=== PATIENT | male | born 1945 | race Caucasian/White ===

== ENCOUNTER 2017-03-19 14:11 | Emergency (ER) | payer MEDICARE, BC, OTHER ==
[~2017-03-19] VITALS: Ht 167.6 cm; Wt 110.4 kg
[~2017-03-19 14:11] MED LIST: /CARBXR20T; /CARBXR20T PO; /DULO30CA PO; /PANT40TA; /PANT40TA OR; /QUIN10TA; /TAMS4CA PO; ACET500C; ARIC10TA OR; ARIC5TAB; ASPI81TA21 PO; ASPI81TA83; ASPI81TA83 OR; CARB200T98 PO; COLA100C2; COLA100C2 OR; COLA100C5 PO; COZA25TA8; COZA25TA8 PO; COZA50TA18 OR; DOXY100C PO; DULO1CAP2 PO; FLAG500T OR; FLOM5CAP PO; INSUHUMDS SC; LASIX PO; LEVO75TA2 PO; LOPR50TA; LOSA50TA20 PO; METO25TA4 PO; METOPROLOL TARTRATE OR; NEUR300C; NEUR300C OR; PANT40TA2 PO; PERC5TAB8 OR; PLAV1TAB2 PO; PLAV75TA2; PLAV75TA2 OR; PLAV75TA2 PO; SENO8.6T5; SIMV20TA2 PO; TEGR200T OR; ZOCO20TA; ZOCO40TA PO; metamucil; namenda PO
[2017-03-19] MEDS ORDERED: SIMV40TA2 (14:36)
[2017-03-19] MEDS ORDERED: METO-346 (14:36)
[2017-03-19] MEDS ORDERED: METF500T13 (14:36)
[2017-03-19 16:17] LABS: ABG BASE EXCESS -0.5 (-2.0-2.0); ABG HCO3 23.9 MEQ/L (22.0-26.0); ABG PARTIAL PRESSURE CO2 38.4 mmHg (35.0-45.0); ABG PARTIAL PRESSURE O2 87.1 mmHg (75.0-100.0); ABG STANDARD HCO3 24.1 MEQ/L (22.0-26.0); ABG TOTAL CO2 25.1 MEQ/L (23.0-31.0); ABG pH (ARTERIAL) 7.412 UNITS (7.350-7.450)
[2017-03-19 16:25] LABS: BASO % 0.4 % (0.0-1.0); EOS # 0.2 K/mm3 (0.0-0.50); EOS % 2.5 % (0.0-3.0); LARGE UNSTAINED CELL # 0.2 K/mm3 (0.0-0.4); LARGE UNSTAINED CELL % 1.9 % (0.0-4.0); LYMPH # 2.6 K/mm3 (1.5-4.5); LYMPH % 26.3 % (24.0-44.0); MEAN CORPUSCULAR HEMOGLOBIN 31.8 pg (27.0-33.0); MEAN CORPUSCULAR HGB CONC 34.8 g/dl (32.0-36.5); MEAN CORPUSCULAR VOLUME 91.5 fl (80.0-96.0); MONO # 0.7 K/mm3 (0.0-0.8); MONO % 7.2 % (0.0-5.0); NEUTROPHILS # 5.7 K/mm3 (1.8-7.7); NEUTROPHILS % 61.7 % (36.0-66.0); PLATELET COUNT, AUTOMATED 268 k/mm3 (150-450); RED CELL DISTRIBUTION WIDTH 12.4 % (11.5-14.5); WHITE BLOOD COUNT 9.2 K/mm3 (4.0-10.0)
[2017-03-19 16:29] LABS: ANION GAP 6 MEQ/L (8-16); BLOOD UREA NITROGEN 13 MG/DL (7-18); CALCIUM LEVEL 8.8 MG/DL (8.8-10.2); CARBON DIOXIDE LEVEL 30 MEQ/L (21-32); CHLORIDE LEVEL 103 MEQ/L (98-107); CREATININE FOR GFR 0.93 MG/DL (0.70-1.30); GLOMERULAR FILTRATION RATE > 60.0 (>42); GLUCOSE, FASTING 133 MG/DL (83-110); SODIUM LEVEL 139 MEQ/L (136-145)
[2017-03-19 17:48] VITALS: BP 135/83
== END 2017-03-19 17:51 | disposition home or self-care (01) ==
LOC: M ED 16:05
DX: I69.351 Hemiplegia and hemiparesis following cerebral infarction affecting right dominant side (principal); F03.90 Unspecified dementia, unspecified severity, without behavioral disturbance, psychotic disturbance, mood disturbance, and anxiety; R63.0 Anorexia; J44.9 Chronic obstructive pulmonary disease, unspecified; J45.909 Unspecified asthma, uncomplicated; G47.30 Sleep apnea, unspecified; E78.5 Hyperlipidemia, unspecified; F17.290 Nicotine dependence, other tobacco product, uncomplicated; Z79.899 Other long term (current) drug therapy; Z79.4 Long term (current) use of insulin; Z79.02 Long term (current) use of antithrombotics/antiplatelets; Z79.84 Long term (current) use of oral hypoglycemic drugs

== ENCOUNTER → 2018-11-21 | Outpatient (CLI) | payer MEDICARE, BC, OTHER ==
[~2018-11-21] MED LIST changes: +FLOM0.4C39 PO; -FLOM5CAP PO; -LOSA50TA20 PO; +LOSA50TA88 PO; +METF500T13; +METO-346; -PANT40TA2 PO; +PANT40TA3 PO; +SIMV40TA2
--- NOTE | 2018-11-21 15:01 | REP ---
RIGHT KNEE, THREE VIEWS: HISTORY: Contusion. There is no acute fracture or dislocation. There is minimal narrowing of the knee joint space. Osteophytes are present on the tibia and patella. IMPRESSION: Degenerative change as described above. Electronically Signed by Jose G Randolph MD 11/21/2018 03:05 P
== END ==
LOC: M WUC 14:34
PROVIDERS: ATTEND Physician Assistant
DX: M17.11 Unilateral primary osteoarthritis, right knee (principal); M25.761 Osteophyte, right knee; S80.01XA Contusion of right knee, initial encounter; X58.XXXA Exposure to other specified factors, initial encounter; Y92.9 Unspecified place or not applicable

== ENCOUNTER 2019-09-22 16:41 | Inpatient (IN) | payer MEDICARE, BC, OTHER ==
[~2019-09-22] VITALS: Ht 167.6 cm; Wt 105.2 kg
[~2019-09-22 16:41] MED LIST changes: -/CARBXR20T; -/CARBXR20T PO; -/DULO30CA PO; -/PANT40TA; -/PANT40TA OR; -/QUIN10TA; -/TAMS4CA PO; +ACCU1TAB; +CYMB1CAP5 PO; -DULO1CAP2 PO; +DULO1CAP5 PO; +PROT1TAB2; +PROT1TAB2 OR; -SIMV20TA2 PO; +SIMV20TA22 PO; -SIMV40TA2; +SIMV40TA20 PO; +TEGR1TAB; +TEGR1TAB PO
[2019-09-22] MEDS ORDERED: NS 1,000 ML IV SCH (17:03)
[2019-09-22] MEDS ORDERED: ACETAMINOPHEN 325 MG TAB PO ONE (17:15)
--- NOTE | 2019-09-22 17:40 | REP ---
Clinical: Altered mental status . Comparison: 06/08/2016 . Findings: Stable cardiomegaly. Mediastinum is otherwise normal. The lung rg are clear without acute consolidation, effusion, or pneumothorax. Skeletal structures are intact. Impression: No acute cardiopulmonary process appreciated. Electronically Signed by Yariel More MD 09/22/2019 05:31 P
--- NOTE | 2019-09-22 17:59 | REPVR ---
PROCEDURE INFORMATION: Exam: CT Head Without Contrast Exam date and time: 09/22/2019 5:03 PM Age: 74 years old Clinical indication: Altered mental status/memory loss TECHNIQUE: Imaging protocol: Computed tomography of the head without contrast. Radiation optimization: All CT scans at this facility use at least one of these dose optimization techniques: automated exposure control; mA and/or kV adjustment per patient size (includes targeted exams where dose is matched to clinical indication); or iterative reconstruction. COMPARISON: CT Head without contrast 06/08/2016 9:36 PM FINDINGS: Brain: There is no acute intracranial hemorrhage, cerebral edema, or midline shift. Chronic encephalomalacia is noted in the posteromedial left temporal lobe. There are chronic lacunar infarcts noted within the bilateral thalamic nuclei. Chronic microvascular ischemic changes are seen in the periventricular white matter. Age-related cerebral and cerebellar volume loss is present. Ventricles: Mild ex vacuo dilation of the lateral ventricles is noted. Bones/joints: No acute fracture. Sinuses: There is mild mucosal thickening noted within the paranasal sinuses. Mastoid air cells: The mastoid air cells are clear. Orbits: The included orbital structures are unremarkable. Soft tissues: Unremarkable. Vasculature: Atherosclerotic calcifications are seen involving the cavernous carotid arteries. IMPRESSION: 1. No acute intracranial abnormality. 2. Chronic findings as discussed above. Electronically signed by: Rico Bowles On 09/22/2019 17:59:14 PM
[2019-09-22 18:13] LABS: VENOUS BASE EXCESS 2.6 (-2.0-2.0); VENOUS HCO3 28.2 MEQ/L (23.0-27.0); VENOUS O2 SATURATION 88.6 % (60.0-80.0); VENOUS PARTIAL PRESSURE CO2 47.5 mmHg (38.0-50.0); VENOUS PARTIAL PRESSURE O2 56.4 mmHg (30.0-50.0); VENOUS PH 7.392 UNITS (7.330-7.430); VENOUS STANDARD HCO3 26.5 MEQ/L; VENOUS TOTAL CO2 29.7 MEQ/L (24.0-28.0)
[2019-09-22 18:17] LABS: BASO % 0.3 % (0.0-1.0); EOS # 0.1 10^3/uL (0.0-0.5); EOS % 0.8 % (0.0-3.0); HEMATOCRIT 41.6 % (42.0-52.0); HEMOGLOBIN 13.7 g/dl (13.5-17.5); LYMPH # 1.3 10^3/uL (1.5-5.0); LYMPH % 8.8 % (24.0-44.0); MEAN CORPUSCULAR HEMOGLOBIN 30.1 pg (27.0-33.0); MEAN CORPUSCULAR HGB CONC 32.9 g/dl (32.0-36.5); MEAN CORPUSCULAR VOLUME 91.4 fl (80.0-96.0); MONO # 1.7 10^3/uL (0.0-0.8); MONO % 11.3 % (0.0-5.0); NEUTROPHILS # 11.8 10^3/uL (1.5-8.5); NEUTROPHILS % 77.7 % (36.0-66.0); PLATELET COUNT, AUTOMATED 256 10^3/uL (150-450); RED BLOOD COUNT 4.55 10^6/uL (4.30-6.10); WHITE BLOOD COUNT 15.2 10^3/uL (4.0-10.0)
[2019-09-22] MEDS ORDERED: LIDOCAINE 2% 5ML JELLY UROJET TOP ONE (18:30)
[2019-09-22 19:32] LABS: ACETAMINOPHEN LEVEL < 2.0 UG/ML (10.0-30.0); ALBUMIN 3.6 GM/DL (3.2-5.2); ALT/SGPT 24 U/L (12-78); BILIRUBIN,DIRECT < 0.1 MG/DL (0.0-0.2); BILIRUBIN,TOTAL 0.6 MG/DL (0.2-1.0); BLOOD UREA NITROGEN 14 MG/DL (7-18); CARBON DIOXIDE LEVEL 27 MEQ/L (21-32); CHLORIDE LEVEL 100 MEQ/L (98-107); CK-MB VALUE MASS < 1.0 NG/ML (<3.6); CPK CREATINE PHOSPHOKINASE 118 U/L (39-308); CREATININE FOR GFR 0.93 MG/DL (0.70-1.30); ETHYL ALCOHOL (ETHANOL) < 0.003 % (0.000-0.010); GLOMERULAR FILTRATION RATE > 60.0 (>42); GLUCOSE, FASTING 148 MG/DL (70-100); MB/CK RELATIVE INDEX 0.85 (< OR =4); POTASSIUM SERUM 4.9 MEQ/L (3.5-5.1); SALICYLATE LEVEL < 1.7 MG/DL (5.0-30.0); SODIUM LEVEL 136 MEQ/L (136-145); TOTAL PROTEIN 7.5 GM/DL (6.4-8.2); TROPONIN I < 0.02 NG/ML (< 0.10)
--- NOTE | 2019-09-22 20:08 | ECGEPIP ---
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
[2019-09-22 20:10] LABS: AMPHETAMINES LEVEL URINE NEGATIVE (NEGATIVE); BARBITURATES URINE NEGATIVE (NEGATIVE); BENZODIAZEPINES URINE NEGATIVE (NEGATIVE); CANNABINOIDS URINE NEGATIVE (NEGATIVE); COCAINE METABOLITE URINE NEGATIVE (NEGATIVE); METHADONE URINE NEGATIVE (NEGATIVE); OPIATES URINE NEGATIVE (NEGATIVE); PHENCYCLIDINE URINE NEGATIVE (NEGATIVE)
[2019-09-22] MEDS ORDERED: GLUCAGON FOR INJ 1 MG VIAL (J1610) SC PRN (20:15)
[2019-09-22] MEDS ORDERED: DEXTROSE 50% 50 ML SYRINGE IV PRN (20:15)
[2019-09-22] MEDS ORDERED: GLUCOSE 4 GM CHEW TABLET PO PRN (20:15)
[2019-09-22] MEDS ORDERED: JANU100T PO (20:29)
--- NOTE | 2019-09-22 20:32 | HPEPDOC ---
General Date of Admission 09/22/19 Date of Service: Sep 22, 2019 Chief Complaint The patient is a 74-year-old male admitted with a reason for visit of Fall/Weakness. Source: Patient, Family Exam Limitations: Mild cognitive slowing Timing/Duration: Day(s) Severity: Moderate Associated Symptoms: Cough, Shortness of breath History of Present Illness Patient is 74 years old male with past medical history of cerebrovascular accident with right-sided weakness, diabetes mellitus, hypertension, hyperlipidemia presented to the emergency room (ER) for evaluation of fever, cough and confusion since this morning. According to the family patient developed progressive weakness for past couple of days, today in the morning he developed mechanical fall in the bathroom. Also patient has been having increased cough and congested chest for a few days. His has a symptoms of upper respiratory infection as well. In emergency room patient was found to have leukocytosis of 15, fever of 101, CT head was negative for acute bleed, chest x- ray didn't show any acute lung infiltrate. UA was negative for pyuria Home Medications Scheduled Carbamazepine (Carbamazepine ER) 200 Mg Alex, 200 MG PO BID, (Reported) Clopidogrel Bisulfate (Plavix) 75 Mg Tab, 75 MG PO DAILY, (Reported) Docusate Sodium (Colace) 100 Mg Cap, 100 MG PO DAILY, (Reported) Duloxetine Hcl (Duloxetine HCl) 30 Mg Cap, 30 MG PO BID, (Reported) Losartan Potassium (Losartan Potassium) 50 Mg Tab, 50 MG PO DAILY, (Reported) Metformin HCl (Metformin HCl) 500 Mg Tab, 500 MG DAILY, (Reported) Metoprolol Tartrate (Metoprolol Tartrate) 25 Mg Tab, 25 MG PO BID, (Reported) Pantoprazole Sodium (Pantoprazole Sodium) 40 Mg Tab, 40 MG PO DAILY, (Reported) Simvastatin (Simvastatin) 40 Mg Tab, 40 MG PO QHS, (Reported) Sitagliptin Phosphate (Januvia) 100 Mg Tablet, 100 MG PO QPM, (Reported) Tamsulosin HCl (Flomax) 0.4 Mg Cap, 0.4 MG PO QHS, (Reported) Allergies Coded Allergies: No Known Allergies (Verified , 09/22/19) Past Medical History Medical History 1. Cerebrovascular accident with right-sided weakness. 2. Hypertension. 3. Dyslipidemia. 4. Acid reflux. 5. BPH. 6. Brain aneurysm. Family History Reviewed and both parents a long time ago. No history of myocardial infarction (MD) or stroke in the family. Social History * Smoker: Denies Alcohol: Denies Drugs: denies A-FIB/CHADSVASC A-FIB History Current/History of A-Fib/PAF?: No Current PO Anticoag Therapy: No Review of Systems Constitutional: Reports: Fever, Malaise, Weakness Eyes: Denies: Pain, Vision change ENT: Denies: Head Aches Skin: Denies: Rash, Lesions Pulmonary: Reports: Cough Cardiovascular: Denies: Chest Pain, Palpitations Gastrointestinal: Denies: Nausea, Vomiting Genitourinary: Denies: Dysuria Hematologic: Denies: Bruising, Bleeding Excessively Endocrine: Denies: Polydipsia, Polyphagia Musculoskeletal: Denies: Neck Pain, Back Pain Neurological: Denies: Weakness, Numbness Psych: Reports: Mood Normal Physical Examination General Exam: Positive: Alert, Cooperative, No Acute Distress Eye Exam: Positive: PERRLA ENT Exam: Positive: Atraumatic, Mucous membr. moist/pink Neck Exam: Positive: Supple; Negative: JVD Chest Exam: Positive: Rhonchi, Wheezing, Diminished Heart Exam: Positive: Rate Normal Telemetry: Positive: No significant arrhythmia, Sinus Abdomen Exam: Positive: Normal bowel sounds Extremity Exam: Negative: Clubbing Skin Exam: Positive: Nl turgor and temperature Neuro Exam: Positive: Sensation Intact, Reflexes 2+; Negative: Strength at 5/5 X4 ext (right upper extremity is 3 out of 5, right lower extremity is 3 out of 5 in strength) Psych Exam: Positive: Mental status NL (moderate cognitive slowing) Vital Signs Vital Signs Date Time Temp Pulse Resp B/P (MAP) Pulse Ox O2 Delivery O2 Flow Rate FiO2 09/22/19 19:36 101.0 09/22/19 18:45 73 95 Nasal Cannula 2.5 09/22/19 18:31 159/67 (97) 09/22/19 18:15 19 Laboratory Data Labs 24H Laboratory Tests 2 09/22/19 17:42: Immature Granulocyte % (Auto) 1.1, Neutrophils (%) (Auto) 77.7H, Lymphocytes (%) (Auto) 8.8L, Monocytes (%) (Auto) 11.3H, Eosinophils (%) (Auto) 0.8, Basophils (%) (Auto) 0.3, Neutrophils # (Auto) 11.8H, Lymphocytes # (Auto) 1.3L, Monocytes # (Auto) 1.7H, Eosinophils # (Auto) 0.1, Basophils # (Auto) 0.0, Nucleated Red Blood Cells % (auto) 0.0, Blood Gas Bicarbonate Standard 26.5, Venous Blood pH 7.392, Venous Blood Partial Pressure CO2 47.5, Venous Blood Partial Pressure O2 56.4H, Venous Blood Total Carbon Dioxide 29.7H, Venous Blood HCO3 28.2H, Venous Blood Oxygen Saturation 88.6H, Venous Blood Base Excess 2.6H, Anion Gap 9, Glomerular Filtration Rate > 60.0, Lactic Acid Level 1.7, Calcium Level 9.0, Total Bilirubin 0.6, Direct Bilirubin < 0.1, Aspartate Amino Transf (AST/SGOT) 31, Alanine Aminotransferase (ALT/SGPT) 24, Alkaline Phosphatase 80, Ammonia 29, Total Creatine Kinase 118, Creatine Kinase MB < 1.0, Creatine Kinase MB Relative Index 0.85, Troponin I < 0.02, Total Protein 7.5, Albumin 3.6, Albumin/Globulin Ratio 0.92L, Thyroid Stimulating Hormone (TSH) 1.090, Salicylates Level < 1.7L, Acetaminophen Level < 2.0L, Ethyl Alcohol Level < 0.003 09/22/19 19:01: Urine Color YELLOW, Urine Appearance CLEAR, Urine pH 5.0, Urine Specific [place] 1.026, Urine Protein 1+H, Urine Glucose (UA) NEGATIVE, Urine Ketones TRACEH, Urine Blood 2+H, Urine Nitrite NEGATIVE, Urine Bilirubin NEGATIVE, Urine Urobilinogen 0.2, Urine Leukocyte Esterase NEGATIVE, Urine WBC (Auto) 4H, Urine RBC (Auto) 19H, Urine Hyaline Casts (Auto) 0, Urine Bacteria (Auto) NEGATIVE, Urine Squamous Epithelial Cells 1, Urine Mucus (Auto) SMALL, Urine Sperm (Auto) , Urine Opiates Screen NEGATIVE, Urine Methadone Screen NEGATIVE, Urine Barbiturates Screen NEGATIVE, Urine Phencyclidine Screen NEGATIVE, Urine Amphetamines Screen NEGATIVE, Urine Benzodiazepines Screen NEGATIVE, Urine Cocaine Metabolite Screen NEGATIVE, Urine Cannabinoids Screen NEGATIVE CBC/BMP Laboratory Tests 09/22/19 17:42 Microbiology Microbiology 09/22/19 Blood Culture, Received Pending 09/22/19 Blood Culture, Received Pending Assessment/Plan Patient is 74 years old male with past medical history of cerebrovascular accident with right-sided weakness, diabetes mellitus, hypertension, hyperlipidemia presented to the emergency room (ER) for evaluation of fever, cough and confusion since this morning. According to the family patient developed progressive weakness for past couple of days, today in the morning he developed mechanical fall in the bathroom. Also patient has been having increase cough and congested chest for a few days. His has a symptoms of upper respiratory infection. In emergency room patient was found to have leukocytosis of 15, fever of 101. Patient was diagnosed with metabolic encephalopathy and community-acquired pneumonia. Problems (1) Sepsis Status: Acute Problem Text: Most likely secondary to community acquired pneumonia Patient febrile of 101 and has leukocytosis of 15 Start antibiotic therapy IV fluid Blood culture, sputum culture (2) CAP (community acquired pneumonia) Status: Acute Problem Text: Most likely secondary to viral infection with bacterial co-i nfection. There is possibility for aspiration/aspiration pneumonitis given previous history of stroke Respiratory panel Blood culture Ceftriaxone IV, azithromycin IV DuoNeb [id number] Aspiration precaution Speech evaluation (3) Altered mental status Status: Acute Problem Text: Secondary to community-acquired pneumonia and sepsis Improved, when I saw the patient he was alert and awake (4) Diabetes Status: Chronic Problem Text: Insulin sliding scale, Diabetes diet Plan / VTE VTE Prophylaxis Ordered?: Yes ROMEO JARQUIN DO Sep 22, 2019 20:32
[2019-09-22] MEDS: NS 1,000 ML IV SCH (20:39)
[2019-09-22] MEDS: HumaLOG INSULIN (NovoLOG) PER UNIT SC SCH (21:00)
[2019-09-22] MEDS: cefTRIAXone SOD 1 GM in D5W MINI-BAG PLUS 50 ML IV SCH (22:09)
[2019-09-22 22:46] VITALS: BP 162/75
[2019-09-22] MEDS: DULoxetine 30 MG CAP (CYMBALTA) PO SCH (23:26)
[2019-09-22] MEDS: TAMSULOSIN 0.4 MG CAP PO SCH (23:27)
[2019-09-22] MEDS: SIMVASTATIN 40 MG TAB PO SCH (23:27)
[2019-09-22] MEDS: carBAMazepine XR 200 MG TAB PO SCH (23:27)
[2019-09-22] MEDS: METOPROLOL TART 25 MG TABLET PO SCH (23:27)
[2019-09-22] MEDS: ACETAMINOPHEN TAB 650MG DOSE (2X325MG) PO PRN (23:28)
[2019-09-23] MEDS: AZITHROMYCIN INJ 500 MG, VIAL MATE ADAPTER 1 EACH in D5W 250 ML IV SCH ×2 (00:03→22:21)
[2019-09-23] MEDS: IPRATROPIUM 0.5MG/ALBUTEROL 2.5MG INH SOL UD 3ML (DUONEB)(J7620) INH SCH ×6 (01:02→19:59)
[2019-09-23] MEDS: NS 1,000 ML IV SCH ×3 (03:49→20:26)
[2019-09-23 06:00] VITALS: BP 121/78
[2019-09-23 07:02] LABS: HEMATOCRIT 39.6 % (42.0-52.0); HEMOGLOBIN 12.5 g/dl (13.5-17.5); MEAN CORPUSCULAR HEMOGLOBIN 29.3 pg (27.0-33.0); MEAN CORPUSCULAR HGB CONC 31.6 g/dl (32.0-36.5); PLATELET COUNT, AUTOMATED 211 10^3/uL (150-450); RED BLOOD COUNT 4.26 10^6/uL (4.30-6.10); WHITE BLOOD COUNT 10.5 10^3/uL (4.0-10.0)
[2019-09-23 07:18] LABS: INFLUENZA A AMPLIFICATION NEGATIVE (NEGATIVE); INFLUENZA B AMPLIFICATION NEGATIVE (NEGATIVE)
[2019-09-23 07:21] LABS: BLOOD UREA NITROGEN 14 MG/DL (7-18); CALCIUM LEVEL 8.7 MG/DL (8.8-10.2); CARBON DIOXIDE LEVEL 26 MEQ/L (21-32); CHLORIDE LEVEL 104 MEQ/L (98-107); CREATININE FOR GFR 0.82 MG/DL (0.70-1.30); GLOMERULAR FILTRATION RATE > 60.0 (>42); GLUCOSE, FASTING 137 MG/DL (70-100); MAGNESIUM LEVEL 2.1 MG/DL (1.8-2.4); POTASSIUM SERUM 3.7 MEQ/L (3.5-5.1); SODIUM LEVEL 139 MEQ/L (136-145)
[2019-09-23] MEDS: METOPROLOL TART 25 MG TABLET PO SCH ×2 (08:37→21:04)
[2019-09-23] MEDS: LOSARTAN 50 MG TAB PO SCH (08:37)
[2019-09-23] MEDS: PANTOPRAZOLE 40MG TAB (PROTONIX) PO SCH (08:37)
[2019-09-23] MEDS: HumaLOG INSULIN (NovoLOG) PER UNIT SC SCH ×4 (08:37→21:00)
[2019-09-23] MEDS: HEPARIN SOD (PORCINE) 5000 UNITS/ML VIAL SC SCH ×2 (08:37→21:00)
[2019-09-23] MEDS: DOCUSATE SODIUM 100 MG CAP PO SCH (08:38)
[2019-09-23] MEDS: CLOPIDOGREL 75 MG TAB PO SCH (08:38)
[2019-09-23] MEDS: DULoxetine 30 MG CAP (CYMBALTA) PO SCH ×2 (08:38→20:59)
[2019-09-23] MEDS: carBAMazepine XR 200 MG TAB PO SCH ×2 (08:38→20:59)
[2019-09-23] MEDS ORDERED: CEFP200T PO (11:02)
[2019-09-23] MEDS ORDERED: ZITHTAB2 PO (11:02)
--- NOTE | 2019-09-23 12:10 | DS.PDOC ---
Discharge Summary General Date of Admission Sep 22, 2019 at 20:10 Date of Discharge 09/23/19 Discharge Summary PROCEDURES PERFORMED DURING STAY: None. ADMITTING DIAGNOSES: 1. CAP. DISCHARGE DIAGNOSES: 1. Acute bronchitis. COMPLICATIONS/CHIEF COMPLAINT: Community Aquired Pneumonia. HISTORY OF PRESENT ILLNESS: Patient is 74 years old male with past medical history of cerebrovascular accident with right-sided weakness, diabetes mellitus, hypertension, hyperlipidemia presented to the emergency room (ER) for evaluation of fever, cough and confusion since this morning. According to the family patient developed progressive weakness for past couple of days, today in the morning he developed mechanical fall in the bathroom. Also patient has been having increased cough and congested chest for a few days. His has a symptoms of upper respiratory infection as well. In emergency room patient was found to have leukocytosis of 15, fever of 101, CT head was negative for acute bleed, chest x-ray didn't show any acute lung infiltrate. UA was negative for pyuria. HOSPITAL COURSE: Patient was admitted with questionable community-acquired pneumonia. Patient's chest x-ray was essentially within normal limits. He remained afebrile and his WBC count is 8.7, asymptomatic. No evidence of pneumonia on clinical exam, most likely acute bronchitis and he will be discharged home on by mouth Zithromax and cephalosporins. Patient has been advised to follow with his PCP in one week return to ER if symptoms get worse or do not resolve in 24-48 hours. DISCHARGE MEDICATIONS: Please see below. ALLERGIES: Please see below. PHYSICAL EXAMINATION ON DISCHARGE: VITAL SIGNS: Please see below. GENERAL: Normal HEENT: PERRLA. Extraocular muscles intact NECK: Supple, no JVD, no lymphadenopathy CARDIOVASCULAR EXAMINATION: S1, S2, regular RESPIRATORY EXAMINATION: Clear to A&P. No rales, rhonchi, wheezing ABDOMINAL EXAMINATION: Benign EXTREMITIES: no Clubbing, cyanosis, edema SKIN: The normal limit NEUROLOGICAL EXAMINATION: no Focal motor motor sensory deficit PSYCHIATRIC EXAMINATION: Normal LABORATORY DATA: Please see below. IMAGING: Chest x-ray negative PROGNOSIS: Good ACTIVITY: As tolerated. DIET: As tolerated DISCHARGE PLAN: Follow with PCP in one week DISPOSITION: . Home DISCHARGE INSTRUCTIONS: 1. As per discharge instructions. ITEMS TO FOLLOWUP ON ON OUTPATIENT: 1. Follow with PCP in one week. DISCHARGE CONDITION: Stable. TIME SPENT ON DISCHARGE: 35 minutes. Vital Signs/I&Os Vital Signs Date Time Temp Pulse Resp B/P (MAP) Pulse Ox O2 Delivery O2 Flow Rate FiO2 09/23/19 06:00 98.6 73 20 121/78 (92) 92 09/22/19 22:46 Room Air 09/22/19 18:45 2.5 I&O- Last 24 Hours up to 6 AM 09/23/19 06:00 Intake Total 1875 ml Output Total 275 ml Balance 1600 ml Laboratory Data Labs 24H Laboratory Tests 2 09/22/19 17:42: Immature Granulocyte % (Auto) 1.1, Neutrophils (%) (Auto) 77.7H, Lymphocytes (%) (Auto) 8.8L, Monocytes (%) (Auto) 11.3H, Eosinophils (%) (Auto) 0.8, Basophils (%) (Auto) 0.3, Neutrophils # (Auto) 11.8H, Lymphocytes # (Auto) 1.3L, Monocytes # (Auto) 1.7H, Eosinophils # (Auto) 0.1, Basophils # (Auto) 0.0, Nucleated Red Blood Cells % (auto) 0.0, Blood Gas Bicarbonate Standard 26.5, Venous Blood pH 7.392, Venous Blood Partial Pressure CO2 47.5, Venous Blood Partial Pressure O2 56.4H, Venous Blood Total Carbon Dioxide 29.7H, Venous Blood HCO3 28.2H, Venous Blood Oxygen Saturation 88.6H, Venous Blood Base Excess 2.6H, Anion Gap 9, Glomerular Filtration Rate > 60.0, Lactic Acid Level 1.7, Calcium Level 9.0, Total Bilirubin 0.6, Direct Bilirubin < 0.1, Aspartate Amino Transf (AST/SGOT) 31, Alanine Aminotransferase (ALT/SGPT) 24, Alkaline Phosphatase 80, Ammonia 29, Total Creatine Kinase 118, Creatine Kinase MB < 1.0, Creatine Kinase MB Relative Index 0.85, Troponin I < 0.02, Total Protein 7.5, Albumin 3.6, Albumin/Globulin Ratio 0.92L, Thyroid Stimulating Hormone (TSH) 1.090, Salicylates Level < 1.7L, Acetaminophen Level < 2.0L, Ethyl Alcohol Level < 0.003 09/22/19 19:01: Urine Color YELLOW, Urine Appearance CLEAR, Urine pH 5.0, Urine Specific [place] 1.026, Urine Protein 1+H, Urine Glucose (UA) NEGATIVE, Urine Ketones TRACEH, Urine Blood 2+H, Urine Nitrite NEGATIVE, Urine Bilirubin NEGATIVE, Urine Urobilinogen 0.2, Urine Leukocyte Esterase NEGATIVE, Urine WBC (Auto) 4H, Urine RBC (Auto) 19H, Urine Hyaline Casts (Auto) 0, Urine Bacteria (Auto) NEGATIVE, Urine Squamous Epithelial Cells 1, Urine Mucus (Auto) SMALL, Urine Sperm (Auto) , Urine Opiates Screen NEGATIVE, Urine Methadone Screen NEGATIVE, Urine Barbiturates Screen NEGATIVE, Urine Phencyclidine Screen NEGATIVE, Urine Amphetamines Screen NEGATIVE, Urine Benzodiazepines Screen NEGATIVE, Urine Cocaine Metabolite Screen NEGATIVE, Urine Cannabinoids Screen NEGATIVE 09/22/19 21:56: Bedside Glucose (Misc Panel) 145H 09/22/19 22:59: Bedside Glucose (Misc Panel) 159H 09/23/19 06:25: Nucleated Red Blood Cells % (auto) 0.0, Anion Gap 9, Glomerular Filtration Rate > 60.0, Calcium Level 8.7L, Magnesium Level 2.1 09/23/19 06:39: Influenza Type A (RT-PCR) NEGATIVE, Influenza Type B (RT-PCR) NEGATIVE 09/23/19 11:40: Bedside Glucose (Misc Panel) 176H CBC/BMP Laboratory Tests 09/22/19 17:42 09/23/19 06:25 FSBS Laboratory Tests Test 09/22/19 21:56 09/22/19 22:59 09/23/19 11:40 Range/Units Bedside Glucose (Misc Panel) 145 159 176 83-110 MG/DL Microbiology Microbiology 09/22/19 Blood Culture, Received Pending 09/22/19 Blood Culture, Received Pending Discharge Medications Scheduled Azithromycin (Zithromax Tri-Kobe) 500 Mg Tablet, 1 TAB PO DAILY Carbamazepine (Carbamazepine ER) 200 Mg Alex, 200 MG PO BID, (Reported) Cefpodoxime Proxetil (Cefpodoxime Proxetil) 200 Mg Tablet, 1 TAB PO BID Clopidogrel Bisulfate (Plavix) 75 Mg Tab, 75 MG PO DAILY, (Reported) Docusate Sodium (Colace) 100 Mg Cap, 100 MG PO DAILY, (Reported) Duloxetine Hcl (Duloxetine HCl) 30 Mg Cap, 30 MG PO BID, (Reported) Losartan Potassium (Losartan Potassium) 50 Mg Tab, 50 MG PO DAILY, (Reported) Metformin HCl (Metformin HCl) 500 Mg Tab, 500 MG DAILY, (Reported) Metoprolol Tartrate (Metoprolol Tartrate) 25 Mg Tab, 25 MG PO BID, (Reported) Pantoprazole Sodium (Pantoprazole Sodium) 40 Mg Tab, 40 MG PO DAILY, (Reported) Simvastatin (Simvastatin) 40 Mg Tab, 40 MG PO QHS, (Reported) Sitagliptin Phosphate (Januvia) 100 Mg Tablet, 100 MG PO QPM, (Reported) Tamsulosin HCl (Flomax) 0.4 Mg Cap, 0.4 MG PO QHS, (Reported) Allergies Coded Allergies: No Known Allergies (Verified , 09/22/19) AMY AVILA MD Sep 23, 2019 12:10
--- NOTE | 2019-09-23 13:19 | IPNPDOC ---
Subjective Date Seen The patient was seen on 09/23/19. Subjective Chief Complaint/HPI Patient offers no new complaints. No cough or shortness of breath. Wishes to go home General: Denies: ROS Unobtainable, Chills, Night Sweats, Fatigue, Malaise, Normal Appetite, Other Symptoms Constitutional: Denies: Chills, Fever, Malaise, Night Sweats, Weakness, Fatigue, Weight Loss, Lethargy, Other Eyes: Denies: Pain, Vision change, Conjunctivae inflammation, Eyelid inflamm ation, Redness, Other ENT: Denies: Head Aches, Ear Pain, Dysphagia, Sinus Congestion, Post Nasal Drip, Sore Throat, Epistaxis, Other Symptoms Pulmonary: Denies: Dyspnea, Cough, Pleuritic Chest Pain, Other Symptoms Cardiovascular: Denies: Chest Pain, Palpitations, Orthopnea, Paroxysmal Noc. Dyspnea, Edema, Lt Headedness, Other Symptoms Gastrointestinal: Denies: Nausea, Vomiting, Abdominal Pain, Diarrhea, Const ipation, Melena, Hematochezia, Other Symptoms Musculoskeletal: Denies: Neck Pain, Back Pain, Shoulder Pain, Arm Pain, Hand Pain, Leg Pain, Foot Pain, Joint Pain, Muscle Pain, Spasms, Other Symptoms Neurological: Denies: Weakness, Numbness, Incoordination, Change in speech, Confusion, Seizures, Other Symptoms Objective Physical Examination General Exam: Positive: Alert, Cooperative, No Acute Distress Eye Exam: Positive: PERRLA ENT Exam: Positive: Atraumatic, Mucous membr. moist/pink Neck Exam: Positive: Supple; Negative: JVD Chest Exam: Positive: Rhonchi, Wheezing, Diminished Heart Exam: Positive: Rate Normal Telemetry: Positive: No significant arrhythmia, Sinus Abdomen Exam: Positive: Normal bowel sounds Extremity Exam: Negative: Clubbing Skin Exam: Positive: Nl turgor and temperature Neuro Exam: Positive: Sensation Intact, Reflexes 2+; Negative: Strength at 5/5 X4 ext (right upper extremity is 3 out of 5, right lower extremity is 3 out of 5 in strength) Psych Exam: Positive: Mental status NL (moderate cognitive slowing) Assessment /Plan Problems (1) CAP (community acquired pneumonia) Status: Acute Problem Text: Most likely secondary to viral infection with bacterial co- infection. There is possibility for aspiration/aspiration pneumonitis given previous history of stroke Respiratory panel Blood culture Ceftriaxone IV, azithromycin IV DuoNeb [id number] Aspiration precaution Speech evaluation A.m. labs (2) Altered mental status Status: Resolved Problem Text: Secondary to community-acquired pneumonia and sepsis Resolved. Patient alert, oriented 3, in no distress (3) Sepsis Status: Acute Problem Text: Most likely secondary to community acquired pneumonia Patient febrile of 101 and has leukocytosis of 15 Start antibiotic therapy IV fluid Blood culture, sputum culture (4) Diabetes Status: Chronic Problem Text: Insulin sliding scale, Diabetic diet Plan/VTE VTE Prophylaxis Ordered?: Yes VS, I&O, 24H, Fishbone Vital Signs/I&O Vital Signs Date Time Temp Pulse Resp B/P (MAP) Pulse Ox O2 Delivery O2 Flow Rate FiO2 09/23/19 06:00 98.6 73 20 121/78 (92) 92 09/22/19 22:46 Room Air 09/22/19 18:45 2.5 I&O- Last 24 Hours up to 6 AM 09/23/19 06:00 Intake Total 1875 ml Output Total 275 ml Balance 1600 ml Laboratory Data 24H LABS Laboratory Tests 2 09/22/19 17:42: Immature Granulocyte % (Auto) 1.1, Neutrophils (%) (Auto) 77.7H, Lymphocytes (%) (Auto) 8.8L, Monocytes (%) (Auto) 11.3H, Eosinophils (%) (Auto) 0.8, Basophils (%) (Auto) 0.3, Neutrophils # (Auto) 11.8H, Lymphocytes # (Auto) 1.3L, Monocytes # (Auto) 1.7H, Eosinophils # (Auto) 0.1, Basophils # (Auto) 0.0, Nucleated Red Blood Cells % (auto) 0.0, Blood Gas Bicarbonate Standard 26.5, Venous Blood pH 7.392, Venous Blood Partial Pressure CO2 47.5, Venous Blood Partial Pressure O2 56.4H, Venous Blood Total Carbon Dioxide 29.7H, Venous Blood HCO3 28.2H, Venous Blood Oxygen Saturation 88.6H, Venous Blood Base Excess 2.6H, Anion Gap 9, Glomerular Filtration Rate > 60.0, Lactic Acid Level 1.7, Calcium Level 9.0, Total Bilirubin 0.6, Direct Bilirubin < 0.1, Aspartate Amino Transf (AST/SGOT) 31, Alanine Aminotransferase (ALT/SGPT) 24, Alkaline Phosphatase 80, Ammonia 29, Total Creatine Kinase 118, Creatine Kinase MB < 1.0, Creatine Kinase MB Relative Index 0.85, Troponin I < 0.02, Total Protein 7.5, Albumin 3.6, Albumin/Globulin Ratio 0.92L, Thyroid Stimulating Hormone (TSH) 1.090, Salicylates Level < 1.7L, Acetaminophen Level < 2.0L, Ethyl Alcohol Level < 0.003 09/22/19 19:01: Urine Color YELLOW, Urine Appearance CLEAR, Urine pH 5.0, Urine Specific [place] 1.026, Urine Protein 1+H, Urine Glucose (UA) NEGATIVE, Urine Ketones TRACEH, Urine Blood 2+H, Urine Nitrite NEGATIVE, Urine Bilirubin NEGATIVE, Urine Urobilinogen 0.2, Urine Leukocyte Esterase NEGATIVE, Urine WBC (Auto) 4H, Urine RBC (Auto) 19H, Urine Hyaline Casts (Auto) 0, Urine Bacteria (Auto) NEGATIVE, Urine Squamous Epithelial Cells 1, Urine Mucus (Auto) SMALL, Urine Sperm (Auto) , Urine Opiates Screen NEGATIVE, Urine Methadone Screen NEGATIVE, Urine Barbiturates Screen NEGATIVE, Urine Phencyclidine Screen NEGATIVE, Urine Amp hetamines Screen NEGATIVE, Urine Benzodiazepines Screen NEGATIVE, Urine Cocaine Metabolite Screen NEGATIVE, Urine Cannabinoids Screen NEGATIVE 09/22/19 21:56: Bedside Glucose (Misc Panel) 145H 09/22/19 22:59: Bedside Glucose (Misc Panel) 159H 09/23/19 06:25: Nucleated Red Blood Cells % (auto) 0.0, Anion Gap 9, Glomerular Filtration Rate > 60.0, Calcium Level 8.7L, Magnesium Level 2.1 09/23/19 06:39: Influenza Type A (RT-PCR) NEGATIVE, Influenza Type B (RT-PCR) NEGATIVE 09/23/19 11:40: Bedside Glucose (Misc Panel) 176H CBC/BMP Laboratory Tests 09/22/19 17:42 09/23/19 06:25 Microbiology Microbiology 09/22/19 Blood Culture, Received Pending 09/22/19 Blood Culture, Received Pending AMY AVILA MD Sep 23, 2019 13:19
[2019-09-23 14:00] VITALS: BP 122/74
[2019-09-23] MEDS ORDERED: POLYVINYL ALCOHOL OPHTH SOLN 15 ML(LIQUITEARS) OU PRN (19:00)
[2019-09-23] MEDS: TAMSULOSIN 0.4 MG CAP PO SCH (20:59)
[2019-09-23] MEDS: cefTRIAXone SOD 1 GM in D5W MINI-BAG PLUS 50 ML IV SCH (21:00)
[2019-09-23] MEDS: SIMVASTATIN 40 MG TAB PO SCH (21:00)
[2019-09-23 22:00] VITALS: BP 157/77
[2019-09-24] MEDS: IPRATROPIUM 0.5MG/ALBUTEROL 2.5MG INH SOL UD 3ML (DUONEB)(J7620) INH SCH ×6 (00:34→20:00)
[2019-09-24 06:00] VITALS: BP 157/79
[2019-09-24] MEDS: NS 1,000 ML IV SCH (06:02)
[2019-09-24] MEDS: IBUPROFEN 400 MG TAB PO PRN (06:02)
[2019-09-24 06:39] LABS: BASO % 0.3 % (0.0-1.0); EOS # 0.2 10^3/uL (0.0-0.5); EOS % 2.2 % (0.0-3.0); HEMATOCRIT 34.3 % (42.0-52.0); HEMOGLOBIN 11.3 g/dl (13.5-17.5); LYMPH # 1.7 10^3/uL (1.5-5.0); LYMPH % 18.5 % (24.0-44.0); MEAN CORPUSCULAR HEMOGLOBIN 30.1 pg (27.0-33.0); MEAN CORPUSCULAR HGB CONC 32.9 g/dl (32.0-36.5); MEAN CORPUSCULAR VOLUME 91.2 fl (80.0-96.0); MONO # 1.6 10^3/uL (0.0-0.8); MONO % 17.3 % (0.0-5.0); NEUTROPHILS # 5.7 10^3/uL (1.5-8.5); NEUTROPHILS % 60.4 % (36.0-66.0); PLATELET COUNT, AUTOMATED 200 10^3/uL (150-450); RED BLOOD COUNT 3.76 10^6/uL (4.30-6.10); WHITE BLOOD COUNT 9.4 10^3/uL (4.0-10.0)
[2019-09-24 07:05] LABS: BLOOD UREA NITROGEN 9 MG/DL (7-18); CALCIUM LEVEL 8.4 MG/DL (8.8-10.2); CARBON DIOXIDE LEVEL 27 MEQ/L (21-32); CHLORIDE LEVEL 104 MEQ/L (98-107); CREATININE FOR GFR 0.75 MG/DL (0.70-1.30); GLOMERULAR FILTRATION RATE > 60.0 (>42); GLUCOSE, FASTING 156 MG/DL (70-100); POTASSIUM SERUM 3.8 MEQ/L (3.5-5.1); SODIUM LEVEL 138 MEQ/L (136-145)
[2019-09-24] MEDS: HEPARIN SOD (PORCINE) 5000 UNITS/ML VIAL SC SCH ×2 (07:53→21:41)
[2019-09-24] MEDS: PANTOPRAZOLE 40MG TAB (PROTONIX) PO SCH (07:53)
[2019-09-24] MEDS: CLOPIDOGREL 75 MG TAB PO SCH (07:53)
[2019-09-24] MEDS: HumaLOG INSULIN (NovoLOG) PER UNIT SC SCH ×4 (07:53→21:00)
[2019-09-24] MEDS: DOCUSATE SODIUM 100 MG CAP PO SCH (07:54)
[2019-09-24] MEDS: METOPROLOL TART 25 MG TABLET PO SCH ×2 (07:55→21:46)
[2019-09-24] MEDS: LOSARTAN 50 MG TAB PO SCH (07:55)
[2019-09-24] MEDS: carBAMazepine XR 200 MG TAB PO SCH ×2 (07:55→21:43)
[2019-09-24] MEDS: DULoxetine 30 MG CAP (CYMBALTA) PO SCH ×2 (07:56→21:41)
--- NOTE | 2019-09-24 10:01 | IPNPDOC ---
Subjective Date Seen The patient was seen on 09/24/19. Subjective Chief Complaint/HPI Patient comfortable in no distress. Offers no new complaints General: Denies: ROS Unobtainable, Chills, Night Sweats, Fatigue, Malaise, Normal Appetite, Other Symptoms Constitutional: Denies: Chills, Fever, Malaise, Night Sweats, Weakness, Fatigue, Weight Loss, Lethargy, Other Pulmonary: Denies: Dyspnea, Cough, Pleuritic Chest Pain, Other Symptoms Cardiovascular: Denies: Chest Pain, Palpitations, Orthopnea, Paroxysmal Noc. Dyspnea, Edema, Lt Headedness, Other Symptoms Gastrointestinal: Denies: Nausea, Vomiting, Abdominal Pain, Diarrhea, Constipation, Melena, Hematochezia, Other Symptoms Musculoskeletal: Denies: Neck Pain, Back Pain, Shoulder Pain, Arm Pain, Hand Pain, Leg Pain, Foot Pain, Joint Pain, Muscle Pain, Spasms, Other Symptoms Neurological: Denies: Weakness, Numbness, Incoordination, Change in speech, Confusion, Seizures, Other Symptoms Objective Physical Examination General Exam: Positive: Alert, Cooperative, No Acute Distress Eye Exam: Positive: PERRLA ENT Exam: Positive: Atraumatic, Mucous membr. moist/pink Neck Exam: Positive: Supple; Negative: JVD Chest Exam: Positive: Rhonchi, Wheezing, Diminished Heart Exam: Positive: Rate Normal Telemetry: Positive: No significant arrhythmia, Sinus Abdomen Exam: Positive: Normal bowel sounds Extremity Exam: Negative: Clubbing Skin Exam: Positive: Nl turgor and temperature Neuro Exam: Positive: Sensation Intact, Reflexes 2+; Negative: Strength at 5/5 X4 ext (right upper extremity is 3 out of 5, right lower extremity is 3 out of 5 in strength) Psych Exam: Positive: Mental status NL (moderate cognitive slowing) Assessment /Plan Problems (1) CAP (community acquired pneumonia) Status: Acute Problem Text: Most likely secondary to viral infection with bacterial co- infection. There is possibility for aspiration/aspiration pneumonitis given previous history of stroke Respiratory panel negative Blood culture negative so far Ceftriaxone IV, azithromycin IV DuoNeb [id number] Aspiration precautions Patient not cleared by physical therapy for discharge yesterday We will reevaluate tomorrow and IF patient clears ,can be discharged home on by mouth antibiotics (2) Altered mental status Status: Resolved Problem Text: Secondary to community-acquired pneumonia and sepsis Resolved. Patient alert, oriented 3, in no distress (3) Sepsis Status: Acute Problem Text: Most likely secondary to community acquired pneumonia Patient febrile of 101 and has leukocytosis of 15 Start antibiotic therapy IV fluid Blood culture, sputum culture (4) Diabetes Status: Chronic Problem Text: Insulin sliding scale, Diabetic diet Plan/VTE VTE Prophylaxis Ordered?: Yes VS, I&O, 24H, Fishbone Vital Signs/I&O Vital Signs Date Time Temp Pulse Resp B/P (MAP) Pulse Ox O2 Delivery O2 Flow Rate FiO2 09/24/19 06:00 99.3 75 24 157/79 (105) 94 Room Air 09/22/19 18:45 2.5 I&O- Last 24 Hours up to 6 AM 09/24/19 06:00 Intake Total 2045 ml Output Total 1075 ml Balance 970 ml Laboratory Data 24H LABS Laboratory Tests 2 09/23/19 11:40: Bedside Glucose (Misc Panel) 176H 09/23/19 16:34: Bedside Glucose (Misc Panel) 134H 09/23/19 20:31: Bedside Glucose (Misc Panel) 187H 09/24/19 06:07: Immature Granulocyte % (Auto) 1.3, Neutrophils (%) (Auto) 60.4, Lymphocytes (%) (Auto) 18.5L, Monocytes (%) (Auto) 17.3H, Eosinophils (%) (Auto) 2.2, Basophils (%) (Auto) 0.3, Neutrophils # (Auto) 5.7, Lymphocytes # (Auto) 1.7, Monocytes # (Auto) 1.6H, Eosinophils # (Auto) 0.2, Basophils # (Auto) 0.0, Nucleated Red Blood Cells % (auto) 0.0, Anion Gap 7L, Glomerular Filtration Rate > 60.0, Calcium Level 8.4L CBC/BMP Laboratory Tests 09/24/19 06:07 Microbiology Microbiology 09/22/19 Blood Culture - Preliminary, Resulted No growth after 24 hours . All specim... 09/22/19 Blood Culture - Preliminary, Resulted No growth after 24 hours . All specim... AMY AVILA MD Sep 24, 2019 10:01
[2019-09-24 14:00] VITALS: BP 156/77
[2019-09-24] MEDS: SIMVASTATIN 40 MG TAB PO SCH (21:41)
[2019-09-24] MEDS: cefTRIAXone SOD 1 GM in D5W MINI-BAG PLUS 50 ML IV SCH (21:42)
[2019-09-24] MEDS: AZITHROMYCIN INJ 500 MG, VIAL MATE ADAPTER 1 EACH in D5W 250 ML IV SCH (21:42)
[2019-09-24] MEDS: TAMSULOSIN 0.4 MG CAP PO SCH (21:42)
[2019-09-24 22:00] VITALS: BP 170/80
[2019-09-25] MEDS: IPRATROPIUM 0.5MG/ALBUTEROL 2.5MG INH SOL UD 3ML (DUONEB)(J7620) INH SCH ×8 (01:45→23:56)
[2019-09-25 06:10] LABS: BASO % 0.3 % (0.0-1.0); EOS # 0.2 10^3/uL (0.0-0.5); EOS % 2.2 % (0.0-3.0); HEMATOCRIT 34.8 % (42.0-52.0); HEMOGLOBIN 11.2 g/dl (13.5-17.5); LYMPH # 1.7 10^3/uL (1.5-5.0); LYMPH % 15.9 % (24.0-44.0); MEAN CORPUSCULAR HGB CONC 32.2 g/dl (32.0-36.5); MEAN CORPUSCULAR VOLUME 93.3 fl (80.0-96.0); MONO # 1.4 10^3/uL (0.0-0.8); NEUTROPHILS # 7.2 10^3/uL (1.5-8.5); NEUTROPHILS % 67.7 % (36.0-66.0); PLATELET COUNT, AUTOMATED 210 10^3/uL (150-450); RED BLOOD COUNT 3.73 10^6/uL (4.30-6.10); WHITE BLOOD COUNT 10.6 10^3/uL (4.0-10.0)
[2019-09-25 06:33] LABS: ALT/SGPT 18 U/L (12-78); BILIRUBIN,TOTAL 0.3 MG/DL (0.2-1.0); BLOOD UREA NITROGEN 7 MG/DL (7-18); CALCIUM LEVEL 8.5 MG/DL (8.8-10.2); CARBON DIOXIDE LEVEL 28 MEQ/L (21-32); CHLORIDE LEVEL 105 MEQ/L (98-107); CREATININE FOR GFR 0.75 MG/DL (0.70-1.30); GLOMERULAR FILTRATION RATE > 60.0 (>42); GLUCOSE, FASTING 156 MG/DL (70-100); POTASSIUM SERUM 3.5 MEQ/L (3.5-5.1); SODIUM LEVEL 139 MEQ/L (136-145); TOTAL PROTEIN 6.7 GM/DL (6.4-8.2)
[2019-09-25 07:05] VITALS: BP 171/89
[2019-09-25] MEDS: HumaLOG INSULIN (NovoLOG) PER UNIT SC SCH ×4 (09:37→21:00)
[2019-09-25] MEDS: HEPARIN SOD (PORCINE) 5000 UNITS/ML VIAL SC SCH ×2 (09:38→21:06)
[2019-09-25] MEDS: CLOPIDOGREL 75 MG TAB PO SCH (09:38)
[2019-09-25] MEDS: DOCUSATE SODIUM 100 MG CAP PO SCH (09:38)
[2019-09-25] MEDS: carBAMazepine XR 200 MG TAB PO SCH ×2 (09:38→21:07)
[2019-09-25] MEDS: DULoxetine 30 MG CAP (CYMBALTA) PO SCH ×2 (09:38→21:06)
[2019-09-25] MEDS: PANTOPRAZOLE 40MG TAB (PROTONIX) PO SCH (09:38)
[2019-09-25] MEDS: METOPROLOL TART 25 MG TABLET PO SCH ×2 (09:41→21:07)
[2019-09-25] MEDS: LOSARTAN 50 MG TAB PO SCH (09:42)
--- NOTE | 2019-09-25 10:58 | IPNPDOC ---
Subjective Date Seen The patient was seen on 09/25/19. Subjective Chief Complaint/HPI Patient comfortable, in no apparent distress awaiting physical therapy clearance for discharge General: Denies: ROS Unobtainable, Chills, Night Sweats, Fatigue, Malaise, Normal Appetite, Other Symptoms Constitutional: Denies: Chills, Fever, Malaise, Night Sweats, Weakness, Fatigue, Weight Loss, Lethargy, Other Eyes: Denies: Pain, Vision change, Conjunctivae inflammation, Eyelid inflammation, Redness, Other Pulmonary: Denies: Dyspnea, Cough, Pleuritic Chest Pain, Other Symptoms Cardiovascular: Denies: Chest Pain, Palpitations, Orthopnea, Paroxysmal Noc. Dyspnea, Edema, Lt Headedness, Other Symptoms Gastrointestinal: Denies: Nausea, Vomiting, Abdominal Pain, Diarrhea, Constipation, Melena, Hematochezia, Other Symptoms Musculoskeletal: Denies: Neck Pain, Back Pain, Shoulder Pain, Arm Pain, Hand Pain, Leg Pain, Foot Pain, Joint Pain, Muscle Pain, Spasms, Other Symptoms Neurological: Denies: Weakness, Numbness, Incoordination, Change in speech, Confusion, Seizures, Other Symptoms Objective Physical Examination General Exam: Positive: Alert, Cooperative, No Acute Distress Eye Exam: Positive: PERRLA ENT Exam: Positive: Atraumatic, Mucous membr. moist/pink Neck Exam: Positive: Supple; Negative: JVD Chest Exam: Positive: Rhonchi, Wheezing, Diminished Heart Exam: Positive: Rate Normal Telemetry: Positive: No significant arrhythmia, Sinus Abdomen Exam: Positive: Normal bowel sounds Extremity Exam: Negative: Clubbing Skin Exam: Positive: Nl turgor and temperature Neuro Exam: Positive: Sensation Intact, Reflexes 2+; Negative: Strength at 5/5 X4 ext (right upper extremity is 3 out of 5, right lower extremity is 3 out of 5 in strength) Psych Exam: Positive: Mental status NL (moderate cognitive slowing) Assessment /Plan Problems (1) CAP (community acquired pneumonia) Status: Acute Problem Text: Most likely secondary to viral infection with bacterial co- infection. There is possibility for aspiration/aspiration pneumonitis given previous history of stroke Respiratory panel negative Blood culture negative so far Ceftriaxone IV, azithromycin IV DuoNeb [id number] Aspiration precautions Once patient is cleared for physical therapy. He can be discharged home on by mouth antibiotics. Discussed with patient and his at bedside (2) Altered mental status Status: Resolved Problem Text: Secondary to community-acquired pneumonia and sepsis Resolved. Patient alert, oriented 3, in no distress (3) Sepsis Status: Resolved Problem Text: Most likely secondary to community acquired pneumonia Patient febrile of 101 and has leukocytosis of 15 Patient received IV fluid, IV antibiotics. All cultures are negative and sepsis and resolved (4) Diabetes Status: Chronic Problem Text: Insulin sliding scale, Diabetic diet Plan/VTE VTE Prophylaxis Ordered?: Yes VS, I&O, 24H, Fishbone Vital Signs/I&O Vital Signs Date Time Temp Pulse Resp B/P (MAP) Pulse Ox O2 Delivery O2 Flow Rate FiO2 09/25/19 09:42 152/84 09/25/19 09:41 108 09/25/19 07:05 98.8 18 94 Room Air 09/22/19 18:45 2.5 I&O- Last 24 Hours up to 6 AM 09/25/19 06:00 Intake Total 2190 ml Output Total 725 ml Balance 1465 ml Laboratory Data 24H LABS Laboratory Tests 2 09/24/19 11:29: Bedside Glucose (Misc Panel) 194H 09/24/19 16:21: Bedside Glucose (Misc Panel) 161H 09/24/19 21:36: Bedside Glucose (Misc Panel) 157H 09/25/19 05:49: Immature Granulocyte % (Auto) 0.9, Neutrophils (%) (Auto) 67.7H, Lymphocytes (%) (Auto) 15.9L, Monocytes (%) (Auto) 13.0H, Eosinophils (%) (Auto) 2.2, Basophils (%) (Auto) 0.3, Neutrophils # (Auto) 7.2, Lymphocytes # (Auto) 1.7, Monocytes # (Auto) 1.4H, Eosinophils # (Auto) 0.2, Basophils # (Auto) 0.0, Nucleated Red Blood Cells % (auto) 0.0, Anion Gap 6L, Glomerular Filtration Rate > 60.0, Calcium Level 8.5L, Total Bilirubin 0.3, Aspartate Amino Transf (AST/SGOT) 16, Alanine Aminotransferase (ALT/SGPT) 18, Alkaline Phosphatase 68, Total Protein 6.7, Albumin 3.0L, Albumin/Globulin Ratio 0.81L CBC/BMP Laboratory Tests 09/25/19 05:49 Microbiology Microbiology 09/22/19 Blood Culture - Preliminary, Resulted No Growth after 48 hours. All Specime... 09/22/19 Blood Culture - Preliminary, Resulted No Growth after 48 hours. All Specime... AMY AVILA MD Sep 25, 2019 10:58
[2019-09-25 14:00] VITALS: BP 149/75
[2019-09-25] MEDS: SIMVASTATIN 40 MG TAB PO SCH (21:06)
[2019-09-25] MEDS: AZITHROMYCIN 250 MG TAB PO SCH (21:06)
[2019-09-25] MEDS: TAMSULOSIN 0.4 MG CAP PO SCH (21:07)
[2019-09-25 22:00] VITALS: BP 157/76
[2019-09-26] MEDS: IPRATROPIUM 0.5MG/ALBUTEROL 2.5MG INH SOL UD 3ML (DUONEB)(J7620) INH SCH ×5 (03:33→20:00)
[2019-09-26 06:00] VITALS: BP 147/69
[2019-09-26 06:02] LABS: BASO % 0.5 % (0.0-1.0); EOS # 0.3 10^3/uL (0.0-0.5); EOS % 3.4 % (0.0-3.0); HEMATOCRIT 35.3 % (42.0-52.0); HEMOGLOBIN 11.4 g/dl (13.5-17.5); LYMPH # 1.7 10^3/uL (1.5-5.0); LYMPH % 19.4 % (24.0-44.0); MEAN CORPUSCULAR HGB CONC 32.3 g/dl (32.0-36.5); MEAN CORPUSCULAR VOLUME 92.9 fl (80.0-96.0); MONO # 1.1 10^3/uL (0.0-0.8); MONO % 13.1 % (0.0-5.0); NEUTROPHILS # 5.3 10^3/uL (1.5-8.5); NEUTROPHILS % 62.4 % (36.0-66.0); PLATELET COUNT, AUTOMATED 227 10^3/uL (150-450); WHITE BLOOD COUNT 8.5 10^3/uL (4.0-10.0)
[2019-09-26 06:21] LABS: BLOOD UREA NITROGEN 8 MG/DL (7-18); CALCIUM LEVEL 8.5 MG/DL (8.8-10.2); CARBON DIOXIDE LEVEL 28 MEQ/L (21-32); CHLORIDE LEVEL 105 MEQ/L (98-107); CREATININE FOR GFR 0.74 MG/DL (0.70-1.30); GLOMERULAR FILTRATION RATE > 60.0 (>42); GLUCOSE, FASTING 174 MG/DL (70-100); POTASSIUM SERUM 3.5 MEQ/L (3.5-5.1); SODIUM LEVEL 140 MEQ/L (136-145)
[2019-09-26] MEDS: HumaLOG INSULIN (NovoLOG) PER UNIT SC SCH ×4 (08:53→20:37)
[2019-09-26] MEDS: CLOPIDOGREL 75 MG TAB PO SCH (08:53)
[2019-09-26] MEDS: PANTOPRAZOLE 40MG TAB (PROTONIX) PO SCH (08:53)
[2019-09-26] MEDS: DOCUSATE SODIUM 100 MG CAP PO SCH (08:54)
[2019-09-26] MEDS: carBAMazepine XR 200 MG TAB PO SCH ×2 (08:54→20:36)
[2019-09-26] MEDS: DULoxetine 30 MG CAP (CYMBALTA) PO SCH ×2 (08:54→20:36)
[2019-09-26] MEDS: METOPROLOL TART 25 MG TABLET PO SCH ×2 (08:55→20:37)
[2019-09-26] MEDS: LOSARTAN 50 MG TAB PO SCH (08:55)
[2019-09-26] MEDS: HEPARIN SOD (PORCINE) 5000 UNITS/ML VIAL SC SCH ×2 (08:56→20:36)
--- NOTE | 2019-09-26 12:58 | IPNPDOC ---
Subjective Date Seen The patient was seen on 09/26/19. Subjective Chief Complaint/HPI Patient is comfortable in no distress noted to be discharged home once cleared by physical therapy General: Denies: ROS Unobtainable, Chills, Night Sweats, Fatigue, Malaise, Normal Appetite, Other Symptoms Constitutional: Denies: Chills, Fever, Malaise, Night Sweats, Weakness, Fatigue, Weight Loss, Lethargy, Other Eyes: Denies: Pain, Vision change, Conjunctivae inflammation, Eyelid inflammation, Redness, Other ENT: Denies: Head Aches, Ear Pain, Dysphagia, Sinus Congestion, Post Nasal Drip, Sore Throat, Epistaxis, Other Symptoms Cardiovascular: Denies: Chest Pain, Palpitations, Orthopnea, Paroxysmal Noc. Dyspnea, Edema, Lt Headedness, Other Symptoms Gastrointestinal: Denies: Nausea, Vomiting, Abdominal Pain, Diarrhea, Constipation, Melena, Hematochezia, Other Symptoms Musculoskeletal: Denies: Neck Pain, Back Pain, Shoulder Pain, Arm Pain, Hand Pain, Leg Pain, Foot Pain, Joint Pain, Muscle Pain, Spasms, Other Symptoms Neurological: Denies: Weakness, Numbness, Incoordination, Change in speech, Confusion, Seizures, Other Symptoms Objective Physical Examination General Exam: Positive: Alert, Cooperative, No Acute Distress Eye Exam: Positive: PERRLA ENT Exam: Positive: Atraumatic, Mucous membr. moist/pink Neck Exam: Positive: Supple; Negative: JVD Chest Exam: Positive: Rhonchi, Wheezing, Diminished Heart Exam: Positive: Rate Normal Telemetry: Positive: No significant arrhythmia, Sinus Abdomen Exam: Positive: Normal bowel sounds Extremity Exam: Negative: Clubbing Skin Exam: Positive: Nl turgor and temperature Neuro Exam: Positive: Sensation Intact, Reflexes 2+; Negative: Strength at 5/5 X4 ext (right upper extremity is 3 out of 5, right lower extremity is 3 out of 5 in strength) Psych Exam: Positive: Mental status NL (moderate cognitive slowing) Assessment /Plan Problems (1) CAP (community acquired pneumonia) Status: Acute Problem Text: Viral URI . Doubt pneumonia as patient has no evidence of pneumonia on chest x-ray, blood work on clinical exam. Respiratory panel negative Blood culture negative so far Off the antibiotics on by mouth Zithromax DuoNeb [id number] Aspiration precautions Once patient is cleared for physical therapy. He can be discharged home on by mouth antibiotics. Discussed with patient and his at bedside (2) Altered mental status Status: Resolved Problem Text: Resolved. Patient alert, oriented 3, in no distress (3) Sepsis Status: Resolved Problem Text: Most likely secondary to viral URI Symptoms have completely resolved (4) Diabetes Status: Chronic Problem Text: Insulin sliding scale, Diabetic diet Plan/VTE VTE Prophylaxis Ordered?: Yes VS, I&O, 24H, Fishbone Vital Signs/I&O Vital Signs Date Time Temp Pulse Resp B/P (MAP) Pulse Ox O2 Delivery O2 Flow Rate FiO2 09/26/19 09:00 98.9 09/26/19 08:55 142/76 09/26/19 08:55 91 09/26/19 06:00 20 91 Room Air 09/22/19 18:45 2.5 I&O- Last 24 Hours up to 6 AM 09/26/19 05:59 Intake Total 1830 ml Output Total 1965 ml Balance -135 ml Laboratory Data 24H LABS Laboratory Tests 2 09/25/19 16:22: Bedside Glucose (Misc Panel) 99 09/25/19 20:30: Bedside Glucose (Misc Panel) 184H 09/26/19 05:39: Immature Granulocyte % (Auto) 1.2, Neutrophils (%) (Auto) 62.4, Lymphocytes (%) (Auto) 19.4L, Monocytes (%) (Auto) 13.1H, Eosinophils (%) (Auto) 3.4H, Basophils (%) (Auto) 0.5, Neutrophils # (Auto) 5.3, Lymphocytes # (Auto) 1.7, Monocytes # (Auto) 1.1H, Eosinophils # (Auto) 0.3, Basophils # (Auto) 0.0, Nucleated Red Blood Cells % (auto) 0.0, Anion Gap 7L, Glomerular Filtration Rate > 60.0, Calcium Level 8.5L 09/26/19 11:18: Bedside Glucose (Misc Panel) 185H CBC/BMP Laboratory Tests 09/26/19 05:39 Microbiology Microbiology 09/22/19 Blood Culture - Preliminary, Resulted No Growth after 72 hours. All specime... 09/22/19 Blood Culture - Preliminary, Resulted No Growth after 72 hours. All specime... AMY AVILA MD Sep 26, 2019 12:58
[2019-09-26 14:00] VITALS: BP 157/65
[2019-09-26 14:45] LABS: BODY FLUID CULTURE Not indicated. (.); ORGANISM ID Not indicated. (.); SPECIMEN SOURCE Urine (.); URINE STREP PNEUMONIAE ANTIGEN Negative (Negative)
[2019-09-26] MEDS: ACETAMINOPHEN TAB 650MG DOSE (2X325MG) PO PRN (17:45)
[2019-09-26] MEDS: TAMSULOSIN 0.4 MG CAP PO SCH (20:36)
[2019-09-26] MEDS: SIMVASTATIN 40 MG TAB PO SCH (20:36)
[2019-09-26] MEDS: AZITHROMYCIN 250 MG TAB PO SCH (20:37)
[2019-09-26 22:00] VITALS: BP 167/68
[2019-09-27] MEDS: IPRATROPIUM 0.5MG/ALBUTEROL 2.5MG INH SOL UD 3ML (DUONEB)(J7620) INH SCH ×6 (02:09→20:18)
[2019-09-27 06:00] VITALS: BP 161/74
[2019-09-27 06:19] LABS: BASO # 0.1 10^3/uL (0.0-0.2); BASO % 0.5 % (0.0-1.0); EOS # 0.5 10^3/uL (0.0-0.5); HEMATOCRIT 34.4 % (42.0-52.0); HEMOGLOBIN 11.4 g/dl (13.5-17.5); LYMPH # 1.8 10^3/uL (1.5-5.0); LYMPH % 19.1 % (24.0-44.0); MEAN CORPUSCULAR HEMOGLOBIN 30.2 pg (27.0-33.0); MEAN CORPUSCULAR HGB CONC 33.1 g/dl (32.0-36.5); MEAN CORPUSCULAR VOLUME 91.2 fl (80.0-96.0); MONO # 1.1 10^3/uL (0.0-0.8); MONO % 11.7 % (0.0-5.0); NEUTROPHILS % 62.2 % (36.0-66.0); PLATELET COUNT, AUTOMATED 269 10^3/uL (150-450); RED BLOOD COUNT 3.77 10^6/uL (4.30-6.10); WHITE BLOOD COUNT 9.6 10^3/uL (4.0-10.0)
[2019-09-27 06:38] LABS: BLOOD UREA NITROGEN 11 MG/DL (7-18); CALCIUM LEVEL 8.7 MG/DL (8.8-10.2); CARBON DIOXIDE LEVEL 30 MEQ/L (21-32); CHLORIDE LEVEL 103 MEQ/L (98-107); CREATININE FOR GFR 0.74 MG/DL (0.70-1.30); GLOMERULAR FILTRATION RATE > 60.0 (>42); GLUCOSE, FASTING 172 MG/DL (70-100); POTASSIUM SERUM 3.5 MEQ/L (3.5-5.1); SODIUM LEVEL 138 MEQ/L (136-145)
[2019-09-27] MEDS: CLOPIDOGREL 75 MG TAB PO SCH (08:23)
[2019-09-27] MEDS: PANTOPRAZOLE 40MG TAB (PROTONIX) PO SCH (08:23)
[2019-09-27] MEDS: DOCUSATE SODIUM 100 MG CAP PO SCH (08:23)
[2019-09-27] MEDS: HumaLOG INSULIN (NovoLOG) PER UNIT SC SCH ×4 (08:23→20:54)
[2019-09-27] MEDS: HEPARIN SOD (PORCINE) 5000 UNITS/ML VIAL SC SCH ×2 (08:23→20:52)
[2019-09-27] MEDS: DULoxetine 30 MG CAP (CYMBALTA) PO SCH ×2 (08:23→20:54)
[2019-09-27] MEDS: carBAMazepine XR 200 MG TAB PO SCH ×2 (08:24→20:53)
[2019-09-27] MEDS: LOSARTAN 50 MG TAB PO SCH (08:26)
[2019-09-27] MEDS: METOPROLOL TART 25 MG TABLET PO SCH ×2 (08:27→20:53)
[2019-09-27] MEDS: ACETAMINOPHEN TAB 650MG DOSE (2X325MG) PO PRN (09:36)
--- NOTE | 2019-09-27 09:47 | IPNPDOC ---
Subjective Date Seen The patient was seen on 09/27/19. Subjective Chief Complaint/HPI Patient is comfortable in no distress at rest. Awaiting physical therapy clearance before discharge. Patient is status change to alternate level of care as there is no acute medical condition at the present time General: Denies: ROS Unobtainable, Chills, Night Sweats, Fatigue, Malaise, Normal Appetite, Other Symptoms Constitutional: Denies: Chills, Fever, Malaise, Night Sweats, Weakness, Fatigue, Weight Loss, Lethargy, Other Pulmonary: Denies: Dyspnea, Cough, Pleuritic Chest Pain, Other Symptoms Cardiovascular: Denies: Chest Pain, Palpitations, Orthopnea, Paroxysmal Noc. Dyspnea, Edema, Lt Headedness, Other Symptoms Gastrointestinal: Denies: Nausea, Vomiting, Abdominal Pain, Diarrhea, Constipation, Melena, Hematochezia, Other Symptoms Musculoskeletal: Denies: Neck Pain, Back Pain, Shoulder Pain, Arm Pain, Hand Pain, Leg Pain, Foot Pain, Joint Pain, Muscle Pain, Spasms, Other Symptoms Neurological: Denies: Weakness, Numbness, Incoordination, Change in speech, Confusion, Seizures, Other Symptoms Objective Physical Examination General Exam: Positive: Alert, Cooperative, No Acute Distress Eye Exam: Positive: PERRLA ENT Exam: Positive: Atraumatic, Mucous membr. moist/pink Neck Exam: Positive: Supple; Negative: JVD Chest Exam: Positive: Rhonchi, Wheezing, Diminished Heart Exam: Positive: Rate Normal Telemetry: Positive: No significant arrhythmia, Sinus Abdomen Exam: Positive: Normal bowel sounds Extremity Exam: Negative: Clubbing Skin Exam: Positive: Nl turgor and temperature Neuro Exam: Positive: Sensation Intact, Reflexes 2+; Negative: Strength at 5/5 X4 ext (right upper extremity is 3 out of 5, right lower extremity is 3 out of 5 in strength) Psych Exam: Positive: Mental status NL (moderate cognitive slowing) Assessment /Plan Problems (1) CAP (community acquired pneumonia) Status: Acute Problem Text: Viral URI . Doubt pneumonia as patient has no evidence of pneumonia on chest x-ray, blood work on clinical exam. Respiratory panel negative Blood culture negative so far Off the antibiotics on by mouth Zithromax DuoNeb [id number] Aspiration precautions Patient is a status change to alternative level of care Discharge home once cleared by physical therapy Discussed with case management and the social work yesterday (2) Altered mental status Status: Resolved Problem Text: Resolved. Patient alert, oriented 3, in no distress (3) Sepsis Status: Resolved Problem Text: Most likely secondary to viral URI Symptoms have completely resolved (4) Diabetes Status: Chronic Problem Text: Insulin sliding scale, Diabetic diet Plan/VTE VTE Prophylaxis Ordered?: Yes VS, I&O, 24H, Fishbone Vital Signs/I&O Vital Signs Date Time Temp Pulse Resp B/P (MAP) Pulse Ox O2 Delivery O2 Flow Rate FiO2 09/27/19 08:27 83 160/71 09/27/19 06:00 98.7 18 95 Room Air 09/22/19 18:45 2.5 I&O- Last 24 Hours up to 6 AM 09/27/19 05:59 Intake Total 1740 ml Output Total 225 ml Balance 1515 ml Laboratory Data 24H LABS Laboratory Tests 2 09/26/19 11:18: Bedside Glucose (Misc Panel) 185H 09/26/19 16:34: Bedside Glucose (Misc Panel) 124H 09/26/19 20:36: Bedside Glucose (Misc Panel) 150H 09/27/19 05:38: Immature Granulocyte % (Auto) 1.5, Neutrophils (%) (Auto) 62.2, Lymphocytes (%) (Auto) 19.1L, Monocytes (%) (Auto) 11.7H, Eosinophils (%) (Auto) 5.0H, Basophils (%) (Auto) 0.5, Neutrophils # (Auto) 6.0, Lymphocytes # (Auto) 1.8, Monocytes # (Auto) 1.1H, Eosinophils # (Auto) 0.5, Basophils # (Auto) 0.1, Nucleated Red Blood Cells % (auto) 0.0, Anion Gap 5L, Glomerular Filtration Rate > 60.0, Calcium Level 8.7L CBC/BMP Laboratory Tests 09/27/19 05:38 Microbiology Microbiology 09/22/19 Blood Culture - Preliminary, Resulted No Growth after 72 hours. All specime... 09/22/19 Blood Culture - Preliminary, Resulted No Growth after 72 hours. All specime... AMY AVILA MD Sep 27, 2019 09:47
[2019-09-27 14:00] VITALS: BP 118/67
[2019-09-27] MEDS: AZITHROMYCIN 250 MG TAB PO SCH (20:52)
[2019-09-27] MEDS: SIMVASTATIN 40 MG TAB PO SCH (20:52)
[2019-09-27] MEDS: TAMSULOSIN 0.4 MG CAP PO SCH (20:53)
[2019-09-27 22:00] VITALS: BP 158/68
[2019-09-28] MEDS: IPRATROPIUM 0.5MG/ALBUTEROL 2.5MG INH SOL UD 3ML (DUONEB)(J7620) INH SCH ×6 (04:00→19:53)
[2019-09-28 06:00] VITALS: BP 148/71
[2019-09-28 06:19] LABS: BASO # 0.1 10^3/uL (0.0-0.2); BASO % 0.7 % (0.0-1.0); EOS # 0.4 10^3/uL (0.0-0.5); HEMATOCRIT 35.7 % (42.0-52.0); HEMOGLOBIN 11.5 g/dl (13.5-17.5); LYMPH # 1.9 10^3/uL (1.5-5.0); LYMPH % 18.7 % (24.0-44.0); MEAN CORPUSCULAR HEMOGLOBIN 29.5 pg (27.0-33.0); MEAN CORPUSCULAR HGB CONC 32.2 g/dl (32.0-36.5); MEAN CORPUSCULAR VOLUME 91.5 fl (80.0-96.0); MONO # 1.1 10^3/uL (0.0-0.8); MONO % 11.2 % (0.0-5.0); NEUTROPHILS # 6.3 10^3/uL (1.5-8.5); NEUTROPHILS % 63.3 % (36.0-66.0); PLATELET COUNT, AUTOMATED 292 10^3/uL (150-450); WHITE BLOOD COUNT 9.9 10^3/uL (4.0-10.0)
[2019-09-28 06:37] LABS: BLOOD UREA NITROGEN 10 MG/DL (7-18); CALCIUM LEVEL 8.7 MG/DL (8.8-10.2); CARBON DIOXIDE LEVEL 28 MEQ/L (21-32); CHLORIDE LEVEL 104 MEQ/L (98-107); CREATININE FOR GFR 0.78 MG/DL (0.70-1.30); GLOMERULAR FILTRATION RATE > 60.0 (>42); GLUCOSE, FASTING 153 MG/DL (70-100); POTASSIUM SERUM 3.9 MEQ/L (3.5-5.1); SODIUM LEVEL 140 MEQ/L (136-145)
[2019-09-28] MEDS: HumaLOG INSULIN (NovoLOG) PER UNIT SC SCH ×4 (07:37→21:00)
[2019-09-28] MEDS: DULoxetine 30 MG CAP (CYMBALTA) PO SCH ×2 (08:25→22:13)
[2019-09-28] MEDS: HEPARIN SOD (PORCINE) 5000 UNITS/ML VIAL SC SCH ×2 (08:25→22:10)
[2019-09-28] MEDS: carBAMazepine XR 200 MG TAB PO SCH ×2 (08:25→22:13)
[2019-09-28] MEDS: IBUPROFEN 400 MG TAB PO PRN (08:25)
[2019-09-28] MEDS: PANTOPRAZOLE 40MG TAB (PROTONIX) PO SCH (08:26)
[2019-09-28] MEDS: DOCUSATE SODIUM 100 MG CAP PO SCH (08:26)
[2019-09-28] MEDS: CLOPIDOGREL 75 MG TAB PO SCH (08:26)
[2019-09-28] MEDS: METOPROLOL TART 25 MG TABLET PO SCH ×2 (08:34→22:13)
[2019-09-28] MEDS: LOSARTAN 50 MG TAB PO SCH (08:34)
--- NOTE | 2019-09-28 09:16 | IPNPDOC ---
Subjective Date Seen The patient was seen on 09/28/19. Subjective Chief Complaint/HPI Patient offers no new complaints. Hopefully, we will be discharged home once cleared by physical therapy if he doesn't he might need placement in the rehabilitation facility General: Denies: ROS Unobtainable, Chills, Night Sweats, Fatigue, Malaise, Normal Appetite, Other Symptoms Constitutional: Denies: Chills, Fever, Malaise, Night Sweats, Weakness, Fatigue, Weight Loss, Lethargy, Other Skin: Denies: Rash, Lesions, Jaundice, Bruising, Itching, Dry, Breakdown, Nail Changes, Other Pulmonary: Denies: Dyspnea, Cough, Pleuritic Chest Pain, Other Symptoms Cardiovascular: Denies: Chest Pain, Palpitations, Orthopnea, Paroxysmal Noc. Dyspnea, Edema, Lt Headedness, Other Symptoms Gastrointestinal: Denies: Nausea, Vomiting, Abdominal Pain, Diarrhea, Constipation, Melena, Hematochezia, Other Symptoms Musculoskeletal: Denies: Neck Pain, Back Pain, Shoulder Pain, Arm Pain, Hand Pain, Leg Pain, Foot Pain, Joint Pain, Muscle Pain, Spasms, Other Symptoms Neurological: Denies: Weakness, Numbness, Incoordination, Change in speech, Confusion, Seizures, Other Symptoms Objective Physical Examination General Exam: Positive: Alert, Cooperative, No Acute Distress Eye Exam: Positive: PERRLA ENT Exam: Positive: Atraumatic, Mucous membr. moist/pink Neck Exam: Positive: Supple; Negative: JVD Chest Exam: Positive: Rhonchi, Wheezing, Diminished Heart Exam: Positive: Rate Normal Telemetry: Positive: No significant arrhythmia, Sinus Abdomen Exam: Positive: Normal bowel sounds Extremity Exam: Negative: Clubbing Skin Exam: Positive: Nl turgor and temperature Neuro Exam: Positive: Sensation Intact, Reflexes 2+; Negative: Strength at 5/5 X4 ext (right upper extremity is 3 out of 5, right lower extremity is 3 out of 5 in strength) Psych Exam: Positive: Mental status NL (moderate cognitive slowing) Assessment /Plan Problems (1) CAP (community acquired pneumonia) Status: Acute Problem Text: Viral URI . Doubt pneumonia as patient has no evidence of pneumonia on chest x-ray, blood work on clinical exam. Respiratory panel negative Blood culture negative so far Off the antibiotics on by mouth Zithromax DuoNeb [id number] Aspiration precautions Patient is a status change to alternative level of care Discharge home once cleared by physical therapy Discussed with case management and the social work yesterday (2) Altered mental status Status: Resolved Problem Text: Resolved. Patient alert, oriented 3, in no distress (3) Sepsis Status: Resolved Problem Text: Most likely secondary to viral URI Symptoms have completely resolved (4) Diabetes Status: Chronic Problem Text: Insulin sliding scale, Diabetic diet Plan/VTE VTE Prophylaxis Ordered?: Yes VS, I&O, 24H, Fishbone Vital Signs/I&O Vital Signs Date Time Temp Pulse Resp B/P (MAP) Pulse Ox O2 Delivery O2 Flow Rate FiO2 09/28/19 08:34 88 152/89 09/28/19 06:00 99.0 17 91 Room Air 09/22/19 18:45 2.5 I&O- Last 24 Hours up to 6 AM 09/28/19 06:00 Intake Total 1320 ml Output Total 225 ml Balance 1095 ml Laboratory Data 24H LABS Laboratory Tests 2 09/27/19 11:18: Bedside Glucose (Misc Panel) 170H 09/27/19 16:46: Bedside Glucose (Misc Panel) 134H 09/27/19 19:48: Bedside Glucose (Misc Panel) 170H 09/28/19 06:00: Immature Granulocyte % (Auto) 2.1, Neutrophils (%) (Auto) 63.3, Lymphocytes (%) (Auto) 18.7L, Monocytes (%) (Auto) 11.2H, Eosinophils (%) (Auto) 4.0H, Basophils (%) (Auto) 0.7, Neutrophils # (Auto) 6.3, Lymphocytes # (Auto) 1.9, Monocytes # (Auto) 1.1H, Eosinophils # (Auto) 0.4, Basophils # (Auto) 0.1, Nucleated Red Blood Cells % (auto) 0.0, Anion Gap 8, Glomerular Filtration Rate > 60.0, Calcium Level 8.7L CBC/BMP Laboratory Tests 09/28/19 06:00 Microbiology Microbiology 09/22/19 Blood Culture - Final, Complete NO GROWTH AFTER 5 DAYS 09/22/19 Blood Culture - Final, Complete NO GROWTH AFTER 5 DAYS AMY AVILA MD Sep 28, 2019 09:16
[2019-09-28 14:00] VITALS: BP 144/77
[2019-09-28 22:00] VITALS: BP 162/85
[2019-09-28] MEDS: SIMVASTATIN 40 MG TAB PO SCH (22:10)
[2019-09-28] MEDS: TAMSULOSIN 0.4 MG CAP PO SCH (22:13)
[2019-09-28] MEDS: AZITHROMYCIN 250 MG TAB PO SCH (22:13)
[2019-09-29] MEDS: IPRATROPIUM 0.5MG/ALBUTEROL 2.5MG INH SOL UD 3ML (DUONEB)(J7620) INH SCH ×3 (04:00→07:34)
[2019-09-29 06:00] VITALS: BP 168/88
[2019-09-29 06:16] LABS: BASO # 0.1 10^3/uL (0.0-0.2); BASO % 0.6 % (0.0-1.0); EOS # 0.3 10^3/uL (0.0-0.5); EOS % 3.5 % (0.0-3.0); HEMATOCRIT 35.5 % (42.0-52.0); HEMOGLOBIN 11.8 g/dl (13.5-17.5); LYMPH # 1.5 10^3/uL (1.5-5.0); LYMPH % 16.3 % (24.0-44.0); MEAN CORPUSCULAR HEMOGLOBIN 30.1 pg (27.0-33.0); MEAN CORPUSCULAR HGB CONC 33.2 g/dl (32.0-36.5); MEAN CORPUSCULAR VOLUME 90.6 fl (80.0-96.0); MONO # 0.9 10^3/uL (0.0-0.8); NEUTROPHILS # 6.2 10^3/uL (1.5-8.5); NEUTROPHILS % 66.9 % (36.0-66.0); PLATELET COUNT, AUTOMATED 339 10^3/uL (150-450); RED BLOOD COUNT 3.92 10^6/uL (4.30-6.10); WHITE BLOOD COUNT 9.3 10^3/uL (4.0-10.0)
[2019-09-29 06:35] LABS: BLOOD UREA NITROGEN 12 MG/DL (7-18); CARBON DIOXIDE LEVEL 27 MEQ/L (21-32); CHLORIDE LEVEL 105 MEQ/L (98-107); CREATININE FOR GFR 0.76 MG/DL (0.70-1.30); GLOMERULAR FILTRATION RATE > 60.0 (>42); GLUCOSE, FASTING 159 MG/DL (70-100); POTASSIUM SERUM 4.2 MEQ/L (3.5-5.1); SODIUM LEVEL 140 MEQ/L (136-145)
[2019-09-29] MEDS: HumaLOG INSULIN (NovoLOG) PER UNIT SC SCH (08:16)
[2019-09-29] MEDS: PANTOPRAZOLE 40MG TAB (PROTONIX) PO SCH (08:16)
[2019-09-29] MEDS: carBAMazepine XR 200 MG TAB PO SCH (08:17)
[2019-09-29] MEDS: DULoxetine 30 MG CAP (CYMBALTA) PO SCH (08:17)
[2019-09-29] MEDS: CLOPIDOGREL 75 MG TAB PO SCH (08:17)
[2019-09-29] MEDS: DOCUSATE SODIUM 100 MG CAP PO SCH (08:17)
[2019-09-29] MEDS: HEPARIN SOD (PORCINE) 5000 UNITS/ML VIAL SC SCH (08:17)
[2019-09-29 08:20] VITALS: BP 147/74
[2019-09-29] MEDS: LOSARTAN 50 MG TAB PO SCH (08:20)
[2019-09-29] MEDS: METOPROLOL TART 25 MG TABLET PO SCH (08:21)
--- NOTE | 2019-09-29 09:47 | DS.PDOC ---
Discharge Summary General Date of Admission Sep 22, 2019 at 20:10 Date of Discharge 09/29/19 Discharge Summary PROCEDURES PERFORMED DURING STAY: None. ADMITTING DIAGNOSES: 1. CAP. DISCHARGE DIAGNOSES: 1. Acute bronchitis/URI, physical disability, diabetes mellitus, hypertension, hyperlipidemia COMPLICATIONS/CHIEF COMPLAINT: Community Aquired Pneumonia. HISTORY OF PRESENT ILLNESS: Patient is 74 years old male with past medical history of cerebrovascular accident with right-sided weakness, diabetes mellitus, hypertension, hyperlipidemia presented to the emergency room (ER) for evaluation of fever, cough and confusion since this morning. According to the family patient developed progressive weakness for past couple of days, today in the morning he developed mechanical fall in the bathroom. Also patient has been having increased cough and congested chest for a few days. His has a sympto ms of upper respiratory infection as well. In emergency room patient was found to have leukocytosis of 15, fever of 101, CT head was negative for acute bleed, chest x-ray didn't show any acute lung infiltrate. UA was negative for pyuria. HOSPITAL COURSE: Patient was admitted with questionable community-acquired pneumonia. Patient's chest x-ray was essentially within normal limits. He remained afebrile and his WBC count is 8.7, asymptomatic. Is no evidence of pneumonia on clinical exam, most likely acute bronchitis versus URI. Patient could not be discharged. It was not clear from physical therapy secondary to physical debility and unsafe discharge. Patient received physical therapy treatment during his stay in today. He will he is cleared from physical therapy and will be discharged home on only by mouth cephalosporins. DISCHARGE MEDICATIONS: Please see below. ALLERGIES: Please see below. PHYSICAL EXAMINATION ON DISCHARGE: VITAL SIGNS: Please see below. GENERAL: Normal HEENT: PERRLA. Extraocular muscles intact NECK: Supple, no JVD, no lymphadenopathy CARDIOVASCULAR EXAMINATION: S1, S2, regular RESPIRATORY EXAMINATION: Clear to A&P. No rales, rhonchi, wheezing ABDOMINAL EXAMINATION: Benign EXTREMITIES: no Clubbing, cyanosis, edema SKIN: The normal limit NEUROLOGICAL EXAMINATION: Patient has no focal motor sensory or cranial nerve deficit PSYCHIATRIC EXAMINATION: Normal LABORATORY DATA: Please see below. IMAGING: Chest x-ray did not show any evidence of acute pulmonary infection such as pneumonia PROGNOSIS: Good ACTIVITY: As tolerated. DIET: As tolerated DISCHARGE PLAN: Follow up with PCP in one week DISPOSITION: . Home DISCHARGE INSTRUCTIONS: 1. As per discharge instructions. ITEMS TO FOLLOWUP ON ON OUTPATIENT: 1. Follow up with PCP in one week. DISCHARGE CONDITION: Stable. TIME SPENT ON DISCHARGE: 40 minutes. Vital Signs/I&Os Vital Signs Date Time Temp Pulse Resp B/P (MAP) Pulse Ox O2 Delivery O2 Flow Rate FiO2 09/29/19 08:21 90 09/29/19 08:20 147/74 09/29/19 06:00 98.9 18 93 Room Air I&O- Last 24 Hours up to 6 AM 09/29/19 06:00 Intake Total 1200 ml Balance 1200 ml Laboratory Data Labs 24H Laboratory Tests 2 09/28/19 11:40: Bedside Glucose (Misc Panel) 131H 09/28/19 16:37: Bedside Glucose (Misc Panel) 158H 09/28/19 20:49: Bedside Glucose (Misc Panel) 156H 09/29/19 06:01: Immature Granulocyte % (Auto) 2.7, Neutrophils (%) (Auto) 66.9H, Lymphocytes (%) (Auto) 16.3L, Monocytes (%) (Auto) 10.0H, Eosinophils (%) (Auto) 3.5H, Basophils (%) (Auto) 0.6, Neutrophils # (Auto) 6.2, Lymphocytes # (Auto) 1.5, Monocytes # (Auto) 0.9H, Eosinophils # (Auto) 0.3, Basophils # (Auto) 0.1, Nucleated Red Blood Cells % (auto) 0.0, Anion Gap 8, Glomerular Filtration Rate > 60.0, Calcium Level 9.0 CBC/BMP Laboratory Tests 09/29/19 06:01 FSBS Laboratory Tests Test 09/28/19 11:40 09/28/19 16:37 09/28/19 20:49 Range/Units Bedside Glucose (Misc Panel) 131 158 156 83-110 MG/DL Microbiology Microbiology 09/22/19 Blood Culture - Final, Complete NO GROWTH AFTER 5 DAYS 09/22/19 Blood Culture - Final, Complete NO GROWTH AFTER 5 DAYS Discharge Medications Scheduled Carbamazepine (Carbamazepine ER) 200 Mg Alex, 200 MG PO BID, (Reported) Cefpodoxime Proxetil (Cefpodoxime Proxetil) 200 Mg Tablet, 1 TAB PO BID Clopidogrel Bisulfate (Plavix) 75 Mg Tab, 75 MG PO DAILY, (Reported) Docusate Sodium (Colace) 100 Mg Cap, 100 MG PO DAILY, (Reported) Duloxetine Hcl (Duloxetine HCl) 30 Mg Cap, 30 MG PO BID, (Reported) Losartan Potassium (Losartan Potassium) 50 Mg Tab, 50 MG PO DAILY, (Reported) Metformin HCl (Metformin HCl) 500 Mg Tab, 500 MG DAILY, (Reported) Metoprolol Tartrate (Metoprolol Tartrate) 25 Mg Tab, 25 MG PO BID, (Reported) Pantoprazole Sodium (Pantoprazole Sodium) 40 Mg Tab, 40 MG PO DAILY, (Reported) Simvastatin (Simvastatin) 40 Mg Tab, 40 MG PO QHS, (Reported) Sitagliptin Phosphate (Januvia) 100 Mg Tablet, 100 MG PO QPM, (Reported) Tamsulosin HCl (Flomax) 0.4 Mg Cap, 0.4 MG PO QHS, (Reported) Allergies Coded Allergies: No Known Allergies (Verified , 09/22/19) AMY AVILA MD Sep 29, 2019 09:47
== END 2019-09-29 11:19 | disposition home health service (06) | DRG 202 ==
LOC: M ED 16:41 → EDBD 16:41 → M ED INP 20:10 → M MSPAV 22:46
PROVIDERS: ADMIT Internal Medicine; ATTEND Internal Medicine
DX: J20.9 Acute bronchitis, unspecified (principal); I69.351 Hemiplegia and hemiparesis following cerebral infarction affecting right dominant side; E11.9 Type 2 diabetes mellitus without complications; I10 Essential (primary) hypertension; E78.5 Hyperlipidemia, unspecified; Z79.899 Other long term (current) drug therapy; K21.9 Gastro-esophageal reflux disease without esophagitis; N40.0 Benign prostatic hyperplasia without lower urinary tract symptoms

== ENCOUNTER → 2019-10-06 | Outpatient (CLI) | payer MEDICARE, BC, OTHER ==
[~2019-10-06] MED LIST changes: +CEFP200T PO; +JANU100T PO; +ZITHTAB2 PO
--- NOTE | 2019-10-06 17:59 | REP ---
Lumbar spine series: Five views: History: Low back pain. Comparison study: February 22, 2013. Findings: Lumbar vertebral body heights are preserved. Alignment is normal. There is discogenic spurring anteriorly at each lumbar level, most pronounced at L3-4 and L2-3. This is more pronounced in general than on the February 22, 2013 prior study. There is a large bridging osteophyte on the right at L3-4 on the frontal view which is more pronounced as well. Sacrum and SI joints are intact. Psoas margins are symmetric. No fracture or collapse is seen. The pedicles and posterior elements are intact. There are facet hypertrophy changes at 4-5 and 5-1 bilaterally. Impression: Degenerative spondylosis changes demonstrating progression since the 2012 prior study. No acute bony abnormality. Electronically Signed by Tani Madsen MD 10/07/2019 07:46 A
== END ==
LOC: M WUC 16:31
PROVIDERS: ATTEND Internal Medicine
DX: M54.5 Low back pain (principal)

== ENCOUNTER 2020-02-27 10:39 | Inpatient (IN) | payer MEDICARE, BC, OTHER ==
[~2020-02-27] VITALS: Ht 167.6 cm; Wt 107.3 kg
[2020-02-27 11:24] LABS: VENOUS BASE EXCESS 1.8 (-2.0-2.0); VENOUS O2 SATURATION 88.8 % (60.0-80.0); VENOUS PARTIAL PRESSURE O2 58.4 mmHg (30.0-50.0); VENOUS PH 7.405 UNITS (7.330-7.430); VENOUS STANDARD HCO3 25.9 MEQ/L; VENOUS TOTAL CO2 28.3 MEQ/L (24.0-28.0)
[2020-02-27 11:29] LABS: BASO # 0.1 10^3/uL (0.0-0.2); BASO % 0.3 % (0.0-1.0); EOS # 0.1 10^3/uL (0.0-0.5); EOS % 0.6 % (0.0-3.0); HEMOGLOBIN 13.3 g/dl (13.5-17.5); LYMPH # 1.8 10^3/uL (1.5-5.0); MEAN CORPUSCULAR HEMOGLOBIN 30.6 pg (27.0-33.0); MEAN CORPUSCULAR HGB CONC 34.1 g/dl (32.0-36.5); MEAN CORPUSCULAR VOLUME 89.7 fl (80.0-96.0); MONO # 1.7 10^3/uL (0.0-0.8); MONO % 9.3 % (0.0-5.0); NEUTROPHILS # 14.3 10^3/uL (1.5-8.5); NEUTROPHILS % 78.7 % (36.0-66.0); PLATELET COUNT, AUTOMATED 321 10^3/uL (150-450); RED BLOOD COUNT 4.35 10^6/uL (4.30-6.10); WHITE BLOOD COUNT 18.1 10^3/uL (4.0-10.0)
--- NOTE | 2020-02-27 11:29 | REP ---
Portable chest x-ray: Single view. History: Altered mental status. Comparison chest x-ray: September 22, 2019. Findings: Monitoring electrodes overlie the chest. Heart is mildly enlarged unchanged. Pulmonary vasculature is not increased. Pleural angles are sharp. No infiltrate is seen. Impression: Cardiac enlargement. Otherwise no acute disease. Electronically Signed by Tani Madsen MD 02/27/2020 11:20 A
--- NOTE | 2020-02-27 11:47 | REP ---
CT BRAIN WITHOUT CONTRAST: HISTORY: Altered mental status. Comparison head CT study September 22, 2019. CT FINDINGS: Preliminary digital finish repair worker radiograph is unremarkable. Bone window settings demonstrate an intact bony calvarium. Vascular calcification is again observed in the distal vertebral and distal internal carotid artery distribution. There is generalized volume loss again noted. There is no evidence of intracranial hemorrhage. Old lacunar infarcts are visible in the left basal ganglia and right basal ganglia. These are unchanged. No acute infarction is apparent. There is an old infarct in the left posterior temporal lobe also noted unchanged. No extra-axial fluid collection mass or midline shift is seen. IMPRESSION: Old bilateral lacunar infarcts in the basal ganglia. Old small left posterior temporal lobe cortical infarct. Generalized volume loss. Vascular calcification and small vessel changes. No acute intracranial abnormality. Electronically Signed by Tani Madsen MD 02/27/2020 01:42 P
[2020-02-27 12:07] LABS: ALBUMIN 3.3 GM/DL (3.2-5.2); ALT/SGPT 23 U/L (12-78); BILIRUBIN,DIRECT 0.2 MG/DL (0.0-0.2); BILIRUBIN,TOTAL 0.5 MG/DL (0.2-1.0); BLOOD UREA NITROGEN 9 MG/DL (7-18); CALCIUM LEVEL 9.1 MG/DL (8.8-10.2); CARBON DIOXIDE LEVEL 28 MEQ/L (21-32); CHLORIDE LEVEL 98 MEQ/L (98-107); CK-MB VALUE MASS < 1.0 NG/ML (<3.6); CPK CREATINE PHOSPHOKINASE 50 U/L (39-308); CREATININE FOR GFR 0.84 MG/DL (0.70-1.30); GLOMERULAR FILTRATION RATE > 60.0 (>42); GLUCOSE, FASTING 217 MG/DL (70-100); POTASSIUM SERUM 4.4 MEQ/L (3.5-5.1); SODIUM LEVEL 133 MEQ/L (136-145); TOTAL PROTEIN 7.1 GM/DL (6.4-8.2); TROPONIN I < 0.02 NG/ML (< 0.10)
--- NOTE | 2020-02-27 12:23 | ECGEPIP ---
[facility] - ED Test Date: 2020-02-27 Pat Name: MIKE HALL Department: Room: - Gender: Male [employer] Principal: : [id number] Requested By: Lashaun Valdez Order Number: [id number] Reading MD: Mike Hidalgo Measurements Intervals [place] Rate: 74 P: 77 [place]: 204 QRS: -36 QRSD: 103 T: 14 QT: 384 QTc: 428 Interpretive Statements SINUS RHYTHM Left axis deviation Borderline first degree AV block Electronically Signed on 02-27-2020 12:23:20 EDT by Mike Hidalgo
--- NOTE | 2020-02-27 15:19 | HPEPDOC ---
[facility] Medical History & Physical Date of Admission February 27, 2020 Date of Service: February 27, 2020 History and Physical CHIEF COMPLAINT: malaise HISTORY OF PRESENT ILLNESS: 74 yo male for several week history of general malaise, poor appetite. Recently for last few days complains of abdominal pain, and one episode vomiting this morning. Denies chest pain, shortness of breath, headaches, neck pain, diarrhea. PAST MEDICAL HISTORY: 1. Cerebrovascular accident with right-sided weakness. 2. Hypertension. 3. Dyslipidemia. 4. Acid reflux. 5. BPH. 6. Brain aneurysm. 7. DM ALLERGIES: Please see below. REVIEW OF SYSTEMS: Negative except as per HPI HOME MEDICATIONS: Please see below. PHYSICAL EXAMINATION: VITAL SIGNS: see below General: NAD, lying comfortably in bed, quiet HEENT: NC/AT Lungs: CTA B/L Heart: +S1S2, RRR Abd: soft, mode-umbilical tenderness, +BS, obese Ext: trace edema LABORATORY DATA: See below. MICROBIOLOGY: Please see below. ASSESSMENT: 74 yo male for general malaise, abdominal pain, PMHx baseline dementia, CVA, HTN, DM, DLP, BPH, GERD, brain aneurysm. #perforated appendix/abscess - plan for IR on Sunday for KHANH drain - clear liquids/IV fluids - Zosyn - discussed with surgery #CVA - plavix on hold - statin therapy #HTN - lisinopril, metoprolol with hold parameters #DM - sliding scale #DLP - statin therapy #BPH #GERD #Hx brain aneurysm #DVT prophylaxis - mechanical Vital Signs Vital Signs Date Time Temp Pulse Resp B/P (MAP) Pulse Ox O2 Delivery O2 Flow Rate FiO2 02/27/20 10:50 99.2 75 17 156/70 (98) 95 Room Air Laboratory Data Labs 24H Laboratory Tests 2 02/27/20 10:47: Immature Granulocyte % (Auto) 1.1, Neutrophils (%) (Auto) 78.7H, Lymphocytes (%) (Auto) 10.0L, Monocytes (%) (Auto) 9.3H, Eosinophils (%) (Auto) 0.6, Basophils (%) (Auto) 0.3, Neutrophils # (Auto) 14.3H, Lymphocytes # (Auto) 1.8, Monocytes # (Auto) 1.7H, Eosinophils # (Auto) 0.1, Basophils # (Auto) 0.1, Nucleated Red Blood Cells % (auto) 0.0, Anion Gap 7L, Glomerular Filtration Rate > 60.0, Lactic Acid Level 1.9, Calcium Level 9.1, Total Bilirubin 0.5, Direct Bilirubin 0.2, Aspartate Amino Transf (AST/SGOT) 12, Alanine Aminotransferase (ALT/SGPT) 23, Alkaline Phosphatase 89, Ammonia 23, Total Creatine Kinase 50, Creatine Kinase MB < 1.0, Creatine Kinase MB Relative Index 2.00, Troponin I < 0.02, Total Protein 7.1, Albumin 3.3, Albumin/Globulin Ratio 0.9, Thyroid Stimulating Hormone (TSH) 1.020 02/27/20 10:51: Blood Gas Bicarbonate Standard 25.9, Venous Blood pH 7.405, Venous Blood Partial Pressure CO2 44.0, Venous Blood Partial Pressure O2 58.4H, Venous Blood Total Carbon Dioxide 28.3H, Venous Blood HCO3 27.0, Venous Blood Oxygen Saturation 88.8H, Venous Blood Base Excess 1.8 02/27/20 11:30: Urine Color YELLOW, Urine Appearance CLEAR, Urine pH 6.0, Urine Specific [place] 1.015, Urine Protein 1+H, Urine Glucose (UA) 1+H, Urine Ketones TRACEH, Urine Blood 1+H, Urine Nitrite NEGATIVE, Urine Bilirubin NEGATIVE, Urine Urobilinogen 0.2, Urine Leukocyte Esterase NEGATIVE, Urine WBC (Auto) 2, Urine RBC (Auto) 36H, Urine Hyaline Casts (Auto) 0, Urine Bacteria (Auto) NEGATIVE, Urine Squamous Epithelial Cells 0, Urine Mucus (Auto) SMALL, Urine Sperm (Auto) CBC/BMP Laboratory Tests 02/27/20 10:47 Microbiology Microbiology 02/27/20 Blood Culture, Received Pending 02/27/20 Blood Culture, Received Pending Home Medications Scheduled Carbamazepine (Carbamazepine ER) 200 Mg Alex, 200 MG PO BID Clopidogrel Bisulfate (Plavix) 75 Mg Tab, 75 MG PO DAILY Docusate Sodium (Colace) 100 Mg Cap, 100 MG PO DAILY Duloxetine Hcl (Duloxetine HCl) 30 Mg Cap, 30 MG PO BID Losartan Potassium (Losartan Potassium) 50 Mg Tab, 50 MG PO DAILY Metformin HCl (Metformin HCl) 500 Mg Tab, 500 MG DAILY Metoprolol Tartrate (Metoprolol Tartrate) 25 Mg Tab, 25 MG PO BID Pantoprazole Sodium (Pantoprazole Sodium) 40 Mg Tab, 40 MG PO DAILY Simvastatin (Simvastatin) 40 Mg Tab, 40 MG PO QHS Sitagliptin Phosphate (Januvia) 100 Mg Tablet, 100 MG PO QPM Tamsulosin HCl (Flomax) 0.4 Mg Cap, 0.4 MG PO QHS Allergies Coded Allergies: No Known Allergies (Verified , 09/22/19) A-FIB/CHADSVASC A-FIB History Current/History of A-Fib/PAF?: No OSIRIS CAMPOVERDE MD February 27, 2020 15:19
[2020-02-27] MEDS ORDERED: ISOVUE-370 76% 100ML VIAL As Ordered ONE (15:22)
[2020-02-27] MEDS: NS 1,000 ML IV SCH (15:25)
[2020-02-27 16:02] LABS: LIPASE 121 U/L (73-393)
[2020-02-27] MEDS: CLOPIDOGREL 75 MG TAB PO SCH (16:19)
[2020-02-27] MEDS: PIPERACILLIN/TAZOBACTAM SOD 3.375 GM in D5W MINI-BAG PLUS 50 ML IV SCH ×2 (16:19→21:47)
[2020-02-27] MEDS ORDERED: ACETAMINOPHEN TAB 650MG DOSE (2X325MG) PO PRN (16:45)
[2020-02-27 16:49] VITALS: BP 160/78
[2020-02-27] MEDS ORDERED: SITagliptin 50 MG TAB (JANUVIA) PO SCH (21:00)
[2020-02-27] MEDS: TAMSULOSIN 0.4 MG CAP PO SCH (21:45)
[2020-02-27] MEDS: DULoxetine 30 MG CAP (CYMBALTA) PO SCH (21:46)
[2020-02-27] MEDS: SIMVASTATIN 40 MG TAB PO SCH (21:46)
[2020-02-27] MEDS: carBAMazepine XR 200 MG TAB PO SCH (21:47)
[2020-02-27] MEDS: METOPROLOL TART 25 MG TABLET PO SCH (21:52)
[2020-02-27 22:00] VITALS: BP 162/86
[2020-02-28] MEDS: NS 1,000 ML IV SCH ×2 (02:24→14:16)
[2020-02-28] MEDS: PIPERACILLIN/TAZOBACTAM SOD 3.375 GM in D5W MINI-BAG PLUS 50 ML IV SCH ×4 (04:06→21:20)
[2020-02-28 06:00] VITALS: BP 152/76
[2020-02-28 06:39] LABS: HEMATOCRIT 36.1 % (42.0-52.0); HEMOGLOBIN 12.2 g/dl (13.5-17.5); MEAN CORPUSCULAR HEMOGLOBIN 30.5 pg (27.0-33.0); MEAN CORPUSCULAR HGB CONC 33.8 g/dl (32.0-36.5); MEAN CORPUSCULAR VOLUME 90.3 fl (80.0-96.0); PLATELET COUNT, AUTOMATED 311 10^3/uL (150-450); WHITE BLOOD COUNT 16.5 10^3/uL (4.0-10.0)
[2020-02-28 07:15] LABS: ALBUMIN 2.9 GM/DL (3.2-5.2); ALT/SGPT 20 U/L (12-78); BILIRUBIN,TOTAL 0.6 MG/DL (0.2-1.0); BLOOD UREA NITROGEN 9 MG/DL (7-18); CALCIUM LEVEL 8.4 MG/DL (8.8-10.2); CARBON DIOXIDE LEVEL 29 MEQ/L (21-32); CHLORIDE LEVEL 99 MEQ/L (98-107); CREATININE FOR GFR 0.84 MG/DL (0.70-1.30); GLOMERULAR FILTRATION RATE > 60.0 (>42); GLUCOSE, FASTING 205 MG/DL (70-100); POTASSIUM SERUM 4.1 MEQ/L (3.5-5.1); SODIUM LEVEL 134 MEQ/L (136-145); TOTAL PROTEIN 6.4 GM/DL (6.4-8.2)
--- NOTE | 2020-02-28 08:09 | IPNPDOC ---
Text Note Date of Service The patient was seen on 02/28/20. NOTE Subjective: Patient seen and examined at bedside. No acute overnight events reported. Patient feeling much better this morning. Denies abdominal pain. +flatulence, tolerating clear liquids. Objective: VITAL SIGNS: see below General: NAD, lying comfortably in bed, quiet HEENT: NC/AT Lungs: CTA B/L Heart: +S1S2, RRR Abd: soft, NT, +BS, obese Ext: trace edema ASSESSMENT: 74 yo male for general malaise, abdominal pain, PMHx baseline dementia?, CVA, HTN, DM, DLP, BPH, GERD, brain aneurysm. #perforated appendix/abscess - leukocytosis improving; pain resolved - plan for IR on Sunday for KHANH drain - clear liquids/IV fluids - Zosyn - discussed with surgery #CVA - plavix on hold - statin therapy #HTN - lisinopril, metoprolol with hold parameters #DM - sliding scale #DLP - statin therapy #BPH #GERD #Hx brain aneurysm #DVT prophylaxis - mechanical VS,Fishbone, I+O VS, Fishbone, I+O Laboratory Tests 02/27/20 10:47 02/28/20 05:27 Vital Signs Date Time Temp Pulse Resp B/P (MAP) Pulse Ox O2 Delivery O2 Flow Rate FiO2 02/28/20 06:00 99.5 79 19 152/76 (101) 93 Room Air I&O- Last 24 Hours up to 6 AM 02/28/20 06:00 Intake Total 1950 ml Output Total 875 ml Balance 1075 ml OSIRIS CAMPOVERDE MD February 28, 2020 08:09
[2020-02-28] MEDS: DULoxetine 30 MG CAP (CYMBALTA) PO SCH ×2 (08:52→20:17)
[2020-02-28] MEDS: PANTOPRAZOLE 40MG TAB (PROTONIX) PO SCH (08:52)
[2020-02-28] MEDS: DOCUSATE SODIUM 100 MG CAP PO SCH (08:52)
[2020-02-28] MEDS: carBAMazepine XR 200 MG TAB PO SCH ×2 (08:52→20:17)
[2020-02-28] MEDS: CLOPIDOGREL 75 MG TAB PO SCH (08:52)
[2020-02-28] MEDS: LOSARTAN 50MG TABLET PO SCH (08:55)
[2020-02-28] MEDS: METOPROLOL TART 25 MG TABLET PO SCH ×2 (08:55→20:18)
--- NOTE | 2020-02-28 10:32 | REP ---
REASON: Abdominal pain. Latest prior for comparison is noncontrast enhanced examination of 02/22/2013. CONTRAST TODAY: 100 mL of Isovue-370. The lung bases are clear. The liver, gallbladder, spleen, pancreas, adrenal glands, and kidneys are essentially unchanged. Once again, there is a simple cyst in the interpolar region of the left kidney posteriorly. The abdominal aorta and para-aortic regions are within normal limits and essentially unchanged. There is no free fluid or free air. In the right lower quadrant, the appendix is markedly dilated and there is abnormal fatty infiltration surrounding the appendix and within the mesoappendix. This is seen in conjunction with multiple wall-enhancing low density strictures surrounding the appendix. The largest of these measures approximately 4 cm. There is no evidence of free air. There is no free fluid in the pelvis. There is no pelvic adenopathy. Incidental note is made of a small Hutch diverticulum of the urinary bladder on the right. Bone window technique through the examination shows chronic spinal degenerative changes. IMPRESSION: There is gross appendicitis and I suspect, possibly a perforated walled-off process with developing para-appendiceal abscesses. Simple left renal cyst, status quo. Incidental small right Hutch urinary bladder diverticulum. Other findings as described above. Electronically Signed by Dipesh Noguera DO 03/01/2020 10:09 A
[2020-02-28 14:00] VITALS: BP 150/76
[2020-02-28] MEDS: TAMSULOSIN 0.4 MG CAP PO SCH (20:17)
[2020-02-28] MEDS: SIMVASTATIN 40 MG TAB PO SCH (20:18)
[2020-02-28 22:00] VITALS: BP 148/73
[2020-02-29] MEDS: PIPERACILLIN/TAZOBACTAM SOD 3.375 GM in D5W MINI-BAG PLUS 50 ML IV SCH ×4 (03:57→22:27)
[2020-02-29] MEDS: NS 1,000 ML IV SCH ×3 (04:00→11:58)
[2020-02-29 06:00] VITALS: BP 151/75
[2020-02-29 06:27] LABS: HEMATOCRIT 34.6 % (42.0-52.0); HEMOGLOBIN 11.5 g/dl (13.5-17.5); MEAN CORPUSCULAR HEMOGLOBIN 30.5 pg (27.0-33.0); MEAN CORPUSCULAR HGB CONC 33.2 g/dl (32.0-36.5); MEAN CORPUSCULAR VOLUME 91.8 fl (80.0-96.0); PLATELET COUNT, AUTOMATED 323 10^3/uL (150-450); RED BLOOD COUNT 3.77 10^6/uL (4.30-6.10); WHITE BLOOD COUNT 10.1 10^3/uL (4.0-10.0)
[2020-02-29 06:38] LABS: INR 1.14; PROTHROMBIN TIME 14.3 SECONDS (11.8-14.0)
[2020-02-29 06:39] LABS: PARTIAL THROMBOPLASTIN TIME 30.5 SECONDS (25.0-38.4)
[2020-02-29 06:52] LABS: BLOOD UREA NITROGEN 9 MG/DL (7-18); CALCIUM LEVEL 8.5 MG/DL (8.8-10.2); CARBON DIOXIDE LEVEL 28 MEQ/L (21-32); CHLORIDE LEVEL 105 MEQ/L (98-107); GLOMERULAR FILTRATION RATE > 60.0 (>42); GLUCOSE, FASTING 197 MG/DL (70-100); POTASSIUM SERUM 4.3 MEQ/L (3.5-5.1); SODIUM LEVEL 141 MEQ/L (136-145)
[2020-02-29] MEDS: LOSARTAN 50MG TABLET PO SCH (08:26)
[2020-02-29] MEDS: METOPROLOL TART 25 MG TABLET PO SCH ×2 (08:26→20:35)
[2020-02-29] MEDS: DULoxetine 30 MG CAP (CYMBALTA) PO SCH ×2 (08:26→20:34)
[2020-02-29] MEDS: PANTOPRAZOLE 40MG TAB (PROTONIX) PO SCH (08:27)
[2020-02-29] MEDS: DOCUSATE SODIUM 100 MG CAP PO SCH ×2 (08:27→08:28)
[2020-02-29] MEDS: carBAMazepine XR 200 MG TAB PO SCH ×2 (08:27→20:34)
[2020-02-29] MEDS: CLOPIDOGREL 75 MG TAB PO SCH (08:27)
--- NOTE | 2020-02-29 08:32 | IPNPDOC ---
Text Note Date of Service The patient was seen on 02/29/20. NOTE No acute events overnight. He denies nausea, emesis, fevers, or pain. Tolerating reg diet, and had a normal BM. VSSAF NAD abd - soft, slight tenderness on the right side only, mild distention, no rebound or guarding labs - below A) 74y/o male with perforated appendix with abscess. P) reg diet npo after midnight IR for perc drain placement tomorrow. Plan on d/c home either tomorrow after drain placement or Sunday. ambulate in halls Rober Bazan DO VS,Petros, I+O VS, Richardbone, I+O Laboratory Tests 02/29/20 05:24 Vital Signs Date Time Temp Pulse Resp B/P (MAP) Pulse Ox O2 Delivery O2 Flow Rate FiO2 02/29/20 08:26 83 150/63 02/29/20 06:00 97.8 20 98 Room Air I&O- Last 24 Hours up to 6 AM 02/29/20 06:00 Intake Total 2910 ml Output Total 850 ml Balance 2060 ml ANTONIO BAZAN DO February 29, 2020 08:32
--- NOTE | 2020-02-29 08:54 | IPNPDOC ---
Text Note Date of Service The patient was seen on 02/29/20. NOTE Subjective: Patient seen and examined at bedside. No acute overnight events reported. Patient again feeling much better this morning. Denies abdominal pain. +flatulence, tolerating diet, had a BM this morning. Objective: VITAL SIGNS: see below General: NAD, sitting comfortably at edge of bed HEENT: NC/AT Lungs: CTA B/L Heart: +S1S2, RRR Abd: soft, NT, +BS, obese Ext: trace edema ASSESSMENT: 74 yo male for general malaise, abdominal pain, PMHx baseline dementia?, CVA, HTN, DM, DLP, BPH, GERD, brain aneurysm. #perforated appendix/abscess - leukocytosis improving; pain resolved - plan for IR on Sunday for KHANH drain - tolerating regular diet - Zosyn day #3 - discussed with surgery #CVA - plavix on hold - statin therapy #HTN - lisinopril, metoprolol with hold parameters #DM - sliding scale #DLP - statin therapy #BPH #GERD #Hx brain aneurysm #DVT prophylaxis - mechanical Dispo: IR for drain tomorrow; teaching for drainage; anticipate discharge in 24- 48 hours VS,Fishbone, I+O VS, Fishbone, I+O Laboratory Tests 02/29/20 05:24 Vital Signs Date Time Temp Pulse Resp B/P (MAP) Pulse Ox O2 Delivery O2 Flow Rate FiO2 02/29/20 08:26 83 150/63 02/29/20 06:00 97.8 20 98 Room Air I&O- Last 24 Hours up to 6 AM 02/29/20 05:59 Intake Total 3000 ml Output Total 850 ml Balance 2150 ml OSIRIS CAMPOVERDE MD February 29, 2020 08:54
[2020-02-29 14:00] VITALS: BP 145/68
--- NOTE | 2020-02-29 15:42 | CR ---
DATE OF CONSULTATION: 02/28/2020 REASON FOR CONSULTATION: Perforated appendix. PRESENT ILLNESS: The patient is a 74-year-old male, who has had a couple of week history of weakness, poor appetite. For last couple of days, he has had increased lower abdominal pains, one episode of vomiting, so he was brought into the emergency room for evaluation by his . In the ER, he was initially admitted for generalized weakness. Once he was admitted, he had a CT obtained by the hospitalist, which did show the perforated appendix. This morning the patient has significantly improved. His abdominal pain is almost completely resolved. He is tolerating liquid diet. Denies any fevers or chills. He is feeling much stronger. He has already been up walking around his room. He has no complaints today. I did already speak with interventional radiologist yesterday evening who did collect the films and does feel that the abscess next to his appendix is amendable to drainage and has already scheduled for Sunday. PAST MEDICAL HISTORY: 1. Cerebrovascular accident (CVA) with right-sided weakness. 2. Hypertension. 3. Dyslipidemia. 4. Gastroesophageal reflux disease. 5. Benign prostatic hypertrophy (BPH). 6. Brain aneurysm. 7. Diabetes. PAST SURGICAL HISTORY: None. ALLERGIES: None. HOME MEDICATIONS: Please see [facility] [employer] REVIEW OF SYSTEMS: Positives and negatives as stated in history of present illness. SOCIAL HISTORY: Negative. FAMILY HISTORY: Noncontributory. PHYSICAL EXAMINATION: General: Alert and oriented x3, in no acute stress. Vitals: Temperature 99.5, pulse 79, respirations 19, blood pressure 152/76, pulse oximetry 93% room air. HEENT: Pupils equally round react to light accommodation. Heart: S1, S2 regular rate and rhythm. Lungs: Clear auscultation bilaterally. Abdomen: Soft. Slight tenderness right lower quadrant. Localized guarding. No rigidity. Extremities: No clubbing, cyanosis or edema. LABORATORY DATA: White count 18.1 down to 16.5, hemoglobin 12.2, platelets 311, potassium 4.1, creatinine 0.84. IMAGING STUDIES: CT abdomen and pelvis was obtained which did show appendicitis with likely perforation and periappendiceal abscess measuring 4 cm in diameter. ASSESSMENT/PLAN: The patient is a 74-year-old male with perforated appendicitis with loculated abscess. PLAN: IV fluids, antibiotics. He can be advanced on his diet over the weekend. Keep him nothing by mouth from midnight on Sunday just in case and plan for IR drainage of the abscess on Sunday. Once the abscess is drained, he can be discharged home either later that day or the following day. He can follow up with me in the office a week after that to have the drain removed.
[2020-02-29 16:33] LABS: OSMOLALITY SERUM 280 mOsmol/kg (280-301)
[2020-02-29 20:00] VITALS: BP 180/78
[2020-02-29] MEDS: TAMSULOSIN 0.4 MG CAP PO SCH (20:34)
[2020-02-29] MEDS: SIMVASTATIN 40 MG TAB PO SCH (20:35)
[2020-02-29 22:00] VITALS: BP 180/76
[2020-03-01 00:29] VITALS: BP 148/86
[2020-03-01] MEDS: PIPERACILLIN/TAZOBACTAM SOD 3.375 GM in D5W MINI-BAG PLUS 50 ML IV SCH ×4 (04:16→21:50)
[2020-03-01 06:00] VITALS: BP 132/80
[2020-03-01 06:04] LABS: HEMATOCRIT 35.3 % (42.0-52.0); HEMOGLOBIN 11.6 g/dl (13.5-17.5); MEAN CORPUSCULAR HEMOGLOBIN 30.3 pg (27.0-33.0); MEAN CORPUSCULAR HGB CONC 32.9 g/dl (32.0-36.5); MEAN CORPUSCULAR VOLUME 92.2 fl (80.0-96.0); PLATELET COUNT, AUTOMATED 330 10^3/uL (150-450); RED BLOOD COUNT 3.83 10^6/uL (4.30-6.10); WHITE BLOOD COUNT 10.3 10^3/uL (4.0-10.0)
[2020-03-01 06:32] LABS: BLOOD UREA NITROGEN 10 MG/DL (7-18); CALCIUM LEVEL 8.4 MG/DL (8.8-10.2); CARBON DIOXIDE LEVEL 29 MEQ/L (21-32); CHLORIDE LEVEL 104 MEQ/L (98-107); CREATININE FOR GFR 0.83 MG/DL (0.70-1.30); GLOMERULAR FILTRATION RATE > 60.0 (>42); GLUCOSE, FASTING 185 MG/DL (70-100); POTASSIUM SERUM 4.3 MEQ/L (3.5-5.1); SODIUM LEVEL 139 MEQ/L (136-145)
[2020-03-01] MEDS: CLOPIDOGREL 75 MG TAB PO SCH (09:00)
[2020-03-01] MEDS: DOCUSATE SODIUM 100 MG CAP PO SCH (09:00)
--- NOTE | 2020-03-01 09:10 | IPNPDOC ---
Text Note Date of Service The patient was seen on 03/01/20. NOTE No acute events overnight. He denies nausea, emesis, fevers, or pain. Tolerating reg diet. VSSAF NAD abd - soft, nontender, no rebound or guarding labs - below A) 74y/o male with perforated appendix with abscess. P) npo IR for perc drain placement today. Plan on d/c home either after drain placement or tomorrow ambulate in halls Rober Bazan DO VS,Petros, I+O VS, Khrise, I+O Laboratory Tests 03/01/20 05:05 Vital Signs Date Time Temp Pulse Resp B/P (MAP) Pulse Ox O2 Delivery O2 Flow Rate FiO2 03/01/20 06:00 98.0 86 17 132/80 (97) 97 Room Air I&O- Last 24 Hours up to 6 AM 03/01/20 06:00 Intake Total 4200 ml Output Total 800 ml Balance 3400 ml ANTONIO BAZAN DO Mar 01, 2020 09:10
[2020-03-01] MEDS: PANTOPRAZOLE 40MG TAB (PROTONIX) PO SCH (11:05)
[2020-03-01] MEDS: DULoxetine 30 MG CAP (CYMBALTA) PO SCH ×2 (11:05→21:50)
[2020-03-01] MEDS: LOSARTAN 50MG TABLET PO SCH (11:05)
[2020-03-01] MEDS: carBAMazepine XR 200 MG TAB PO SCH ×2 (11:05→21:50)
[2020-03-01] MEDS: METOPROLOL TART 25 MG TABLET PO SCH ×2 (11:06→21:50)
--- NOTE | 2020-03-01 11:37 | IPNPDOC ---
Text Note Date of Service The patient was seen on 03/01/20. NOTE Subjective: Patient seen and examined at bedside. No acute overnight events reported. Patient again feeling much better this morning, but hungry. Denies abdominal pain. +flatulence. Objective: VITAL SIGNS: see below General: NAD, lhying comfortably in bed HEENT: NC/AT Lungs: CTA B/L Heart: +S1S2, RRR Abd: soft, NT, +BS, obese Ext: trace edema ASSESSMENT: 74 yo male for general malaise, abdominal pain, PMHx baseline dementia?, CVA, HTN, DM, DLP, BPH, GERD, brain aneurysm. #perforated appendix/abscess - leukocytosis improving; pain resolved - plan for IR today for placement of drain - tolerating regular diet - Zosy day #4 - discussed with surgery #CVA - plavix on hold - statin therapy #HTN - lisinopril, metoprolol with hold parameters #DM - sliding scale #DLP - statin therapy #BPH #GERD #Hx brain aneurysm #DVT prophylaxis - mechanical Dispo: IR for drain; teaching for drainage; anticipate discharge tomorrow VS,Fishbone, I+O VS, Fishbone, I+O Laboratory Tests 03/01/20 05:05 Vital Signs Date Time Temp Pulse Resp B/P (MAP) Pulse Ox O2 Delivery O2 Flow Rate FiO2 03/01/20 11:06 70 146/97 03/01/20 06:00 98.0 17 97 Room Air I&O- Last 24 Hours up to 6 AM 03/01/20 06:00 Intake Total 4200 ml Output Total 800 ml Balance 3400 ml OSIRIS CAMPOVERDE MD Mar 01, 2020 11:37
[2020-03-01] MEDS ORDERED: LIDOCAINE 1% MDV 20ML VIAL As Ordered ONE (12:23)
[2020-03-01 14:00] VITALS: BP 164/73
[2020-03-01] MEDS: NS 1,000 ML IV SCH (14:07)
--- NOTE | 2020-03-01 17:11 | REP ---
ULTRASOUND-GUIDED RIGHT LOWER QUADRANT ABSCESS DRAIN The procedure was performed under the direct supervision of Dr. Veloz. The patient has a history of a para appendiceal abscess seen on a previous CT scan dated 02/27/2020. The risks and benefits of the procedure were explained to the patient and informed consent was obtained. The right lower quadrant abscess was localized using ultrasound guidance. The skin was prepped and draped in a sterile fashion. 1% lidocaine was used as a local anesthetic. Using ultrasound guidance an 8-Malian Skater APDL catheter was inserted using trocar technique. 1 ml of red colored fluid was withdrawn and sent to lab for analysis. The catheter was affixed to the skin and a sterile dressing was applied. The catheter was connected to a gravity drainage bag. The patient tolerated the procedure well and there were no immediate complications. After the appropriate amount of monitored convalescence the patient was discharged from the department. Electronically Signed by ANGELO Centeno 03/01/2020 04:15 P Electronically Signed by Billy Veloz MD 03/01/2020 05:04 P
[2020-03-01] MEDS: TAMSULOSIN 0.4 MG CAP PO SCH (21:50)
[2020-03-01] MEDS: SIMVASTATIN 40 MG TAB PO SCH (21:50)
[2020-03-01 22:00] VITALS: BP 150/78
[2020-03-02] MEDS: NS 1,000 ML IV SCH ×2 (00:16→08:26)
[2020-03-02] MEDS: PIPERACILLIN/TAZOBACTAM SOD 3.375 GM in D5W MINI-BAG PLUS 50 ML IV SCH ×2 (04:15→10:43)
[2020-03-02 06:00] VITALS: BP 148/64
[2020-03-02 06:00] LABS: HEMATOCRIT 35.2 % (42.0-52.0); HEMOGLOBIN 11.7 g/dl (13.5-17.5); MEAN CORPUSCULAR HEMOGLOBIN 30.1 pg (27.0-33.0); MEAN CORPUSCULAR HGB CONC 33.2 g/dl (32.0-36.5); MEAN CORPUSCULAR VOLUME 90.5 fl (80.0-96.0); PLATELET COUNT, AUTOMATED 338 10^3/uL (150-450); RED BLOOD COUNT 3.89 10^6/uL (4.30-6.10); WHITE BLOOD COUNT 10.1 10^3/uL (4.0-10.0)
[2020-03-02 06:21] LABS: BLOOD UREA NITROGEN 8 MG/DL (7-18); CALCIUM LEVEL 8.5 MG/DL (8.8-10.2); CARBON DIOXIDE LEVEL 29 MEQ/L (21-32); CHLORIDE LEVEL 105 MEQ/L (98-107); CREATININE FOR GFR 0.79 MG/DL (0.70-1.30); GLOMERULAR FILTRATION RATE > 60.0 (>42); GLUCOSE, FASTING 198 MG/DL (70-100); POTASSIUM SERUM 4.2 MEQ/L (3.5-5.1); SODIUM LEVEL 140 MEQ/L (136-145)
--- NOTE | 2020-03-02 08:28 | IPNPDOC ---
Text Note Date of Service The patient was seen on 03/02/20. NOTE No acute events overnight. He denies nausea, emesis, or fevers. Little abd pain from drain only. VSSAF NAD abd - soft, slight tenderness around the drain, no rebound or guarding labs - below A) 74y/o male with perforated appendix with abscess. s/p drain placement P) reg diet PO abx d/c home with drain follow up in one weeks for drain removal. Rober Bazan DO VS,Petros, I+O VS, Petros, I+O Laboratory Tests 03/02/20 05:14 Vital Signs Date Time Temp Pulse Resp B/P (MAP) Pulse Ox O2 Delivery O2 Flow Rate FiO2 03/02/20 06:00 97.7 58 17 148/64 (92) 90 Room Air I&O- Last 24 Hours up to 6 AM 03/02/20 06:00 Intake Total 1720 ml Output Total 1591 ml Balance 129 ml ANTONIO BAZAN DO Mar 02, 2020 08:28
[2020-03-02] MEDS: CLOPIDOGREL 75 MG TAB PO SCH (08:39)
[2020-03-02] MEDS: carBAMazepine XR 200 MG TAB PO SCH (08:39)
[2020-03-02] MEDS: PANTOPRAZOLE 40MG TAB (PROTONIX) PO SCH (08:39)
[2020-03-02 08:43] VITALS: BP 197/105
[2020-03-02] MEDS: METOPROLOL TART 25 MG TABLET PO SCH (08:43)
[2020-03-02] MEDS: DULoxetine 30 MG CAP (CYMBALTA) PO SCH (08:44)
[2020-03-02] MEDS: LOSARTAN 50MG TABLET PO SCH (08:44)
[2020-03-02] MEDS: DOCUSATE SODIUM 100 MG CAP PO SCH (08:44)
[2020-03-02] MEDS ORDERED: AMOX875T2 PO (10:07)
[2020-03-02 12:10] VITALS: BP 148/100
--- NOTE | 2020-03-02 12:39 | DS.PDOC ---
Discharge Summary General Date of Admission February 27, 2020 at 15:13 Date of Discharge 03/02/20 Specialist/Consultants Involve surgery, dr raza Discharge Summary PROCEDURES PERFORMED DURING STAY: abscess drainage tube placed ADMITTING DIAGNOSES: 1. perforated appendix with abscess formation SECONDARY DIAGNOSES: #CVA #HTN #DM #DLP #BPH #GERD #Hx brain aneurysm COMPLICATIONS/CHIEF COMPLAINT: Altered Mental Status. HISTORY OF PRESENT ILLNESS: 74 yo male for several week history of general malaise, poor appetite. Recently for last few days prior noted abdominal pain, and one episode vomiting this morning. Denied chest pain, shortness of breath, headaches, neck pain, diarrhea. Imaging revealed perforated appendix with abscess formation. Surgery consulted, with recs for IV antibiotics, and IR consult for drainage tube placement. Patient responded well to anti-microbial therapy. Drainage tube placed, and teaching provided to patient. Concern regarding patients ability to understand instructions, so home care referral was setup to assist with teaching and management. Patient discharged home with oral antibiotics, surgical follow up, and PCP follow up. DISCHARGE MEDICATIONS: Please see below ALLERGIES: Please see below. PHYSICAL EXAMINATION ON DISCHARGE: VITAL SIGNS: see below General: NAD, lhying comfortably in bed HEENT: NC/AT Lungs: CTA B/L Heart: +S1S2, RRR Abd: soft, NT, +BS, obese Ext: trace edema LABORATORY DATA: Please see below. ACTIVITY: [As tolerated]. DIET: 2 gram sodium, carb consistent DISPOSITION: 01 Home, Self-Care. DISCHARGE INSTRUCTIONS: 1. Follow up with PCP in 3-5 days 2. Follow up with surgery as scheduled 3. Management of drainage tube as instructed DISCHARGE CONDITION: [Stable]. TIME SPENT ON DISCHARGE: 35 minutes. Vital Signs/I&Os Vital Signs Date Time Temp Pulse Resp B/P (MAP) Pulse Ox O2 Delivery O2 Flow Rate FiO2 03/02/20 08:43 64 197/105 03/02/20 06:00 97.7 17 90 Room Air I&O- Last 24 Hours up to 6 AM 03/02/20 05:59 Intake Total 1720 ml Output Total 1591 ml Balance 129 ml Laboratory Data Labs 24H Laboratory Tests 2 03/02/20 05:14: Nucleated Red Blood Cells % (auto) 0.0, Anion Gap 6L, Glomerular Filtration Rate > 60.0, Calcium Level 8.5L CBC/BMP Laboratory Tests 03/02/20 05:14 Microbiology Microbiology 03/01/20 Anaerobic Culture, Received Pending 03/01/20 Gram Stain - Final, Resulted 03/01/20 Abscess Culture, Resulted Pending 02/27/20 Blood Culture - Preliminary, Resulted No Growth after 72 hours. All specime... 02/27/20 Blood Culture - Preliminary, Resulted No Growth after 72 hours. All specime... Discharge Medications Scheduled Amoxicillin/Potassium Clav (Amox-Clav 875-125 mg Tablet) 1 Each Tablet, 1 TAB PO BID Carbamazepine (Carbamazepine ER) 200 Mg Alex, 200 MG PO BID, (Reported) Clopidogrel Bisulfate (Plavix) 75 Mg Tab, 75 MG PO DAILY, (Reported) Docusate Sodium (Colace) 100 Mg Cap, 100 MG PO DAILY, (Reported) Duloxetine Hcl (Duloxetine HCl) 30 Mg Cap, 30 MG PO BID, (Reported) Losartan Potassium (Losartan Potassium) 50 Mg Tab, 50 MG PO DAILY, (Reported) Metformin HCl (Metformin HCl) 500 Mg Tab, 500 MG DAILY, (Reported) Metoprolol Tartrate (Metoprolol Tartrate) 25 Mg Tab, 25 MG PO BID, (Reported) Pantoprazole Sodium (Pantoprazole Sodium) 40 Mg Tab, 40 MG PO DAILY, (Reported) Simvastatin (Simvastatin) 40 Mg Tab, 40 MG PO QHS, (Reported) Sitagliptin Phosphate (Januvia) 100 Mg Tablet, 100 MG PO QPM, (Reported) Tamsulosin HCl (Flomax) 0.4 Mg Cap, 0.4 MG PO QHS, (Reported) Allergies Coded Allergies: No Known Allergies (Verified , 09/22/19) OSIRIS CAMPOVERDE MD Mar 02, 2020 12:39
== END 2020-03-02 12:19 | disposition home health service (06) | DRG 372 ==
LOC: M ED 10:39 → M ED INP 15:13 → M MSPAV 16:47
PROVIDERS: ADMIT Internal Medicine; ATTEND Internal Medicine
PROC: 0W9G30Z Drainage of Peritoneal Cavity with Drainage Device, Percutaneous Approach (ICD-10-PCS; principal; 2020-03-01 14:30)
DX: K35.32 Acute appendicitis with perforation, localized peritonitis, and gangrene, without abscess (principal); I69.351 Hemiplegia and hemiparesis following cerebral infarction affecting right dominant side; I10 Essential (primary) hypertension; E11.9 Type 2 diabetes mellitus without complications; E78.5 Hyperlipidemia, unspecified; N40.0 Benign prostatic hyperplasia without lower urinary tract symptoms; K21.9 Gastro-esophageal reflux disease without esophagitis; Z79.84 Long term (current) use of oral hypoglycemic drugs; Z79.899 Other long term (current) drug therapy

== ENCOUNTER → 2020-05-21 | Outpatient (CLI) | payer MEDICARE, BC, OTHER ==
[~2020-05-21] MED LIST changes: +AMOX875T2 PO; +PANT40TA29 PO; -PANT40TA3 PO
[2020-05-21 10:30] LABS: BLOOD UREA NITROGEN 11 MG/DL (7-18); CREATININE FOR GFR 1.01 MG/DL (0.70-1.30); GLOMERULAR FILTRATION RATE > 60.0 (>42)
== END ==
LOC: M LAB 08:55
PROVIDERS: ATTEND Surgery
DX: K35.33 Acute appendicitis with perforation, localized peritonitis, and gangrene, with abscess (principal)

== ENCOUNTER → 2020-05-24 | Outpatient (CLI) | payer MEDICARE, BC, OTHER ==
[~2020-05-24] MED LIST changes: +GASTROGRAFIN SOLUTION 30ML (Q9963) As Ordered ONE; +ISOVUE-370 76% 100ML VIAL As Ordered ONE
--- NOTE | 2020-05-27 15:12 | REP ---
CT ABDOMEN AND PELVIS WITHOUT AND WITH INTRAVENOUS (IV), WITH ORAL CONTRAST HISTORY: Acute appendicitis with perforation/abscess. COMPARISON: CT study 04/28/2020. Patient is status post ultrasound-guided procedure 03/01/2020. CT CONTRAST DOSE: 100 mL of intravenous Isovue-[id number]. CT FINDINGS: Preliminary digital quality assurance group leader radiograph demonstrates a normal bowel gas pattern. The lung bases are clear on axial CT images. Mitral annular calcification and cardiomegaly are observed. There is a granulomatous calcification along the right diaphragm. The liver and the spleen are normal in size and homogeneous in texture. Granulomatous calcifications are seen in the spleen. No abnormality is noted in the gallbladder or in the pancreas. Normal adrenal glands. The kidneys enhance symmetrically and are morphologically intact. There is a cyst in the left kidney mid pole posterior, which measures 1.5 cm in diameter. There is a smaller cyst anteriorly at the mid position of the left kidney. Normal caliber aorta. No retroperitoneal mass or adenopathy is seen. Pelvic CT images demonstrate a normal appendix at the cecal tip. The previously noted periappendiceal abscess is no longer apparent. No abnormal fluid collection is seen. No ascites. There are dystrophic calcifications in a mildly enlarged prostate. Vas deferens calcification is noted. Urinary bladder is unremarkable. No abdominal wall defect is seen. IMPRESSION: Previously noted periappendiceal abscess is resolved. A noninflamed appendix is seen at the cecal tip. No acute abnormality. MTDD
== END ==
LOC: M RAD 08:25
PROVIDERS: ATTEND Surgery
DX: K35.33 Acute appendicitis with perforation, localized peritonitis, and gangrene, with abscess (principal)
CPT/HCPCS: 74178; Q9963; Q9967

== ENCOUNTER 2020-12-05 21:29 | Inpatient (IN) | payer MEDICARE, BC, OTHER ==
[~2020-12-05] VITALS: Ht 167.6 cm; Wt 110.0 kg
[~2020-12-05 21:29] MED LIST changes: -GASTROGRAFIN SOLUTION 30ML (Q9963) As Ordered ONE; -ISOVUE-370 76% 100ML VIAL As Ordered ONE
[2020-12-05] MEDS ORDERED: METF-839 PO (21:54)
[2020-12-05 22:26] LABS: BASO % 0.3 % (0.0-1.0); EOS # 0.1 10^3/uL (0.0-0.5); EOS % 0.8 % (0.0-3.0); HEMATOCRIT 38.1 % (42.0-52.0); HEMOGLOBIN 12.6 g/dl (13.5-17.5); LYMPH # 2.6 10^3/uL (1.5-5.0); MEAN CORPUSCULAR HEMOGLOBIN 30.1 pg (27.0-33.0); MEAN CORPUSCULAR HGB CONC 33.1 g/dl (32.0-36.5); MEAN CORPUSCULAR VOLUME 91.1 fl (80.0-96.0); MONO # 2.2 10^3/uL (0.0-0.8); NEUTROPHILS # 9.3 10^3/uL (1.5-8.5); NEUTROPHILS % 64.9 % (36.0-66.0); PLATELET COUNT, AUTOMATED 258 10^3/uL (150-450); RED BLOOD COUNT 4.18 10^6/uL (4.30-6.10)
[2020-12-05 22:40] LABS: ALBUMIN 3.4 GM/DL (3.2-5.2); ALT/SGPT 17 U/L (12-78); BILIRUBIN,DIRECT 0.1 MG/DL (0.0-0.2); BILIRUBIN,TOTAL 0.4 MG/DL (0.2-1.0); CK-MB VALUE MASS < 1.0 NG/ML (<3.6); CPK CREATINE PHOSPHOKINASE 53 U/L (39-308); LIPASE 106 U/L (73-393); MB/CK RELATIVE INDEX 1.89 (< OR =4); TOTAL PROTEIN 6.7 GM/DL (6.4-8.2); TROPONIN I < 0.02 NG/ML (< 0.10)
[2020-12-05 22:51] LABS: WHITE BLOOD COUNT 14.4 10^3/uL (4.0-10.0)
[2020-12-05] MEDS ORDERED: NS 500 ML IV ONE (23:05)
[2020-12-06] VITALS (8 sets, daily range): BP systolic 127–166; BP diastolic 61–77
--- NOTE | 2020-12-06 01:54 | REPVR ---
PROCEDURE INFORMATION: Exam: CT Abdomen And Pelvis With Contrast Exam date and time: 12/06/2020 1:33 AM Age: 75 years old Clinical indication: Abdominal pain; Patient HX: Patient has history of ruptured appendix with abscess and drain placement; Additional info: Right abd pain-lower TECHNIQUE: Imaging protocol: Computed tomography of the abdomen and pelvis with contrast. Radiation optimization: All CT scans at this facility use at least one of these dose optimization techniques: automated exposure control; mA and/or kV adjustment per patient size (includes targeted exams where dose is matched to clinical indication); or iterative reconstruction. Contrast material: ISO 370; Contrast volume: 100 ml; Contrast route: INTRAVENOUS (IV); COMPARISON: CT ABD PELVIS W/O FOL BY WIT 05/24/2020 10:14 AM FINDINGS: Lungs: Minimal bibasilar fibro-atelectatic change. Liver: The liver attenuation is 63 Hounsfield units and the spleen is 93 Hounsfield units. Gallbladder and bile ducts: The gallbladder is contracted with no stones. Pancreas: Normal. No ductal dilation. Spleen: Multiple splenic calcifications are noted. Adrenal glands: Normal. No mass. Kidneys and ureters: There is a left renal cyst measuring up to 14 mm which is redemonstrated from the prior study and unchanged. Stomach and bowel: Borderline distention of the stomach with fluid, food and gas. Appendix: There is inflammatory infiltration in the right pelvis which surrounds the appendix which measures approximately 11 mm in diameter. There is some inflammatory involvement of the adjacent distal ileum. Intraperitoneal space: Unremarkable. No free air. No significant fluid collection. Vasculature: There is mild calcification of the abdominal aorta with extension into the iliac arteries. Lymph nodes: Calcified left inferior hilar nodes. Urinary bladder: Unremarkable as visualized. Reproductive: Calcification of the vas deferens. Bones/joints: Unremarkable. No acute fracture. Soft tissues: Unremarkable. IMPRESSION: 1. Appendicitis with increased inflammatory change since 05/24/2020. There is some early secondary involvement of the adjacent distal ileum. 2. There is calcification of the vas deferens consistent with diabetes. 3. Old granulomatous disease of the chest and spleen. 4. There is borderline distention of the stomach which in view of a contracted gallbladder likely reflects recent ingestion. Electronically signed by: Valentino Correia On 12/06/2020 01:54:18 AM
[2020-12-06] MEDS ORDERED: PIPERACILLIN/TAZOBACTAM SOD 4.5 GM in D5W MINI-BAG PLUS 50 ML IV ONE (02:05)
--- NOTE | 2020-12-06 07:31 | ECGEPIP ---
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
[2020-12-06] MEDS: AMPICILLIN SOD/SULBACTAM SOD 3 GM in D5W MINI-BAG PLUS 100 ML IV SCH ×4 (09:00→21:28)
[2020-12-06] MEDS: METOPROLOL TART 25 MG TABLET PO SCH ×2 (09:00→20:39)
[2020-12-06] MEDS: LOSARTAN 50MG TABLET PO SCH (09:00)
--- NOTE | 2020-12-06 09:11 | HPEPDOC ---
General Surgery H&P Date of Admission Dec 06, 2020 Attending Physician: JG SALAZAR MD History and Physical CHIEF COMPLAINT: abdominal pain HISTORY OF PRESENT ILLNESS: Patient is a 75-year-old male who was brought in yesterday by his with reports of a one-week history of vague abdominal pain over the right side, right upper quadrant and right lower quadrant with worsening of the pain since the day prior to presentation. He rates it at about 5-6 out of 10. He denies any associated nausea or vomiting. He is able to tolerate food. He denies any diarrhea. He denies any fevers or chills. January of last year he had a perforated appendicitis with an abscess. This was drained percutaneously with resolution of the abscess. He followed up with Dr. Bazan and after discussion of his options which include watchful waiting versus interval appendectomy, they have chosen the former. Since that time patient reports he has been asymptomatic save for the start of his symptoms about a week prior. Because he was told that if he is having symptoms that he needs to be seen in urgent manner, he then went to the emergency room. History later on supplemented by his in the preop area, confirms most of the details. He has been having pain for about 2 days. ALLERGIES: Please see below. HOME MEDICATIONS: Please see below. PAST MEDICAL HISTORY: 1. History of CVA 2. Alzheimer's 3. Dyslipidemia 4. Gastroesophageal reflux disease 5. BPH 6. Diabetes 7. History of brain aneurysm status post clipping PAST SURGICAL HISTORY: 1. Left inguinal hernia repair. 2. Left uvj stenting 3. Clipping/embolization cerebral aneurysm 4. Colonoscopy 5. Percutaneous drainage of abscess 6. nerve wade PERSONAL/SOCIAL HISTORY: Denies smoking, alcohol use, or recreational drug use. REVIEW OF SYSTEMS: GENERAL: Denies chills, fatigue, fever, weight gain and weight loss. HEENT: Denies blurred vision and double vision. Denies ear symptoms. Denies hoarseness. NECK: Denies any neck pain. CARDIOVASCULAR: Denies chest pain and palpitations. MUSCULOSKELETAL: Denies arthralgias, back pain and thrombophlebitis. SKIN: Denies rash. NEUROLOGIC: has history of stroke, right side of the body affected but able to ambulate by himself. Has a separate history of a brain aneurysm that was clipped.. PSYCHIATRIC: reports depression on medications. HEMATOLOGY/ONCOLOGY: on plavix. HEART: Denies any chest pains, palpitations, paroxysmal dyspnea, orthopnea. PULMONARY: Denies chronic cough, dyspnea and wheezing. GASTROINTESTINAL: Denies rectal bleeding, family history of colon cancer, constipation, diarrhea, dysphagia, heartburn and jaundice. GENITOURINARY: Denies dysuria, frequency, hematuria and nocturia. ENDOCRINE: Denies polydipsia, polyphagia, polyuria, heat or cold intolerance. INFECTIOUS: Denies any recent upper respiratory tract infection, UTI, need for use of antibiotics. PHYSICAL EXAMINATION: VITAL SIGNS: Please see below. GENERAL APPEARANCE: [Patient seen at bedside, appears comfortable]. [Awake, alert, oriented]. HEENT: [Normocephalic, atraumatic. Perkins palpebral conjunctivae. Anicteric sclerae. Lips moist]. CHEST: [No chest wall abnormalities. Normal respiratory motion/effort]. NECK: [Supple. No thyromegaly. No lymphadenopathies]. LUNGS: [Lung sounds are clear to auscultation bilaterally. No wheezing appreciated]. HEART: [No chest wall abnormalities. Heart rate and rhythm are regular with no murmurs]. ABDOMEN: He is an obese quite rounded abdomen, minimally distended. He has tenderness over the right lower quadrant with localized guarding. Nontender over the upper abdomen and left side of the abdomen. SKIN: [Warm, moist]. EXTREMITIES: [Extremities have no deformities. No edema identified]. NEUROLOGICAL: . ANCILLARIES: . LABORATORY DATA: Please see below. MICROBIOLOGY: Please see below. IMAGING: CT abdomen and pelvis I reviewed the image and compared this to the CT scan done in March 2020 as well as on his presentation with the initial peritonitis with abscess. He does look to have inflammation related to the appendix and some inflammation may be secondary over the terminal ileum. No abscess at this time. IMPRESSION AND PLAN: Acute appendicitis with localized peritonitis Patient had a prior appendicitis perforation and abscess treated last year and now has an acute presentation with recurrent appendicitis. He has been advised to undergo surgery for laparoscopic appendectomy. I described to needles of the procedure, its risks and benefits including risks for bleeding, infection, abscess formation, injury to nearby bowels and blood vessel specially given the fact that I anticipate some degree of scarring from the prior event. This will be done under general anesthesia. He has been receiving Unasyn 3 g IV every 6 hours to cover for the appendicitis while awaiting surgery. Vital Signs Vital Signs Date Time Temp Pulse Resp B/P (MAP) Pulse Ox O2 Delivery O2 Flow Rate FiO2 12/06/20 05:05 99.0 79 20 136/66 (89) 95 Room Air I&Os I&O- Last 24 Hours up to 6 AM 12/06/20 05:59 Intake Total 550 ml Output Total 0 ml Balance 550 ml Laboratory Data Labs 24H Laboratory Tests 2 12/05/20 22:08: Immature Granulocyte % (Auto) 1.0, Neutrophils (%) (Auto) 64.9, Lymphocytes (%) (Auto) 18.0L, Monocytes (%) (Auto) 15.0H, Eosinophils (%) (Auto) 0.8, Basophils (%) (Auto) 0.3, Neutrophils # (Auto) 9.3H, Lymphocytes # (Auto) 2.6, Monocytes # (Auto) 2.2H, Eosinophils # (Auto) 0.1, Basophils # (Auto) 0.0, Nucleated Red Blood Cells % (auto) 0.0, Total Bilirubin 0.4, Direct Bilirubin 0.1, Aspartate Amino Transf (AST/SGOT) 9, Alanine Aminotransferase (ALT/SGPT) 17, Alkaline Phosphatase 65, Total Creatine Kinase 53, Creatine Kinase MB < 1.0, Creatine Kinase MB Relative Index 1.89, Troponin I < 0.02, Total Protein 6.7, Albumin 3.4, Albumin/Globulin Ratio 1.0, Lipase 106 12/05/20 22:25: POC Glucose (Misc Panel) 181H, POC Sodium (Misc Panel) 137, POC Potassium (Misc Panel) 3.7, POC Chloride (Misc Panel) 97L, POC Total CO2 (Misc Panel) 30.0H, POC Blood Urea Nitrogen (Misc Panel 9, POC Ionized Calcium (Misc Panel) 4.9, POC Creatinine (Misc Panel) 0.9, POC Hematocrit (Misc Panel) 37.0L 12/05/20 23:12: Lactic Acid Level 1.7 12/06/20 03:16: Coronavirus (COVID-19)(PCR) NEGATIVE CBC/BMP Laboratory Tests 12/05/20 22:08 Home Medications Scheduled Carbamazepine (Carbamazepine ER) 200 Mg Alex, 200 MG PO BID, (Reported) Clopidogrel Bisulfate (Plavix) 75 Mg Tab, 75 MG PO DAILY, (Reported) Docusate Sodium (Colace) 100 Mg Cap, 100 MG PO DAILY, (Reported) Duloxetine Hcl (Duloxetine HCl) 30 Mg Cap, 30 MG PO BID, (Reported) Levofloxacin (Levofloxacin) 500 Mg Tablet, 1 TAB PO DAILY Losartan Potassium (Losartan Potassium) 50 Mg Tab, 50 MG PO DAILY, (Reported) Metformin HCl (Metformin HCl) 500 Mg Tablet, 500 MG PO BID, (Reported) Metoprolol Tartrate (Metoprolol Tartrate) 25 Mg Tab, 25 MG PO BID, (Reported) Metronidazole (Metronidazole) 500 Mg Tablet, 1 TAB PO TID Pantoprazole Sodium (Pantoprazole Sodium) 40 Mg Tab, 40 MG PO DAILY, (Reported) Simvastatin (Simvastatin) 40 Mg Tab, 40 MG PO QHS, (Reported) Sitagliptin Phosphate (Januvia) 100 Mg Tablet, 100 MG PO QPM, (Reported) Tamsulosin HCl (Flomax) 0.4 Mg Cap, 0.4 MG PO QHS, (Reported) Scheduled PRN Oxycodone HCl/Acetaminophen (Percocet 5-325 mg Tablet) 1 Each Tablet, 1 TAB PO TIDP PRN for pain Allergies Coded Allergies: No Known Allergies (Verified , 09/22/19) A-FIB/CHADSVASC A-FIB History Current/History of A-Fib/PAF?: No Current PO Anticoag Therapy: No JG SALAZAR MD Dec 06, 2020 09:11
[2020-12-06] MEDS ORDERED: LIDOCAINE 1% SDV 30ML VIAL As Ordered ONE (09:14)
[2020-12-06] MEDS ORDERED: BUPIVACAINE HCL 0.25% 30ML VIAL As Ordered ONE (09:14)
[2020-12-06] MEDS ORDERED: LIDOCAINE 2% 100MG/5ML SDV (FOR ANES.) As Ordered ONE (09:46)
[2020-12-06] MEDS ORDERED: propofoL 200 MG/20 ML VIAL As Ordered ONE (09:46)
[2020-12-06] MEDS ORDERED: fentaNYL 250 MCG/5 ML INJECTION (J3010) As Ordered ONE (09:46)
[2020-12-06] MEDS ORDERED: MIDAZOLAM INJ 2MG/2ML VIAL (J2250 PER 1MG) As Ordered ONE (09:46)
[2020-12-06] MEDS ORDERED: ROCURONIUM BROMIDE 50 MG/5 ML VIAL As Ordered ONE (09:46)
[2020-12-06] MEDS ORDERED: UNASYN 3 GM VIAL As Ordered ONE (10:11)
[2020-12-06] MEDS ORDERED: ACETAMINOPHEN 1000MG 100ML IV BTL (OFIRMEV) (J0131 PER 10MG) As Ordered ONE (10:35)
[2020-12-06] MEDS ORDERED: ePHEDrine SULFATE 25 MG/5 ML(5MG/ML) SYRINGE As Ordered ONE (10:35)
[2020-12-06] MEDS ORDERED: KETOROLAC 60MG 2ML VIAL As Ordered ONE (10:35)
[2020-12-06] MEDS ORDERED: ONDANSETRON 4MG/2ML VIAL As Ordered ONE (10:35)
[2020-12-06] MEDS ORDERED: SUGAMMADEX SODIUM 500 MG/5 ML VIAL (BRIDION) As Ordered ONE (10:55)
[2020-12-06] MEDS ORDERED: GLUCAGON INJ 1MG VIAL SC PRN (11:10)
[2020-12-06] MEDS ORDERED: DEXTROSE 50% 50 ML SYRINGE IV PRN (11:10)
[2020-12-06] MEDS ORDERED: GLUCOSE 4GM CHEW TABLET PO PRN (11:10)
[2020-12-06] MEDS ORDERED: fentaNYL 100 MCG/2 ML INJECTION (J3010) IV PRN (11:25)
[2020-12-06] MEDS ORDERED: ONDANSETRON 4MG/2ML VIAL IV PRN (11:25)
[2020-12-06] MEDS ORDERED: oxyCODONE 5MG TAB PO PRN (11:25)
[2020-12-06] MEDS ORDERED: LR 1,000 ML IV SCH (11:25)
[2020-12-06] MEDS ORDERED: HYDROMORPHONE HCL 0.5 MG/ 0.5 ML SYRINGE (J1170 PER 1) IV PRN (11:25)
[2020-12-06] MEDS: HumaLOG INSULIN (NovoLOG) PER UNIT SC SCH ×3 (12:00→20:33)
--- NOTE | 2020-12-06 13:15 | ROOPDOC ---
[facility] Report Of Operation Report of Operation DATE OF PROCEDURE: 12/06/20 PREPROCEDURE DIAGNOSES: recurrent acute appendicitis. POSTPROCEDURE DIAGNOSES: acute over chronic appendicitis with perforation and small abscess. PROCEDURE: Laparoscopic appendectomy. SURGEON: Jg Edward MD FUR FEEDER: ANESTHESIA: General Anesthesia. ESTIMATED BLOOD LOSS: Approximately 20 mL. COMPLICATIONS: none. REMARKS: Patient is a 75-year-old male who last year had a perforated ap pendicitis with abscess was treated with drainage of the abscess was elected to not have an interval appendectomy performed. He was seen in the emergency room with complaints of about 2 day history of severe sharp right lower quadrant and right upper quadrant pain. He was found to have evidence for acute appendicitis on CT. He is brought to the OR today for laparoscopic appendectomy.. PROCEDURE NOTE: The tip of the appendix was adherent to the right lateral abdominal sidewall also at the bottom of the terminal ileum courses underneath with some scarring to the bottom of the tip of the appendix. On opening the site where the appendix is adherent to the abdominal wall, small purulent collection was evacuated. There is some spongy mucoid material within the wall of the tip of the appendix. The base appears healthy and there seems to be a small thickening close to the base of the appendix. The appendix was divided beyond that thickening to the junction to the cecum.. DESCRIPTION OF PROCEDURE: Patient has been given a dose of Unasyn 3 gm IV perioperatively. He received a dose of zosyn 3.375 gm IV earlier on presentation to the ER.Patient was brought to the operating room, placed supine on the table.. He was noted to be somewhat confused which is baseline for his Alzheimer's/post CVA state of mind and consent was obtained from his who was at the bedside. Sequential compression device placed for DVT prophylaxis. General endotracheal anesthesia started. The abdomen prepped and draped in usual sterile fashion. After a surgical timeout, we began our surgery Entry into the abdomen done through an incision above the umbilicus. Veress needle inserted on a controlled fashion. Intra-abdominal placement confirmed with saline drop technique. CO2 insufflation started to a pressure of 15 mmHg. Using the same incision a 5 mm port was placed under direct vision of laparoscope. Insertion site was inspected for injury and none was found. He was placed on a Trendelenburg position the right side tilted to allow for better visualization of the appendix. An 8 mm trocar was placed at the suprapubic area and a 5 mm trocar to the left lower quadrant area to triangulate the location of the appendix. Operative findings: After clearing some omental adhesions over the right lower quadrant area, the cecum was visualized and is free of any inflammation. The course of the appendix is noted and the tip of the appendix was adhered to the right anterolateral sidewall of the abdomen. The terminal ileum courses underneath that of the appendix with some chronic appearing adhesions/scarring on its course to the cecum with the terminal ileum itself Appeared to Be Infl ander. The tip of the appendix was bluntly dissected off the abdominal wall and there was a small amount of whitish purulent collection that was released. It seems to be where the abscess was located previously and this might be chronic. There is also some spongy mucoid material in between the wall of the appendix and the abdominal wall which was suctioned off. The attachments of the appendix to the terminal ileum was sharply divided with laparoscopic scissors without any energy device. Once the appendix is free, the mesoappendix was divided with a Harmonic Scalpel taking as much mesoappendix as we can. A small amount of the lateral attachments of the appendix and cecum was also opened up to allow for retraction of the appendix anteriorly. Once the whole of the appendix including the base as it attaches to the cecum was fully freed up, the appendix was then tied off with PDS Endoloops twice. This was then divided with the Harmonic scalpel. The stump appears healthy. Appendix was then delivered into an Endo Catch bag through the 8 mm suprapubic port site. . After re-insufflation the surgical site was inspected for hemostasis, small capsule/cavity of the abscess was further debrided with blunt dissection as well as irrigated. Surrounding areas of the abdomen and inspected for fluid collections or signs of injury. The suprapubic port site was closed with 0 Vicryl in a mattress fashion using a Omega Liriano device. The abdomen was deflated. All ports removed. All skin incisions closed with 4-0 Monocryl in a subcuticular fashion. Steri-Strips and gauze dressing used for wound coverage. Patient was promptly awake and extubated and brought to recovery room stable. All counts of sponges and instruments verified to be correct. JG EDWARD MD Dec 06, 2020 13:15
[2020-12-06] MEDS: PANTOPRAZOLE 40MG TAB (PROTONIX) PO SCH (13:31)
[2020-12-06] MEDS: carBAMazepine XR 200 MG TAB PO SCH ×2 (13:31→20:38)
[2020-12-06] MEDS: DOCUSATE SODIUM 100MG CAPSULE PO SCH (13:31)
[2020-12-06] MEDS: DULoxetine 30 MG CAP (CYMBALTA) PO SCH ×2 (13:31→20:39)
[2020-12-06] MEDS: SIMVASTATIN 40 MG TAB PO SCH (20:39)
[2020-12-06] MEDS: SITagliptin 50 MG TAB (JANUVIA) PO SCH (20:39)
[2020-12-06] MEDS: ACETAMINOPHEN 500 MG TAB PO PRN (20:39)
[2020-12-06] MEDS: TAMSULOSIN 0.4 MG CAP PO SCH (20:39)
[2020-12-07 02:00] VITALS: BP 134/66
[2020-12-07] MEDS: AMPICILLIN SOD/SULBACTAM SOD 3 GM in D5W MINI-BAG PLUS 100 ML IV SCH ×4 (04:45→21:35)
[2020-12-07 05:55] LABS: BASO % 0.2 % (0.0-1.0); EOS # 0.1 10^3/uL (0.0-0.5); EOS % 0.8 % (0.0-3.0); HEMATOCRIT 34.9 % (42.0-52.0); HEMOGLOBIN 11.3 g/dl (13.5-17.5); LYMPH # 1.7 10^3/uL (1.5-5.0); LYMPH % 12.7 % (24.0-44.0); MEAN CORPUSCULAR HEMOGLOBIN 29.9 pg (27.0-33.0); MEAN CORPUSCULAR HGB CONC 32.4 g/dl (32.0-36.5); MEAN CORPUSCULAR VOLUME 92.3 fl (80.0-96.0); MONO % 14.9 % (2.0-8.0); NEUTROPHILS # 9.6 10^3/uL (1.5-8.5); NEUTROPHILS % 70.4 % (36.0-66.0); PLATELET COUNT, AUTOMATED 215 10^3/uL (150-450); RED BLOOD COUNT 3.78 10^6/uL (4.30-6.10)
[2020-12-07 06:00] VITALS: BP 137/83
[2020-12-07 06:14] LABS: WHITE BLOOD COUNT 13.6 10^3/uL (4.0-10.0)
[2020-12-07 06:18] LABS: BLOOD UREA NITROGEN 9 MG/DL (7-18); CALCIUM LEVEL 9.1 MG/DL (8.8-10.2); CARBON DIOXIDE LEVEL 30 MEQ/L (21-32); CHLORIDE LEVEL 104 MEQ/L (98-107); CREATININE FOR GFR 0.84 MG/DL (0.70-1.30); GLOMERULAR FILTRATION RATE > 60.0 (>42); GLUCOSE, FASTING 171 MG/DL (70-100); POTASSIUM SERUM 3.8 MEQ/L (3.5-5.1); SODIUM LEVEL 138 MEQ/L (136-145)
[2020-12-07] MEDS: HumaLOG INSULIN (NovoLOG) PER UNIT SC SCH ×4 (08:31→20:56)
[2020-12-07] MEDS: MORPHINE 2 MG/ML 1ML VIAL (J2270) IV PRN ×2 (08:31→14:38)
[2020-12-07] MEDS: DOCUSATE SODIUM 100MG CAPSULE PO SCH (08:32)
[2020-12-07] MEDS: PANTOPRAZOLE 40MG TAB (PROTONIX) PO SCH (08:32)
[2020-12-07] MEDS: carBAMazepine XR 200 MG TAB PO SCH ×2 (08:32→20:54)
[2020-12-07] MEDS: DULoxetine 30 MG CAP (CYMBALTA) PO SCH ×2 (08:33→20:55)
[2020-12-07] MEDS: METOPROLOL TART 25 MG TABLET PO SCH ×2 (08:33→20:55)
[2020-12-07] MEDS: LOSARTAN 50MG TABLET PO SCH (08:33)
[2020-12-07 10:00] VITALS: BP 127/68
--- NOTE | 2020-12-07 11:15 | IPNPDOC ---
Text Note Date of Service The patient was seen on 12/07/20. NOTE Gen. surgery. Dr. Salazar The patient is a 75-year-old male admitted 12/06/20 with acute appendicitis status post laparoscopic appendectomy as per Dr. Salazar 12/06/20. The patient is out of bed to the chair this morning. The patient states his abdominal pain is improved this morning. He still feels a little bloated. Denies nausea or vomiting. Denies diarrhea. Reports flatus, had BM 1. Tolerating soft diet. MAXIMUM TEMPERATURE 102.8 at 2015 hrs. 12/06, 100.0 at 0600 12/07/20. Heart rate 88, respiratory rate 20, blood pressure 127/68, 94% 2 L nasal cannula. General. The patient is out of bed, wake and alert, no acute distress. MMM Lungs clear to auscultation. Heart regular rate and rhythm. Abdomen is obese, protuberant but soft, mild distention. Some mild tenderness with palpation over the right lower quadrant but no guarding, no grimacing. Surgical sites with dressings intact, no drainage, no erythema. Extremities well perfused with no edema. 2270/225, +2045. White blood cell count 13.6 compared with 14.4 yesterday. Hemoglobin 11.3, platelet 215. CRP 18.80 Culture pending. Assessment/plan Acute appendicitis status post laparoscopic appendectomy as per Dr. Salazar 12/06/20. The patient was noted to have fever last evening to 102.8, 100.0 this morning. White blood cell count is down slightly to 13.6 compared with 14.4 yesterday. The patient is out of bed sitting in the chair, he is tolerating soft diet. He reports his pain is improved. Patient is reviewed and examined as per Dr. Salazar this morning. Continue with IV antibiotics for now. Culture pending. Encourage incentive spirometer. Encourage ambulation. Continue to monitor. DM. Januvia. Continue sliding scale insulin before meals at bedtime. BS 171 this morning. Hypertension. Cozaar/Lopressor BP well controlled. GERD. Continue PPI. Dyslipidemia. Continue Zocor. BPH. Continue Flomax. VS,Fishbone, I+O VS, Fishbone, I+O Laboratory Tests 12/07/20 05:36 Vital Signs Date Time Temp Pulse Resp B/P (MAP) Pulse Ox O2 Delivery O2 Flow Rate FiO2 12/07/20 10:00 97.8 88 20 127/68 (87) 94 Nasal Cannula 2.0 I&O- Last 24 Hours up to 6 AM 12/07/20 06:00 Intake Total 2075 ml Output Total 200 ml Balance 1875 ml Attending Note Attending Note Patient still elevated this morning. He is postop day 1 for recurrent acute appendicitis. Last year he had an attack of acute appendicitis that was perforated and had an abscess drained. He chose to not to have appendectomy intermittently ever he improved. Intraoperatively there was a good amount of soft tissue swelling surrounding the terminal ileum as well as the lateral wall and inferior wall of the cecum. There was a chronic abscess that was adhered in between the wall of the appendix and the lateral abdominal wall. He was febrile overnight. Otherwise he denies any nausea or vomiting. On examination Patient overall looks more comfortable than on his presentation. His abdomen still mildly distended and quite protuberant. He still quite tender over the right lower quadrant area. Impression and plan He is postop day 1 from laparoscopic appendectomy there was a contained perforation which may be chronic and some swelling involving the terminal ileum and cecum. I will continue the IV antibiotics and keep in the hospital until he defervesces. He can be advanced to regular diet. Eunice Sinha Dec 07, 2020 10:35 JG SALAZAR MD Dec 22, 2020 14:30
[2020-12-07 12:00] VITALS: BP_SYST 130; BP_SYST 131; BP_DIAS 100; BP_DIAS 84
[2020-12-07 18:00] VITALS: BP 154/71
[2020-12-07] MEDS: ACETAMINOPHEN 500 MG TAB PO PRN (20:54)
[2020-12-07] MEDS: SIMVASTATIN 40 MG TAB PO SCH (20:55)
[2020-12-07] MEDS: SITagliptin 50 MG TAB (JANUVIA) PO SCH (20:55)
[2020-12-07] MEDS: TAMSULOSIN 0.4 MG CAP PO SCH (20:55)
[2020-12-07 22:00] VITALS: BP 148/72
[2020-12-08] MEDS: AMPICILLIN SOD/SULBACTAM SOD 3 GM in D5W MINI-BAG PLUS 100 ML IV SCH (04:30)
[2020-12-08 06:00] VITALS: BP 139/76
[2020-12-08] MEDS ORDERED: metroNIDAZOLE (FLAGYL) 500MG TABLET PO SCH (06:00)
[2020-12-08] MEDS ORDERED: LevoFLOXacin 500 MG TABLET PO SCH (06:00)
[2020-12-08] MEDS: DOCUSATE SODIUM 100MG CAPSULE PO SCH (08:31)
[2020-12-08] MEDS: PANTOPRAZOLE 40MG TAB (PROTONIX) PO SCH (08:31)
[2020-12-08] MEDS: carBAMazepine XR 200 MG TAB PO SCH ×2 (08:31→20:35)
[2020-12-08] MEDS: DULoxetine 30 MG CAP (CYMBALTA) PO SCH ×2 (08:31→20:35)
[2020-12-08] MEDS: LOSARTAN 50MG TABLET PO SCH (08:32)
[2020-12-08] MEDS: HumaLOG INSULIN (NovoLOG) PER UNIT SC SCH ×4 (08:32→20:40)
[2020-12-08] MEDS: METOPROLOL TART 25 MG TABLET PO SCH ×2 (08:32→20:35)
[2020-12-08 08:33] LABS: BASO # 0.1 10^3/uL (0.0-0.2); BASO % 0.3 % (0.0-1.0); EOS # 0.2 10^3/uL (0.0-0.5); EOS % 1.1 % (0.0-3.0); HEMATOCRIT 36.2 % (42.0-52.0); HEMOGLOBIN 12.1 g/dl (13.5-17.5); LYMPH # 1.8 10^3/uL (1.5-5.0); LYMPH % 9.1 % (24.0-44.0); MEAN CORPUSCULAR HEMOGLOBIN 30.6 pg (27.0-33.0); MEAN CORPUSCULAR HGB CONC 33.4 g/dl (32.0-36.5); MEAN CORPUSCULAR VOLUME 91.6 fl (80.0-96.0); MONO # 2.4 10^3/uL (0.0-0.8); NEUTROPHILS % 75.9 % (36.0-66.0); PLATELET COUNT, AUTOMATED 272 10^3/uL (150-450); RED BLOOD COUNT 3.95 10^6/uL (4.30-6.10)
[2020-12-08 08:56] LABS: MONO % 12.3 % (2.0-8.0); WHITE BLOOD COUNT 19.8 10^3/uL (4.0-10.0)
[2020-12-08 09:00] LABS: BLOOD UREA NITROGEN 7 MG/DL (7-18); CALCIUM LEVEL 8.8 MG/DL (8.8-10.2); CARBON DIOXIDE LEVEL 29 MEQ/L (21-32); CHLORIDE LEVEL 101 MEQ/L (98-107); CREATININE FOR GFR 0.76 MG/DL (0.70-1.30); GLOMERULAR FILTRATION RATE > 60.0 (>42); GLUCOSE, FASTING 167 MG/DL (70-100); SODIUM LEVEL 136 MEQ/L (136-145)
--- NOTE | 2020-12-08 11:37 | IPNPDOC ---
Text Note Date of Service The patient was seen on 12/08/20. NOTE Gen. surgery. Dr. Salazar The patient is a 75-year-old male admitted 12/06/20 with acute appendicitis status post laparoscopic appendectomy as per Dr. Salazar 12/06/20. The patient reports still having some abdominal pain. Denies nausea or vomiting. Denies diarrhea. Tolerating soft diet. Has not had BM yet. MAXIMUM TEMPERATURE 102.1 at 2020 hrs. 12/07, 99.2 this morning VSS General. The patient is resting in bed, no acute distress. MMM Lungs clear to auscultation. Heart regular rate and rhythm. Abdomen is obese, protuberant but soft, mild distention. Tenderness noted in the right upper quadrant. Surgical sites with dressings intact, no drainage, no erythema. Extremities well perfused with no edema. 1035/1125, -90 White blood cell count 19.8 compared with 13.6 yesterday. Hemoglobin 12.1, platelet 272. CRP 30.3, upward trending Culture heavy Escherichia coli, sensitive to Levaquin. Assessment/plan Acute appendicitis status post laparoscopic appendectomy as per Dr. Salazar 12/06/20. The patient was noted to have fever last evening again to 102.1. White blood cell count is increased today to 19.8. CRP is noted to be elevated at 30.3. Patient is reviewed and examined as per Dr. Salazar this morning. Discontinue oral Levaquin/Flagyl and resume IV antibiotics, Levaquin/Flagyl. Continue soft diet. Encourage incentive spirometer. Encourage ambulation. Continue to monitor. DM. Januvia. Continue sliding scale insulin before meals at bedtime. BS 179 this morning. Hypertension. Cozaar/Lopressor BP controlled. GERD. Continue PPI. Dyslipidemia. Continue Zocor. BPH. Continue Flomax. VS,Fishbone, I+O VS, Fishbone, I+O Laboratory Tests 12/08/20 07:50 Vital Signs Date Time Temp Pulse Resp B/P (MAP) Pulse Ox O2 Delivery O2 Flow Rate FiO2 12/08/20 08:32 81 141/67 12/08/20 06:00 99.2 19 95 Room Air 12/07/20 22:00 1.0 I&O- Last 24 Hours up to 6 AM 12/08/20 06:00 Intake Total 930 ml Output Total 1025 ml Balance -95 ml Attending Note Attending Note Patient still with febrile episodes and his leukocytosis is elevated up to 19,000. He is tolerating food but his abdomen is quite protuberant and he still looks distended to me. On examination he is still quite tender over the right lower quadrant area. Cultures sent from the operating room shows growth of Escherichia coli, Enterococcus faecalis and Bacteroides. We'll switch him to levofloxacin and metronidazole. If this does not improve will consider CT a bdomen and pelvis to look for any abscess or undrained collection. Eunice Sinha Dec 08, 2020 11:37 JG SALAZAR MD Dec 22, 2020 14:33
[2020-12-08 14:00] VITALS: BP 137/62
[2020-12-08] MEDS: metroNIDAZOLE 500 MG in IV 1 EA IV SCH ×2 (16:06→23:29)
[2020-12-08] MEDS: SIMVASTATIN 40 MG TAB PO SCH (20:34)
[2020-12-08] MEDS: SITagliptin 50 MG TAB (JANUVIA) PO SCH (20:34)
[2020-12-08] MEDS: TAMSULOSIN 0.4 MG CAP PO SCH (20:34)
[2020-12-08 22:00] VITALS: BP 132/61
[2020-12-09 06:00] VITALS: BP 154/73
[2020-12-09] MEDS: metroNIDAZOLE 500 MG in IV 1 EA IV SCH ×3 (08:13→23:56)
[2020-12-09] MEDS: METOPROLOL TART 25 MG TABLET PO SCH ×2 (08:13→20:41)
[2020-12-09] MEDS: GASTROGRAFIN SOLUTION 30ML PO SCH ×2 (08:13→08:51)
[2020-12-09] MEDS: carBAMazepine XR 200 MG TAB PO SCH ×2 (08:13→20:42)
[2020-12-09] MEDS: HumaLOG INSULIN (NovoLOG) PER UNIT SC SCH ×4 (08:13→20:36)
[2020-12-09] MEDS: LOSARTAN 50MG TABLET PO SCH (08:14)
[2020-12-09] MEDS: DULoxetine 30 MG CAP (CYMBALTA) PO SCH ×2 (08:14→20:41)
[2020-12-09] MEDS: PANTOPRAZOLE 40MG TAB (PROTONIX) PO SCH (08:14)
[2020-12-09] MEDS: DOCUSATE SODIUM 100MG CAPSULE PO SCH (08:14)
[2020-12-09] MEDS ORDERED: ISOVUE-370 76% 100ML VIAL As Ordered ONE (09:11)
[2020-12-09] MEDS: LevoFLOXacin IV 500 MG in IV 1 EA IV SCH (10:23)
--- NOTE | 2020-12-09 11:09 | REP ---
INDICATION: post appendectomy, look for abscess. COMPARISON: 12/06/2020 TECHNIQUE: Axial contrast-enhanced images from the lung bases to the pubic symphysis using oral and 100 cc Isovue 370 intravenous contrast material. Coronal and sagittal reformations obtained. This CT examination was performed using the following dose reduction techniques: Automated exposure control, adjustment of mA and/or kv according to the patient's size, and the use of iterative reconstruction technique. FINDINGS: In comparison with most recent prior examination, there is new mucosal thickening to the distal/terminal ileum and surrounding inflammatory stranding (series 201 images 105-140). Very small foci of extraluminal gas are identified and raise the possibility of perforation but should be correlated with the possibility of recent surgery. No associated ascites or drainable collection/abscess is appreciated. Remainder of the small and large bowel is grossly unremarkable and without obstruction or further acute process. Scattered colonic diverticula noted without acute diverticulitis. Liver, spleen, pancreas, gallbladder, bilateral adrenal glands and kidneys are essentially stable and normal. Bilateral perinephric stranding is likely chronic and there is no evidence for hydronephrosis. Left renal hypodensities are stable and suggest small benign cysts. Bladder demonstrates small stable right diverticulum. Heterogeneous moderate prostatomegaly is again noted. Atherosclerotic changes to the aorta and vasculature without aneurysm or dissection. Musculoskeletal structures demonstrate osteopenia and degenerative changes. IMPRESSION: 1. Infectious/inflammatory changes in the right lower quadrant primarily involving the distal/terminal ileum as described above. Small foci of free air is identified raising the possibility of recent surgery versus perforation. Correlation is required. No ascites or drainable abscess collection. <Electronically signed by Yariel More > 12/09/20 [id number]
[2020-12-09 14:00] VITALS: BP 158/74
[2020-12-09] MEDS: SITagliptin 50 MG TAB (JANUVIA) PO SCH (20:41)
[2020-12-09] MEDS: TAMSULOSIN 0.4 MG CAP PO SCH (20:41)
[2020-12-09] MEDS: SIMVASTATIN 40 MG TAB PO SCH (20:41)
[2020-12-09 22:00] VITALS: BP 119/75
[2020-12-10 06:00] VITALS: BP 135/70
[2020-12-10] MEDS: metroNIDAZOLE 500 MG in IV 1 EA IV SCH (09:04)
[2020-12-10 09:05] VITALS: BP 135/70
[2020-12-10] MEDS: HumaLOG INSULIN (NovoLOG) PER UNIT SC SCH ×2 (09:05→12:30)
[2020-12-10] MEDS: DOCUSATE SODIUM 100MG CAPSULE PO SCH (09:05)
[2020-12-10] MEDS: LOSARTAN 50MG TABLET PO SCH (09:05)
[2020-12-10] MEDS: carBAMazepine XR 200 MG TAB PO SCH (09:05)
[2020-12-10] MEDS: METOPROLOL TART 25 MG TABLET PO SCH (09:06)
[2020-12-10] MEDS: DULoxetine 30 MG CAP (CYMBALTA) PO SCH (09:06)
[2020-12-10] MEDS: PANTOPRAZOLE 40MG TAB (PROTONIX) PO SCH (09:06)
[2020-12-10 09:17] LABS: BASO # 0.1 10^3/uL (0.0-0.2); BASO % 0.5 % (0.0-1.0); EOS # 0.3 10^3/uL (0.0-0.5); EOS % 2.8 % (0.0-3.0); HEMATOCRIT 34.1 % (42.0-52.0); HEMOGLOBIN 11.4 g/dl (13.5-17.5); LYMPH # 1.5 10^3/uL (1.5-5.0); LYMPH % 12.9 % (24.0-44.0); MEAN CORPUSCULAR HEMOGLOBIN 30.6 pg (27.0-33.0); MEAN CORPUSCULAR HGB CONC 33.4 g/dl (32.0-36.5); MEAN CORPUSCULAR VOLUME 91.7 fl (80.0-96.0); MONO # 1.3 10^3/uL (0.0-0.8); MONO % 10.9 % (2.0-8.0); NEUTROPHILS # 8.2 10^3/uL (1.5-8.5); NEUTROPHILS % 71.3 % (36.0-66.0); PLATELET COUNT, AUTOMATED 308 10^3/uL (150-450); RED BLOOD COUNT 3.72 10^6/uL (4.30-6.10); WHITE BLOOD COUNT 11.5 10^3/uL (4.0-10.0)
[2020-12-10 10:14] LABS: BLOOD UREA NITROGEN 10 MG/DL (7-18); CALCIUM LEVEL 8.8 MG/DL (8.8-10.2); CARBON DIOXIDE LEVEL 28 MEQ/L (21-32); CHLORIDE LEVEL 102 MEQ/L (98-107); CREATININE FOR GFR 0.74 MG/DL (0.70-1.30); GLOMERULAR FILTRATION RATE > 60.0 (>42); GLUCOSE, FASTING 156 MG/DL (70-100); POTASSIUM SERUM 3.9 MEQ/L (3.5-5.1); SODIUM LEVEL 138 MEQ/L (136-145)
[2020-12-10] MEDS: LevoFLOXacin IV 500 MG in IV 1 EA IV SCH (10:14)
[2020-12-10] MEDS ORDERED: LEVO500T3 PO (12:16)
[2020-12-10] MEDS ORDERED: PERC5TAB12 PO (12:16)
[2020-12-10] MEDS ORDERED: METR-265 PO (12:16)
--- NOTE | 2020-12-10 12:18 | DS.PDOC ---
Discharge Summary General Date of Admission Dec 07, 2020 at 12:15 Date of Discharge 12/10/2020 Attending Physician: JG SALAZAR MD Discharge Summary PROCEDURES PERFORMED DURING STAY: Laparoscopic appendectomy. ADMITTING DIAGNOSES: 1. Recurrent acute appendicitis. DISCHARGE DIAGNOSES: 1. Recurrent acute appendicitis 2. reactive/secondary terminal ileitis. COMPLICATIONS/CHIEF COMPLAINT: Acute Apendicitis. HISTORY OF PRESENT ILLNESS: Patient is a 75-year-old male who was brought in yesterday by his with reports of a one-week history of vague abdominal pain over the right side, right upper quadrant and right lower quadrant with worsening of the pain since the day prior to presentation. He rates it at about 5-6 out of 10. He denies any associated nausea or vomiting. He is able to tolerate food. He denies any diarrhea. He denies any fevers or chills. January of last year he had a perforated appendicitis with an abscess. This was drained percutaneously with resolution of the abscess. He followed up with Dr. Bazan and after discussion of his options which include watchful waiting versus interval appendectomy, they have chosen the former. Since that time patient reports he has been asymptomatic save for the start of his symptoms about a week prior. Because he was told that if he is having symptoms that he needs to be seen in urgent manner, he then went to the emergency room. History later on supplemented by his in the preop area, confirms most of th e details. He has been having pain for about 2 days. HOSPITAL COURSE: Patient was taken to the operating room on 12/06/2020 for laparoscopic appendectomy. There was a contained what appears to be a chronic abscess between the tip of the appendix and the abdominal wall probably more from the prior attack. There were some notable thickening of the terminal ileum as well as the lateral inferior wall of the cecum. He did well perioperatively and admitted him initially overnight for continued antibiotics. On the first night he had some febrile episodes up to 101 though by the morning he felt better. He maintained his leukocytosis of 13.6 slightly down from initial leukocytosis of 14.4. He was advanced to regular diet but I kept him on IV antibiotics. Initially I was using Unasyn 3 g IV every 6 hours. On the second evening he continued to have febrile episodes of 202 and on the next morning his leukocytosis increased to 19,000. He sold locally tender over the right upper quadrant area though he tells me he still feels much better than on his presentation. His cultures then came out that day showing growth of enterococcus as well as Escherichia coli which was sensitive to levofloxacin so I switched the antibiotics to levofloxacin and metronidazole as the anaerobic cultures are not finalized yet. He did not have a fever on postop day 2 evening but his discomfort and tenderness still is unusual so I repeated CT abdomen and pelvis which shows some secondary terminal ileitis but no abscesses noted. He was continued on antibiotics and he continues to defervescence and felt much better by postop day 4. He hasn't had any bowel movement since his surgery so he was given a dose of milk of magnesia. Given the improvement and patient tolerating food patient wishes to go home. He was di scharged home at postop day 4 tolerating food and has been afebrile more than 24 hours. He is discharged home on oral levofloxacin and metronidazole. DISCHARGE MEDICATIONS: Please see below. ALLERGIES: Please see below. PHYSICAL EXAMINATION ON DISCHARGE: VITAL SIGNS: Please see below. GENERAL: Comfortable in appearance, more awake. Alert and oriented HEENT: Normocephalic, moist lips and mucosa NECK: Short, supple, no jugular venous distention CARDIOVASCULAR EXAMINATION: Regular heart rate and rhythm without murmurs RESPIRATORY EXAMINATION: Clear breath sounds auscultation bilaterally without wheezing ABDOMINAL EXAMINATION: Round, protuberant abdomen. Laparoscopic port sites over the periumbilical, left lower quadrant and suprapubic area. Mild ecchymosis around the umbilical area. Decreased tenderness over the right lower quadrant area without rebound or guarding EXTREMITIES: No significant extremity edema SKIN: Warm and dry NEUROLOGICAL EXAMINATION: Awake, alert and oriented. LABORATORY DATA: Please see below. IMAGING: His CT abdomen and pelvis that was done on either presentation. This was repeated on 12/09/2020 or postop day 3 PROGNOSIS: Good ACTIVITY: Light activity 1 week. DIET: As tolerated DISCHARGE PLAN: Patient is discharged home on a seven-day course of levofloxacin and metronidazole DISPOSITION: . DISCHARGE INSTRUCTIONS: 1. Complete seven-day course levofloxacin and metronidazole 2. Follow-up in clinic in 2 weeks. ITEMS TO FOLLOWUP ON ON OUTPATIENT: 1. Symptom check 2. Pathology results acute appendicitis with periappendicitis. DISCHARGE CONDITION: Stable. TIME SPENT ON DISCHARGE: Greater than 45 minutes. Vital Signs/I&Os Vital Signs Date Time Temp Pulse Resp B/P (MAP) Pulse Ox O2 Delivery O2 Flow Rate FiO2 12/10/20 09:05 135/70 12/10/20 06:00 99.1 76 18 96 Room Air 12/07/20 22:00 1.0 I&O- Last 24 Hours up to 6 AM 12/10/20 06:00 Intake Total 1160 ml Output Total 525 ml Balance 635 ml Laboratory Data Labs 24H Laboratory Tests 2 12/09/20 17:03: Bedside Glucose (Misc Panel) 123H 12/09/20 20:20: Bedside Glucose (Misc Panel) 167H 12/10/20 05:56: Bedside Glucose (Misc Panel) 150H 12/10/20 08:10: Immature Granulocyte % (Auto) 1.6, Neutrophils (%) (Auto) 71.3H, Lymphocytes (%) (Auto) 12.9L, Monocytes (%) (Auto) 10.9H, Eosinophils (%) (Auto) 2.8, Basophils (%) (Auto) 0.5, Neutrophils # (Auto) 8.2, Lymphocytes # (Auto) 1.5, Monocytes # (Auto) 1.3H, Eosinophils # (Auto) 0.3, Basophils # (Auto) 0.1, Nucleated Red Blood Cells % (auto) 0.0, Anion Gap 8, Glomerular Filtration Rate > 60.0, Calcium Level 8.8, C-Reactive Protein, Quantitative 16.00H 12/10/20 11:47: Bedside Glucose (Misc Panel) 219H CBC/BMP Laboratory Tests 12/10/20 08:10 FSBS Laboratory Tests Test 12/09/20 17:03 12/09/20 20:20 12/10/20 05:56 12/10/20 11:47 Range/Units Bedside Glucose (Misc Panel) 123 167 150 219 83-110 MG/DL Microbiology Microbiology 12/06/20 Gram Stain - Final, Resulted 12/06/20 Wound Culture - Final, Resulted Escherichia Coli Enterococcus Faecalis 12/06/20 Anaerobic Culture, Resulted Pending Discharge Medications Scheduled Carbamazepine (Carbamazepine ER) 200 Mg Alex, 200 MG PO BID, (Reported) Clopidogrel Bisulfate (Plavix) 75 Mg Tab, 75 MG PO DAILY, (Reported) Docusate Sodium (Colace) 100 Mg Cap, 100 MG PO DAILY, (Reported) Duloxetine Hcl (Duloxetine HCl) 30 Mg Cap, 30 MG PO BID, (Reported) Levofloxacin (Levofloxacin) 500 Mg Tablet, 1 TAB PO DAILY Losartan Potassium (Losartan Potassium) 50 Mg Tab, 50 MG PO DAILY, (Reported) Metformin HCl (Metformin HCl) 500 Mg Tablet, 500 MG PO BID, (Reported) Metoprolol Tartrate (Metoprolol Tartrate) 25 Mg Tab, 25 MG PO BID, (Reported) Metronidazole (Metronidazole) 500 Mg Tablet, 1 TAB PO TID Pantoprazole Sodium (Pantoprazole Sodium) 40 Mg Tab, 40 MG PO DAILY, (Reported) Simvastatin (Simvastatin) 40 Mg Tab, 40 MG PO QHS, (Reported) Sitagliptin Phosphate (Januvia) 100 Mg Tablet, 100 MG PO QPM, (Reported) Tamsulosin HCl (Flomax) 0.4 Mg Cap, 0.4 MG PO QHS, (Reported) Scheduled PRN Oxycodone HCl/Acetaminophen (Percocet 5-325 mg Tablet) 1 Each Tablet, 1 TAB PO TIDP PRN for pain Allergies Coded Allergies: No Known Allergies (Verified , 09/22/19) JG SALAZAR MD Dec 10, 2020 12:18
[2020-12-10] MEDS ORDERED: MIRALAX *UNIT DOSE* 17GM PACKET PO ONE (13:00)
== END 2020-12-10 13:35 | disposition home or self-care (01) | DRG 340 ==
LOC: M ED 21:29 → ENRESERV 12-06 04:21 → M SDC 12-06 05:06 → M MSPAV 12-06 05:09 → M SDC 12-07 12:14 → M MSPAV 12-07 12:15
PROVIDERS: ADMIT Surgery; ATTEND Surgery
PROC: 0DTJ4ZZ Resection of Appendix, Percutaneous Endoscopic Approach (ICD-10-PCS; principal; 2020-12-06 09:45)
DX: K35.33 Acute appendicitis with perforation, localized peritonitis, and gangrene, with abscess (principal); E78.5 Hyperlipidemia, unspecified; K21.9 Gastro-esophageal reflux disease without esophagitis; N40.0 Benign prostatic hyperplasia without lower urinary tract symptoms; E11.9 Type 2 diabetes mellitus without complications; G30.9 Alzheimer's disease, unspecified; I10 Essential (primary) hypertension; B96.20 Unspecified Escherichia coli [E. coli] as the cause of diseases classified elsewhere; F02.80 Dementia in other diseases classified elsewhere, unspecified severity, without behavioral disturbance, psychotic disturbance, mood disturbance, and anxiety; Z79.02 Long term (current) use of antithrombotics/antiplatelets; Z79.84 Long term (current) use of oral hypoglycemic drugs; Z79.899 Other long term (current) drug therapy; Z20.822 Contact with and (suspected) exposure to COVID-19

== ENCOUNTER 2021-01-25 17:34 | Inpatient (IN) | payer MEDICARE, BC, OTHER ==
[~2021-01-25] VITALS: Ht 167.6 cm; Wt 104.5 kg
[2021-01-25] MEDS: HumaLOG INSULIN (NovoLOG) PER UNIT SC SCH (02:10)
[~2021-01-25 17:34] MED LIST changes: +LEVO500T3 PO; +METF-839 PO; +METR-265 PO; +PERC5TAB12 PO
[2021-01-25] MEDS ORDERED: NS 1,000 ML IV SCH (18:15)
--- NOTE | 2021-01-25 18:42 | REPVR ---
PROCEDURE INFORMATION: Exam: CT Head Without Contrast Exam date and time: 01/25/2021 6:31 PM Age: 75 years old Clinical indication: Altered mental status/memory loss TECHNIQUE: Imaging protocol: Computed tomography of the head without contrast. Radiation optimization: All CT scans at this facility use at least one of these dose optimization techniques: automated exposure control; mA and/or kV adjustment per patient size (includes targeted exams where dose is matched to clinical indication); or iterative reconstruction. COMPARISON: CT Head without contrast 02/27/2020 10:54 AM FINDINGS: Brain: There is moderate diffuse cerebellar atrophy. There is moderate parenchymal volume loss. White matter changes are demonstrated in the subcortical, centrum semiovale and periventricular white matter consistent with chronic age related small vessel ischemic changes. Lacunar infarct left thalamus. Cerebral ventricles: The degree of ventricular dilatation is normal for age and/or degree of atrophy present. Bones/joints: Unremarkable. No acute fracture. Paranasal sinuses: Visualized sinuses are unremarkable. No fluid levels. Mastoid air cells: Visualized mastoid air cells are well aerated. Vasculature: Atherosclerotic calcifications are demonstrated in the intracranial carotid arteries bilaterally as well as in the vertebral basilar system. Soft tissues: Unremarkable. Other findings: Findings stable in comparison to the prior study of 02/27/2020. IMPRESSION: 1. There is moderate diffuse cerebellar atrophy. 2. There is moderate parenchymal volume loss. White matter changes are demonstrated in the subcortical, centrum semiovale and periventricular white matter consistent with chronic age related small vessel ischemic changes. 3. The degree of ventricular dilatation is normal for age and/or degree of atrophy present. 4. Findings stable in comparison to the prior study of 02/27/2020. 5. No acute findings. Electronically signed by: Cali Kern On 01/25/2021 18:42:25 PM
--- NOTE | 2021-01-25 18:48 | REP ---
INDICATION: Altered Mental Status. COMPARISON: Comparison chest x-ray February 27, 2020. TECHNIQUE: Portable upright AP chest radiograph. FINDINGS: The lungs are symmetrically aerated and clear. Pleural angles are sharp. Heart is enlarged unchanged from the prior study. Pulmonary vasculature is cephalized. No evidence of pleural effusion or pulmonary edema. No acute bony abnormality.. IMPRESSION: Cardiomegaly. Cephalization. No evidence of pleural effusion or pulmonary edema. No focal infiltrate.. <Electronically signed by Jonny Madsen > 01/25/21 [id number]
[2021-01-25 18:51] LABS: BASO % 0.4 % (0.0-1.0); EOS # 0.2 10^3/uL (0.0-0.5); HEMOGLOBIN 13.2 g/dl (13.5-17.5); LYMPH # 3.5 10^3/uL (1.5-5.0); MEAN CORPUSCULAR HEMOGLOBIN 30.1 pg (27.0-33.0); MEAN CORPUSCULAR VOLUME 91.3 fl (80.0-96.0); MONO # 1.2 10^3/uL (0.0-0.8); MONO % 10.3 % (2.0-8.0); NEUTROPHILS # 6.3 10^3/uL (1.5-8.5); NEUTROPHILS % 55.8 % (36.0-66.0); PLATELET COUNT, AUTOMATED 258 10^3/uL (150-450); RED BLOOD COUNT 4.38 10^6/uL (4.30-6.10); WHITE BLOOD COUNT 11.3 10^3/uL (4.0-10.0)
[2021-01-25 19:20] LABS: AMPHETAMINES LEVEL URINE NEGATIVE (NEGATIVE); BARBITURATES URINE NEGATIVE (NEGATIVE); BENZODIAZEPINES URINE NEGATIVE (NEGATIVE); CANNABINOIDS URINE NEGATIVE (NEGATIVE); COCAINE METABOLITE URINE NEGATIVE (NEGATIVE); METHADONE URINE NEGATIVE (NEGATIVE); OPIATES URINE NEGATIVE (NEGATIVE); PHENCYCLIDINE URINE NEGATIVE (NEGATIVE)
[2021-01-25 19:46] LABS: ACETAMINOPHEN LEVEL < 2.0 UG/ML (10.0-30.0); ALBUMIN 3.7 GM/DL (3.2-5.2); ALT/SGPT 19 U/L (12-78); BILIRUBIN,DIRECT < 0.1 MG/DL (0.0-0.2); BILIRUBIN,TOTAL 0.2 MG/DL (0.2-1.0); BLOOD UREA NITROGEN 12 MG/DL (7-18); CARBON DIOXIDE LEVEL 30 MEQ/L (21-32); CHLORIDE LEVEL 106 MEQ/L (98-107); CK-MB VALUE MASS < 1.0 NG/ML (<3.6); CPK CREATINE PHOSPHOKINASE 52 U/L (39-308); CREATININE FOR GFR 0.77 MG/DL (0.70-1.30); ETHYL ALCOHOL (ETHANOL) < 0.003 % (0.000-0.010); GLOMERULAR FILTRATION RATE > 60.0 (>42); GLUCOSE, FASTING 103 MG/DL (70-100); MB/CK RELATIVE INDEX 1.92 (< OR =4); POTASSIUM SERUM 4.3 MEQ/L (3.5-5.1); SALICYLATE LEVEL < 1.7 MG/DL (5.0-30.0); SODIUM LEVEL 141 MEQ/L (136-145); TOTAL PROTEIN 6.8 GM/DL (6.4-8.2); TROPONIN I < 0.02 NG/ML (< 0.10)
[2021-01-25] MEDS ORDERED: DEXTROSE 50% 50 ML SYRINGE IV PRN (21:30)
[2021-01-25] MEDS ORDERED: GLUCOSE 4GM CHEW TABLET PO PRN (21:30)
[2021-01-25] MEDS ORDERED: MOM 30ML SUSPENSION UDC PO PRN (21:30)
[2021-01-25] MEDS ORDERED: GLUCAGON INJ 1MG VIAL SC PRN (21:30)
[2021-01-25] MEDS ORDERED: ACETAMINOPHEN TAB 650MG DOSE (2X325MG) PO PRN (21:30)
[2021-01-25] MEDS ORDERED: MAALOX 30 ML SUSP *UDC PO PRN (21:30)
--- NOTE | 2021-01-25 22:41 | REPVR ---
PROCEDURE INFORMATION: Exam: MR Head Without Contrast Exam date and time: 01/25/2021 9:52 PM Age: 75 years old Clinical indication: Altered mental status/memory loss and walking, difficulty; Confusion or disorientation; Additional info: TIA TECHNIQUE: Imaging protocol: MR of the head without contrast. COMPARISON: CT Head without contrast 01/25/2021 6:18 PM FINDINGS: Abnormal foci of increased diffusion and decreased ADC map signal, right frontoparietal centrum semiovale and posterosuperior right basal ganglia, over an area measuring 15 x 10 mm, consistent with acute nonhemorrhagic small vessel infarct. Remote small vessel infarcts, left thalamus Midline structures and cerebellar tonsillar position appear normal. Ventricles, cisterns and sulci are symmetrically prominent. No intracranial mass, midline shift or abnormal extra-axial fluid. No acute intracranial hemorrhage. Mild pattern of increased T2 and flair signal in supratentorial white matter. Optic chiasm and pituitary infundibulum appear normal. Normal vascular flow voids in major intracranial arteries and dural venous sinuses. Paranasal sinuses are normally aerated. Mastoid air cells are normally aerated. Optic globes and orbits are unremarkable. IMPRESSION: Acute nonhemorrhagic small vessel infarct involving the posterosuperior right basal ganglia and adjacent centrum semiovale white matter measuring 15 x 10 mm. Atrophy and mild chronic microvascular small vessel ischemic changes Electronically signed by: Timbo Martin On 01/25/2021 22:41:24 PM
--- NOTE | 2021-01-25 22:44 | REPVR ---
PROCEDURE INFORMATION: Exam: MRA Head Without Contrast; Arteriography Exam date and time: 01/25/2021 9:52 PM Age: 75 years old Clinical indication: Dizziness and giddiness and weakness; Additional info: TIA TECHNIQUE: Imaging protocol: Magnetic resonance angiography head without contrast. Exam focused on the arteries. COMPARISON: MRA BRAIN W/O CONTRAST 06/02/2014 9:28 AM FINDINGS: Limitations: Patient motion. ANTERIOR CIRCULATION: Right internal carotid artery: Intracranial segment is patent with no significant stenosis. No aneurysm. Right middle cerebral artery: No gross large vessel occlusion involving the right MCA, poorly evaluated. Right anterior cerebral artery: No occlusion or significant stenosis. No aneurysm. Left internal carotid artery: Intracranial segment is patent with no significant stenosis. No aneurysm. Left middle cerebral artery: No gross large vessel occlusion involving the left MCA, poorly evaluated. Left anterior cerebral artery: No occlusion or significant stenosis. No aneurysm. POSTERIOR CIRCULATION: Right vertebral artery: Right vertebral artery appears predominately occluded. Left vertebral artery: Dominant left vertebral artery. Basilar artery: No occlusion or significant stenosis. No aneurysm. Right posterior cerebral artery: No occlusion or significant stenosis. No aneurysm. Left posterior cerebral artery: Near occlusion involving the left BENEFITS CLERK P1 segment, similar from prior examination. IMPRESSION: 1. Examination is motion limited. 2. Near occlusion involving the left BENEFITS CLERK P1 segment, similar from prior examination. 3. Near occlusion involving the right vertebral artery, new from prior examination dated 06/02/2014. Electronically signed by: Jose C Solorzano On 01/25/2021 22:44:09 PM
--- NOTE | 2021-01-25 22:48 | HPEPDOC ---
[facility] Medical History & Physical Date of Admission Jan 25, 2021 Date of Service: Jan 25, 2021 Attending Physician: ROBERT GALLEGOS MD History and Physical CHIEF COMPLAINT: [75 y/o M with c/c of slurred speech, confusion, imbalance x1 day.] HISTORY OF PRESENT ILLNESS: [This is a 75 y/o male with a pmh of dementia, cva, tia, dm2, hypothyroidism, gerd, and hld who presents to the ED with , Margi one day after developing new onset weakness, gait instability, confusion and slurred speech yesterday 01/24. Patient is a poor historian, provides majority of the hx. states that patient began to seem off and more fatigued starting on tuesday 01/23 but then became much worse yesterday. states that the patient cannot walk due to his weakness, and is "not himself." states that patient has had poor oral intake the past two days and has not been hungry. Patient has been having new incontinence but states that he will state he needs to go, he just does not get up to take himself to the restroom. denies recent falls, changes in his routine. Patient himself states that he feels pretty good, but that he has some abdominal pain. Denies fevers, chills, headaches, chest pain, sob. ] PAST MEDICAL HISTORY: 1. [See HPI PAST SURGICAL HISTORY: 1. [Left inguinal hernia]. 2. [left uvj stent]. 3. [colonoscopy]. SOCIAL HISTORY: Marital status: []. Resides in: [home with ] Employment: [retired] Tobacco use:[denies] ETOH: [denies] Illicit drug use: [denies] FAMILY HISTORY: Reviewed - none ALLERGIES: Please see below. REVIEW OF SYSTEMS: CONSTITUTIONAL: [Denies fever, chills]. HEENT: [Denies uri sx]. CARDIOVASCULAR: [See HPI]. RESPIRATORY: [See HPI]. GASTROINTESTINAL: [See HPI]. GENITOURINARY: [Denies dysuria]. SKIN: [Denies rash]. MUSCULOSKELETAL: [Denies back pain]. NEUROLOGICAL: [Denies paresthesias]. ENDOCRINE: [Hx of dm]. HEMATOLOGIC/LYMPHATIC: [Hx of epistaxis]. HOME MEDICATIONS: Please see below. PHYSICAL EXAMINATION: VITAL SIGNS: Please see below. GENERAL APPEARANCE: [This is a confused 75 y/o male. He is laying in bed. He is responsive to questions, but at times answers nonsensically.]. HEENT: [No mass or lesion. EOMI. No conjunctival erythema or scleral icterus. Nares patent. oral mucosa moist.]. CARDIOVASCULAR: [Regular rate, rhythm. No murmurs, rubs or gallops]. LUNGS: [Good air flow auscultated. no wheezing, rales, rhonchi.]. ABDOMEN: [Soft, non-tender throughout.]. MUSCULOSKELETAL: [No joint deformity.]. EXTREMITIES: [No peripheral edema noted. No overlying skin changes. Pulses intact.]. NEUROLOGICAL: [Sensation intact. Strength rated at 4/5 in RUE and 5/5 in all other extremities. Speech unclear. Alert to person. Residual defect to right arm musculature and hand from old infarct.]. PSYCHIATRIC: [Mood and affect appear appropriate]. LABORATORY DATA: See below. IMAGING: [Chest X-Ray: FINDINGS: The lungs are symmetrically aerated and clear. Pleural angles are sharp. Heart is enlarged unchanged from the prior study. Pulmonary vasculature is cephalized. No evidence of pleural effusion or pulmonary edema. No acute bony abnormality.. IMPRESSION: Cardiomegaly. Cephalization. No evidence of pleural effusion or pulmonary edema. No focal infiltrate.. Head CT: FINDINGS: Brain: There is moderate diffuse cerebellar atrophy. There is moderate parenchymal volume loss. White matter changes are demonstrated in the subcortical, centrum semiovale and periventricular white matter consistent with chronic age related small vessel ischemic changes. Lacunar infarct left thalamus. Cerebral ventricles: The degree of ventricular dilatation is normal for age and/or degree of atrophy present. Bones/joints: Unremarkable. No acute fracture. Paranasal sinuses: Visualized sinuses are unremarkable. No fluid levels. Mastoid air cells: Visualized mastoid air cells are well aerated. Vasculature: Atherosclerotic calcifications are demonstrated in the intracranial carotid arteries bilaterally as well as in the vertebral basilar system. Soft tissues: Unremarkable. Other findings: Findings stable in comparison to the prior study of 02/27/2020. IMPRESSION: 1. There is moderate diffuse cerebellar atrophy. 2. There is moderate parenchymal volume loss. White matter changes are demonstrated in the subcortical, centrum semiovale and periventricular white matter consistent with chronic age related small vessel ischemic changes. 3. The degree of ventricular dilatation is normal for age and/or degree of atrophy present. 4. Findings stable in comparison to the prior study of 02/27/2020. 5. No acute findings. Brain MRA: FINDINGS: Limitations: Patient motion. ANTERIOR CIRCULATION: Right internal carotid artery: Intracranial segment is patent with no significant stenosis. No aneurysm. Right middle cerebral artery: No gross large vessel occlusion involving the right MCA, poorly evaluated. Right anterior cerebral artery: No occlusion or significant stenosis. No aneurysm. Left internal carotid artery: Intracranial segment is patent with no significant stenosis. No aneurysm. Left middle cerebral artery: No gross large vessel occlusion involving the left MCA, poorly evaluated. Left anterior cerebral artery: No occlusion or significant stenosis. No aneurysm. POSTERIOR CIRCULATION: Right vertebral artery: Right vertebral artery appears predominately occluded. Left vertebral artery: Dominant left vertebral artery. Basilar artery: No occlusion or significant stenosis. No aneurysm. Right posterior cerebral artery: No occlusion or significant stenosis. No aneurysm. Left posterior cerebral artery: Near occlusion involving the left LINOLEUM LAYER HELPER P1 segment, similar from prior examination. IMPRESSION: 1. Examination is motion limited. 2. Near occlusion involving the left LINOLEUM LAYER HELPER P1 segment, similar from prior examination. 3. Near occlusion involving the right vertebral artery, new from prior examination dated 06/02/2014. Brain MRI: FINDINGS: Abnormal foci of increased diffusion and decreased ADC map signal, right frontoparietal centrum semiovale and posterosuperior right basal ganglia, over an area measuring 15 x 10 mm, consistent with acute nonhemorrhagic small vessel infarct. Remote small vessel infarcts, left thalamus Midline structures and cerebellar tonsillar position appear normal. Ventricles, cisterns and sulci are symmetrically prominent. No intracranial mass, midline shift or abnormal extra-axial fluid. No acute intracranial hemorrhage. Mild pattern of increased T2 and flair signal in supratentorial white matter. Optic chiasm and pituitary infundibulum appear normal. Normal vascular flow voids in major intracranial arteries and dural venous sinuses. Paranasal sinuses are normally aerated. Mastoid air cells are normally aerated. Optic globes and orbits are unremarkable. IMPRESSION: Acute nonhemorrhagic small vessel infarct involving the posterosuperior right basal ganglia and adjacent centrum semiovale white matter measuring 15 x 10 mm. Atrophy and mild chronic microvascular small vessel ischemic changes ] MICROBIOLOGY: Please see below. ASSESSMENT: [This is a 75 y/o male with a pmh of dementia, cva, tia, dm2, hypothyroidism, gerd, and hld who presents with new onset slurred speech, ams and gait instability. Patient had negative ct brain but had a positive mri brain which showed an infarct as stated in imaging above. ]. . PLAN: 1. [Acute Ischemic Stroke - Patient is well outside time window for administration of tpa - Patient already on plavix, statin - Will give one dose of po asa 325mg - Will begin asa 81mg po daily - Dr. Dean, neurology, consulted - ECHO w bubble study, cta head/neck, hba1c, lipid panel ordered - PT/OT consulted - Admit to pcu on tele 2. HTN - pressures have been good in the ed 120s/80s - will continue metoprolol, losartan 3. DM - sliding scale insulin, hypoglycemic protocol 4. GERD - continue pantoprazole 5. BPH - continue flomax 6. DVT prophylaxis - patient on plavix, asa ]. Vital Signs Vital Signs Date Time Temp Pulse Resp B/P (MAP) Pulse Ox O2 Delivery O2 Flow Rate FiO2 01/25/21 21:00 60 168/90 (116) 95 Room Air 01/25/21 17:42 98.1 18 Laboratory Data Labs 24H Laboratory Tests 2 01/25/21 18:40: Immature Granulocyte % (Auto) 0.5, Neutrophils (%) (Auto) 55.8, Lymphocytes (%) (Auto) 31.0, Monocytes (%) (Auto) 10.3H, Eosinophils (%) (Auto) 2.0, Basophils (%) (Auto) 0.4, Neutrophils # (Auto) 6.3, Lymphocytes # (Auto) 3.5, Monocytes # (Auto) 1.2H, Eosinophils # (Auto) 0.2, Basophils # (Auto) 0.0, Nucleated Red Blood Cells % (auto) 0.0, Anion Gap 5L, Glomerular Filtration Rate > 60.0, Lactic Acid Level 2.2*H, Calcium Level 9.0, Total Bilirubin 0.2, Direct Bilirubin < 0.1, Aspartate Amino Transf (AST/SGOT) 13, Alanine Aminotransferase (ALT/SGPT) 19, Alkaline Phosphatase 71, Ammonia 20, Total Creatine Kinase 52, Creatine Kinase MB < 1.0, Creatine Kinase MB Relative Index 1.92, Troponin I < 0.02, Total Protein 6.8, Albumin 3.7, Albumin/Globulin Ratio 1.2, Thyroid Stimulating Hormone (TSH) 1.640, Salicylates Level < 1.7L, Acetaminophen Level < 2.0L, Ethyl Alcohol Level < 0.003 01/25/21 18:44: Urine Color YELLOW, Urine Appearance CLEAR, Urine pH 6.0, Urine Specific [place] 1.018, Urine Protein NEGATIVE, Urine Glucose (UA) NEGATIVE, Urine Ketones NEGATIVE, Urine Blood 2+H, Urine Nitrite NEGATIVE, Urine Bilirubin NEGATIVE, Urine Urobilinogen 0.2, Urine Leukocyte Esterase TRACEH, Urine WBC (Auto) 1, Urine RBC (Auto) 13H, Urine Hyaline Casts (Auto) 0, Urine Bacteria (Auto) NEGATIVE, Urine Squamous Epithelial Cells 0, Urine Mucus (Auto) SMALL, Urine Sperm (Auto) , Urine Opiates Screen NEGATIVE, Urine Methadone Screen NEGATIVE, Urine Barbiturates Screen NEGATIVE, Urine Phencyclidine Screen NEGATIVE, Urine Amphetamines Screen NEGATIVE, Urine Benzodiazepines Screen NEGATIVE, Urine Cocaine Metabolite Screen NEGATIVE, Urine Cannabinoids Screen NEGATIVE 01/25/21 22:23: CBC/BMP Laboratory Tests 01/25/21 18:40 Microbiology Microbiology 01/25/21 Urine Culture, Received Pending Home Medications Scheduled Carbamazepine (Carbamazepine ER) 200 Mg Alex, 200 MG PO BID Clopidogrel Bisulfate (Plavix) 75 Mg Tab, 75 MG PO DAILY Docusate Sodium (Colace) 100 Mg Cap, 100 MG PO DAILY Duloxetine Hcl (Duloxetine HCl) 30 Mg Cap, 30 MG PO BID Losartan Potassium (Losartan Potassium) 50 Mg Tab, 50 MG PO DAILY Metformin HCl (Metformin HCl) 500 Mg Tablet, 500 MG PO BID Metoprolol Tartrate (Metoprolol Tartrate) 25 Mg Tab, 25 MG PO BID Pantoprazole Sodium (Pantoprazole Sodium) 40 Mg Tab, 40 MG PO DAILY Simvastatin (Simvastatin) 40 Mg Tab, 40 MG PO QHS Sitagliptin Phosphate (Januvia) 100 Mg Tablet, 100 MG PO QPM Tamsulosin HCl (Flomax) 0.4 Mg Cap, 0.4 MG PO QHS Allergies Coded Allergies: No Known Allergies (Verified , 09/22/19) A-FIB/CHADSVASC A-FIB History Current/History of A-Fib/PAF?: No VERA PATEL Jan 25, 2021:48
[2021-01-25 23:09] LABS: RSV AMPLIFICATION NEGATIVE (NEGATIVE)
[2021-01-25] MEDS ORDERED: ASPIRIN 325 MG TAB PO ONE (23:25)
[2021-01-25] MEDS ORDERED: ISOVUE-370 76% 100ML VIAL As Ordered ONE (23:52)
[2021-01-26 00:24] LABS: CHOLESTEROL RISK RATIO 5.23 (<5)
[2021-01-26 00:47] VITALS: BP 178/84
[2021-01-26 00:55] LABS: HEMOGLOBIN A1c 6.8 %
[2021-01-26] MEDS: DULoxetine 30 MG CAP (CYMBALTA) PO SCH ×3 (01:04→20:26)
[2021-01-26] MEDS: SIMVASTATIN 40 MG TAB PO SCH ×2 (01:05→20:25)
[2021-01-26] MEDS: TAMSULOSIN 0.4 MG CAP PO SCH ×2 (01:05→20:26)
[2021-01-26] MEDS: METOPROLOL TART 25 MG TABLET PO SCH ×3 (01:06→20:26)
--- NOTE | 2021-01-26 01:11 | REPVR ---
PROCEDURE INFORMATION: Exam: CT Angiography Neck With Contrast Exam date and time: 01/25/2021 11:45 PM Age: 75 years old Clinical indication: Other: CVA TECHNIQUE: Imaging protocol: Computed tomography angiography of the neck with contrast. 3D rendering (Not supervised by radiologist): MIP and/or 3D reconstructed images were created by the technologist. Radiation optimization: All CT scans at this facility use at least one of these dose optimization techniques: automated exposure control; mA and/or kV adjustment per patient size (includes targeted exams where dose is matched to clinical indication); or iterative reconstruction. Contrast material: ISO; Contrast volume: 100 ml; Contrast route: INTRAVENOUS (IV); COMPARISON: No relevant prior studies available. FINDINGS: Right common carotid artery: Calcification at the right common carotid bifurcation without significant stenosis. Right internal carotid artery: No stenosis of the extracranial segment. No dissection or occlusion. Right external carotid artery: No occlusion or stenosis of the origin. Right vertebral artery: No stenosis. No dissection or occlusion. Left common carotid artery: No stenosis. No dissection or occlusion. Left internal carotid artery: There is calcification and plaquing involving the proximal aspect of the left ICA. Stenosis measures up to 70%. Left external carotid artery: No occlusion or stenosis of the origin. Left vertebral artery: No stenosis. No dissection or occlusion. Bones/joints: There are degenerative changes involving the spine. Soft tissues: Normal. No significant soft tissue swelling. IMPRESSION: 70% stenosis at the proximal aspect of the left cervical ICA. REFERENCES: NASCET CRITERIA. The degree of internal carotid artery stenosis is based on NASCET criteria. Normal is no stenosis. Mild is less than 50% stenosis. Moderate is 50-69% stenosis. Severe is 70% to 99% stenosis. Total occlusion is no detectable patent lumen. Electronically signed by: Jose C Solorzano On 01/26/2021 01:10:48 AM
--- NOTE | 2021-01-26 01:11 | REPVR ---
PROCEDURE INFORMATION: Exam: CT Angiography Head With Contrast, Arteriography Exam date and time: 01/25/2021 11:45 PM Age: 75 years old Clinical indication: Other: CVA TECHNIQUE: Imaging protocol: Computed tomography angiography of the head with contrast. Exam focused on the arteries. 3D rendering (Not supervised by radiologist): MIP and/or 3D reconstructed images were created by the technologist. Radiation optimization: All CT scans at this facility use at least one of these dose optimization techniques: automated exposure control; mA and/or kV adjustment per patient size (includes targeted exams where dose is matched to clinical indication); or iterative reconstruction. Contrast material: ISO; Contrast volume: 100 ml; Contrast route: INTRAVENOUS (IV); COMPARISON: MRA BRAIN W/O CONTRAST 01/25/2021 9:45 PM FINDINGS: ANTERIOR CIRCULATION: Right internal carotid artery: Calcification involving the right carotid siphon without significant stenosis. Right middle cerebral artery: Foci of severe right MCA M2 and M3 stenosis. Right anterior cerebral artery: Unremarkable. No occlusion or significant stenosis. No aneurysm. Left internal carotid artery: Calcification involving the left carotid siphon without definite significant stenosis. Left middle cerebral artery: Moderate left MCA M1 stenosis. Left anterior cerebral artery: Unremarkable. No occlusion or significant stenosis. No aneurysm. POSTERIOR CIRCULATION: Right vertebral artery: Severe right vertebral artery stenosis with distal occlusion. Left vertebral artery: Calcification involving the left vertebral artery with mild stenosis. Left vertebral artery is dominant. Basilar artery: Unremarkable. No occlusion or significant stenosis. No aneurysm. Right posterior cerebral artery: Unremarkable. No occlusion or significant stenosis. No aneurysm. Left posterior cerebral artery: Near occlusion of the left CRYPTOGRAPHY TEACHER P1 segment, stable. Brain: No definite mass, mass effect, or midline shift. Cerebral ventricles: No ventriculomegaly. Bones/joints: Unremarkable. No acute fracture. Soft tissues: Unremarkable. IMPRESSION: 1. Near occlusion of the left CRYPTOGRAPHY TEACHER P1 segment, stable. 2. Severe right vertebral artery stenosis with distal occlusion. 3. Foci of severe right MCA M2 and M3 stenosis. 4. Moderate left MCA M1 stenosis. Electronically signed by: Jose C Solorzano On 01/26/2021 01:10:37 AM
[2021-01-26] MEDS: carBAMazepine XR 200 MG TAB PO SCH ×3 (01:40→20:27)
[2021-01-26 04:30] VITALS: BP 174/75
[2021-01-26 05:16] LABS: HEMATOCRIT 38.2 % (42.0-52.0); HEMOGLOBIN 12.4 g/dl (13.5-17.5); MEAN CORPUSCULAR HEMOGLOBIN 29.8 pg (27.0-33.0); MEAN CORPUSCULAR HGB CONC 32.5 g/dl (32.0-36.5); MEAN CORPUSCULAR VOLUME 91.8 fl (80.0-96.0); PLATELET COUNT, AUTOMATED 248 10^3/uL (150-450); RED BLOOD COUNT 4.16 10^6/uL (4.30-6.10)
[2021-01-26 05:42] LABS: BLOOD UREA NITROGEN 10 MG/DL (7-18); CARBON DIOXIDE LEVEL 32 MEQ/L (21-32); CHLORIDE LEVEL 102 MEQ/L (98-107); CREATININE FOR GFR 0.81 MG/DL (0.70-1.30); GLOMERULAR FILTRATION RATE > 60.0 (>42); GLUCOSE, FASTING 133 MG/DL (70-100); POTASSIUM SERUM 3.8 MEQ/L (3.5-5.1); SODIUM LEVEL 139 MEQ/L (136-145)
[2021-01-26 08:00] VITALS: BP 156/74
[2021-01-26] MEDS: PANTOPRAZOLE 40MG TAB (PROTONIX) PO SCH (09:23)
[2021-01-26] MEDS: ENOXAPARIN 40MG/0.4ML SYRINGE (J1650 PER 10MG) SC SCH (09:23)
[2021-01-26] MEDS: CLOPIDOGREL 75 MG TAB PO SCH (09:23)
[2021-01-26] MEDS: HumaLOG INSULIN (NovoLOG) PER UNIT SC SCH ×4 (09:24→21:00)
[2021-01-26] MEDS: LOSARTAN 50MG TABLET PO SCH (09:24)
[2021-01-26] MEDS: DOCUSATE SODIUM 100MG CAPSULE PO SCH ×2 (09:24→20:24)
[2021-01-26] MEDS: ASPIRIN 81MG ENTERIC TABLET PO SCH (09:24)
--- NOTE | 2021-01-26 13:09 | IPNPDOC ---
Text Note Date of Service The patient was seen on 01/26/21. NOTE SUBJECTIVE: -No acute overnight events OBJECTIVE: VITAL SIGNS: Please see below. GENERAL APPEARANCE: NAD, confused at times HEENT: NCAT, EOMI, MMM CARDIOVASCULAR: Regular rate, rhythm. No murmurs, rubs or gallops LUNGS: CTAB, no wheezing, rales, rhonchi ABDOMEN: Normoactive sounds, soft, NTND EXTREMITIES: No peripheral edema noted. 2+ DP pulses, WWP NEUROLOGICAL: Sensation intact. 4/5 strength in JEAN CARLOS and otherwise 5/5 strength in the other 3 extremities on my examination. Speech improving, still with some dysarthria PSYCHIATRIC: Alert and oriented LABORATORY DATA: WBC 10 Hgb 12.4 Platelets 248 na 139 k 3.8 Cr 0.81 IMAGING: CXR: The lungs are symmetrically aerated and clear. Pleural angles are sharp. Heart is enlarged unchanged from the prior study. Pulmonary vasculature is cephalized. No evidence of pleural effusion or pulmonary edema. No acute bony abnormality.. IMPRESSION: Cardiomegaly. Cephalization. No evidence of pleural effusion or pulmonary edema. No focal infiltrate.. Head CT: Brain: There is moderate diffuse cerebellar atrophy. There is moderate parenchymal volume loss. White matter changes are demonstrated in the subcortical, centrum semiovale and periventricular white matter consistent with chronic age related small vessel ischemic changes. Lacunar infarct left thalamus. Cerebral ventricles: The degree of ventricular dilatation is normal for age and/or degree of atrophy present. Bones/joints: Unremarkable. No acute fracture. Paranasal sinuses: Visualized sinuses are unremarkable. No fluid levels. Mastoid air cells: Visualized mastoid air cells are well aerated. Vasculature: Atherosclerotic calcifications are demonstrated in the intracranial carotid arteries bilaterally as well as in the vertebral basilar system. Soft tissues: Unremarkable. Other findings: Findings stable in comparison to the prior study of 02/27/2020. IMPRESSION: 1. There is moderate diffuse cerebellar atrophy. 2. There is moderate parenchymal volume loss. White matter changes are demonstrated in the subcortical, centrum semiovale and periventricular white matter consistent with chronic age related small vessel ischemic changes. 3. The degree of ventricular dilatation is normal for age and/or degree of atrophy present. 4. Findings stable in comparison to the prior study of 02/27/2020. 5. No acute findings. Brain MRA: Limitations: Patient motion. ANTERIOR CIRCULATION: Right internal carotid artery: Intracranial segment is patent with no significant stenosis. No aneurysm. Right middle cerebral artery: No gross large vessel occlusion involving the right MCA, poorly evaluated. Right anterior cerebral artery: No occlusion or significant stenosis. No aneurysm. Left internal carotid artery: Intracranial segment is patent with no significant stenosis. No aneurysm. Left middle cerebral artery: No gross large vessel occlusion involving the left MCA, poorly evaluated. Left anterior cerebral artery: No occlusion or significant stenosis. No aneurysm. POSTERIOR CIRCULATION: Right vertebral artery: Right vertebral artery appears predominately occluded. Left vertebral artery: Dominant left vertebral artery. Basilar artery: No occlusion or significant stenosis. No aneurysm. Right posterior cerebral artery: No occlusion or significant stenosis. No aneurysm. Left posterior cerebral artery: Near occlusion involving the left SALES AND MARKETING COORDINATOR P1 segment, similar from prior examination. IMPRESSION: 1. Examination is motion limited. 2. Near occlusion involving the left SALES AND MARKETING COORDINATOR P1 segment, similar from prior examination. 3. Near occlusion involving the right vertebral artery, new from prior examination dated 06/02/2014. Brain MRI: Abnormal foci of increased diffusion and decreased ADC map signal, right frontoparietal centrum semiovale and posterosuperior right basal ganglia, over an area measuring 15 x 10 mm, consistent with acute nonhemorrhagic small vessel infarct. Remote small vessel infarcts, left thalamus Midline structures and cerebellar tonsillar position appear normal. Ventricles, cisterns and sulci are symmetrically prominent. No intracranial mass, midline shift or abnormal extra-axial fluid. No acute intracranial hemorrhage. Mild pattern of increased T2 and flair signal in supratentorial white matter. Optic chiasm and pituitary infundibulum appear normal. Normal vascular flow voids in major intracranial arteries and dural venous sinuses. Paranasal sinuses are normally aerated. Mastoid air cells are normally aerated. Optic globes and orbits are unremarkable. IMPRESSION: Acute nonhemorrhagic small vessel infarct involving the posterosuperior right basal ganglia and adjacent centrum semiovale white matter measuring 15 x 10 mm. Atrophy and mild chronic microvascular small vessel ischemic changes CT Angiography Head With Contrast, Arteriography ANTERIOR CIRCULATION: Right internal carotid artery: Calcification involving the right carotid siphon without significant stenosis. Right middle cerebral artery: Foci of severe right MCA M2 and M3 stenosis. Right anterior cerebral artery: Unremarkable. No occlusion or significant stenosis. No aneurysm. Left internal carotid artery: Calcification involving the left carotid siphon without definite significant stenosis. Left middle cerebral artery: Moderate left MCA M1 stenosis. Left anterior cerebral artery: Unremarkable. No occlusion or significant stenosis. No aneurysm. POSTERIOR CIRCULATION: Right vertebral artery: Severe right vertebral artery stenosis with distal occlusion. Left vertebral artery: Calcification involving the left vertebral artery with mild stenosis. Left vertebral artery is dominant. Basilar artery: Unremarkable. No occlusion or significant stenosis. No aneurysm. Right posterior cerebral artery: Unremarkable. No occlusion or significant stenosis. No aneurysm. Left posterior cerebral artery: Near occlusion of the left SALES AND MARKETING COORDINATOR P1 segment, stable. Brain: No definite mass, mass effect, or midline shift. Cerebral ventricles: No ventriculomegaly. Bones/joints: Unremarkable. No acute fracture. Soft tissues: Unremarkable. IMPRESSION: 1. Near occlusion of the left SALES AND MARKETING COORDINATOR P1 segment, stable. 2. Severe right vertebral artery stenosis with distal occlusion. 3. Foci of severe right MCA M2 and M3 stenosis. 4. Moderate left MCA M1 stenosis. CTA neck: FINDINGS: Right common carotid artery: Calcification at the right common carotid bifurcation without significant stenosis. Right internal carotid artery: No stenosis of the extracranial segment. No dissection or occlusion. Right external carotid artery: No occlusion or stenosis of the origin. Right vertebral artery: No stenosis. No dissection or occlusion. Left common carotid artery: No stenosis. No dissection or occlusion. Left internal carotid artery: There is calcification and plaquing involving the proximal aspect of the left ICA. Stenosis measures up to 70%. Left external carotid artery: No occlusion or stenosis of the origin. Left vertebral artery: No stenosis. No dissection or occlusion. Bones/joints: There are degenerative changes involving the spine. Soft tissues: Normal. No significant soft tissue swelling. IMPRESSION: 70% stenosis at the proximal aspect of the left cervical ICA. REFERENCES: NASCET CRITERIA. The degree of internal carotid artery stenosis is based on NASCET criteria. Normal is no stenosis. Mild is less than 50% stenosis. Moderate is 50-69% stenosis. Severe is 70% to 99% stenosis. Total occlusion is no detectable patent lumen. MICROBIOLOGY: Please see below. ASSESSMENT: [This is a 75 y/o male with a pmh of dementia, cva, tia, dm2, hypothyroidism, gerd, and hld who presents with new onset slurred speech, ams and gait instability. Patient had negative ct brain but had a positive mri brain which showed an infarct as stated in imaging above. ]. . PLAN: 1. Acute Ischemic Stroke - Patient was outside time window for administration of tpa - continue plavix, statin - Continue asa 81mg po daily - Dr. Dean, neurology, consulted - ECHO w bubble study pending - PT/OT consulted - Telemetry 2. HTN - will continue metoprolol, losartan 3. DM - sliding scale insulin, hypoglycemic protocol 4. GERD - continue pantoprazole 5. BPH - continue flomax 6. DVT prophylaxis - Lovenox VS,Fishbone, I+O VS, Fishbone, I+O Laboratory Tests 01/25/21 18:40 01/26/21 04:36 Vital Signs Date Time Temp Pulse Resp B/P (MAP) Pulse Ox O2 Delivery O2 Flow Rate FiO2 01/26/21 04:30 97.8 60 18 174/75 (108) 97 Room Air I&O- Last 24 Hours up to 6 AM 01/26/21 06:00 Intake Total 440 ml Output Total 125 ml Balance 315 ml MARTÍN KENNEDY MD Jan 26, 2021 08:25
[2021-01-26 16:00] VITALS: BP 168/78
[2021-01-26 20:05] VITALS: BP 174/77
--- NOTE | 2021-01-26 22:29 | CR ---
CONSULTATION DATE: 01/26/2021 REQUESTING PHYSICIAN: Dr. Genaro Rubio REASON FOR CONSULTATION: Stroke. HISTORY OF PRESENT ILLNESS: Mike Stanton is a 75-year-old man who has a history of dementia, stroke causing right hemiparesis, TIA, diabetes, who was brought to [facility] by one day after developing new onset weakness, gait instability, confusion, slurred speech. The patient is a poor historian. The patient's noted that he seemed off and more fatigued on Sunday but then became much worse on Sunday. He could not walk due to his weakness and was not himself. She noticed alteration in his speech and he had trouble understanding. The patient denied any headache, neck pain, back pain, falls, dysphagia, diplopia, urinary incontinence. PAST MEDICAL HISTORY: The patient's past medical history is significant for: 1. Stroke in 2008 causing right hemiparesis. 2. Left inguinal hernia repair. 3. Type 2 diabetes. 4. TIA. 5. Acid reflux. 6. Hypothyroidism. SOCIAL HISTORY: The patient is and lives with his . He is retired. He denies smoking, alcohol or illicit drugs. FAMILY HISTORY: Unremarkable and noncontributory. ALLERGIES: NO KNOWN DRUG ALLERGIES. HOME MEDICATIONS: 1. Carbamazepine Extended Release 200 mg p.o. twice daily. 2. Plavix 75 mg p.o. daily. 3. Cymbalta 30 mg p.o. twice daily. 4. Losartan 50 mg p.o. daily. 5. Metformin 500 mg twice daily. 6. Metoprolol 25 mg p.o. twice daily. 7. Protonix 40 mg p.o. daily. 8. Simvastatin 40 mg p.o. daily. 9. Januvia 100 mg p.o. daily. 10. Flomax 0.4 mg p.o. q. h.s. 11. Colace 100 mg p.o. daily. REVIEW OF SYSTEMS: All systems were reviewed and found to be noncontributory except as mentioned in the history of present illness. PHYSICAL EXAMINATION: VITAL SIGNS: Temperature 97.1, pulse 64, respiratory rate 18, blood pressure 156/74, 95% oxygen saturation on room air. HEART: Regular rate and rhythm. LUNGS: Clear to auscultation. ABDOMEN: Soft, nontender, nondistended. EXTREMITIES: No pedal edema. MUSCULOSKELETAL: No abnormalities. SKIN: No rash. No signs of meningeal irritation. NEUROLOGICAL: The patient is awake, alert, oriented to month, year, name of president, city, [facility], [facility]. His speech is normal with normal comprehension and repetition. The extraocular muscles are intact. No facial weakness. Tongue and uvula are midline. 5/5 strength in all four extremities. He has decreased cold, pinprick, vibration, sensation in his feet. Gait was not tested. Deep tendon reflexes are 1+ in all knees and absent at ankles. DIAGNOSTIC STUDIES: MRI scan of the brain was reviewed and showed a right posterior basal ganglia, centrum semiovale acute ischemic stroke. CTA of head and neck showed 70% left internal carotid artery stenosis with bilateral MCA stenosis, severe left GINNING OPERATOR stenosis and right vertebral artery stenosis. LABORATORY STUDIES: Urine toxicology screen was unremarkable. Total cholesterol was 204, HDL was 39, LDL was 107, triglycerides were 290. Hemoglobin was 1.4, white blood cell count 10. ASSESSMENT: 1. Acute ischemic right posterior basal ganglia, centrum semiovale, acute ischemic stroke. 2. 70% left internal coronary artery stenosis. 3. Severe left GINNING OPERATOR, right vertebral artery stenosis, bilateral middle cerebral artery stenosis. PLAN: 1. Aspirin 81 mg p.o. daily and Plavix 75 mg p.o. daily. 2. Increase Simvastatin to 80 mg p.o. daily. 3. Physical and occupational therapy. 4. Follow with our office in 1-2 weeks after hospital discharge. JAYE
--- NOTE | 2021-01-26 22:48 | ECGEPIP ---
[facility] - ED Test Date: 2021-01-25 Pat Name: NATALY HALL Department: Room: [place] [address] Gender: Male Manager Ambulatory: C[facility]SAR : 1945 Requested By: TAVO JERRY Order Number: [id number] Reading MD: Rosales Morel Measurements Intervals [place] Rate: 61 P: 40 PA: 218 QRS: -38 QRSD: 94 T: -2 QT: 436 QTc: 438 Interpretive Statements Sinus rhythm with 1st degree AV block Left axis deviation INCOMPLETE RIGHT BUNDLE BRANCH BLOCK SIMILAR TO 12/05/20 Electronically Signed on 01-26-2021 22:47:35 EDT by Rosales Morel
[2021-01-27 00:40] VITALS: BP 170/80
[2021-01-27 04:08] VITALS: BP 160/71
[2021-01-27 08:00] VITALS: BP 158/68
[2021-01-27] MEDS: HumaLOG INSULIN (NovoLOG) PER UNIT SC SCH ×2 (08:57→13:48)
[2021-01-27] MEDS: ENOXAPARIN 40MG/0.4ML SYRINGE (J1650 PER 10MG) SC SCH (08:57)
[2021-01-27 08:58] VITALS: BP 158/68
[2021-01-27] MEDS: METOPROLOL TART 25 MG TABLET PO SCH (08:58)
[2021-01-27] MEDS: LOSARTAN 50MG TABLET PO SCH (08:58)
[2021-01-27] MEDS: CLOPIDOGREL 75 MG TAB PO SCH (08:58)
[2021-01-27] MEDS: ASPIRIN 81MG ENTERIC TABLET PO SCH (08:58)
[2021-01-27] MEDS: PANTOPRAZOLE 40MG TAB (PROTONIX) PO SCH (08:58)
[2021-01-27] MEDS: carBAMazepine XR 200 MG TAB PO SCH (08:58)
[2021-01-27] MEDS: DOCUSATE SODIUM 100MG CAPSULE PO SCH (08:58)
[2021-01-27] MEDS: DULoxetine 30 MG CAP (CYMBALTA) PO SCH (08:59)
[2021-01-27] MEDS ORDERED: ASPI-551 PO (13:06)
[2021-01-27] MEDS ORDERED: DOK1CAP7 PO (13:06)
[2021-01-27] MEDS ORDERED: SIMV40TA20 PO (13:06)
--- NOTE | 2021-01-27 13:28 | IPNPDOC ---
Text Note Date of Service The patient was seen on 01/27/21. NOTE SUBJECTIVE: -No acute overnight events -Had some coughing with PO, pending official swallow eval -Was seen by neuro, increased simvastatin to 80mg, has ongoing PT OBJECTIVE: VITAL SIGNS: Please see below. GENERAL APPEARANCE: NAD, confused at times HEENT: NCAT, EOMI, MMM CARDIOVASCULAR: Regular rate, rhythm. No murmurs, rubs or gallops LUNGS: CTAB, no wheezing, rales, rhonchi ABDOMEN: Normoactive sounds, soft, NTND EXTREMITIES: No peripheral edema noted. 2+ DP pulses, WWP NEUROLOGICAL: Sensation intact. 4/5 strength in JEAN CARLOS and otherwise 5/5 strength in the other 3 extremities on my examination. Speech improving, still with some dysarthria PSYCHIATRIC: Alert and oriented LABORATORY DATA: Reviewed. Stable IMAGING: CXR: The lungs are symmetrically aerated and clear. Pleural angles are sharp. Heart is enlarged unchanged from the prior study. Pulmonary vasculature is cephalized. No evidence of pleural effusion or pulmonary edema. No acute bony abnormality.. IMPRESSION: Cardiomegaly. Cephalization. No evidence of pleural effusion or pulmonary edema. No focal infiltrate.. Head CT: Brain: There is moderate diffuse cerebellar atrophy. There is moderate parenchymal volume loss. White matter changes are demonstrated in the subcortical, centrum semiovale and periventricular white matter consistent with chronic age related small vessel ischemic changes. Lacunar infarct left thalamus. Cerebral ventricles: The degree of ventricular dilatation is normal for age and/or degree of atrophy present. Bones/joints: Unremarkable. No acute fracture. Paranasal sinuses: Visualized sinuses are unremarkable. No fluid levels. Mastoid air cells: Visualized mastoid air cells are well aerated. Vasculature: Atherosclerotic calcifications are demonstrated in the intracranial carotid arteries bilaterally as well as in the vertebral basilar system. Soft tissues: Unremarkable. Other findings: Findings stable in comparison to the prior study of 02/27/2020. IMPRESSION: 1. There is moderate diffuse cerebellar atrophy. 2. There is moderate parenchymal volume loss. White matter changes are demonstrated in the subcortical, centrum semiovale and periventricular white matter consistent with chronic age related small vessel ischemic changes. 3. The degree of ventricular dilatation is normal for age and/or degree of atrophy present. 4. Findings stable in comparison to the prior study of 02/27/2020. 5. No acute findings. Brain MRA: Limitations: Patient motion. ANTERIOR CIRCULATION: Right internal carotid artery: Intracranial segment is patent with no significant stenosis. No aneurysm. Right middle cerebral artery: No gross large vessel occlusion involving the right MCA, poorly evaluated. Right anterior cerebral artery: No occlusion or significant stenosis. No aneurysm. Left internal carotid artery: Intracranial segment is patent with no significant stenosis. No aneurysm. Left middle cerebral artery: No gross large vessel occlusion involving the left MCA, poorly evaluated. Left anterior cerebral artery: No occlusion or significant stenosis. No aneurysm. POSTERIOR CIRCULATION: Right vertebral artery: Right vertebral artery appears predominately occluded. Left vertebral artery: Dominant left vertebral artery. Basilar artery: No occlusion or significant stenosis. No aneurysm. Right posterior cerebral artery: No occlusion or significant stenosis. No aneurysm. Left posterior cerebral artery: Near occlusion involving the left KAYAKING INSTRUCTOR P1 segment, similar from prior examination. IMPRESSION: 1. Examination is motion limited. 2. Near occlusion involving the left KAYAKING INSTRUCTOR P1 segment, similar from prior examination. 3. Near occlusion involving the right vertebral artery, new from prior examination dated 06/02/2014. Brain MRI: Abnormal foci of increased diffusion and decreased ADC map signal, right frontoparietal centrum semiovale and posterosuperior right basal ganglia, over an area measuring 15 x 10 mm, consistent with acute nonhemorrhagic small vessel infarct. Remote small vessel infarcts, left thalamus Midline structures and cerebellar tonsillar position appear normal. Ventricles, cisterns and sulci are symmetrically prominent. No intracranial mass, midline shift or abnormal extra-axial fluid. No acute intracranial hemorrhage. Mild pattern of increased T2 and flair signal in supratentorial white matter. Optic chiasm and pituitary infundibulum appear normal. Normal vascular flow voids in major intracranial arteries and dural venous sinuses. Paranasal sinuses are normally aerated. Mastoid air cells are normally aerated. Optic globes and orbits are unremarkable. IMPRESSION: Acute nonhemorrhagic small vessel infarct involving the posterosuperior right basal ganglia and adjacent centrum semiovale white matter measuring 15 x 10 mm. Atrophy and mild chronic microvascular small vessel ischemic changes CT Angiography Head With Contrast, Arteriography ANTERIOR CIRCULATION: Right internal carotid artery: Calcification involving the right carotid siphon without significant stenosis. Right middle cerebral artery: Foci of severe right MCA M2 and M3 stenosis. Right anterior cerebral artery: Unremarkable. No occlusion or significant stenosis. No aneurysm. Left internal carotid artery: Calcification involving the left carotid siphon without definite significant stenosis. Left middle cerebral artery: Moderate left MCA M1 stenosis. Left anterior cerebral artery: Unremarkable. No occlusion or significant stenosis. No aneurysm. POSTERIOR CIRCULATION: Right vertebral artery: Severe right vertebral artery stenosis with distal occlusion. Left vertebral artery: Calcification involving the left vertebral artery with mild stenosis. Left vertebral artery is dominant. Basilar artery: Unremarkable. No occlusion or significant stenosis. No aneurysm. Right posterior cerebral artery: Unremarkable. No occlusion or significant stenosis. No aneurysm. Left posterior cerebral artery: Near occlusion of the left KAYAKING INSTRUCTOR P1 segment, stable. Brain: No definite mass, mass effect, or midline shift. Cerebral ventricles: No ventriculomegaly. Bones/joints: Unremarkable. No acute fracture. Soft tissues: Unremarkable. IMPRESSION: 1. Near occlusion of the left KAYAKING INSTRUCTOR P1 segment, stable. 2. Severe right vertebral artery stenosis with distal occlusion. 3. Foci of severe right MCA M2 and M3 stenosis. 4. Moderate left MCA M1 stenosis. CTA neck: FINDINGS: Right common carotid artery: Calcification at the right common carotid bifurcation without significant stenosis. Right internal carotid artery: No stenosis of the extracranial segment. No dissection or occlusion. Right external carotid artery: No occlusion or stenosis of the origin. Right vertebral artery: No stenosis. No dissection or occlusion. Left common carotid artery: No stenosis. No dissection or occlusion. Left internal carotid artery: There is calcification and plaquing involving the proximal aspect of the left ICA. Stenosis measures up to 70%. Left external carotid artery: No occlusion or stenosis of the origin. Left vertebral artery: No stenosis. No dissection or occlusion. Bones/joints: There are degenerative changes involving the spine. Soft tissues: Normal. No significant soft tissue swelling. IMPRESSION: 70% stenosis at the proximal aspect of the left cervical ICA. REFERENCES: NASCET CRITERIA. The degree of internal carotid artery stenosis is based on NASCET criteria. Normal is no stenosis. Mild is less than 50% stenosis. Moderate is 50-69% stenosis. Severe is 70% to 99% stenosis. Total occlusion is no detectable patent lumen. MICROBIOLOGY: Please see below. ASSESSMENT: [This is a 75 y/o male with a pmh of dementia, cva, tia, dm2, hypothyroidism, gerd, and hld who presents with new onset slurred speech, ams and gait instability. Patient had negative ct brain but had a positive mri brain which showed an infarct as stated in imaging above. ]. . PLAN: 1. Acute Ischemic Stroke - Patient was outside time window for administration of tpa - continue plavix, simvastatin at 80mg - Continue asa 81mg po daily - Dr. Dean, neurology, consulted, to see in clinic within 2w of hospital discharge - ECHO w bubble study pending - PT/OT consulted, ongoing eval - Tele 2. HTN - will continue metoprolol, losartan 3. DM - sliding scale insulin, hypoglycemic protocol 4. GERD - continue pantoprazole 5. BPH - continue flomax 6. DVT prophylaxis - Lovenox VS,Fishbone, I+O VS, Fishbone, I+O Vital Signs Date Time Temp Pulse Resp B/P (MAP) Pulse Ox O2 Delivery O2 Flow Rate FiO2 01/27/21 04:08 97.4 63 18 160/71 (100) 96 Room Air I&O- Last 24 Hours up to 6 AM 01/27/21 06:00 Intake Total 1000 ml Output Total 100 ml Balance 900 ml MARTÍN KENNEDY MD Jan 27, 2021 08:26
--- NOTE | 2021-01-27 13:28 | DS.PDOC ---
Discharge Summary General Date of Admission Jan 25, 2021 at 17:35 Date of Discharge 01/27/2021 Attending Physician: MARTÍN KENNEDY MD Discharge Summary PROCEDURES PERFORMED DURING STAY: None ADMITTING DIAGNOSES: AMS CVA DISCHARGE DIAGNOSES: Acute ischemic right posterior basal ganglia, centrum semiovale, acute ischemic stroke. Stroke in 2008 causing right hemiparesis. Type 2 diabetes. Acid reflux. Hypothyroidism. Dementia HTN COMPLICATIONS/CHIEF COMPLAINT: Altered Mental Status. HISTORY OF PRESENT ILLNESS: 75 y/o M with a history of dementia, prior cva, tia, dm2, hypothyroidism, gerd, and hld who presented to the ED with one day after developing new onset weakness, gait instability, confusion and slurred speech. HOSPITAL COURSE: He presented hemodynamically stable, afebrile and breathing comfortably on room air. He was dysarthric in the ED and possibly also confused though this was unclear at the time given the speech difficulties and initial CT did not show any acute changes but follow up MRI showed an acute nonhemorrhagic small vessel infarct involving the posterosuperior right basal ganglia and adjacent centrum semiovale white matter measuring 15 x 10 mm, while CTA neck later revealed 70% stenosis at the proximal aspect of the left cervical ICA. Mr. Stanton was given ASA 325 and started on ASA 81, continued on the plavix he was on from prior and his simvastatin was increased to 80mg daily per neurology. Neurology was consulted and recommended PT/OT and follow up in clinic post discharge. The patient was noted to have some coughing with PO and he had a speech eval and recommended for pureed solids, did well with liquids and was recommended to have help with PO with prompting to swallow as he held food in the mouth for a prolonged time. He was evaluated by PM&R and deemed appropriate for ARU admission. He is therefore now being discharged to the ARU. DISCHARGE MEDICATIONS: Please see below. ALLERGIES: Please see below. PHYSICAL EXAMINATION ON DISCHARGE: VITAL SIGNS: Please see below. GENERAL APPEARANCE: NAD, obese HEENT: NCAT, EOMI, MMM CARDIOVASCULAR: Regular rate, rhythm. No murmurs, rubs or gallops LUNGS: CTAB, no wheezing, rales, rhonchi ABDOMEN: Normoactive sounds, soft, NTND EXTREMITIES: No peripheral edema noted. 2+ DP pulses, WWP NEUROLOGICAL: Sensation intact. 4/5 strength in JEAN CARLOS and otherwise 5/5 strength in the other 3 extremities on my examination. Speech improving, still with some dysarthria and with a slight facial droop. PSYCHIATRIC: Alert and oriented LABORATORY DATA: Please see below. IMAGING: CXR: The lungs are symmetrically aerated and clear. Pleural angles are sharp. Heart is enlarged unchanged from the prior study. Pulmonary vasculature is cephalized. No evidence of pleural effusion or pulmonary edema. No acute bony abnormality.. IMPRESSION: Cardiomegaly. Cephalization. No evidence of pleural effusion or pulmonary edema. No focal infiltrate.. Head CT: Brain: There is moderate diffuse cerebellar atrophy. There is moderate parenchymal volume loss. White matter changes are demonstrated in the subcortical, centrum semiovale and periventricular white matter consistent with chronic age related small vessel ischemic changes. Lacunar infarct left thalamus. Cerebral ventricles: The degree of ventricular dilatation is normal for age and/or degree of atrophy present. Bones/joints: Unremarkable. No acute fracture. Paranasal sinuses: Visualized sinuses are unremarkable. No fluid levels. Mastoid air cells: Visualized mastoid air cells are well aerated. Vasculature: Atherosclerotic calcifications are demonstrated in the intracranial carotid arteries bilaterally as well as in the vertebral basilar system. Soft tissues: Unremarkable. Other findings: Findings stable in comparison to the prior study of 02/27/2020. IMPRESSION: 1. There is moderate diffuse cerebellar atrophy. 2. There is moderate parenchymal volume loss. White matter changes are demonstrated in the subcortical, centrum semiovale and periventricular white matter consistent with chronic age related small vessel ischemic changes. 3. The degree of ventricular dilatation is normal for age and/or degree of atrophy present. 4. Findings stable in comparison to the prior study of 02/27/2020. 5. No acute findings. Brain MRA: Limitations: Patient motion. ANTERIOR CIRCULATION: Right internal carotid artery: Intracranial segment is patent with no significant stenosis. No aneurysm. Right middle cerebral artery: No gross large vessel occlusion involving the right MCA, poorly evaluated. Right anterior cerebral artery: No occlusion or significant stenosis. No aneurysm. Left internal carotid artery: Intracranial segment is patent with no significant stenosis. No aneurysm. Left middle cerebral artery: No gross large vessel occlusion involving the left MCA, poorly evaluated. Left anterior cerebral artery: No occlusion or significant stenosis. No aneurysm. POSTERIOR CIRCULATION: Right vertebral artery: Right vertebral artery appears predominately occluded. Left vertebral artery: Dominant left vertebral artery. Basilar artery: No occlusion or significant stenosis. No aneurysm. Right posterior cerebral artery: No occlusion or significant stenosis. No aneurysm. Left posterior cerebral artery: Near occlusion involving the left [employer] P1 segment, similar from prior examination. IMPRESSION: 1. Examination is motion limited. 2. Near occlusion involving the left [employer] P1 segment, similar from prior examination. 3. Near occlusion involving the right vertebral artery, new from prior examination dated 06/02/2014. Brain MRI: Abnormal foci of increased diffusion and decreased ADC map signal, right frontoparietal centrum semiovale and posterosuperior right basal ganglia, over an area measuring 15 x 10 mm, consistent with acute nonhemorrhagic small vessel infarct. Remote small vessel infarcts, left thalamus Midline structures and cerebellar tonsillar position appear normal. Ventricles, cisterns and sulci are symmetrically prominent. No intracranial mass, midline shift or abnormal extra-axial fluid. No acute intracranial hemorrhage. Mild pattern of increased T2 and flair signal in supratentorial white matter. Optic chiasm and pituitary infundibulum appear normal. Normal vascular flow voids in major intracranial arteries and dural venous sinuses. Paranasal sinuses are normally aerated. Mastoid air cells are normally aerated. Optic globes and orbits are unremarkable. IMPRESSION: Acute nonhemorrhagic small vessel infarct involving the posterosuperior right basal ganglia and adjacent centrum semiovale white matter measuring 15 x 10 mm. Atrophy and mild chronic microvascular small vessel ischemic changes CT Angiography Head With Contrast, Arteriography ANTERIOR CIRCULATION: Right internal carotid artery: Calcification involving the right carotid siphon without significant stenosis. Right middle cerebral artery: Foci of severe right MCA M2 and M3 stenosis. Right anterior cerebral artery: Unremarkable. No occlusion or significant stenosis. No aneurysm. Left internal carotid artery: Calcification involving the left carotid siphon without definite significant stenosis. Left middle cerebral artery: Moderate left MCA M1 stenosis. Left anterior cerebral artery: Unremarkable. No occlusion or significant stenosis. No aneurysm. POSTERIOR CIRCULATION: Right vertebral artery: Severe right vertebral artery stenosis with distal occlusion. Left vertebral artery: Calcification involving the left vertebral artery with mild stenosis. Left vertebral artery is dominant. Basilar artery: Unremarkable. No occlusion or significant stenosis. No aneurysm. Right posterior cerebral artery: Unremarkable. No occlusion or significant stenosis. No aneurysm. Left posterior cerebral artery: Near occlusion of the left [employer] P1 segment, stable. Brain: No definite mass, mass effect, or midline shift. Cerebral ventricles: No ventriculomegaly. Bones/joints: Unremarkable. No acute fracture. Soft tissues: Unremarkable. IMPRESSION: 1. Near occlusion of the left [employer] P1 segment, stable. 2. Severe right vertebral artery stenosis with distal occlusion. 3. Foci of severe right MCA M2 and M3 stenosis. 4. Moderate left MCA M1 stenosis. CTA neck: FINDINGS: Right common carotid artery: Calcification at the right common carotid bifurcation without significant stenosis. Right internal carotid artery: No stenosis of the extracranial segment. No dissection or occlusion. Right external carotid artery: No occlusion or stenosis of the origin. Right vertebral artery: No stenosis. No dissection or occlusion. Left common carotid artery: No stenosis. No dissection or occlusion. Left internal carotid artery: There is calcification and plaquing involving the proximal aspect of the left ICA. Stenosis measures up to 70%. Left external carotid artery: No occlusion or stenosis of the origin. Left vertebral artery: No stenosis. No dissection or occlusion. Bones/joints: There are degenerative changes involving the spine. Soft tissues: Normal. No significant soft tissue swelling. IMPRESSION: 70% stenosis at the proximal aspect of the left cervical ICA. REFERENCES: NASCET CRITERIA. The degree of internal carotid artery stenosis is based on NASCET criteria. Normal is no stenosis. Mild is less than 50% stenosis. Moderate is 50-69% stenosis. Severe is 70% to 99% stenosis. Total occlusion is no detectable patent lumen. PROGNOSIS: Good ACTIVITY: As tolerated DIET: Pureed solids, ok for liquids, encouragement and help with PO DISCHARGE PLAN: ARU DISPOSITION: ARU DISCHARGE INSTRUCTIONS: DC to the ARU unit ITEMS TO FOLLOWUP ON ON OUTPATIENT: Stroke DISCHARGE CONDITION: Stable TIME SPENT ON DISCHARGE: 50 minutes. Vital Signs/I&Os Vital Signs Date Time Temp Pulse Resp B/P (MAP) Pulse Ox O2 Delivery O2 Flow Rate FiO2 01/27/21 08:58 67 158/68 01/27/21 08:00 98.2 18 92 Room Air I&O- Last 24 Hours up to 6 AM 01/27/21 06:00 Intake Total 1000 ml Output Total 100 ml Balance 900 ml Laboratory Data Labs 24H Laboratory Tests 2 01/26/21 16:47: Bedside Glucose (Misc Panel) 127H 01/26/21 20:12: Bedside Glucose (Misc Panel) 153H 01/27/21 12:05: Bedside Glucose (Misc Panel) 158H FSBS Laboratory Tests Test 01/26/21 16:47 01/26/21 20:12 01/27/21 12:05 Range/Units Bedside Glucose (Misc Panel) 127 153 158 83-110 MG/DL Microbiology Microbiology 01/25/21 Blood Culture - Preliminary, Resulted No growth after 24 hours . All specim... 01/25/21 Blood Culture - Preliminary, Resulted No growth after 24 hours . All specim... 01/25/21 Urine Culture - Final, Complete Discharge Medications Scheduled Aspirin (Aspirin EC) 81 Mg Tablet.dr, 81 MG PO DAILY Carbamazepine (Carbamazepine ER) 200 Mg Alex, 200 MG PO BID, (Reported) Clopidogrel Bisulfate (Plavix) 75 Mg Tab, 75 MG PO DAILY, (Reported) Docusate Sodium (Colace) 100 Mg Cap, 100 MG PO DAILY, (Reported) Docusate Sodium (Dok) 100 Mg Capsule, 100 MG PO BID Duloxetine Hcl (Duloxetine HCl) 30 Mg Cap, 30 MG PO BID, (Reported) Losartan Potassium (Losartan Potassium) 50 Mg Tab, 50 MG PO DAILY, (Reported) Metformin HCl (Metformin HCl) 500 Mg Tablet, 500 MG PO BID, (Reported) Metoprolol Tartrate (Metoprolol Tartrate) 25 Mg Tab, 25 MG PO BID, (Reported) Pantoprazole Sodium (Pantoprazole Sodium) 40 Mg Tab, 40 MG PO DAILY, (Reported) Simvastatin (Simvastatin) 40 Mg Tab, 80 MG PO QHS Sitagliptin Phosphate (Januvia) 100 Mg Tablet, 100 MG PO QPM, (Reported) Tamsulosin HCl (Flomax) 0.4 Mg Cap, 0.4 MG PO QHS, (Reported) Allergies Coded Allergies: No Known Allergies (Verified , 09/22/19) MARTÍN KENNEDY MD Jan 27, 2021 13:28
--- NOTE | 2021-01-27 14:09 | ECHO ---
DATE OF PROCEDURE: 01/26/2021 Age: 75 Gender: Male Height: 168 cm Weight: 107 kg REFERRING PHYSICIAN: SANTINO Gracia. INDICATION: Acute stroke, unspecified. MEASUREMENTS: 2D Measurements: Left atrium 4.4 cm Left atrial volume index 34 cm Interventricular septum 1.53 cm Posterior wall 1.45 cm Left ventricle diastole 4.2 cm Aortic root 3.1 cm Aortic annulus 2.6 cm Inferior vena cava 1.8 cm (more than 50% respiratory variation) Doppler Measurements: Mild aortic regurgitation No aortic stenosis Aortic valve velocity 215 cm/s LVOT velocity 119 cm/s LVOT VTI 25.0 cm No mitral stenosis No mitral regurgitation Mitral E velocity 103 cm/s Mitral A velocity 111 cm/s Mitral deceleration time 256 msec Mild tricuspid regurgitation Estimated right ventricle systolic pressure 32-37 mmHg Estimated right atrial pressure of 5-10 mmHg No pulmonic regurgitation MITRAL ANNULAR TISSUE DOPPLER E prime septal 4.1 cm/s, E prime lateral 5.0 cm/s DESCRIPTION: Rhythm was sinus rhythm and sinus bradycardia. This was a moderately technically difficult echocardiogram. No pericardial effusion. This was a 2D, M-mode, color flow Doppler, and pulsed wave Doppler examination including mitral annular tissue Doppler. CONCLUSIONS: 1. Mild concentric left ventricle hypertrophy. Normal regional LV wall motion and wall thickening. Normal LV systolic function. LVEF 65% by visual estimate. Grade 1 LV diastolic dysfunction (impaired relaxation filling pattern). 2. Mild left atrial dilatation by left atrial volume index. 3. Moderate aortic valve sclerosis with a 3-cusp aortic valve. Mild aortic regurgitation. No aortic stenosis. 4. Moderate mitral annular calcification. No mitral regurgitation or mitral stenosis. 5. Suggestive of mild elevation of estimated right ventricle systolic pressure. Normal right ventricle size and systolic function. 6. No pericardial effusion. MTDD
[2021-01-27] MEDS ORDERED: SIMVASTATIN 40 MG TAB PO SCH (21:00)
== END 2021-01-27 14:39 | DRG 65 ==
LOC: M ED 17:34 → EDBD 17:34 → M ED INP 17:35 → ENRESERV 23:19 → M PCU 01-26 00:33 → OBSVTOIN 01-27 08:27
PROVIDERS: ADMIT Family Medicine; ATTEND Internal Medicine
DX: I63.531 Cerebral infarction due to unspecified occlusion or stenosis of right posterior cerebral artery (principal); I69.351 Hemiplegia and hemiparesis following cerebral infarction affecting right dominant side; F03.90 Unspecified dementia, unspecified severity, without behavioral disturbance, psychotic disturbance, mood disturbance, and anxiety; E11.9 Type 2 diabetes mellitus without complications; E03.9 Hypothyroidism, unspecified; K21.9 Gastro-esophageal reflux disease without esophagitis; E78.5 Hyperlipidemia, unspecified; R47.1 Dysarthria and anarthria; I65.01 Occlusion and stenosis of right vertebral artery; I65.22 Occlusion and stenosis of left carotid artery; I10 Essential (primary) hypertension; N40.0 Benign prostatic hyperplasia without lower urinary tract symptoms; Z79.02 Long term (current) use of antithrombotics/antiplatelets; Z79.84 Long term (current) use of oral hypoglycemic drugs; Z79.899 Other long term (current) drug therapy

== ENCOUNTER 2021-01-27 12:32 | Inpatient (IN) | payer MEDICARE, BC, OTHER ==
[~2021-01-27] VITALS: Ht 167.6 cm; Wt 102.6 kg
[2021-01-27] MEDS ORDERED: ASPI-551 PO (13:06)
[2021-01-27] MEDS ORDERED: DOK1CAP7 PO (13:06)
[2021-01-27] MEDS ORDERED: SIMV40TA20 PO (13:06)
[2021-01-27 14:55] VITALS: BP 196/80
[2021-01-27 15:00] VITALS: BP 164/82
[2021-01-27] MEDS ORDERED: DEXTROSE 50% 50 ML SYRINGE IV PRN (17:20)
[2021-01-27] MEDS ORDERED: GLUCAGON INJ 1MG VIAL SC PRN (17:20)
[2021-01-27] MEDS ORDERED: GLUCOSE 4GM CHEW TABLET PO PRN (17:20)
[2021-01-27] MEDS ORDERED: BISACODYL 10 MG SUPP PR PRN (17:20)
[2021-01-27] MEDS: HumaLOG INSULIN (NovoLOG) PER UNIT SC SCH ×2 (17:30→20:45)
[2021-01-27] MEDS ORDERED: PILL CUTTER 1 EACH XX PRN (17:35)
[2021-01-27] MEDS: **hydrALAZINE HCL** 25 MG TAB PO SCH ×2 (18:07→23:38)
[2021-01-27 20:00] VITALS: BP 178/92
[2021-01-27] MEDS: SENNA 8.6 MG TAB (SENOKOT) PO SCH (20:44)
[2021-01-27] MEDS: SIMVASTATIN 40 MG TAB PO SCH (20:44)
[2021-01-27] MEDS: DULoxetine 30 MG CAP (CYMBALTA) PO SCH (20:44)
[2021-01-27] MEDS: TAMSULOSIN 0.4 MG CAP PO SCH (20:44)
[2021-01-27] MEDS: carBAMazepine XR 200 MG TAB PO SCH (20:45)
[2021-01-27] MEDS: DOCUSATE SODIUM 100MG CAPSULE PO SCH (20:45)
[2021-01-27] MEDS: METOPROLOL TART 25 MG TABLET PO SCH (20:45)
[2021-01-27] MEDS: REMEDY PHYTOPLEX Z-GUARD PASTE 113GM TUBE (FROM STOREROOM PRODUCT) TOP SCH (20:47)
[2021-01-28] VITALS (7 sets, daily range): BP systolic 127–178; BP diastolic 78–88
[2021-01-28] MEDS: **hydrALAZINE HCL** 25 MG TAB PO SCH ×4 (05:37→23:51)
[2021-01-28 09:06] LABS: BASO % 0.4 % (0.0-1.0); EOS # 0.2 10^3/uL (0.0-0.5); EOS % 2.3 % (0.0-3.0); HEMATOCRIT 42.5 % (42.0-52.0); HEMOGLOBIN 13.6 g/dl (13.5-17.5); LYMPH # 2.2 10^3/uL (1.5-5.0); LYMPH % 24.1 % (24.0-44.0); MEAN CORPUSCULAR HEMOGLOBIN 29.8 pg (27.0-33.0); MONO # 1.1 10^3/uL (0.0-0.8); MONO % 12.4 % (2.0-8.0); NEUTROPHILS # 5.5 10^3/uL (1.5-8.5); NEUTROPHILS % 60.1 % (36.0-66.0); PLATELET COUNT, AUTOMATED 265 10^3/uL (150-450); RED BLOOD COUNT 4.57 10^6/uL (4.30-6.10); WHITE BLOOD COUNT 9.1 10^3/uL (4.0-10.0)
[2021-01-28 09:38] LABS: ALT/SGPT 22 U/L (12-78); BILIRUBIN,TOTAL 0.4 MG/DL (0.2-1.0); BLOOD UREA NITROGEN 11 MG/DL (7-18); CALCIUM LEVEL 9.8 MG/DL (8.8-10.2); CARBON DIOXIDE LEVEL 33 MEQ/L (21-32); CHLORIDE LEVEL 102 MEQ/L (98-107); GLOMERULAR FILTRATION RATE > 60.0 (>42); GLUCOSE, FASTING 134 MG/DL (70-100); POTASSIUM SERUM 3.9 MEQ/L (3.5-5.1); SODIUM LEVEL 140 MEQ/L (136-145); TOTAL PROTEIN 7.3 GM/DL (6.4-8.2)
[2021-01-28] MEDS: HumaLOG INSULIN (NovoLOG) PER UNIT SC SCH ×4 (10:12→20:54)
[2021-01-28] MEDS: REMEDY PHYTOPLEX Z-GUARD PASTE 113GM TUBE (FROM STOREROOM PRODUCT) TOP SCH ×3 (10:13→20:54)
[2021-01-28] MEDS: ENOXAPARIN 40MG/0.4ML SYRINGE (J1650 PER 10MG) SC SCH (10:13)
[2021-01-28] MEDS: DULoxetine 30 MG CAP (CYMBALTA) PO SCH ×2 (10:14→20:53)
[2021-01-28] MEDS: CLOPIDOGREL 75 MG TAB PO SCH (10:14)
[2021-01-28] MEDS: carBAMazepine XR 200 MG TAB PO SCH ×2 (10:14→20:54)
[2021-01-28] MEDS: SITagliptin 50 MG TAB (JANUVIA) PO SCH (10:14)
[2021-01-28] MEDS: DOCUSATE SODIUM 100MG CAPSULE PO SCH ×2 (10:14→21:00)
[2021-01-28] MEDS: PANTOPRAZOLE 40MG TAB (PROTONIX) PO SCH (10:14)
[2021-01-28] MEDS: ASPIRIN 81MG ENTERIC TABLET PO SCH (10:14)
[2021-01-28] MEDS: METOPROLOL TART 25 MG TABLET PO SCH (10:19)
[2021-01-28] MEDS: LOSARTAN 50MG TABLET PO SCH (10:19)
--- NOTE | 2021-01-28 13:43 | HPEPDOC ---
Exhibitions Curator Note DATE OF ADMISSION: 01-27-21 DATE OF SERVICE: 01-28-21 TIME OF ADMISSION: Please refer to physician's admission order. SOURCE OF ADMISSION INFORMATION: [facility] record and patient CHIEF COMPLAINT: stroke HISTORY OF PRESENT ILLNESS: 75M pmh CVA/TIA 2009, seizure disorder, DM, hypothyroidism, GERD who presented to [facility] ED on 01-25-21 with difficulty walking, right sided paresis, confusion, and dysarthria. CTH did not show acute bleed, but MRI showed, Acute nonh emorrhagic small vessel infarct involving the posterosuperior right basal ganglia and adjacent centrum semiovale white matter measuring [address]- angio head showed, Near occlusion of the left [employer] P1 segment, stable..Severe right vertebral artery stenosis with distal occlusionFoci of severe right MCA M2 and M3 stenosisModerate left MCA M1 stenosis. Neck CTA showed, 70% stenosis at the proximal aspect of the left cervical ICA. Neurology was consulted stroke and findings of vascular occlusions who recommended adding Plavix to his ASA regimen and increasing his statin dosing. He was noted to have significant dysphagia requiring puree consistency solids, elevated BPs, and mobility and ADl impairments below his prior level of function and deemed medically appropriate for discharge to ARU on 01-27-21. REVIEW OF SYSTEMS: The following is a completed review of systems and has been reviewed. Review of systems otherwise unremarkable. PAIN: Patient self reports no pain EYES: No recent vision changes, + left eye strabismus (chronic) EARS, NOSE, & THROAT: +dysphagia CARDIOVASCULAR: Denies chest pain or palpitations PULMONARY: Denies shortness of breath GASTROINTESTINAL: Denies constipation/diarrhea GENITOURINARY: denies dysuria MUSCULOSKELETAL: generalized weakness NEUROLOGICAL:+ aphasia HEMATOLOGICAL: denies easy bruising SKIN: intact PSYCHIATRIC: Unremarkable All other review of systems found to be negative. PAST MEDICAL HISTORY: as per HPI PAST SURGICAL HISTORY: Inguinal hernia repair, colonoscopy, left uvj stent ALLERGIES: Please see below. MEDICATIONS: Please see below. SOCIAL HISTORY: No etoh/illicit drugs/smoking DIET: puree PHYSICAL EXAMINATION: VITAL SIGNS: Please see below. GENERAL: Pleasant and cooperative. No acute distress. HEENT: PERRL. Clear conjunctiva, + left eye strabismus, +tongue deviation to left CARDIOVASCULAR: Regular rate and rhythm. No murmurs, rubs, or gallops LUNGS: Clear to auscultation bilaterally. No wheezes. + scattered rhonchi ABDOMEN: Soft, nontender, nondistended. Positive bowel sounds. Normal active bowel sounds NEUROLOGICAL: Sensation grossly intact, able to follow commands, +expressive aphasia, difficulty crossing midline EXTREMITIES: 4\\5 strength bilateral upper extremities. 4\\5 strength right lower extremity. 4/5 strength in left lower extremity. LABORATORY DATA: Please see below. IMAGING:Imaging documentation personally reviewed by record FUNCTIONAL STATUS: Premorbid: Mod-Independent with all activities of daily life as well as mobility On Admission: Contact guard bed mobility, functional transfers, ambulation, dressing, toileting GOALS: Mod-I bed mobility, functional transfers, ambulation, dressing, toileting, bathing ASSESSMENT:75-year-old M with past medical history of CVA/TIA who presents status post new strokes with right sided paresis PLAN: 1. Rehab- PT/OT advance mobility and ADL, evaluate need for AFO, strengthen/stretch/maintain ROM all 4 limbs -[employer]- cog and swallow eval for stroke related dysphagia- MBS ordered for 01-31-21 2. Neuro- hx of TIA with new right sided basal ganglia infarct with Near occlusion of the left [employer] P1 segment, stable..Severe right vertebral artery stenosis with distal occlusionFoci of severe right MCA M2 and M3 stenosisModerate left MCA M1 stenosis."- c/u ASA, plavix, and statin -on snri which will help with motor recovery -seizure d/o continue tegretol -f/u neuro as outpatient 3. CArdiac- hx of HTN- c/u BP med -HLD- c/u statin 4. Resp- monitor for infection, aspiration precautions in setting of dysphagia -will order CXR r/o infilatrate and start guaifenasin and combivent 5. Endo- hx of DM c/u ISS and januvia 6. GI ppx- protonix 7. DVT ppx- Lovenox 8. Pain- tylenol prn 9. hx of BPH- c/u flomax, monitor PVRs 10. Dispo- tbd POST ADMISSION PHYSICIAN EVALUATION: Medical and functional status: Description of medical status, medical assessment: As above. Rehabilitation diagnosis and current and prior cold morbid medical conditions as above. Risk of complications and plans to mitigate them as above. Description of functional status current status is as above. Prior status as above. Status compared to preadmission: There are no clinically significant differences between the patient's current status and the information described on the preadmission screening document. Treatment plan anticipated: Treatment plan is as described above. Required disciplines including physical therapy, occupational therapy, others as noted above Intensity of services: 3 hours a day, 6 days a week. Special considerations: There are no specific special or safety considerations that would likely preclude immediate implementation of an intensive rehabilitation program or subsequently influence the plan of care. ATTESTATION:Considering all the information above, it is my best judgment that this patient requires intensive rehabilitation therapy as described above and an inpatient hospital environment due to the complexity of nursing, medical, and rehabilitation needs required by the patient. Furthermore, this patient can reasonably be expected to participate in an benefit from an inpatient rehabilitation stay with an interdisciplinary team approach to the delivery of rehabilitation care under the direction and supervision of rehabilitation physician. PROGNOSIS: good. ESTIMATED LENGTH OF STAY:12-14 days. PROJECTED DISCHARGE DESTINATION: Home with family support and any durable medical equipment required to increase functional safety and mobility. TIME SPENT COUNSELING AND COORDINATING INITIAL CARE: Greater than 70 minutes. Vital Signs Vital Sign - Last 24 Hours 01/27/21 01/27/21 01/27/21 01/27/21 14:55 15:00 18:07 20:00 Temp 98.7 97.3 Pulse 95 67 Resp 20 18 B/P (MAP) 196/80 (118) 164/82 (109) 166/84 178/92 (120) Pulse Ox 95 94 O2 Delivery Room Air Room Air 01/27/21 01/27/21 01/28/21 01/28/21 20:45 23:38 05:36 05:37 Temp 97.9 Pulse 67 64 Resp 19 B/P (MAP) 178/92 162/76 168/86 (113) 168/86 Pulse Ox 95 O2 Delivery Room Air 01/28/21 01/28/21 01/28/21 01/28/21 10:00 10:19 10:19 12:20 Pulse 87 87 67 B/P (MAP) 127/78 (94) 127/78 127/78 172/87 (115) 01/28/21 12:45 B/P (MAP) 172/87 Laboratory Data CBC/BMP Laboratory Tests 01/28/21 08:03 Labs 24H Laboratory Tests 2 01/27/21 19:33: Bedside Glucose (Misc Panel) 142H 01/28/21 05:05: Bedside Glucose (Misc Panel) 148H 01/28/21 08:03: Immature Granulocyte % (Auto) 0.7, Neutrophils (%) (Auto) 60.1, Lymphocytes (%) (Auto) 24.1, Monocytes (%) (Auto) 12.4H, Eosinophils (%) (Auto) 2.3, Basophils (%) (Auto) 0.4, Neutrophils # (Auto) 5.5, Lymphocytes # (Auto) 2.2, Monocytes # (Auto) 1.1H, Eosinophils # (Auto) 0.2, Basophils # (Auto) 0.0, Nucleated Red Blood Cells % (auto) 0.0, Anion Gap 5L, Glomerular Filtration Rate > 60.0, Calcium Level 9.8, Total Bilirubin 0.4#, Aspartate Amino Transf (AST/SGOT) 23, Alanine Aminotransferase (ALT/SGPT) 22, Alkaline Phosphatase 73, Total Protein 7.3, Albumin 4.0, Albumin/Globulin Ratio 1.2 01/28/21 11:53: Bedside Glucose (Misc Panel) 163H FSBS Laboratory Tests Test 01/27/21 19:33 01/28/21 05:05 01/28/21 11:53 Range/Units Bedside Glucose (Misc Panel) 142 148 163 83-110 MG/DL Home Medications Scheduled Aspirin (Aspirin EC) 81 Mg Tablet.dr, 81 MG PO DAILY Carbamazepine (Carbamazepine ER) 200 Mg Alex, 200 MG PO BID, (Reported) Clopidogrel Bisulfate (Plavix) 75 Mg Tab, 75 MG PO DAILY, (Reported) Docusate Sodium (Colace) 100 Mg Cap, 100 MG PO DAILY, (Reported) Docusate Sodium (Dok) 100 Mg Capsule, 100 MG PO BID Duloxetine Hcl (Duloxetine HCl) 30 Mg Cap, 30 MG PO BID, (Reported) Losartan Potassium (Losartan Potassium) 50 Mg Tab, 50 MG PO DAILY, (Reported) Metformin HCl (Metformin HCl) 500 Mg Tablet, 500 MG PO BID, (Reported) Metoprolol Tartrate (Metoprolol Tartrate) 25 Mg Tab, 25 MG PO BID, (Reported) Pantoprazole Sodium (Pantoprazole Sodium) 40 Mg Tab, 40 MG PO DAILY, (Reported) Simvastatin (Simvastatin) 40 Mg Tab, 80 MG PO QHS Sitagliptin Phosphate (Januvia) 100 Mg Tablet, 100 MG PO QPM, (Reported) Tamsulosin HCl (Flomax) 0.4 Mg Cap, 0.4 MG PO QHS, (Reported) Allergies Coded Allergies: No Known Allergies (Verified , 09/22/19) A-FIB/CHADSVASC A-FIB History Current/History of A-Fib/PAF?: No Current PO Anticoag Therapy: No ORTEGA LEMA MD Jan 28, 2021 13:43
[2021-01-28] MEDS: COMBIVENT RESPIMAT 100-20MCG INHALER 4GM INH SCH ×3 (16:00→21:00)
--- NOTE | 2021-01-28 16:44 | REP ---
INDICATION: r/o infiltrate COMPARISON: 01/25/2021 as well as other prior exams. TECHNIQUE: PA/Lateral FINDINGS: Lungs: Clear, no infiltrate. Heart: There is [id number] cardiomegaly unchanged. Mediastinum: There is mild calcification and tortuosity of the thoracic aorta with no change in the mediastinal silhouette. Pleural angles: Unremarkable.. Bones and soft tissues: There are mild degenerative changes of the spine without compression deformity. IMPRESSION: No acute pulmonary disease. Cardiomegaly. <Electronically signed by Billy Veloz > 01/28/21 1640
[2021-01-28] MEDS: guaiFENesin 200 MG TAB PO SCH ×2 (18:11→20:52)
[2021-01-28] MEDS: MAGIC MOUTHWASH SUSPENSION BTL SSP SCH ×2 (18:12→21:08)
[2021-01-28] MEDS: SIMVASTATIN 40 MG TAB PO SCH (20:53)
[2021-01-28] MEDS: TAMSULOSIN 0.4 MG CAP PO SCH (20:53)
[2021-01-28] MEDS: METOPROLOL TART 50 MG TAB PO SCH (20:53)
[2021-01-28] MEDS: SENNA 8.6 MG TAB (SENOKOT) PO SCH (20:54)
[2021-01-29 05:51] VITALS: BP 150/88
[2021-01-29] MEDS: **hydrALAZINE HCL** 25 MG TAB PO SCH ×4 (06:22→23:52)
[2021-01-29] MEDS: COMBIVENT RESPIMAT 100-20MCG INHALER 4GM INH SCH ×3 (07:21→19:28)
[2021-01-29] MEDS: ENOXAPARIN 40MG/0.4ML SYRINGE (J1650 PER 10MG) SC SCH (08:16)
[2021-01-29] MEDS: MAGIC MOUTHWASH SUSPENSION BTL SSP SCH ×4 (08:16→20:32)
[2021-01-29] MEDS: ASPIRIN 81MG ENTERIC TABLET PO SCH (08:16)
[2021-01-29] MEDS: HumaLOG INSULIN (NovoLOG) PER UNIT SC SCH ×4 (08:16→20:32)
[2021-01-29] MEDS: guaiFENesin 200 MG TAB PO SCH ×3 (08:16→20:31)
[2021-01-29] MEDS: SITagliptin 50 MG TAB (JANUVIA) PO SCH (08:17)
[2021-01-29] MEDS: CLOPIDOGREL 75 MG TAB PO SCH (08:17)
[2021-01-29] MEDS: carBAMazepine XR 200 MG TAB PO SCH ×2 (08:17→20:32)
[2021-01-29] MEDS: PANTOPRAZOLE 40MG TAB (PROTONIX) PO SCH (08:17)
[2021-01-29] MEDS: METOPROLOL TART 50 MG TAB PO SCH ×2 (08:17→20:31)
[2021-01-29] MEDS: DOCUSATE SODIUM 100MG CAPSULE PO SCH ×2 (08:17→20:31)
[2021-01-29] MEDS: DULoxetine 30 MG CAP (CYMBALTA) PO SCH ×2 (08:17→20:30)
[2021-01-29] MEDS: REMEDY PHYTOPLEX Z-GUARD PASTE 113GM TUBE (FROM STOREROOM PRODUCT) TOP SCH ×3 (08:18→20:32)
[2021-01-29] MEDS: LOSARTAN 50MG TABLET PO SCH (08:18)
[2021-01-29 14:00] VITALS: BP 138/70
[2021-01-29 20:15] VITALS: BP 126/89
[2021-01-29] MEDS: SENNA 8.6 MG TAB (SENOKOT) PO SCH (20:31)
[2021-01-29] MEDS: TAMSULOSIN 0.4 MG CAP PO SCH (20:31)
[2021-01-29] MEDS: SIMVASTATIN 40 MG TAB PO SCH (20:31)
[2021-01-30] MEDS: **hydrALAZINE HCL** 25 MG TAB PO SCH ×4 (05:01→23:50)
[2021-01-30 06:14] VITALS: BP 144/69
[2021-01-30] MEDS: HumaLOG INSULIN (NovoLOG) PER UNIT SC SCH ×4 (08:10→21:00)
[2021-01-30] MEDS: guaiFENesin 200 MG TAB PO SCH ×3 (08:10→21:15)
[2021-01-30] MEDS: ASPIRIN 81MG ENTERIC TABLET PO SCH (08:11)
[2021-01-30] MEDS: DOCUSATE SODIUM 100MG CAPSULE PO SCH ×2 (08:11→21:00)
[2021-01-30] MEDS: SITagliptin 50 MG TAB (JANUVIA) PO SCH (08:11)
[2021-01-30] MEDS: carBAMazepine XR 200 MG TAB PO SCH ×2 (08:11→21:16)
[2021-01-30] MEDS: PANTOPRAZOLE 40MG TAB (PROTONIX) PO SCH (08:11)
[2021-01-30] MEDS: DULoxetine 30 MG CAP (CYMBALTA) PO SCH ×2 (08:11→21:15)
[2021-01-30] MEDS: METOPROLOL TART 50 MG TAB PO SCH ×2 (08:11→21:17)
[2021-01-30] MEDS: MAGIC MOUTHWASH SUSPENSION BTL SSP SCH ×4 (08:12→21:17)
[2021-01-30] MEDS: ENOXAPARIN 40MG/0.4ML SYRINGE (J1650 PER 10MG) SC SCH (08:12)
[2021-01-30] MEDS: LOSARTAN 50MG TABLET PO SCH (08:12)
[2021-01-30] MEDS: CLOPIDOGREL 75 MG TAB PO SCH (08:12)
[2021-01-30] MEDS: REMEDY PHYTOPLEX Z-GUARD PASTE 113GM TUBE (FROM STOREROOM PRODUCT) TOP SCH ×3 (08:13→21:18)
[2021-01-30] MEDS: COMBIVENT RESPIMAT 100-20MCG INHALER 4GM INH SCH ×6 (08:20→20:49)
[2021-01-30 14:00] VITALS: BP 158/80
--- NOTE | 2021-01-30 16:16 | IPNPDOC ---
Text Note Date of Service The patient was seen on 01/28/21. NOTE SUBJECTIVE: -No acute overnight events -Was recommended pureed diet with thin liquids on official evaluation -Was discharged to ARU yesterday OBJECTIVE: VITAL SIGNS: Please see below. GENERAL APPEARANCE: NAD, confused at times HEENT: NCAT, EOMI, MMM CARDIOVASCULAR: Regular rate, rhythm. No murmurs, rubs or gallops LUNGS: CTAB, no wheezing, rales, rhonchi ABDOMEN: Normoactive sounds, soft, NTND EXTREMITIES: No peripheral edema noted. 2+ DP pulses, WWP NEUROLOGICAL: Sensation intact. 4/5 strength in JEAN CARLOS and otherwise 5/5 strength in the other 3 extremities on my examination. Speech improving, still with some dysarthria PSYCHIATRIC: Alert and oriented LABORATORY DATA: Reviewed. MICROBIOLOGY: Please see below. ASSESSMENT: 75 y/o M with a pmh of dementia, cva, tia, dm2, hypothyroidism, gerd, and hld who presents with new onset slurred speech, ams and gait inst ability and found to have sustained a new CVA now admitted to the ARU for intensive therapy. . PLAN: 1. Acute Ischemic Stroke - Patient was outside time window for administration of tpa - continue plavix, simvastatin at 80mg - Continue asa 81mg po daily - Dr. Dean, neurology, consulted, to see in clinic within 2w of ARU discharge - PT/OT per PM&R 2. HTN - continue metoprolol, losartan 3. DM - continue home meds 4. GERD - continue pantoprazole 5. BPH - continue flomax 6. DVT prophylaxis - Lovenox VS,Fishbone, I+O VS, Fishbone, I+O Laboratory Tests 01/28/21 08:03 Vital Signs Date Time Temp Pulse Resp B/P (MAP) Pulse Ox O2 Delivery O2 Flow Rate FiO2 01/28/21 05:37 168/86 01/28/21 05:36 97.9 64 19 95 Room Air I&O- Last 24 Hours up to 6 AM 01/28/21 05:59 Intake Total 160 ml Output Total 100 ml Balance 60 ml MARTÍN KENNEDY MD Jan 28, 2021 09:37
[2021-01-30 21:00] VITALS: BP 139/72
[2021-01-30] MEDS: SIMVASTATIN 40 MG TAB PO SCH (21:15)
[2021-01-30] MEDS: SENNA 8.6 MG TAB (SENOKOT) PO SCH (21:15)
[2021-01-30] MEDS: TAMSULOSIN 0.4 MG CAP PO SCH (21:15)
[2021-01-31] MEDS: **hydrALAZINE HCL** 25 MG TAB PO SCH ×3 (05:59→17:49)
[2021-01-31 06:00] VITALS: BP 150/68
[2021-01-31] MEDS: COMBIVENT RESPIMAT 100-20MCG INHALER 4GM INH SCH ×5 (07:27→19:58)
[2021-01-31 07:32] LABS: BASO % 0.4 % (0.0-1.0); EOS # 0.1 10^3/uL (0.0-0.5); HEMATOCRIT 40.8 % (42.0-52.0); HEMOGLOBIN 13.3 g/dl (13.5-17.5); LYMPH # 2.2 10^3/uL (1.5-5.0); LYMPH % 19.1 % (24.0-44.0); MEAN CORPUSCULAR HEMOGLOBIN 30.3 pg (27.0-33.0); MEAN CORPUSCULAR HGB CONC 32.6 g/dl (32.0-36.5); MEAN CORPUSCULAR VOLUME 92.9 fl (80.0-96.0); MONO # 1.3 10^3/uL (0.0-0.8); NEUTROPHILS # 7.7 10^3/uL (1.5-8.5); PLATELET COUNT, AUTOMATED 311 10^3/uL (150-450); RED BLOOD COUNT 4.39 10^6/uL (4.30-6.10); WHITE BLOOD COUNT 11.3 10^3/uL (4.0-10.0)
[2021-01-31 07:59] LABS: BLOOD UREA NITROGEN 18 MG/DL (7-18); CARBON DIOXIDE LEVEL 25 MEQ/L (21-32); CHLORIDE LEVEL 107 MEQ/L (98-107); CREATININE FOR GFR 0.85 MG/DL (0.70-1.30); GLOMERULAR FILTRATION RATE > 60.0 (>42); GLUCOSE, FASTING 135 MG/DL (70-100); POTASSIUM SERUM 4.2 MEQ/L (3.5-5.1); SODIUM LEVEL 143 MEQ/L (136-145)
[2021-01-31 09:50] VITALS: BP 189/88
[2021-01-31] MEDS: ENOXAPARIN 40MG/0.4ML SYRINGE (J1650 PER 10MG) SC SCH (09:54)
[2021-01-31] MEDS: DOCUSATE SODIUM 100MG CAPSULE PO SCH (09:55)
[2021-01-31] MEDS: carBAMazepine XR 200 MG TAB PO SCH ×2 (09:55→21:22)
[2021-01-31] MEDS: DULoxetine 30 MG CAP (CYMBALTA) PO SCH ×2 (09:55→21:23)
[2021-01-31] MEDS: ASPIRIN 81MG ENTERIC TABLET PO SCH (09:55)
[2021-01-31] MEDS: SITagliptin 50 MG TAB (JANUVIA) PO SCH (09:55)
[2021-01-31] MEDS: PANTOPRAZOLE 40MG TAB (PROTONIX) PO SCH (09:55)
[2021-01-31] MEDS: guaiFENesin 200 MG TAB PO SCH ×3 (09:55→21:23)
[2021-01-31] MEDS: CLOPIDOGREL 75 MG TAB PO SCH (09:56)
[2021-01-31] MEDS: LOSARTAN 50MG TABLET PO SCH (09:56)
[2021-01-31] MEDS: METOPROLOL TART 50 MG TAB PO SCH ×3 (09:57→21:29)
[2021-01-31] MEDS: MAGIC MOUTHWASH SUSPENSION BTL SSP SCH ×4 (09:57→21:23)
[2021-01-31] MEDS: REMEDY PHYTOPLEX Z-GUARD PASTE 113GM TUBE (FROM STOREROOM PRODUCT) TOP SCH ×3 (09:58→21:23)
[2021-01-31] MEDS: HumaLOG INSULIN (NovoLOG) PER UNIT SC SCH ×4 (10:05→21:00)
[2021-01-31] MEDS ORDERED: BARIUM SULFATE 700 MG TABLET (E-Z-DISK) As Ordered ONE (12:28)
[2021-01-31] MEDS ORDERED: VARIBAR NECTAR 40% w/v 240ML SUSP BTL As Ordered ONE (12:28)
[2021-01-31] MEDS ORDERED: VARIBAR PUDDING 40% w/v 230ML TUBE As Ordered ONE (12:28)
[2021-01-31] MEDS ORDERED: E-Z-PAQUE 96% w/w SUSP 176GM BTL As Ordered ONE (12:28)
[2021-01-31 12:47] VITALS: BP 150/86
[2021-01-31 14:00] VITALS: BP 158/70
--- NOTE | 2021-01-31 14:21 | IPNPDOC ---
PM&R Progress Note DATE OF SERVICE: January 31, 2021 Corporate Security Officer Progress Note Subjective: PAtient seen in room with his family and understands that he will need to remain NPO for a perio do time alexander speech works on strategies to improve his ability to coordinate bringing food from the front of his mouth to the back. He denies pain, fever, worsening cough. REVIEW OF SYSTEMS: The following is a completed review of systems and has been reviewed. Review of systems otherwise unremarkable. PAIN: Patient self reports no pain EYES: No recent vision changes, + left eye strabismus (chronic) EARS, NOSE, & THROAT: +dysphagia CARDIOVASCULAR: Denies chest pain or palpitations PULMONARY: Denies shortness of breath GASTROINTESTINAL: Denies constipation/diarrhea GENITOURINARY: denies dysuria MUSCULOSKELETAL: generalized weakness NEUROLOGICAL:+ aphasia HEMATOLOGICAL: denies easy bruising SKIN: intact PSYCHIATRIC: Unremarkable All other review of systems found to be negative. PHYSICAL EXAMINATION: VITAL SIGNS: Please see below. GENERAL: Pleasant and cooperative. No acute distress. HEENT: PERRL. Clear conjunctiva, + left eye strabismus, +tongue deviation to left CARDIOVASCULAR: Regular rate and rhythm. No murmurs, rubs, or gallops LUNGS: Clear to auscultation bilaterally. No wheezes. + scattered rhonchi ABDOMEN: Soft, nontender, nondistended. Positive bowel sounds. Normal active bowel sounds NEUROLOGICAL: Sensation grossly intact, able to follow commands, +expressive aphasia, able to cross midline follows commands consistently EXTREMITIES: 4\\5 strength bilateral upper extremities. 4\\5 strength right lower extremity. 4/5 strength in left lower extremity. ASSESSMENT:75-year-old M with past medical history of CVA/TIA who presents status post new strokes with right sided paresis PLAN: 1. Rehab- PT/OT advance mobility and ADL, evaluate need for AFO, strengthen/stretch/maintain ROM all 4 limbs -FOREST PRACTICES FIELD COORDINATOR- cog and swallow eval for stroke related dysphagia- MBS ordered for 01-31-21- patient made NPO due to severe oral phase dysphagia 2. Neuro- hx of TIA with new right sided basal ganglia infarct with Near occlusion of the left TELETYPESETTER P1 segment, stable..Severe right vertebral artery stenosis with distal occlusionFoci of severe right MCA M2 and M3 stenosisModerate left MCA M1 stenosis."- c/u ASA, plavix, and statin -on snri which will help with motor recovery -seizure d/o continue tegretol- will order levels -f/u neuro as outpatient 3. CArdiac- hx of HTN- c/u BP med -HLD- c/u statin 4. Resp- monitor for infection, aspiration precautions in setting of dysphagia -CXR negative for infiltrate, c/u combivent 5. Endo- hx of DM c/u ISS and januvia (will hold now that NPO) 6. GI ppx- protonix 7. DVT ppx- Lovenox 8. Pain- tylenol prn 9. hx of BPH- c/u flomax, monitor PVRs 10. Nutrition- will start D5NS IV while NPO, anticipate patient will be able to coordinate swallow soon with FOREST [employer] FIELD COORDINATOR strategies 10. Dispo- tbd Allergies Coded Allergies: No Known Allergies (Verified , 09/22/19) Vital Signs Vital Signs Date Time Temp Pulse Resp B/P (MAP) Pulse Ox O2 Delivery O2 Flow Rate FiO2 01/31/21 12:47 73 150/86 (107) 01/31/21 07:28 17 01/31/21 06:00 98.5 97 Room Air Laboratory Data CBC/BMP Laboratory Tests 01/31/21 06:55 Labs 24H Laboratory Tests 2 01/30/21 16:23: Bedside Glucose (Misc Panel) 119H 01/30/21 20:26: Bedside Glucose (Misc Panel) 128H 01/31/21 05:06: Bedside Glucose (Misc Panel) 137H 01/31/21 06:55: Immature Granulocyte % (Auto) 0.5, Neutrophils (%) (Auto) 68.0H, Lymphocytes (%) (Auto) 19.1L, Monocytes (%) (Auto) 11.0H, Eosinophils (%) (Auto) 1.0, Basophils (%) (Auto) 0.4, Neutrophils # (Auto) 7.7, Lymphocytes # (Auto) 2.2, Monocytes # (Auto) 1.3H, Eosinophils # (Auto) 0.1, Basophils # (Auto) 0.0, Nucleated Red Blood Cells % (auto) 0.0, Anion Gap 11, Glomerular Filtration Rate > 60.0, Calcium Level 10.0 01/31/21 11:13: Bedside Glucose (Misc Panel) 174H Current Medications Current Medications Current Medications Medications (Trade) Dose Ordered Sig/Praful Route PRN Reason Start Time Stop Time Status Last Admin Dose Admin Acetaminophen (Tylenol Tab) 650 mg Q4HP PRN PO fever/MILD PAIN (PS 1-4) 01/27/21 17:20 Albuterol/ Ipratropium (Combivent Respimat 100-20mcg) 1 puff RTID INH 01/28/21 20:00 01/31/21 07:27 Albuterol/ Ipratropium (Combivent Respimat 100-20mcg) 1 puff TID INH 01/28/21 16:00 Aspirin (Ecotrin) 81 mg DAILY PO 01/28/21 09:00 01/31/21 09:55 Bisacodyl (Dulcolax Suppository) 10 mg DAILYPRN PRN AR CONSTIPATION 01/27/21 17:20 Carbamazepine (TEGretol XR) 200 mg BID PO 01/27/21 21:00 01/31/21 09:55 Clopidogrel Bisulfate (PLAVix) 75 mg DAILY PO 01/28/21 09:00 01/31/21 09:56 Dextrose (Dextrose 50%) 25 ml ASDIRECTED PRN IV SEE LABEL COMMENTS 01/27/21 17:20 Docusate Sodium (Colace) 100 mg BID PO 01/27/21 21:00 01/31/21 09:55 Duloxetine HCl (Cymbalta) 30 mg BID PO 01/27/21 21:00 01/31/21 09:55 Enoxaparin Sodium (Lovenox) 40 mg DAILY SC 01/28/21 09:00 01/31/21 09:54 Glucagon (Glucagon) 1 mg ASDIRECTED PRN SC SEE LABEL COMMENTS 01/27/21 17:20 Glucose (Glucose) 16 GM ASDIRECTED PRN PO SEE LABEL COMMENTS 01/27/21 17:20 Guaifenesin (Robitussin Tab) 400 mg TID PO 01/28/21 16:00 01/31/21 09:55 Hydralazine HCl (Apresoline) 25 mg Q6H PO 01/27/21 18:00 01/31/21 12:47 Insulin Human Lispro (HumaLOG INSULIN) SEE PROTOCOL TABLE AC SC 01/27/21 17:30 01/31/21 12:46 Insulin Human Lispro (HumaLOG INSULIN) SEE PROTOCOL TABLE QHS SC 01/27/21 21:00 Lidocaine/ Diphenhydr/Alum/ Mg/Simeth (Magic Mouthwash) 5ML ACHS SSP 01/28/21 17:30 01/31/21 12:46 Losartan Potassium (Cozaar) 50 mg DAILY PO 01/28/21 09:00 01/31/21 09:56 Metoprolol Tartrate (Lopressor) 25 mg BID PO 01/27/21 21:00 01/28/21 15:08 DC 01/28/21 10:19 Metoprolol Tartrate (Lopressor) 50 mg BID PO 01/28/21 21:00 01/31/21 11:22 DC 01/31/21 09:57 Metoprolol Tartrate (Lopressor) 50 mg Q8H PO 01/31/21 14:00 Pantoprazole Sodium (Protonix) 40 mg DAILY PO 01/28/21 09:00 01/31/21 09:55 Senna (Senokot) 1 tab QHS PO 01/27/21 21:00 01/30/21 21:15 Simvastatin (Zocor) 80 mg QHS PO 01/27/21 21:00 01/30/21 21:15 Sitagliptin Phosphate (Januvia) 25 mg DAILY PO 01/28/21 09:00 01/31/21 09:55 Tamsulosin HCl (Flomax) 0.4 mg QHS PO 01/27/21 21:00 01/30/21 21:15 ORTEGA LEMA MD January 31, 2021 14:21
[2021-01-31] MEDS ORDERED: D5W/0.9% SODIUM CHLORIDE 1,000 ML IV ONE (14:35)
--- NOTE | 2021-01-31 16:30 | REP ---
INDICATION: dysphagia. COMPARISON: None. TECHNIQUE: The procedure was performed by Ashlee Bains [facility], under the direct supervision of Dr. Veloz. The procedure was performed with Cyndi Mendoza from speech pathology present. 5 ml aliquots of nectar thick, honey thick, and applesauce consistency barium was administered. FINDINGS: Aspiration was visualized with nectar thick consistency. The detailed report of this examination will be provided by speech pathology. IMPRESSION: Aspiration was visualized, a detailed report will be provided by speech pathology. 2.2 minutes of fluoroscopy time was utilized for this procedure. Some fluoroscopic images are performed with last image hold technology. These images require no additional radiation <Electronically signed by Ashlee Bains > 01/31/21 1510 <Electronically signed by Billy Veloz > 01/31/21 1628
[2021-01-31 17:30] VITALS: BP 134/77
[2021-01-31 20:00] VITALS: BP 160/84
[2021-01-31] MEDS: TAMSULOSIN 0.4 MG CAP PO SCH (21:23)
[2021-01-31] MEDS: SIMVASTATIN 40 MG TAB PO SCH (21:23)
[2021-02-01] MEDS: **hydrALAZINE HCL** 25 MG TAB PO SCH ×5 (00:04→23:16)
[2021-02-01 05:40] VITALS: BP 148/86
[2021-02-01] MEDS: METOPROLOL TART 50 MG TAB PO SCH ×3 (06:00→21:01)
[2021-02-01 06:50] LABS: BASO % 0.3 % (0.0-1.0); EOS # 0.1 10^3/uL (0.0-0.5); EOS % 0.8 % (0.0-3.0); HEMATOCRIT 41.4 % (42.0-52.0); HEMOGLOBIN 13.1 g/dl (13.5-17.5); LYMPH # 2.1 10^3/uL (1.5-5.0); LYMPH % 16.1 % (24.0-44.0); MEAN CORPUSCULAR HEMOGLOBIN 29.8 pg (27.0-33.0); MEAN CORPUSCULAR HGB CONC 31.6 g/dl (32.0-36.5); MEAN CORPUSCULAR VOLUME 94.1 fl (80.0-96.0); MONO # 1.4 10^3/uL (0.0-0.8); NEUTROPHILS # 9.3 10^3/uL (1.5-8.5); NEUTROPHILS % 71.5 % (36.0-66.0); PLATELET COUNT, AUTOMATED 277 10^3/uL (150-450); WHITE BLOOD COUNT 13.1 10^3/uL (4.0-10.0)
[2021-02-01 07:50] VITALS: BP 183/86
[2021-02-01] MEDS: HumaLOG INSULIN (NovoLOG) PER UNIT SC SCH ×4 (07:56→23:16)
[2021-02-01] MEDS: ENOXAPARIN 40MG/0.4ML SYRINGE (J1650 PER 10MG) SC SCH (07:57)
[2021-02-01] MEDS: DULoxetine 30 MG CAP (CYMBALTA) PO SCH ×2 (07:57→21:00)
[2021-02-01] MEDS: carBAMazepine XR 200 MG TAB PO SCH ×2 (07:59→21:01)
[2021-02-01] MEDS: guaiFENesin 200 MG TAB PO SCH ×3 (07:59→21:01)
[2021-02-01] MEDS: LOSARTAN 50MG TABLET PO SCH ×2 (08:00→21:01)
[2021-02-01] MEDS: COMBIVENT RESPIMAT 100-20MCG INHALER 4GM INH SCH ×3 (08:00→20:20)
[2021-02-01] MEDS: CLOPIDOGREL 75 MG TAB PO SCH (08:01)
[2021-02-01] MEDS: MAGIC MOUTHWASH SUSPENSION BTL SSP SCH ×4 (08:01→21:02)
[2021-02-01] MEDS: ASPIRIN 81MG ENTERIC TABLET PO SCH (08:01)
[2021-02-01] MEDS: REMEDY PHYTOPLEX Z-GUARD PASTE 113GM TUBE (FROM STOREROOM PRODUCT) TOP SCH ×3 (08:02→21:02)
--- NOTE | 2021-02-01 09:39 | REP ---
INDICATION: r/o infiltrate, dysphagia. COMPARISON: Comparison chest x-ray January 28, 2021.. TECHNIQUE: Helical scanning is acquired. 3 mm axial images are generated. Coronal and sagittal MPR and coronal MIP images are generated. FINDINGS: Digital preliminary accounts receivable analyst radiograph shows cardiomegaly. On axial CT images, there is no evidence of infiltrate in the lung rg. No pleural or pericardial effusion is seen. Mitral annular calcification is seen. Cardiomegaly is observed with four-chamber enlargement. Vascular calcification is seen in the distribution of the coronary arteries. No hilar or mediastinal mass or adenopathy is apparent. Normal adrenal glands are seen. Visualized upper abdominal structures are unremarkable. no bony destructive lesion is seen. IMPRESSION: Cardiomegaly. Otherwise no acute disease. Right seen. <Electronically signed by Jonny Madsen > 02/01/21 [id number]
[2021-02-01] MEDS ORDERED: D5W/0.9% SODIUM CHLORIDE 1,000 ML IV ONE (11:30)
[2021-02-01 13:00] VITALS: BP 181/84
[2021-02-01 14:00] VITALS: BP 181/86
[2021-02-01] MEDS ORDERED: D5W/0.9% SODIUM CHLORIDE 1,000 ML IV SCH (17:30)
[2021-02-01 18:00] VITALS: BP 155/77
[2021-02-01] MEDS: LevoFLOXacin IV 750 MG in IV 1 EA IV SCH (18:37)
[2021-02-01 20:00] VITALS: BP 165/71
[2021-02-01] MEDS: TAMSULOSIN 0.4 MG CAP PO SCH (21:00)
[2021-02-01] MEDS: SIMVASTATIN 40 MG TAB PO SCH (21:00)
[2021-02-01] MEDS: ACETAMINOPHEN TAB 650MG DOSE (2X325MG) PO PRN (21:01)
[2021-02-01] MEDS ORDERED: GLUCAGON INJ 1MG VIAL SC PRN (22:05)
[2021-02-01] MEDS ORDERED: GLUCOSE 4GM CHEW TABLET PO PRN (22:05)
[2021-02-01] MEDS ORDERED: DEXTROSE 50% 50 ML SYRINGE IV PRN (22:05)
[2021-02-02] MEDS ORDERED: D5W/0.9% SODIUM CHLORIDE 1,000 ML IV SCH (04:09)
[2021-02-02] MEDS: HumaLOG INSULIN (NovoLOG) PER UNIT SC SCH ×4 (05:38→23:32)
[2021-02-02] MEDS: **hydrALAZINE HCL** 25 MG TAB PO SCH ×4 (05:39→23:31)
[2021-02-02] MEDS: METOPROLOL TART 50 MG TAB PO SCH ×3 (05:39→21:18)
[2021-02-02 05:41] VITALS: BP 168/75
[2021-02-02 06:57] LABS: BASO % 0.2 % (0.0-1.0); EOS # 0.1 10^3/uL (0.0-0.5); EOS % 0.4 % (0.0-3.0); HEMATOCRIT 41.3 % (42.0-52.0); HEMOGLOBIN 13.1 g/dl (13.5-17.5); LYMPH # 1.7 10^3/uL (1.5-5.0); LYMPH % 9.8 % (24.0-44.0); MEAN CORPUSCULAR HEMOGLOBIN 29.7 pg (27.0-33.0); MEAN CORPUSCULAR HGB CONC 31.7 g/dl (32.0-36.5); MEAN CORPUSCULAR VOLUME 93.7 fl (80.0-96.0); MONO # 1.6 10^3/uL (0.0-0.8); MONO % 9.5 % (2.0-8.0); NEUTROPHILS # 13.5 10^3/uL (1.5-8.5); NEUTROPHILS % 79.6 % (36.0-66.0); PLATELET COUNT, AUTOMATED 280 10^3/uL (150-450); RED BLOOD COUNT 4.41 10^6/uL (4.30-6.10)
[2021-02-02 06:58] LABS: WHITE BLOOD COUNT 16.9 10^3/uL (4.0-10.0)
[2021-02-02] MEDS: COMBIVENT RESPIMAT 100-20MCG INHALER 4GM INH SCH ×3 (07:22→20:00)
[2021-02-02 07:26] LABS: BLOOD UREA NITROGEN 17 MG/DL (7-18); CALCIUM LEVEL 9.4 MG/DL (8.8-10.2); CARBON DIOXIDE LEVEL 25 MEQ/L (21-32); CHLORIDE LEVEL 112 MEQ/L (98-107); CREATININE FOR GFR 0.83 MG/DL (0.70-1.30); GLOMERULAR FILTRATION RATE > 60.0 (>42); GLUCOSE, FASTING 155 MG/DL (70-100); POTASSIUM SERUM 3.6 MEQ/L (3.5-5.1); SODIUM LEVEL 144 MEQ/L (136-145)
--- NOTE | 2021-02-02 07:32 | IPNPDOC ---
PM&R Progress Note DATE OF SERVICE: February 01, 2021 Senior Tech Manufacturing Engineering Progress Note Subjective: PAtient seen in room not in distress, fidgeting in bed, denies having pain or fever. No worsening breathing. REVIEW OF SYSTEMS: The following is a completed review of systems and has been reviewed. Review of systems otherwise unremarkable. PAIN: Patient self reports no pain EYES: No recent vision changes, + left eye strabismus (chronic) EARS, NOSE, & THROAT: +dysphagia CARDIOVASCULAR: Denies chest pain or palpitations PULMONARY: Denies shortness of breath GASTROINTESTINAL: Denies constipation/diarrhea GENITOURINARY: denies dysuria, +increased frequency MUSCULOSKELETAL: generalized weakness NEUROLOGICAL:+ aphasia HEMATOLOGICAL: denies easy bruising SKIN: intact PSYCHIATRIC: Unremarkable All other review of systems found to be negative. PHYSICAL EXAMINATION: VITAL SIGNS: Please see below. GENERAL: Pleasant and cooperative. No acute distress. HEENT: PERRL. Clear conjunctiva, + left eye strabismus, +tongue deviation to left CARDIOVASCULAR: Regular rate and rhythm. No murmurs, rubs, or gallops LUNGS: Clear to auscultation bilaterally. No wheezes. + scattered rhonchi ABDOMEN: Soft, nontender, nondistended. Positive bowel sounds. Normal active bowel sounds NEUROLOGICAL: Sensation grossly intact, able to follow commands, +expressive ap hasia, able to cross midline follows commands consistently EXTREMITIES: 4\\5 strength bilateral upper extremities. 4\\5 strength right lower extremity. 4/5 strength in left lower extremity. ASSESSMENT:75-year-old M with past medical history of CVA/TIA who presents status post new strokes with right sided paresis PLAN: 1. Rehab- PT/OT advance mobility and ADL, evaluate need for AFO, strength en/stretch/maintain ROM all 4 limbs -SOFTWARE DEVELOPMENT INTERN- cog and swallow eval for stroke related dysphagia- MBS ordered for 01-31-21- patient made NPO due to severe oral phase dysphagia 2. Neuro- hx of TIA with new right sided basal ganglia infarct with Near occlusion of the left AIRWORTHINESS SAFETY INSPECTOR P1 segment, stable..Severe right vertebral artery stenosis with distal occlusionFoci of severe right MCA M2 and M3 stenosisModer ate left MCA M1 stenosis."- c/u ASA, plavix, and statin -on snri which will help with motor recovery -seizure d/o continue tegretol- levels WNL -f/u neuro as outpatient 3. CArdiac- hx of HTN- c/u BP med -HLD- c/u statin 4. Resp- monitor for infection, aspiration precautions in setting of dysphagia -CXR negative for infiltrate and f/u CT chest negative to day for infiltrates- ordered due to consern for aspiration and leukocytosis- c/u combivent and HOB 30 degrees 5. Endo- hx of DM c/u ISS and januvia (will hold now that NPO) 6. GI ppx- protonix 7. DVT ppx- Lovenox 8. Pain- tylenol prn 9. hx of BPH- c/u flomax, UA + with leukocytosis will start IV Levaquin and f/u cx 10. Nutrition- c/u D5NS IV while NPO, anticipate patient will be able to coordinate swallow soon with SOFTWARE DEVELOPMENT INTERN strategies as has shown modest improvements today with SOFTWARE DEVELOPMENT INTERN 10. Dispo- tbd Allergies Coded Allergies: No Known Allergies (Verified , 09/22/19) Vital Signs Vital Signs Date Time Temp Pulse Resp B/P (MAP) Pulse Ox O2 Delivery O2 Flow Rate FiO2 02/02/21 07:23 16 02/02/21 05:41 98.4 85 168/75 (106) 92 Room Air Laboratory Data CBC/BMP Laboratory Tests 02/02/21 06:34 Labs 24H Laboratory Tests 2 02/01/21 11:59: Bedside Glucose (Misc Panel) 137H 02/01/21 12:09: Urine Color YELLOW, Urine Appearance HAZY, Urine pH 5.0, Urine Specific [place] 1.026, Urine Protein 1+H, Urine Glucose (UA) NEGATIVE, Urine Ketones 1+H, Urine Blood 2+H, Urine Nitrite NEGATIVE, Urine Bilirubin NEGATIVE, Urine Urobilinogen 2.0H, Urine Leukocyte Esterase 1+H, Urine WBC (Auto) 4H, Urine RBC (Auto) 133H, Urine Hyaline Casts (Auto) 0, Urine Bacteria (Auto) NEGATIVE, Urine Squamous Epithelial Cells 0, Urine Mucus (Auto) SMALL, Urine Sperm (Auto) 02/01/21 17:03: Bedside Glucose (Misc Panel) 159H 02/01/21 23:06: Bedside Glucose (Misc Panel) 141H 02/02/21 05:09: Bedside Glucose (Misc Panel) 141H 02/02/21 06:34: Immature Granulocyte % (Auto) 0.5, Neutrophils (%) (Auto) 79.6H, Lymphocytes (%) (Auto) 9.8L, Monocytes (%) (Auto) 9.5H, Eosinophils (%) (Auto) 0.4, Basophils (%) (Auto) 0.2, Neutrophils # (Auto) 13.5H, Lymphocytes # (Auto) 1.7, Monocytes # (Auto) 1.6H, Eosinophils # (Auto) 0.1, Basophils # (Auto) 0.0, Nucleated Red Blood Cells % (auto) 0.0, Anion Gap 7L, Glomerular Filtration Rate > 60.0, Calcium Level 9.4 Microbiology Microbiology 02/01/21 Urine Culture, Received Pending 02/01/21 Blood Culture, Received Pending 02/01/21 Blood Culture, Received Pending Current Medications Current Medications Current Medications Medications (Trade) Dose Ordered Sig/Praful Route PRN Reason Start Time Stop Time Status Last Admin Dose Admin Acetaminophen (Tylenol Tab) 650 mg Q4HP PRN PO fever/MILD PAIN (PS 1-4) 01/27/21 17:20 02/01/21 21:01 Albuterol/ Ipratropium (Combivent Respimat 100-20mcg) 1 puff RTID INH 01/28/21 20:00 02/02/21 07:22 Albuterol/ Ipratropium (Combivent Respimat 100-20mcg) 1 puff TID INH 01/28/21 16:00 02/01/21 08:21 DC 01/31/21 19:57 Aspirin (Ecotrin) 81 mg DAILY PO 01/28/21 09:00 02/01/21 08:01 Bisacodyl (Dulcolax Suppository) 10 mg DAILYPRN PRN AR CONSTIPATION 01/27/21 17:20 Carbamazepine (TEGretol XR) 200 mg BID PO 01/27/21 21:00 02/01/21 21:01 Clopidogrel Bisulfate (PLAVix) 75 mg DAILY PO 01/28/21 09:00 02/01/21 08:01 Dextrose (Dextrose 50%) 25 ml ASDIRECTED PRN IV SEE LABEL COMMENTS 01/27/21 17:20 Cancel Dextrose (Dextrose 50%) 25 ml ASDIRECTED PRN IV SEE LABEL COMMENTS 02/01/21 22:05 Dextrose/Sodium Chloride 1,000 ml @ 60 mls/hr [id number] IV 02/01/21 17:30 02/01/21 17:35 DC Dextrose/Sodium Chloride 1,000 ml @ 60 mls/hr [id number] IV 02/02/21 04:09 02/02/21 20:48 02/02/21 03:59 Docusate Sodium (Colace) 100 mg BID PO 01/27/21 21:00 01/31/21 15:02 DC 01/31/21 09:55 Duloxetine HCl (Cymbalta) 30 mg BID PO 01/27/21 21:00 02/01/21 21:00 Enoxaparin Sodium (Lovenox) 40 mg DAILY SC 01/28/21 09:00 02/01/21 07:57 Glucagon (Glucagon) 1 mg ASDIRECTED PRN SC SEE LABEL COMMENTS 01/27/21 17:20 Cancel Glucagon (Glucagon) 1 mg ASDIRECTED PRN SC SEE LABEL COMMENTS 02/01/21 22:05 Glucose (Glucose) 16 GM ASDIRECTED PRN PO SEE LABEL COMMENTS 01/27/21 17:20 Cancel Glucose (Glucose) 16 GM ASDIRECTED PRN PO SEE LABEL COMMENTS 02/01/21 22:05 Guaifenesin (Robitussin Tab) 400 mg TID PO 01/28/21 16:00 02/01/21 21:01 Hydralazine HCl (Apresoline) 25 mg Q6H PO 01/27/21 18:00 02/01/21 11:24 DC 02/01/21 06:00 Hydralazine HCl (Apresoline) 50 mg Q6H PO 02/01/21 12:00 02/02/21 05:39 Insulin Human Lispro (HumaLOG INSULIN) SEE PROTOCOL TABLE AC SC 01/27/21 17:30 02/01/21 22:03 DC 02/01/21 18:35 Insulin Human Lispro (HumaLOG INSULIN) SEE PROTOCOL TABLE QHS SC 01/27/21 21:00 02/01/21 22:03 DC Insulin Human Lispro (HumaLOG INSULIN) See Protocol Table Q6H SC 02/02/21 00:00 02/02/21 05:38 Levofloxacin 750 mg/IV Miscellaneous Supplies 150 ml @ 100 mls/hr Q24H IV 02/01/21 18:00 02/01/21 18:37 Lidocaine/ Diphenhydr/Alum/ Mg/Simeth (Magic Mouthwash) 5ML ACHS SSP 01/28/21 17:30 02/01/21 21:02 Losartan Potassium (Cozaar) 50 mg BID PO 02/01/21 21:00 02/01/21 21:01 Losartan Potassium (Cozaar) 50 mg DAILY PO 01/28/21 09:00 02/01/21 17:30 DC 02/01/21 08:00 Metoprolol Tartrate (Lopressor) 25 mg BID PO 01/27/21 21:00 01/28/21 15:08 DC 01/28/21 10:19 Metoprolol Tartrate (Lopressor) 50 mg BID PO 01/28/21 21:00 01/31/21 11:22 DC 01/31/21 09:57 Metoprolol Tartrate (Lopressor) 50 mg Q8H PO 01/31/21 14:00 02/02/21 05:39 Pantoprazole Sodium (Protonix) 40 mg DAILY PO 01/28/21 09:00 01/31/21 15:02 DC 01/31/21 09:55 Senna (Senokot) 1 tab QHS PO 01/27/21 21:00 01/31/21 15:02 DC 01/30/21 21:15 Simvastatin (Zocor) 80 mg QHS PO 01/27/21 21:00 02/01/21 21:00 Sitagliptin Phosphate (Januvia) 25 mg DAILY PO 01/28/21 09:00 01/31/21 14:38 DC 01/31/21 09:55 Tamsulosin HCl (Flomax) 0.4 mg QHS PO 01/27/21 21:00 02/01/21 21:00 ORTEGA LEMA MD February 02, 2021 07:32
[2021-02-02] MEDS: MAGIC MOUTHWASH SUSPENSION BTL SSP SCH ×4 (08:24→21:20)
[2021-02-02] MEDS: guaiFENesin 200 MG TAB PO SCH ×3 (08:25→21:19)
[2021-02-02] MEDS: DULoxetine 30 MG CAP (CYMBALTA) PO SCH ×2 (08:25→21:19)
[2021-02-02] MEDS: ASPIRIN 81MG ENTERIC TABLET PO SCH (08:25)
[2021-02-02] MEDS: ENOXAPARIN 40MG/0.4ML SYRINGE (J1650 PER 10MG) SC SCH (08:27)
[2021-02-02] MEDS: CLOPIDOGREL 75 MG TAB PO SCH (08:27)
[2021-02-02] MEDS: carBAMazepine XR 200 MG TAB PO SCH ×2 (08:27→21:19)
[2021-02-02] MEDS: LOSARTAN 50MG TABLET PO SCH ×2 (08:28→21:19)
[2021-02-02] MEDS: REMEDY PHYTOPLEX Z-GUARD PASTE 113GM TUBE (FROM STOREROOM PRODUCT) TOP SCH ×3 (08:28→21:20)
[2021-02-02 10:30] VITALS: BP 179/81
[2021-02-02] MEDS: SALIVA SUBSTITUTE(MOUTHKOTE) BTL MT SCH ×3 (13:00→21:19)
--- NOTE | 2021-02-02 13:05 | REP ---
INDICATION: r/o bleed, recent stroke on ASA/Plavix. COMPARISON: Comparison study is from 01/25/2021.. TECHNIQUE: Helical scanning is acquired. 5 mm axial images were reformatted. Coronal MPR images were generated. FINDINGS: Digital burlesque dancer view is unremarkable. Bone window settings demonstrate intact bony calvarium. There is vascular calcification again noted in the distal internal carotid and vertebral arteries. On soft tissue window settings there is generalized volume loss. There are old lacunar infarcts in the basal ganglia bilaterally. There is new 1.5 cm low-density area in the right basal ganglia consistent with a acute lacunar infarct. This is not visible on the study done from January 25, 2021. There is no evidence of a intracranial hemorrhage. No extra-axial fluid collection is seen. No mass or midline shift is observed. IMPRESSION: Vascular calcification and generalized volume loss. Old lacunar infarcts. Recent right basal ganglia lacunar infarct seen today.. No evidence of intracranial hemorrhage. <Electronically signed by Jonny Madsen > 02/02/21 [id number]
[2021-02-02 14:00] VITALS: BP 169/78
[2021-02-02] MEDS ORDERED: D5W/0.9% SODIUM CHLORIDE 1,000 ML IV ONE (14:25)
[2021-02-02] MEDS: LevoFLOXacin IV 750 MG in IV 1 EA IV SCH (18:11)
[2021-02-02 20:15] VITALS: BP 156/77
--- NOTE | 2021-02-02 20:46 | IPNPDOC ---
PM&R Progress Note DATE OF SERVICE: February 02, 2021 Services Delivery Driver Progress Note Subjective: PAtient seen in room awake, comfortable, denies having pain or difficulty breathing. In no distress. REVIEW OF SYSTEMS: The following is a completed review of systems and has been reviewed. Review of systems otherwise unremarkable. PAIN: Patient self reports no pain EYES: No recent vision changes, + left eye strabismus (chronic) EARS, NOSE, & THROAT: +dysphagia CARDIOVASCULAR: Denies chest pain or palpitations PULMONARY: Denies shortness of breath GASTROINTESTINAL: Denies constipation/diarrhea GENITOURINARY: denies dysuria, +increased frequency MUSCULOSKELETAL: generalized weakness NEUROLOGICAL:+ aphasia HEMATOLOGICAL: denies easy bruising SKIN: intact PSYCHIATRIC: Unremarkable All other review of systems found to be negative. PHYSICAL EXAMINATION: VITAL SIGNS: Please see below. GENERAL: Pleasant and cooperative. No acute distress. HEENT: PERRL. Clear conjunctiva, + left eye strabismus, +tongue deviation to left CARDIOVASCULAR: Regular rate and rhythm. No murmurs, rubs, or gallops LUNGS: Clear to auscultation bilaterally. No wheezes. ABDOMEN: Soft, nontender, nondistended. Positive bowel sounds. Normal active bowel sounds NEUROLOGICAL: Sensation grossly intact, able to follow commands, +expressive aphasia, able to cross midline follows commands consistently EXTREMITIES: 4\\5 strength bilateral upper extremities. 4\\5 strength right lower extremity. 4/5 strength in left lower extremity. ASSESSMENT:75-year-old M with past medical history of CVA/TIA who presents status post new strokes with right sided paresis PLAN: 1. 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 CArdiac- hx of HTN- c/u BP med -HLD- c/u statin 4. Resp- monitor for infection, aspiration precautions in setting of dysphagia -CXR negative for infiltrate and f/u CT chest 02-01-21 negative for infiltrates- ordered due to concern for aspiration and leukocytosis- c/u combivent and HOB 30 degrees 5. Endo- hx of DM c/u ISS and januvia (will hold now that NPO) 6. GI ppx- protonix 7. DVT ppx- Lovenox 8. Pain- tylenol prn 9. hx of BPH- c/u flomax, UA + with leukocytosis c/u IV Levaquin and f/u cx- afebrile, procalcitonin not elevated 10. Nutrition- c/u D5NS IV while NPO, patient continuing to show modest improvement coordinating oral phase of swallow, however if unable to show significant improvement after speech eval 02-03-21 will recommend PEG- discussed option with and daughter bedside who understand need for better caloric intake to facilitate recovery 10. Dispo- tbd Allergies Coded Allergies: No Known Allergies (Verified , 09/22/19) Vital Signs Vital Signs Date Time Temp Pulse Resp B/P (MAP) Pulse Ox O2 Delivery O2 Flow Rate FiO2 02/02/21 18:10 155/67 02/02/21 15:19 16 02/02/21 14:15 80 02/02/21 14:00 98.1 95 Room Air Laboratory Data CBC/BMP Laboratory Tests 02/02/21 06:34 Labs 24H Laboratory Tests 2 02/01/21 23:06: Bedside Glucose (Misc Panel) 141H 02/02/21 05:09: Bedside Glucose (Misc Panel) 141H 02/02/21 06:34: Immature Granulocyte % (Auto) 0.5, Neutrophils (%) (Auto) 79.6H, Lymphocytes (%) (Auto) 9.8L, Monocytes (%) (Auto) 9.5H, Eosinophils (%) (Auto) 0.4, Basophils (%) (Auto) 0.2, Neutrophils # (Auto) 13.5H, Lymphocytes # (Auto) 1.7, Monocytes # (Auto) 1.6H, Eosinophils # (Auto) 0.1, Basophils # (Auto) 0.0, Nucleated Red Blood Cells % (auto) 0.0, Anion Gap 7L, Glomerular Filtration Rate > 60.0, Calcium Level 9.4 02/02/21 08:21: Procalcitonin <0.05 02/02/21 12:14: Bedside Glucose (Misc Panel) 164H 02/02/21 18:04: Bedside Glucose (Misc Panel) 137H 02/02/21 20:12: Bedside Glucose (Misc Panel) 150H Microbiology Microbiology 02/01/21 Urine Culture, Received Pending 02/01/21 Blood Culture - Preliminary, Resulted No growth after 24 hours . All specim... 02/01/21 Blood Culture - Preliminary, Resulted No growth after 24 hours . All specim... Current Medications Current Medications Current Medications Medications (Trade) Dose Ordered Sig/Praful Route PRN Reason Start Time Stop Time Status Last Admin Dose Admin Acetaminophen (Tylenol Tab) 650 mg Q4HP PRN PO fever/MILD PAIN (PS 1-4) 01/27/21 17:20 02/01/21 21:01 Albuterol/ Ipratropium (Combivent Respimat 100-20mcg) 1 puff RTID INH 01/28/21 20:00 02/02/21 15:19 Albuterol/ Ipratropium (Combivent Respimat 100-20mcg) 1 puff TID INH 01/28/21 16:00 02/01/21 08:21 DC 01/31/21 19:57 Aspirin (Ecotrin) 81 mg DAILY PO 01/28/21 09:00 02/02/21 08:25 Bisacodyl (Dulcolax Suppository) 10 mg DAILYPRN PRN DC CONSTIPATION 01/27/21 17:20 Carbamazepine (TEGretol XR) 200 mg BID PO 01/27/21 21:00 02/02/21 08:27 Clopidogrel Bisulfate (PLAVix) 75 mg DAILY PO 01/28/21 09:00 02/02/21 08:27 Dextrose (Dextrose 50%) 25 ml ASDIRECTED PRN IV SEE LABEL COMMENTS 01/27/21 17:20 Cancel Dextrose (Dextrose 50%) 25 ml ASDIRECTED PRN IV SEE LABEL COMMENTS 02/01/21 22:05 Dextrose/Sodium Chloride 1,000 ml @ 60 mls/hr [id number] IV 02/01/21 17:30 02/01/21 17:35 DC Dextrose/Sodium Chloride 1,000 ml @ 60 mls/hr [id number] IV 02/02/21 04:09 02/02/21 20:48 02/02/21 03:59 Docusate Sodium (Colace) 100 mg BID PO 01/27/21 21:00 01/31/21 15:02 DC 01/31/21 09:55 Duloxetine HCl (Cymbalta) 30 mg BID PO 01/27/21 21:00 02/02/21 08:25 Enoxaparin Sodium (Lovenox) 40 mg DAILY SC 01/28/21 09:00 02/02/21 08:27 Glucagon (Glucagon) 1 mg ASDIRECTED PRN SC SEE LABEL COMMENTS 01/27/21 17:20 Cancel Glucagon (Glucagon) 1 mg ASDIRECTED PRN SC SEE LABEL COMMENTS 02/01/21 22:05 Glucose (Glucose) 16 GM ASDIRECTED PRN PO SEE LABEL COMMENTS 01/27/21 17:20 Cancel Glucose (Glucose) 16 GM ASDIRECTED PRN PO SEE LABEL COMMENTS 02/01/21 22:05 Guaifenesin (Robitussin Tab) 400 mg TID PO 01/28/21 16:00 02/02/21 18:09 Hydralazine HCl (Apresoline) 25 mg Q6H PO 01/27/21 18:00 02/01/21 11:24 DC 02/01/21 06:00 Hydralazine HCl (Apresoline) 50 mg Q6H PO 02/01/21 12:00 02/02/21 18:10 Insulin Human Lispro (HumaLOG INSULIN) SEE PROTOCOL TABLE AC SC 01/27/21 17:30 02/01/21 22:03 DC 02/01/21 18:35 Insulin Human Lispro (HumaLOG INSULIN) SEE PROTOCOL TABLE QHS SC 01/27/21 21:00 02/01/21 22:03 DC Insulin Human Lispro (HumaLOG INSULIN) See Protocol Table Q6H SC 02/02/21 00:00 02/02/21 18:11 Levofloxacin 750 mg/IV Miscellaneous Supplies 150 ml @ 100 mls/hr Q24H IV 02/01/21 18:00 02/02/21 18:11 Lidocaine/ Diphenhydr/Alum/ Mg/Simeth (Magic Mouthwash) 5ML ACHS SSP 01/28/21 17:30 02/02/21 18:10 Losartan Potassium (Cozaar) 50 mg BID PO 02/01/21 21:00 02/02/21 08:28 Losartan Potassium (Cozaar) 50 mg DAILY PO 01/28/21 09:00 02/01/21 17:30 DC 02/01/21 08:00 Metoprolol Tartrate (Lopressor) 25 mg BID PO 01/27/21 21:00 01/28/21 15:08 DC 01/28/21 10:19 Metoprolol Tartrate (Lopressor) 50 mg BID PO 01/28/21 21:00 01/31/21 11:22 DC 01/31/21 09:57 Metoprolol Tartrate (Lopressor) 50 mg Q8H PO 01/31/21 14:00 02/02/21 14:15 Pantoprazole Sodium (Protonix) 40 mg DAILY PO 01/28/21 09:00 01/31/21 15:02 DC 01/31/21 09:55 Saliva Substitute (Mouthkote) 2 sprays QID MT 02/02/21 13:00 02/02/21 18:10 Senna (Senokot) 1 tab QHS PO 01/27/21 21:00 01/31/21 15:02 DC 01/30/21 21:15 Simvastatin (Zocor) 80 mg QHS PO 01/27/21 21:00 02/01/21 21:00 Sitagliptin Phosphate (Januvia) 25 mg DAILY PO 01/28/21 09:00 01/31/21 14:38 DC 01/31/21 09:55 Tamsulosin HCl (Flomax) 0.4 mg QHS PO 01/27/21 21:00 02/01/21 21:00 ORTEGA LEMA MD February 02, 2021 20:46
[2021-02-02] MEDS: SIMVASTATIN 40 MG TAB PO SCH (21:19)
[2021-02-02] MEDS: TAMSULOSIN 0.4 MG CAP PO SCH (21:19)
[2021-02-03 05:54] VITALS: BP 140/68
[2021-02-03] MEDS: HumaLOG INSULIN (NovoLOG) PER UNIT SC SCH ×3 (06:00→17:45)
[2021-02-03] MEDS: **hydrALAZINE HCL** 25 MG TAB PO SCH ×3 (06:02→17:45)
[2021-02-03] MEDS: METOPROLOL TART 50 MG TAB PO SCH ×2 (06:03→14:00)
[2021-02-03 07:04] LABS: BASO % 0.2 % (0.0-1.0); EOS % 0.2 % (0.0-3.0); HEMATOCRIT 41.2 % (42.0-52.0); HEMOGLOBIN 13.1 g/dl (13.5-17.5); LYMPH % 10.7 % (24.0-44.0); MEAN CORPUSCULAR HEMOGLOBIN 30.3 pg (27.0-33.0); MEAN CORPUSCULAR HGB CONC 31.8 g/dl (32.0-36.5); MEAN CORPUSCULAR VOLUME 95.2 fl (80.0-96.0); MONO % 10.5 % (2.0-8.0); NEUTROPHILS # 14.1 10^3/uL (1.5-8.5); NEUTROPHILS % 77.6 % (36.0-66.0); PLATELET COUNT, AUTOMATED 286 10^3/uL (150-450); RED BLOOD COUNT 4.33 10^6/uL (4.30-6.10)
[2021-02-03] MEDS: COMBIVENT RESPIMAT 100-20MCG INHALER 4GM INH SCH ×3 (07:09→19:52)
[2021-02-03 08:05] LABS: MONO # 1.9 10^3/uL (0.0-0.8); WHITE BLOOD COUNT 18.2 10^3/uL (4.0-10.0)
[2021-02-03] MEDS: LOSARTAN 50MG TABLET PO SCH (08:42)
[2021-02-03] MEDS: guaiFENesin 200 MG TAB PO SCH ×2 (08:42→17:44)
[2021-02-03] MEDS: CLOPIDOGREL 75 MG TAB PO SCH (08:42)
[2021-02-03] MEDS: DULoxetine 30 MG CAP (CYMBALTA) PO SCH ×2 (08:43→08:54)
[2021-02-03] MEDS: REMEDY PHYTOPLEX Z-GUARD PASTE 113GM TUBE (FROM STOREROOM PRODUCT) TOP SCH ×3 (08:43→21:54)
[2021-02-03] MEDS: ENOXAPARIN 40MG/0.4ML SYRINGE (J1650 PER 10MG) SC SCH (08:43)
[2021-02-03] MEDS: carBAMazepine XR 200 MG TAB PO SCH ×2 (08:43→08:54)
[2021-02-03] MEDS: ASPIRIN 81MG ENTERIC TABLET PO SCH ×2 (08:44→08:54)
[2021-02-03] MEDS: SALIVA SUBSTITUTE(MOUTHKOTE) BTL MT SCH ×4 (08:44→21:55)
[2021-02-03] MEDS: MAGIC MOUTHWASH SUSPENSION BTL SSP SCH ×4 (08:44→21:54)
[2021-02-03] MEDS ORDERED: D5W/0.9% SODIUM CHLORIDE 1,000 ML IV ONE (10:05)
[2021-02-03] MEDS ORDERED: ISOVUE-370 76% 100ML VIAL As Ordered ONE (10:27)
[2021-02-03] MEDS ORDERED: propofoL 200 MG/20 ML VIAL As Ordered ONE (12:56)
[2021-02-03] MEDS ORDERED: LIDOCAINE 2% 100MG/5ML SDV (FOR ANES.) As Ordered ONE (12:56)
--- NOTE | 2021-02-03 12:56 | ROOR ---
Patient Name: Mike Stanton Procedure Date: 02/03/2021 12:30 PM Date of : 1945 Age: 75 Room: [facility] Gender: Male Note Status: Finalized Procedure: Upper GI endoscopy Indications: Dysphagia Providers: DO Monica Oliva MD: 2. Inpatient 2. Inpatient Requesting Provider: Medicines: Propofol per Anesthesia Complications: No immediate complications. Procedure: Pre-Anesthesia Assessment: - Prior to the procedure, a History and Physical was performed, and patient medications and allergies were reviewed. The patient is competent. The risks and benefits of the procedure and the sedation options and risks were discussed with the patient. All questions were answered and informed consent was obtained. Patient identification and proposed procedure were verified by the physician, the nurse, the nature photographer and the quality assurance technician in the endoscopy suite. Airway Examination: normal oropharyngeal airway and neck mobility. Respiratory Examination: clear to auscultation. CV Examination: normal. Prophylactic Antibiotics: The patient does not require prophylactic antibiotics. Prior Anticoagulants: The patient has taken Plavix (clopidogrel), last dose was 1 day prior to procedure. ASA Grade Assessment: IV - A patient with severe systemic disease that is a constant threat to life. After reviewing the risks and benefits, the patient was deemed in satisfactory condition to undergo the procedure. The anesthesia plan was to use monitored anesthesia care (MAC). Immediately prior to administration of medications, the patient was re-assessed for adequacy to receive sedatives. The heart rate, respiratory rate, oxygen saturations, blood pressure, adequacy of pulmonary ventilation, and response to care were monitored throughout the procedure. The physical status of the patient was re-assessed after the procedure. The Endoscope was introduced through the mouth, and advanced to the second part of duodenum. The upper GI endoscopy was accomplished without difficulty. The patient tolerated the procedure well. Findings: Two non-bleeding superficial duodenal ulcers with no stigmata of bleeding were found in the first portion of the duodenum. Placement of an externally removable PEG with no T-fasteners was successfully completed. The external bumper was at the 3.5 cm marking on the tube. Estimated blood loss was minimal. Impression: - Non-bleeding duodenal ulcers with no stigmata of bleeding. - An externally removable PEG placement was successfully completed. - No specimens collected. Recommendation: - Patient has a contact number available for emergencies. The signs and symptoms of potential delayed complications were discussed with the patient. Return to normal activities tomorrow. Written discharge instructions were provided to the patient. - [facility] to [facility] for [facility] care. Procedure Code(s): --- Professional --- 25386, Esophagogastroduodenoscopy, flexible, transoral; with directed placement of percutaneous gastrostomy tube Diagnosis Code(s): --- Professional --- K26.9, Duodenal ulcer, unspecified as acute or chronic, without hemorrhage or perforation R13.10, Dysphagia, unspecified CPT copyright 2019 [employer]. All rights reserved. The codes documented in this report are preliminary and upon lens and frames prescription clerk review may be revised to meet current compliance requirements. Billy Bazan DO 02/03/2021 12:56:12 PM Electronically signed by Billy Bazan DO Number of Addenda: 0 Note Initiated On: 02/03/2021 12:30 PM Estimated Blood Loss: Estimated blood loss was minimal.
--- NOTE | 2021-02-03 12:58 | REP ---
INDICATION: white count, dysphgaia. COMPARISON: Comparison CT study of the chest 01 Feb 2021.. TECHNIQUE: Helical scanning is acquired following the intravenous injection of 100 mL of Isovue 370. 3 mm axial images re-formatted. Coronal and sagittal MPR images are generated. FINDINGS: There is good opacification of the pulmonary arterial tree and the aorta. No evidence of pulmonary embolus, aortic aneurysm, or dissection. There are granulomatous calcific residuals in the right hilum, unchanged. Mitral annular calcification is observed. There is some vascular calcification in the distribution of the coronary arteries. There is no evidence of infiltrate, nodule, or mass in the lung rg. No pleural or pericardial effusion is seen. Lung rg are unchanged from the February 01, 2021 study. Bone window settings show no bony destructive lesion. There are granulomatous calcifications in the spleen and liver. The heart is again noted to be enlarged. No abnormality is noted in the esophagus. IMPRESSION: No acute cardiopulmonary disease seen. Findings unchanged from the recent chest CT study done 2 days earlier. <Electronically signed by Jonny Madsen > 02/03/21 [id number]
--- NOTE | 2021-02-03 13:02 | REP ---
INDICATION: white count, hx of appendectomy. COMPARISON: Comparison CT study December 09, 2020.. TECHNIQUE: Helical scanning was acquired and 4 mm axial images are re-formatted. Coronal and sagittal MPR images were generated and reviewed. The contrast enhancement dose is 100 mL of intravenous Isovue 370. FINDINGS: Preliminary digital rack loader radiograph demonstrates an unremarkable bowel gas pattern. There is mild diffuse fatty infiltration of the liver. Granulomatous calcifications are seen scattered in the spleen and to a lesser extent the liver. No abnormality is noted in the gallbladder. Normal adrenal glands are observed bilaterally. No abnormality is noted in the pancreas. There is a small accessory splenule. The kidneys enhance symmetrically. There is a 2.6 cm cortical cyst in the lower portion of the left kidney. There is focal cortical scarring in the lower pole of the left kidney. No hydronephrosis or intrarenal nephrolithiasis. Normal caliber aorta. Small and large bowel loops are unremarkable in the abdomen and pelvis. The inflammatory changes noted in the right lower quadrant on the 12/09/[address] study have resolved. No evidence of free air, obstruction, or abscess. There are dystrophic calcifications seen in the prostate gland. The appendix is surgically absent. IMPRESSION: Fatty infiltration of the liver. Small renal cyst on the left unchanged. Previously noted inflammatory changes in the right lower quadrant have resolved. No acute abdominal or pelvic abnormality. <Electronically signed by Jonny Madsen > 02/03/21 [id number]
[2021-02-03 14:00] VITALS: BP 174/74
[2021-02-03] MEDS ORDERED: ACETAMINOPHEN *IV* 650 MG in IV 1 EA IV ONE (17:00)
[2021-02-03] MEDS: ACETAMINOPHEN TAB 650MG DOSE (2X325MG) PO PRN (17:44)
[2021-02-03] MEDS: LevoFLOXacin IV 750 MG in IV 1 EA IV SCH (17:46)
--- NOTE | 2021-02-03 18:01 | IPNPDOC ---
PM&R Progress Note DATE OF SERVICE: February 03, 2021 Ux Consultant Progress Note Subjective: Pateint seen lying comfortably in bed, denies having any new cough, pain with urination, chest pain, sinus pain. He understands he will get a PEG placed toda y. REVIEW OF SYSTEMS: The following is a completed review of systems and has been reviewed. Review of systems otherwise unremarkable. PAIN: Patient self reports no pain EYES: No recent vision changes, + left eye strabismus (chronic) EARS, NOSE, & THROAT: +dysphagia CARDIOVASCULAR: Denies chest pain or palpitations PULMONARY: Denies shortness of breath GASTROINTESTINAL: Denies constipation/diarrhea GENITOURINARY: denies dysuria, +increased frequency MUSCULOSKELETAL: generalized weakness NEUROLOGICAL:+ aphasia HEMATOLOGICAL: denies easy bruising SKIN: intact PSYCHIATRIC: Unremarkable All other review of systems found to be negative. PHYSICAL EXAMINATION: VITAL SIGNS: Please see below. GENERAL: Pleasant and cooperative. No acute distress. HEENT: PERRL. Clear conjunctiva, + left eye strabismus, +tongue deviation to left CARDIOVASCULAR: Regular rate and rhythm. No murmurs, rubs, or gallops LUNGS: Clear to auscultation bilaterally. No wheezes. ABDOMEN: Soft, nontender, nondistended. Positive bowel sounds. Normal active bowel sounds NEUROLOGICAL: Sensation grossly intact, able to follow commands, +expressive aphasia, able to cross midline follows commands consistently EXTREMITIES: 4\\5 strength bilateral upper extremities. 4\\5 strength right lower extremity. 4/5 strength in left lower extremity. ASSESSMENT:75-year-old M with past medical history of CVA/TIA who presents status post new strokes with right sided paresis PLAN: 1. 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 CArdiac- hx of HTN- c/u BP med -HLD- c/u statin 4. Resp- monitor for infection, aspiration precautions in setting of dysphagia -CXR negative for infiltrate and f/u CT chest 5-01-19 negative for infiltrates- ordered due to concern for aspiration and leukocytosis- c/u combivent and HOB 30 degrees 5. Endo- hx of DM c/u ISS and januvia (holding now that NPO) 6. GI ppx- protonix 7. DVT ppx- Lovenox 8. Pain- tylenol prn 9. hx of BPH- c/u flomax, UA + with leukocytosis c/u IV Levaquin, Ucx negative 10. Nutrition- plan for PEG today, discussed case with and Dr. Bazan 11. Leukocytosis- unclear etiology, will order repeat CT chest to r/o aspiration PNA and CT abdomen pelvis- will consider ID consult if leukocytosis does not begin to improve- afebrile, procalcitonin not elevated so may be inflammatory 10. Dispo- tbd Allergies Coded Allergies: No Known Allergies (Verified , 09/22/19) Vital Signs Vital Signs Date Time Temp Pulse Resp B/P (MAP) Pulse Ox O2 Delivery O2 Flow Rate FiO2 02/03/21 17:45 166/80 02/03/21 14:00 97.5 80 18 95 Room Air Laboratory Data CBC/BMP Laboratory Tests 02/03/21 06:30 Labs 24H Laboratory Tests 2 02/02/21 18:04: Bedside Glucose (Misc Panel) 137H 02/02/21 20:12: Bedside Glucose (Misc Panel) 150H 02/02/21 23:19: Bedside Glucose (Misc Panel) 143H 02/03/21 05:36: Bedside Glucose (Misc Panel) 136H 02/03/21 06:30: Immature Granulocyte % (Auto) 0.8, Neutrophils (%) (Auto) 77.6H, Lymphocytes (%) (Auto) 10.7L, Monocytes (%) (Auto) 10.5H, Eosinophils (%) (Auto) 0.2, Basophils (%) (Auto) 0.2, Neutrophils # (Auto) 14.1H, Lymphocytes # (Auto) 2.0, Monocytes # (Auto) 1.9H, Eosinophils # (Auto) 0.0, Basophils # (Auto) 0.0, Nucleated Red Blood Cells % (auto) 0.0 02/03/21 10:11: Methicillin-Resist S.aureus DNA PCR NOT DETECTED 02/03/21 10:24: Coronavirus (COVID-19)(PCR) NEGATIVE 02/03/21 11:12: Bedside Glucose (Misc Panel) 144H 02/03/21 16:31: Bedside Glucose (Misc Panel) 134H Microbiology Microbiology 02/01/21 Urine Culture - Final, Complete 02/01/21 Blood Culture - Preliminary, Resulted No Growth after 48 hours. All Specime... 02/01/21 Blood Culture - Preliminary, Resulted No Growth after 48 hours. All Specime... Current Medications Current Medications Current Medications Medications (Trade) Dose Ordered Sig/Praful Route PRN Reason Start Time Stop Time Status Last Admin Dose Admin Acetaminophen (Tylenol Tab) 650 mg Q4HP PRN PO fever/MILD PAIN (PS 1-4) 01/27/21 17:20 02/03/21 17:44 Acetaminophen 650 mg/IV Miscellaneous Supplies 65 ml @ 260 mls/hr TID IV 02/03/21 21:00 02/03/21 17:40 DC Albuterol/ Ipratropium (Combivent Respimat 100-20mcg) 1 puff RTID INH 01/28/21 20:00 02/03/21 07:09 Albuterol/ Ipratropium (Combivent Respimat 100-20mcg) 1 puff TID INH 01/28/21 16:00 02/01/21 08:21 DC 01/31/21 19:57 Aspirin (Aspirin Chewable) 81 mg DAILY PO 02/04/21 09:00 Aspirin (Ecotrin) 81 mg DAILY PO 01/28/21 09:00 02/03/21 16:57 DC 02/02/21 08:25 Bisacodyl (Dulcolax Suppository) 10 mg DAILYPRN PRN AR CONSTIPATION 01/27/21 17:20 02/02/21 23:32 Carbamazepine (TEGretol SUSPENSION) 200 mg BID PEG 02/03/21 21:00 UNV Carbamazepine (TEGretol XR) 200 mg BID PO 01/27/21 21:00 02/02/21 21:19 Clopidogrel Bisulfate (PLAVix) 75 mg DAILY PO 01/28/21 09:00 02/03/21 08:42 Dextrose (Dextrose 50%) 25 ml ASDIRECTED PRN IV SEE LABEL COMMENTS 01/27/21 17:20 Cancel Dextrose (Dextrose 50%) 25 ml ASDIRECTED PRN IV SEE LABEL COMMENTS 02/01/21 22:05 Dextrose/Sodium Chloride 1,000 ml @ 60 mls/hr [id number] IV 02/01/21 17:30 02/01/21 17:35 DC Dextrose/Sodium Chloride 1,000 ml @ 60 mls/hr [id number] IV 02/02/21 04:09 02/02/21 20:48 DC 02/02/21 03:59 Docusate Sodium (Colace) 100 mg BID PO 01/27/21 21:00 01/31/21 15:02 DC 01/31/21 09:55 Duloxetine HCl (Cymbalta) 30 mg BID PO 01/27/21 21:00 02/02/21 21:19 Enoxaparin Sodium (Lovenox) 40 mg DAILY SC 01/28/21 09:00 02/03/21 08:43 Glucagon (Glucagon) 1 mg ASDIRECTED PRN SC SEE LABEL COMMENTS 01/27/21 17:20 Cancel Glucagon (Glucagon) 1 mg ASDIRECTED PRN SC SEE LABEL COMMENTS 02/01/21 22:05 Glucose (Glucose) 16 GM ASDIRECTED PRN PO SEE LABEL COMMENTS 01/27/21 17:20 Cancel Glucose (Glucose) 16 GM ASDIRECTED PRN PO SEE LABEL COMMENTS 02/01/21 22:05 Guaifenesin (Robitussin Tab) 400 mg TID PO 01/28/21 16:00 02/03/21 17:44 Hydralazine HCl (Apresoline) 25 mg Q6H PO 01/27/21 18:00 02/01/21 11:24 DC 02/01/21 06:00 Hydralazine HCl (Apresoline) 50 mg Q6H PO 02/01/21 12:00 02/03/21 17:45 Insulin Human Lispro (HumaLOG INSULIN) SEE PROTOCOL TABLE AC SC 01/27/21 17:30 02/01/21 22:03 DC 02/01/21 18:35 Insulin Human Lispro (HumaLOG INSULIN) SEE PROTOCOL TABLE QHS SC 01/27/21 21:00 02/01/21 22:03 DC Insulin Human Lispro (HumaLOG INSULIN) See Protocol Table Q6H SC 02/02/21 00:00 02/03/21 17:45 Levofloxacin 750 mg/IV Miscellaneous Supplies 150 ml @ 100 mls/hr Q24H IV 02/01/21 18:00 02/03/21 17:46 Lidocaine/ Diphenhydr/Alum/ Mg/Simeth (Magic Mouthwash) 5ML ACHS SSP 01/28/21 17:30 02/03/21 17:45 Losartan Potassium (Cozaar) 50 mg BID PO 02/01/21 21:00 02/03/21 08:42 Losartan Potassium (Cozaar) 50 mg DAILY PO 01/28/21 09:00 02/01/21 17:30 DC 02/01/21 08:00 Metoprolol Tartrate (Lopressor) 25 mg BID PO 01/27/21 21:00 01/28/21 15:08 DC 01/28/21 10:19 Metoprolol Tartrate (Lopressor) 50 mg BID PO 01/28/21 21:00 01/31/21 11:22 DC 01/31/21 09:57 Metoprolol Tartrate (Lopressor) 50 mg Q8H PO 01/31/21 14:00 02/03/21 06:03 Pantoprazole Sodium (Protonix) 40 mg DAILY PO 01/28/21 09:00 01/31/21 15:02 DC 01/31/21 09:55 Saliva Substitute (Mouthkote) 2 sprays QID MT 02/02/21 13:00 02/03/21 17:45 Senna (Senokot) 1 tab QHS PO 01/27/21 21:00 01/31/21 15:02 DC 01/30/21 21:15 Simvastatin (Zocor) 80 mg QHS PO 01/27/21 21:00 02/02/21 21:19 Sitagliptin Phosphate (Januvia) 25 mg DAILY PO 01/28/21 09:00 01/31/21 14:38 DC 01/31/21 09:55 Tamsulosin HCl (Flomax) 0.4 mg QHS PO 01/27/21 21:00 02/02/21 21:19 ORTEGA LEMA MD February 03, 2021 18:01
[2021-02-03 20:16] VITALS: BP 155/78
[2021-02-03] MEDS ORDERED: ACETAMINOPHEN *IV* 650 MG in IV 1 EA IV SCH (21:00)
[2021-02-03] MEDS: SIMVASTATIN 40 MG TAB PEG SCH (21:52)
[2021-02-03] MEDS: guaiFENesin 200 MG TAB PEG SCH (21:52)
[2021-02-03] MEDS: LOSARTAN 50MG TABLET PEG SCH (21:53)
[2021-02-03] MEDS: DULoxetine 30 MG CAP (CYMBALTA) XX SCH (21:53)
[2021-02-03] MEDS: METOPROLOL TART 50 MG TAB PEG SCH (21:53)
[2021-02-03] MEDS: OMEPRAZOLE SUSPENSION 20MG 10ML ORAL SYRINGE GT SCH (21:55)
[2021-02-03] MEDS: carBAMazepine 100MG 5ML SUSP ORAL SYRINGE *DRAW UP EXACT DOSE PEG SCH (21:55)
[2021-02-04] MEDS: SUCRALFATE SUSP 1GM/10ML UD PEG SCH ×5 (00:28→23:52)
[2021-02-04] MEDS: **hydrALAZINE HCL** 25 MG TAB PEG SCH ×5 (00:29→23:53)
[2021-02-04] MEDS: HumaLOG INSULIN (NovoLOG) PER UNIT SC SCH ×5 (00:30→23:53)
[2021-02-04] MEDS: METOPROLOL TART 50 MG TAB PEG SCH ×3 (06:00→22:25)
[2021-02-04 06:03] VITALS: BP 159/81
--- NOTE | 2021-02-04 07:27 | IPNPDOC ---
Text Note Date of Service The patient was seen on 02/04/21. NOTE No acute events overnight. He points to the tube when I ask him about pain. There was some bleeding around the tube yesterday, but it appears to have stopped with a little pressure overnight. VSSAF NAD abd - soft, nt, nd, tube in place. A) 75y/o male with dysphagia s/p CVA POD#1 s/p PEG placement. P) start tube feeds today will follow as needed. Rober Bazan DO VS,Petros, I+O VS, Khrise, I+O Vital Signs Date Time Temp Pulse Resp B/P (MAP) Pulse Ox O2 Delivery O2 Flow Rate FiO2 02/04/21 06:03 98.6 88 18 159/81 (107) 92 Room Air I&O- Last 24 Hours up to 6 AM 02/04/21 06:00 Intake Total 1062 ml Output Total 175 ml Balance 887 ml ANTONIO BAZAN DO February 04, 2021 07:27
[2021-02-04] MEDS: COMBIVENT RESPIMAT 100-20MCG INHALER 4GM INH SCH ×3 (07:34→20:15)
[2021-02-04] MEDS ORDERED: ASPIRIN 81 MG CHEW TABLET PO SCH (09:00)
[2021-02-04 09:37] LABS: BASO % 0.2 % (0.0-1.0); EOS % 0.1 % (0.0-3.0); HEMATOCRIT 40.2 % (42.0-52.0); HEMOGLOBIN 12.7 g/dl (13.5-17.5); LYMPH # 2.2 10^3/uL (1.5-5.0); LYMPH % 12.3 % (24.0-44.0); MEAN CORPUSCULAR HGB CONC 31.6 g/dl (32.0-36.5); MONO % 10.6 % (2.0-8.0); NEUTROPHILS # 13.5 10^3/uL (1.5-8.5); NEUTROPHILS % 76.1 % (36.0-66.0); PLATELET COUNT, AUTOMATED 310 10^3/uL (150-450); RED BLOOD COUNT 4.23 10^6/uL (4.30-6.10)
[2021-02-04 09:53] LABS: BLOOD UREA NITROGEN 15 MG/DL (7-18); CALCIUM LEVEL 9.2 MG/DL (8.8-10.2); CARBON DIOXIDE LEVEL 25 MEQ/L (21-32); CHLORIDE LEVEL 113 MEQ/L (98-107); GLOMERULAR FILTRATION RATE > 60.0 (>42); GLUCOSE, FASTING 122 MG/DL (70-100); POTASSIUM SERUM 3.7 MEQ/L (3.5-5.1); SODIUM LEVEL 145 MEQ/L (136-145)
[2021-02-04] MEDS: MAGIC MOUTHWASH SUSPENSION BTL SSP SCH ×4 (10:07→22:29)
[2021-02-04] MEDS: OMEPRAZOLE SUSPENSION 20MG 10ML ORAL SYRINGE GT SCH ×2 (10:08→22:25)
[2021-02-04] MEDS: carBAMazepine 100MG 5ML SUSP ORAL SYRINGE *DRAW UP EXACT DOSE PEG SCH ×2 (10:08→22:25)
[2021-02-04] MEDS: CLOPIDOGREL 75 MG TAB PEG SCH (10:09)
[2021-02-04] MEDS: ENOXAPARIN 40MG/0.4ML SYRINGE (J1650 PER 10MG) SC SCH (10:09)
[2021-02-04] MEDS: ASPIRIN 81 MG CHEW TABLET PEG SCH (10:09)
[2021-02-04] MEDS: guaiFENesin 200 MG TAB PEG SCH ×3 (10:10→22:23)
[2021-02-04] MEDS: DULoxetine 30 MG CAP (CYMBALTA) XX SCH ×2 (10:12→22:29)
[2021-02-04] MEDS: LOSARTAN 50MG TABLET PEG SCH ×2 (10:12→22:29)
[2021-02-04] MEDS: SALIVA SUBSTITUTE(MOUTHKOTE) BTL MT SCH ×4 (10:13→22:30)
[2021-02-04] MEDS: REMEDY PHYTOPLEX Z-GUARD PASTE 113GM TUBE (FROM STOREROOM PRODUCT) TOP SCH ×3 (10:13→22:30)
[2021-02-04 10:33] LABS: MONO # 1.9 10^3/uL (0.0-0.8); WHITE BLOOD COUNT 17.7 10^3/uL (4.0-10.0)
--- NOTE | 2021-02-04 10:36 | CR ---
CONSULTATION DATE: 02/03/2021 REASON FOR CONSULTATION: Percutaneous endoscopic gastrostomy (PEG) tube placement. HISTORY OF PRESENT ILLNESS: The patient is a 75-year-old male currently on the rehabilitation unit in the hospital. He is being treated for recent stroke that he had on 01/25/2021. He currently is proceeding with rehabilitation, however he is unable to speak or swallow at this point, therefore I have been asked to place a feeding tube. He is able to shake his head yes and no, answer simple questions for me, the rest of his history was obtained from his and from the chart. PAST MEDICAL HISTORY: CVA 2008, another recent CVA, seizure disorder, diabetes, hypothyroidism, gastroesophageal reflux disease (GERD). PAST SURGICAL HISTORY: Inguinal hernia repair, colonoscopy, left ureterovesical junction (UVJ) stent. SOCIAL HISTORY: Negative. ALLERGIES: None. HOME MEDICATIONS: Please see medicine reconciliation. REVIEW OF SYSTEMS: Pertinent positives and negatives as stated in the history of present illness (HPI). Unable to really obtain much beyond that other than the fact that he is unable to really speak or swallow at this point. PHYSICAL EXAMINATION: General: Patient is awake and alert. Vital signs: Temperature 98, pulse 78, respirations 18, blood pressure 140/68, pulse oximetry 93% on room air. HEENT: Pupils equal, round, reactive to light and accommodation. Heart: S1, S2, regular rate and rhythm. Lungs: Clear to auscultation bilaterally. Abdomen: Soft, nontender, nondistended. Extremities: No clubbing, cyanosis, or edema. LABORATORY DATA: White count 18.2, hemoglobin 13.1, platelets 286. ASSESSMENT AND PLAN: Patient is a 75-year-old male with recent stroke, currently with dysphagia. Recommendation is to proceed with percutaneous endoscopic gastrostomy (PEG) tube placement. I explained this in detail to him, he was able to shake his head in understanding and agreement. I also discussed this in detail with his over the phone. Verbal consent was obtained and procedure was planned.
[2021-02-04 14:00] VITALS: BP 172/80
[2021-02-04] MEDS: ACETAMINOPHEN 325 MG/10.15 ML UDC PEG PRN ×2 (14:02→22:23)
--- NOTE | 2021-02-04 18:57 | CR ---
INFECTIOUS DISEASE CONSULTATION DATE: 02/04/2021 REASON FOR CONSULTATION: I was asked to consult by Dr. Billy for evaluation of leukocytosis. HISTORY OF PRESENT ILLNESS: Mr. Stanton is a 75-year-old gentleman who was admitted to [facility] on January 25, 2021 and transferred to acute rehabilitation on January 27, 2021. On admission, his white count was 13,000. He was not on any antibiotics, did not have any signs of infection. The patient was transferred to rehabilitation and is doing fairly well except that he had this leukocytosis with a white count increasing from 9.1 on admission to 19.2. He had two sets of blood cultures that were negative. Chest x-ray was negative. CT chest, abdomen and pelvis all done on February 03, 2021 were also negative. He denies any fever or chills. No nausea, vomiting or diarrhea. The patient has no complaints, although he does have some difficulty with speech because of his strokes. PAST MEDICAL HISTORY: Significant for: 1. Gastroesophageal reflux disease. 2. Hypothyroidism. 3. Diabetes, HbA1C of 6.8. 4. Seizure disorder on Tegretol. 5. 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 6. Recent history of appendicitis status post laparoscopic appendectomy done on December 07, [address] Edward. REVIEW OF SYSTEMS: Patient denies any pain. He has left eye strabismus. He has some difficulty swallowing. He denies any chest pain, palpitations, shortness of breath. He has no diarrhea or constipation. He had a gastrostomy (G) tube placed for feeding. PAST SURGICAL HISTORY: 1. Inguinal hernia repair. 2. Colonoscopy. 3. Left ureterovesical junction (UVJ) stent placement. 4. Percutaneous endoscopic gastrostomy (PEG) tube placement by Dr. Bazan on 02/03/2021. ALLERGIES: No known drug allergies. SOCIAL HISTORY: He denies any drug or alcohol use. He is . He lived with his at home until his stroke, currently in rehabilitation. MEDICATIONS: - Plavix 75 mg G tube daily - aspirin 81 mg daily - hydralazine 50 mg every 6 hours - Carafate 1 gram every 6 hours - metoprolol 50 mg every 8 hours - Zocor 80 mg at bedtime - losartan 50 mg G tube twice a day - Robitussin 400 mg three times a day - duloxetine (Cymbalta) 300 mg twice a day - omeprazole 40 mg twice a day - carbamazepine 200 mg twice a day - Tylenol as needed - saliva substitute as needed - glucagon as needed - albuterol and Atrovent nebulizers as needed - Lovenox 40 mg daily LABORATORY DATA: White count 17.7, hemoglobin 12.7, hematocrit 40.2, platelets 310, 76% neutrophils, 12% lymphocytes, 10% monocytes. Sodium 145, potassium 3.7, chloride 113, bicarbonate 25, BUN 15, creatinine 0.7, glucose 122, calcium 9.2. Procalcitonin less than 0.05. AST 23, ALT 22, alkaline phosphatase 73 on 01/28/2021. No repeat liver profile has been done in the past seven days. Carbamazepine level was 7.9. SARS-CoV-2 was negative. Methicillin-resistant Staphylococcus aureus (MRSA) screen was negative. Urine culture and blood cultures were negative. PHYSICAL EXAMINATION: He is a pleasant elderly gentleman in no acute distress. He was seen in physical therapy, then in his bed. He has no complaint laying there. He does not speak very well due to dysarthria. Temperature 98.9, pulse 75, respirations 18, blood pressure 172/80, oxygen saturation 95% on room air. Afebrile for the past seven days. HEART: Normal S1, S2. Distant. No murmurs appreciated. LUNGS: Clear. No wheezes, rales or rhonchi. ABDOMEN: Soft. Gastrostomy (G) tube in place with dressing soaked with blood that was changed. Underlying the dressing there was a clean G tube site with no further bleeding. EXTREMITIES: No rashes, clubbing or cyanosis. There are no peripheral intravenous (IVs) noted. There are no areas of redness or cellulitis. There are no open lesions or sores. NEUROLOGIC EXAM: Follows commands. He has expressive aphasia and 4/5 strength of upper and lower extremities. IMPRESSION: This is a75 -year-old gentleman with a history of previous strokes and new left posterior cerebral artery ([employer]) stroke with severe right vertebral artery stenosis, severe right middle cerebral artery (MCA) stenosis admitted with a new stroke on aspirin, Plavix and statin therapy. The patient has had increased leukocytosis over the past week without a source of infection. He has received three days of IV Levaquin 50 mg daily, but urinalysis had only 133 red cells and urine culture was negative, therefore that was discontinued. At this point, I am not sure what the reason for his leukocytosis other than reactive and stress-induced. I would suggest discontinuing antibiotics and continuing to monitor fever and clinical exam. PLAN: Discontinue IV levofloxacin. Repeat CBC, sedimentation rate (SR) and BMP in the morning, as well as liver profile, just to monitor his liver function tests (LFTs) as well. I agree with keeping him off antibiotic unless he looks septic, hypotensive or febrile. Monitor for stools and diarrhea. Case has been discussed with Dr. Billy, who agrees with the plan.
[2021-02-04 20:00] VITALS: BP 138/91
[2021-02-04] MEDS: SIMVASTATIN 40 MG TAB PEG SCH (22:24)
[2021-02-05 05:40] VITALS: BP 172/70
[2021-02-05] MEDS: SUCRALFATE SUSP 1GM/10ML UD PEG SCH ×4 (05:53→23:56)
[2021-02-05] MEDS: ACETAMINOPHEN 325 MG/10.15 ML UDC PEG PRN ×2 (05:53→21:41)
[2021-02-05] MEDS: METOPROLOL TART 50 MG TAB PEG SCH ×3 (05:54→21:42)
[2021-02-05] MEDS: **hydrALAZINE HCL** 25 MG TAB PEG SCH ×4 (05:54→23:57)
[2021-02-05] MEDS: HumaLOG INSULIN (NovoLOG) PER UNIT SC SCH ×4 (05:55→23:56)
[2021-02-05 06:57] LABS: BASO # 0.1 10^3/uL (0.0-0.2); BASO % 0.3 % (0.0-1.0); EOS # 0.1 10^3/uL (0.0-0.5); EOS % 0.4 % (0.0-3.0); HEMATOCRIT 37.1 % (42.0-52.0); HEMOGLOBIN 11.8 g/dl (13.5-17.5); LYMPH # 1.8 10^3/uL (1.5-5.0); LYMPH % 12.6 % (24.0-44.0); MEAN CORPUSCULAR HEMOGLOBIN 30.1 pg (27.0-33.0); MEAN CORPUSCULAR HGB CONC 31.8 g/dl (32.0-36.5); MEAN CORPUSCULAR VOLUME 94.6 fl (80.0-96.0); MONO # 1.8 10^3/uL (0.0-0.8); MONO % 12.7 % (2.0-8.0); NEUTROPHILS # 10.5 10^3/uL (1.5-8.5); PLATELET COUNT, AUTOMATED 262 10^3/uL (150-450); RED BLOOD COUNT 3.92 10^6/uL (4.30-6.10)
[2021-02-05 07:05] LABS: WHITE BLOOD COUNT 14.4 10^3/uL (4.0-10.0)
[2021-02-05 07:24] LABS: ALBUMIN 3.1 GM/DL (3.2-5.2); BILIRUBIN,DIRECT 0.1 MG/DL (0.0-0.2); BILIRUBIN,TOTAL 0.3 MG/DL (0.2-1.0); C REACTIVE PROTEIN QUANTITATIV 9.57 MG/DL (0.00-0.30); TOTAL PROTEIN 6.2 GM/DL (6.4-8.2)
[2021-02-05] MEDS: MAGIC MOUTHWASH SUSPENSION BTL SSP SCH ×4 (07:55→21:41)
[2021-02-05 07:58] LABS: ERYTHROCYTE SEDIMENTATION RATE 39 mm/hr (0-20)
[2021-02-05] MEDS: COMBIVENT RESPIMAT 100-20MCG INHALER 4GM INH SCH ×3 (08:18→20:35)
[2021-02-05 10:00] VITALS: BP 141/70
[2021-02-05] MEDS: OMEPRAZOLE SUSPENSION 20MG 10ML ORAL SYRINGE GT SCH ×2 (10:13→21:36)
[2021-02-05] MEDS: carBAMazepine 100MG 5ML SUSP ORAL SYRINGE *DRAW UP EXACT DOSE PEG SCH ×2 (10:13→21:41)
[2021-02-05] MEDS: guaiFENesin 200 MG TAB PEG SCH ×3 (10:14→23:56)
[2021-02-05] MEDS: ENOXAPARIN 40MG/0.4ML SYRINGE (J1650 PER 10MG) SC SCH (10:14)
[2021-02-05] MEDS: DULoxetine 30 MG CAP (CYMBALTA) XX SCH ×2 (10:14→21:42)
[2021-02-05] MEDS: ASPIRIN 81 MG CHEW TABLET PEG SCH (10:14)
[2021-02-05] MEDS: CLOPIDOGREL 75 MG TAB PEG SCH (10:15)
[2021-02-05] MEDS: REMEDY PHYTOPLEX Z-GUARD PASTE 113GM TUBE (FROM STOREROOM PRODUCT) TOP SCH ×3 (10:15→21:43)
[2021-02-05] MEDS: SALIVA SUBSTITUTE(MOUTHKOTE) BTL MT SCH ×4 (10:15→21:41)
[2021-02-05] MEDS: LOSARTAN 50MG TABLET PEG SCH ×2 (10:22→21:42)
[2021-02-05 12:30] VITALS: BP 169/76
[2021-02-05 14:00] VITALS: BP 161/70
[2021-02-05 17:30] VITALS: BP 128/63
[2021-02-05 20:00] VITALS: BP 162/74
[2021-02-05] MEDS: SIMVASTATIN 40 MG TAB PEG SCH (21:42)
[2021-02-06 05:24] VITALS: BP 178/80
[2021-02-06] MEDS: HumaLOG INSULIN (NovoLOG) PER UNIT SC SCH ×3 (06:01→18:39)
[2021-02-06] MEDS: **hydrALAZINE HCL** 25 MG TAB PEG SCH ×3 (06:02→18:41)
[2021-02-06] MEDS: METOPROLOL TART 50 MG TAB PEG SCH ×3 (06:02→22:02)
[2021-02-06] MEDS: SUCRALFATE SUSP 1GM/10ML UD PEG SCH ×3 (06:02→18:38)
[2021-02-06 08:00] VITALS: BP 160/76
[2021-02-06] MEDS: COMBIVENT RESPIMAT 100-20MCG INHALER 4GM INH SCH ×3 (08:10→18:17)
[2021-02-06] MEDS: ASPIRIN 81 MG CHEW TABLET PEG SCH (08:16)
[2021-02-06] MEDS: guaiFENesin 200 MG TAB PEG SCH ×3 (08:16→22:07)
[2021-02-06] MEDS: carBAMazepine 100MG 5ML SUSP ORAL SYRINGE *DRAW UP EXACT DOSE PEG SCH ×2 (08:16→22:03)
[2021-02-06] MEDS: OMEPRAZOLE SUSPENSION 20MG 10ML ORAL SYRINGE GT SCH ×2 (08:16→22:02)
[2021-02-06] MEDS: CLOPIDOGREL 75 MG TAB PEG SCH (08:16)
[2021-02-06] MEDS: DULoxetine 30 MG CAP (CYMBALTA) XX SCH ×2 (08:16→22:01)
[2021-02-06] MEDS: ENOXAPARIN 40MG/0.4ML SYRINGE (J1650 PER 10MG) SC SCH (08:16)
[2021-02-06] MEDS: MAGIC MOUTHWASH SUSPENSION BTL SSP SCH ×4 (08:17→22:04)
[2021-02-06] MEDS: REMEDY PHYTOPLEX Z-GUARD PASTE 113GM TUBE (FROM STOREROOM PRODUCT) TOP SCH ×3 (08:17→22:04)
[2021-02-06] MEDS: SALIVA SUBSTITUTE(MOUTHKOTE) BTL MT SCH ×4 (08:17→22:03)
[2021-02-06] MEDS: LOSARTAN 50MG TABLET PEG SCH ×2 (08:17→22:02)
[2021-02-06 12:00] VITALS: BP 196/82
[2021-02-06 13:50] VITALS: BP 178/70
[2021-02-06 18:30] VITALS: BP 183/86
[2021-02-06 20:30] VITALS: BP 160/74
[2021-02-06] MEDS: ACETAMINOPHEN 325 MG/10.15 ML UDC PEG PRN (22:02)
[2021-02-06] MEDS: SIMVASTATIN 40 MG TAB PEG SCH (22:08)
[2021-02-07] MEDS: SUCRALFATE SUSP 1GM/10ML UD PEG SCH ×4 (00:18→18:07)
[2021-02-07] MEDS: **hydrALAZINE HCL** 25 MG TAB PEG SCH ×4 (00:18→18:07)
[2021-02-07] MEDS: HumaLOG INSULIN (NovoLOG) PER UNIT SC SCH ×4 (00:19→18:07)
[2021-02-07] MEDS: ACETAMINOPHEN 325 MG/10.15 ML UDC PEG PRN (05:59)
[2021-02-07] MEDS: METOPROLOL TART 50 MG TAB PEG SCH ×2 (06:00→14:50)
[2021-02-07 06:30] VITALS: BP 164/84
[2021-02-07] MEDS: COMBIVENT RESPIMAT 100-20MCG INHALER 4GM INH SCH ×3 (07:19→19:26)
[2021-02-07 07:55] LABS: BASO # 0.1 10^3/uL (0.0-0.2); BASO % 0.5 % (0.0-1.0); EOS # 0.2 10^3/uL (0.0-0.5); EOS % 1.7 % (0.0-3.0); HEMATOCRIT 35.3 % (42.0-52.0); HEMOGLOBIN 11.4 g/dl (13.5-17.5); LYMPH # 1.3 10^3/uL (1.5-5.0); LYMPH % 9.9 % (24.0-44.0); MEAN CORPUSCULAR HEMOGLOBIN 30.6 pg (27.0-33.0); MEAN CORPUSCULAR HGB CONC 32.3 g/dl (32.0-36.5); MEAN CORPUSCULAR VOLUME 94.9 fl (80.0-96.0); MONO # 1.8 10^3/uL (0.0-0.8); MONO % 13.3 % (2.0-8.0); NEUTROPHILS # 9.7 10^3/uL (1.5-8.5); NEUTROPHILS % 73.4 % (36.0-66.0); PLATELET COUNT, AUTOMATED 233 10^3/uL (150-450); RED BLOOD COUNT 3.72 10^6/uL (4.30-6.10)
[2021-02-07 08:15] LABS: BLOOD UREA NITROGEN 15 MG/DL (7-18); CALCIUM LEVEL 8.2 MG/DL (8.8-10.2); CARBON DIOXIDE LEVEL 32 MEQ/L (21-32); CHLORIDE LEVEL 105 MEQ/L (98-107); CREATININE FOR GFR 0.67 MG/DL (0.70-1.30); GLOMERULAR FILTRATION RATE > 60.0 (>42); GLUCOSE, FASTING 294 MG/DL (70-100); POTASSIUM SERUM 3.5 MEQ/L (3.5-5.1); SODIUM LEVEL 140 MEQ/L (136-145)
[2021-02-07 08:42] LABS: WHITE BLOOD COUNT 13.2 10^3/uL (4.0-10.0)
[2021-02-07] MEDS: CLOPIDOGREL 75 MG TAB PEG SCH (08:57)
[2021-02-07] MEDS: MAGIC MOUTHWASH SUSPENSION BTL SSP SCH ×4 (08:57→22:55)
[2021-02-07] MEDS: ASPIRIN 81 MG CHEW TABLET PEG SCH (08:57)
[2021-02-07] MEDS: OMEPRAZOLE SUSPENSION 20MG 10ML ORAL SYRINGE GT SCH ×2 (08:57→22:50)
[2021-02-07] MEDS: DULoxetine 30 MG CAP (CYMBALTA) XX SCH ×2 (08:57→22:51)
[2021-02-07] MEDS: guaiFENesin 200 MG TAB PEG SCH ×3 (08:57→22:54)
[2021-02-07] MEDS: carBAMazepine 100MG 5ML SUSP ORAL SYRINGE *DRAW UP EXACT DOSE PEG SCH ×2 (08:58→22:50)
[2021-02-07] MEDS: LOSARTAN 50MG TABLET PEG SCH ×2 (08:58→22:55)
[2021-02-07] MEDS: ENOXAPARIN 40MG/0.4ML SYRINGE (J1650 PER 10MG) SC SCH (08:58)
[2021-02-07] MEDS: SALIVA SUBSTITUTE(MOUTHKOTE) BTL MT SCH ×4 (08:58→22:55)
[2021-02-07] MEDS: REMEDY PHYTOPLEX Z-GUARD PASTE 113GM TUBE (FROM STOREROOM PRODUCT) TOP SCH ×3 (08:59→22:56)
[2021-02-07 14:00] VITALS: BP 141/72
[2021-02-07 20:30] VITALS: BP 153/79
[2021-02-07] MEDS: RIVAROXABAN 10 MG TAB (XARELTO) PEG SCH (21:00)
--- NOTE | 2021-02-07 22:25 | IPNPDOC ---
PM&R Progress Note DATE OF SERVICE: February 04, 2021 [facility] Progress Note Subjective: Pateint seen in therapy able to stand and walk, still with significant lean to the left, has no complaints. REVIEW OF SYSTEMS: The following is a completed review of systems and has been reviewed. Review of systems otherwise unremarkable. PAIN: Patient self reports no pain EYES: No recent vision changes, + left eye strabismus (chronic) EARS, NOSE, & THROAT: +dysphagia CARDIOVASCULAR: Denies chest pain or palpitations PULMONARY: Denies shortness of breath GASTROINTESTINAL: Denies constipation/diarrhea GENITOURINARY: denies dysuria MUSCULOSKELETAL: generalized weakness NEUROLOGICAL:+ aphasia HEMATOLOGICAL: denies easy bruising SKIN: intact PSYCHIATRIC: Unremarkable All other review of systems found to be negative. PHYSICAL EXAMINATION: VITAL SIGNS: Please see below. GENERAL: Pleasant and cooperative. No acute distress. HEENT: PERRL. Clear conjunctiva, + left eye strabismus, +tongue deviation to left CARDIOVASCULAR: Regular rate and rhythm. No murmurs, rubs, or gallops LUNGS: Clear to auscultation bilaterally. No wheezes. ABDOMEN: Soft, nontender, nondistended. Positive bowel sounds. Normal active bowel sounds NEUROLOGICAL: Sensation grossly intact, able to follow commands, +expressive aphasia, able to cross midline follows commands consistently EXTREMITIES: 4\\5 strength bilateral upper extremities. 4\\5 strength right lower extremity. 4/5 strength in left lower extremity. ASSESSMENT:75-year-old M with past medical history of CVA/TIA who presents status post new strokes with right sided paresis PLAN: 1. Rehab- PT/OT advance mobility and ADL, evaluate need for AFO, strengthen/stretch/maintain ROM all 4 limbs -[employer]- cog and swallow eval for stroke related dysphagia- [facility] 01-31-21- patient made NPO due to severe oral phase dysphagia 2. Neuro- hx of TIA with new right sided basal ganglia infarct with Near occlusion of the left [employer] P1 segment, stable..Severe right vertebral artery stenosis with distal occlusionFoci of severe right MCA M2 and M3 stenosisModerate left MCA M1 stenosis."- c/u ASA, plavix, and statin, CTH ordered 02-02-21 due to increased leaning to left in therapy- no acute bleed or new infarct seen, no new focal weakness on exam -on snri which will help with motor recovery -seizure d/o continue tegretol- levels WNL -f/u neuro as outpatient 3. CArdiac- hx of HTN- c/u BP med -HLD- c/u statin 4. Resp- monitor for infection, aspiration precautions in setting of dysphagia -CXR negative for infiltrate and f/u CT chest 02-01-21 negative for infiltrates- ordered due to concern for aspiration and leukocytosis- c/u combivent and HOB 30 degrees 5. Endo- hx of DM c/u ISS and januvia (holding now that NPO) 6. GI ppx- protonix 7. DVT ppx- Lovenox 8. Pain- tylenol prn 9. hx of BPH- c/u flomax, UA + with leukocytosis c/u IV Levaquin, Ucx negative 10. Nutrition- s/p PEG 02-03-[address] Bazan, recs and care appreciated- patient tolerating feeds, 11. Leukocytosis- unclear etiology, repeat CT chest 02-03-21 negative for infiltrate and CT abdomen/pelvis negative as well- ID consulted for further assistance -patient afebrile, procalcitonin not elevated so may be inflammatory 10. Dispo- tbd Allergies Coded Allergies: No Known Allergies (Verified , 09/22/19) Vital Signs Vital Signs Date Time Temp Pulse Resp B/P (MAP) Pulse Ox O2 Delivery O2 Flow Rate FiO2 02/07/21 20:30 97.3 72 18 153/79 (103) 94 02/07/21 06:30 Room Air Laboratory Data CBC/BMP Laboratory Tests 02/07/21 06:55 Labs 24H Laboratory Tests 2 02/06/21 23:55: Bedside Glucose (Misc Panel) 282H 02/07/21 05:51: Bedside Glucose (Misc Panel) 255H 02/07/21 06:55: Immature Granulocyte % (Auto) 1.2, Neutrophils (%) (Auto) 73.4H, Lymphocytes (%) (Auto) 9.9L, Monocytes (%) (Auto) 13.3H, Eosinophils (%) (Auto) 1.7, Basophils (%) (Auto) 0.5, Neutrophils # (Auto) 9.7H, Lymphocytes # (Auto) 1.3L, Monocytes # (Auto) 1.8H, Eosinophils # (Auto) 0.2, Basophils # (Auto) 0.1, Nucleated Red Blood Cells % (auto) 0.0, Anion Gap 3L, Glomerular Filtration Rate > 60.0, Calcium Level 8.2L 02/07/21 12:17: Bedside Glucose (Misc Panel) 256H 02/07/21 17:59: Bedside Glucose (Misc Panel) 231H Microbiology Microbiology 02/01/21 Urine Culture - Final, Complete 02/01/21 Blood Culture - Final, Complete NO GROWTH AFTER 5 DAYS 02/01/21 Blood Culture - Final, Complete NO GROWTH AFTER 5 DAYS Current Medications Current Medications Current Medications Medications (Trade) Dose Ordered Sig/Praful Route PRN Reason Start Time Stop Time Status Last Admin Dose Admin Acetaminophen (Tylenol Suspension) 650 mg Q4HP PRN PEG fever/MILD PAIN (PS 1-4) 02/03/21 19:35 02/07/21 05:59 Acetaminophen (Tylenol Tab) 650 mg Q4HP PRN PO fever/MILD PAIN (PS 1-4) 01/27/21 17:20 02/03/21 19:35 DC 02/03/21 17:44 Acetaminophen 650 mg/IV Miscellaneous Supplies 65 ml @ 260 mls/hr TID IV 02/03/21 21:00 02/03/21 17:40 DC Albuterol/ Ipratropium (Combivent Respimat 100-20mcg) 1 puff RTID INH 01/28/21 20:00 02/07/21 19:26 Albuterol/ Ipratropium (Combivent Respimat 100-20mcg) 1 puff TID INH 01/28/21 16:00 02/01/21 08:21 DC 01/31/21 19:57 Aspirin (Aspirin Chewable) 81 mg DAILY PEG 02/04/21 09:00 02/07/21 08:57 Aspirin (Aspirin Chewable) 81 mg DAILY PO 02/04/21 09:00 02/03/21 19:36 DC Aspirin (Ecotrin) 81 mg DAILY PO 01/28/21 09:00 02/03/21 16:57 DC 02/02/21 08:25 Bisacodyl (Dulcolax Suppository) 10 mg DAILYPRN PRN [place] CONSTIPATION 01/27/21 17:20 02/02/21 23:32 Carbamazepine (TEGretol SUSPENSION) 200 mg BID PEG 02/03/21 21:00 02/07/21 08:58 Carbamazepine (TEGretol XR) 200 mg BID PO 01/27/21 21:00 02/03/21 19:28 DC 02/02/21 21:19 Clopidogrel Bisulfate (PLAVix) 75 mg DAILY PEG 02/04/21 09:00 02/07/21 08:57 Clopidogrel Bisulfate (PLAVix) 75 mg DAILY PO 01/28/21 09:00 02/03/21 19:36 DC 02/03/21 08:42 Dextrose (Dextrose 50%) 25 ml ASDIRECTED PRN IV SEE LABEL COMMENTS 01/27/21 17:20 Cancel Dextrose (Dextrose 50%) 25 ml ASDIRECTED PRN IV SEE LABEL COMMENTS 02/01/21 22:05 Dextrose/Sodium Chloride 1,000 ml @ 60 mls/hr [id number] IV 02/01/21 17:30 02/01/21 17:35 DC Dextrose/Sodium Chloride 1,000 ml @ 60 mls/hr [id number] IV 02/02/21 04:09 02/02/21 20:48 DC 02/02/21 03:59 Docusate Sodium (Colace) 100 mg BID PO 01/27/21 21:00 01/31/21 15:02 DC 01/31/21 09:55 Duloxetine HCl (Cymbalta) 30 mg BID PO 01/27/21 21:00 02/03/21 19:40 DC 02/02/21 21:19 Duloxetine HCl (Cymbalta) 30 mg BID XX 02/03/21 21:00 02/07/21 08:57 Enoxaparin Sodium (Lovenox) 40 mg DAILY SC 01/28/21 09:00 02/07/21 08:58 Furosemide (Lasix) 20 mg DAILY PEG 02/08/21 09:00 Glucagon (Glucagon) 1 mg ASDIRECTED PRN SC SEE LABEL COMMENTS 01/27/21 17:20 Cancel Glucagon (Glucagon) 1 mg ASDIRECTED PRN SC SEE LABEL COMMENTS 02/01/21 22:05 Glucose (Glucose) 16 GM ASDIRECTED PRN PO SEE LABEL COMMENTS 01/27/21 17:20 Cancel Glucose (Glucose) 16 GM ASDIRECTED PRN PO SEE LABEL COMMENTS 02/01/21 22:05 Guaifenesin (Robitussin Tab) 400 mg TID PEG 02/03/21 21:00 02/07/21 18:06 Guaifenesin (Robitussin Tab) 400 mg TID PO 01/28/21 16:00 02/03/21 19:41 DC 02/03/21 17:44 Hydralazine HCl (Apresoline) 25 mg Q6H PO 01/27/21 18:00 02/01/21 11:24 DC 02/01/21 06:00 Hydralazine HCl (Apresoline) 50 mg Q6H PEG 02/04/21 00:00 02/07/21 18:07 Hydralazine HCl (Apresoline) 50 mg Q6H PO 02/01/21 12:00 02/03/21 19:42 DC 02/03/21 17:45 Insulin Human Lispro (HumaLOG INSULIN) SEE PROTOCOL TABLE AC WV 01/27/21 17:30 02/01/21 22:03 DC 02/01/21 18:35 Insulin Human Lispro (HumaLOG INSULIN) SEE PROTOCOL TABLE QHS WV 01/27/21 21:00 02/01/21 22:03 DC Insulin Human Lispro (HumaLOG INSULIN) See Protocol Table Q6H SC 02/02/21 00:00 02/07/21 18:07 Levofloxacin 750 mg/IV Miscellaneous Supplies 150 ml @ 100 mls/hr Q24H IV 02/01/21 18:00 02/04/21 11:49 DC 02/03/21 17:46 Lidocaine/ Diphenhydr/Alum/ Mg/Simeth (Magic Mouthwash) 5ML ACHS SSP 01/28/21 17:30 02/07/21 18:07 Losartan Potassium (Cozaar) 50 mg BID PEG 02/03/21 21:00 02/07/21 08:58 Losartan Potassium (Cozaar) 50 mg BID PO 02/01/21 21:00 02/03/21 19:43 DC 02/03/21 08:42 Losartan Potassium (Cozaar) 50 mg DAILY PO 01/28/21 09:00 02/01/21 17:30 DC 02/01/21 08:00 Metoprolol Tartrate (Lopressor) 25 mg BID PO 01/27/21 21:00 01/28/21 15:08 DC 01/28/21 10:19 Metoprolol Tartrate (Lopressor) 50 mg BID PO 01/28/21 21:00 01/31/21 11:22 DC 01/31/21 09:57 Metoprolol Tartrate (Lopressor) 50 mg Q8H PEG 02/03/21 22:00 02/07/21 20:21 DC 02/07/21 14:50 Metoprolol Tartrate (Lopressor) 50 mg Q8H PO 01/31/21 14:00 02/03/21 19:44 DC 02/03/21 06:03 Metoprolol Tartrate (Lopressor) 75 mg Q8H PEG 02/07/21 22:00 Omeprazole (First-Omeprazole ORAL SUSPENSION) 40 mg BID GT 02/03/21 21:00 02/07/21 08:57 Pantoprazole Sodium (Protonix) 40 mg DAILY PO 01/28/21 09:00 01/31/21 15:02 DC 01/31/21 09:55 Saliva Substitute (Mouthkote) 2 sprays QID MT 02/02/21 13:00 02/07/21 18:06 Senna (Senokot) 1 tab QHS PO 01/27/21 21:00 01/31/21 15:02 DC 01/30/21 21:15 Simvastatin (Zocor) 80 mg QHS PEG 02/03/21 21:00 02/06/21 22:08 Simvastatin (Zocor) 80 mg QHS PO 01/27/21 21:00 02/03/21 19:44 DC 02/02/21 21:19 Sitagliptin Phosphate (Januvia) 25 mg DAILY PO 01/28/21 09:00 01/31/21 14:38 DC 01/31/21 09:55 Sucralfate (Carafate Suspension) 1 gm Q6H PEG 02/04/21 00:00 02/07/21 18:07 Tamsulosin HCl (Flomax) 0.4 mg QHS PO 01/27/21 21:00 02/03/21 20:16 DC 02/02/21 21:19 ORTEGA LEMA MD February 07, 2021 22:25
--- NOTE | 2021-02-07 22:32 | REPVR ---
PROCEDURE INFORMATION: Exam: MR Head Without Contrast Exam date and time: 02/07/2021 10:17 PM Age: 75 years old Clinical indication: Altered mental status/memory loss; Confusion or disorientation; Additional info: New stroke? Functional decline TECHNIQUE: Imaging protocol: MR of the head without contrast. COMPARISON: MRI-Brain without Contrast 01/25/2021 9:45 PM FINDINGS: Limitations: Motion artifact degrades the images. Brain: Acute infarct in the right rodriguez radiata measuring 2.3 x 1 cm. Moderate chronic microvascular ischemic changes. Cerebral ventricles: Normal. No ventriculomegaly. Bones/joints: Unremarkable. Paranasal sinuses: Mucous retention cyst/polyp in the left maxillary sinus. Mastoid air cells: Normal as visualized. No mastoid effusion. Orbital cavity: Unremarkable. Soft tissues: Unremarkable. Other findings: No hemorrhage. IMPRESSION: Acute infarct in the right rodriguez radiata measuring 2.3 x 1 cm. No hemorrhage. Electronically signed by: Gabriele Givens On 02/07/2021 22:32:08 PM
--- NOTE | 2021-02-07 22:37 | IPNPDOC ---
PM&R Progress Note DATE OF SERVICE: February 07, 2021 Skidder Driver Progress Note Subjective: Pateint seen in his room sleeping, able to be aroused was able to say he felt tired, was able to move all 4 extremities on command. REVIEW OF SYSTEMS: The following is a completed review of systems and has been reviewed. Review of systems otherwise unremarkable. PAIN: Patient self reports no pain EYES: No recent vision changes, + left eye strabismus (chronic) EARS, NOSE, & THROAT: +dysphagia CARDIOVASCULAR: Denies chest pain or palpitations PULMONARY: Denies shortness of breath GASTROINTESTINAL: Denies constipation/diarrhea GENITOURINARY: denies dysuria MUSCULOSKELETAL: generalized weakness NEUROLOGICAL:+ aphasia HEMATOLOGICAL: denies easy bruising SKIN: intact PSYCHIATRIC: Unremarkable All other review of systems found to be negative. PHYSICAL EXAMINATION: VITAL SIGNS: Please see below. GENERAL: Pleasant and cooperative. No acute distress. HEENT: PERRL. Clear conjunctiva, + left eye strabismus, +tongue deviation to left CARDIOVASCULAR: Regular rate and rhythm. No murmurs, rubs, or gallops LUNGS: Clear to auscultation bilaterally. No wheezes. ABDOMEN: Soft, nontender, nondistended. Positive bowel sounds. Normal active bowel sounds, + PEG NEUROLOGICAL: Sensation grossly intact, able to follow commands, +expressive aphasia, able to cross midline follows commands consistently EXTREMITIES: 4\\5 strength bilateral upper extremities. 4\\5 strength right lower extremity. 4/5 strength in left lower extremity. ASSESSMENT:75-year-old M with past medical history of CVA/TIA who presents status post new strokes with right sided paresis PLAN: 1. 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 [place] patient made NPO due to severe oral phase dysphagia 2. Neuro- hx of TIA with new right sided basal ganglia infarct with Near occlusion of the left FINANCIAL WELLNESS COACH P1 segment, stable..Severe right vertebral artery st enosis with distal occlusionFoci of severe right MCA M2 and M3 stenosisModerate left MCA M1 stenosis."- c/u ASA, plavix, and statin, CTH ordered 02-02-21 due to increased leaning to left in therapy- no acute bleed or new infarct seen, no new focal weakness on exam, patient appearing more fatigued today on exam, however able to follow commands with no new focal deficits, will order MRI to r/o new stroke -on snri which will help with motor recovery -seizure d/o continue tegretol- levels WNL -f/u neuro as outpatient 3. CArdiac- hx of HTN- c/u BP med, c/u to adjust -HLD- c/u statin 4. Resp- monitor for infection, aspiration precautions in setting of dysphagia -CXR negative for infiltrate and f/u CT chest 02-01-21 and 02-03-21 negative for infiltrates- ordered due to concern for aspiration and leukocytosis- c/u combivent and HOB 30 degrees, patient breathing comfortably, no cough 5. Endo- hx of DM c/u ISS and januvia (holding now that NPO) 6. GI ppx- protonix 7. DVT ppx- Lovenox 8. Pain- tylenol prn 9. hx of BPH- c/u flomax, UA+ however Ucx negative, s/p course of IV Levaquin 10. Nutrition- s/p PEG 02-03-[address] Bazan, recs and care appreciated- patient tolerating feeds, 11. Leukocytosis- unclear etiology, repeat CT chest 02-03-21 negative for infiltrate and CT abdomen/pelvis negative as well- ID consulted for further assistance, patient off abx and leukocytosis trending down, he remains afebrile with no signs of infection 10. Dispo- tbd Allergies Coded Allergies: No Known Allergies (Verified , 09/22/19) Vital Signs Vital Signs Date Time Temp Pulse Resp B/P (MAP) Pulse Ox O2 Delivery O2 Flow Rate FiO2 02/07/21 20:30 97.3 72 18 153/79 (103) 94 02/07/21 06:30 Room Air Laboratory Data CBC/BMP Laboratory Tests 02/07/21 06:55 Labs 24H Laboratory Tests 2 02/06/21 23:55: Bedside Glucose (Misc Panel) 282H 02/07/21 05:51: Bedside Glucose (Misc Panel) 255H 02/07/21 06:55: Immature Granulocyte % (Auto) 1.2, Neutrophils (%) (Auto) 73.4H, Lymphocytes (%) (Auto) 9.9L, Monocytes (%) (Auto) 13.3H, Eosinophils (%) (Auto) 1.7, Basophils (%) (Auto) 0.5, Neutrophils # (Auto) 9.7H, Lymphocytes # (Auto) 1.3L, Monocytes # (Auto) 1.8H, Eosinophils # (Auto) 0.2, Basophils # (Auto) 0.1, Nucleated Red Blood Cells % (auto) 0.0, Anion Gap 3L, Glomerular Filtration Rate > 60.0, Calcium Level 8.2L 02/07/21 12:17: Bedside Glucose (Misc Panel) 256H 02/07/21 17:59: Bedside Glucose (Misc Panel) 231H Microbiology Microbiology 02/01/21 Urine Culture - Final, Complete 02/01/21 Blood Culture - Final, Complete NO GROWTH AFTER 5 DAYS 02/01/21 Blood Culture - Final, Complete NO GROWTH AFTER 5 DAYS Current Medications Current Medications Current Medications Medications (Trade) Dose Ordered Sig/Praful Route PRN Reason Start Time Stop Time Status Last Admin Dose Admin Acetaminophen (Tylenol Suspension) 650 mg Q4HP PRN PEG fever/MILD PAIN (PS 1-4) 02/03/21 19:35 02/07/21 05:59 Acetaminophen (Tylenol Tab) 650 mg Q4HP PRN PO fever/MILD PAIN (PS 1-4) 01/27/21 17:20 02/03/21 19:35 DC 02/03/21 17:44 Acetaminophen 650 mg/IV Miscellaneous Supplies 65 ml @ 260 mls/hr TID IV 02/03/21 21:00 02/03/21 17:40 DC Albuterol/ Ipratropium (Combivent Respimat 100-20mcg) 1 puff RTID INH 01/28/21 20:00 02/07/21 19:26 Albuterol/ Ipratropium (Combivent Respimat 100-20mcg) 1 puff TID INH 01/28/21 16:00 02/01/21 08:21 DC 01/31/21 19:57 Aspirin (Aspirin Chewable) 81 mg DAILY PEG 02/04/21 09:00 02/07/21 08:57 Aspirin (Aspirin Chewable) 81 mg DAILY PO 02/04/21 09:00 02/03/21 19:36 DC Aspirin (Ecotrin) 81 mg DAILY PO 01/28/21 09:00 02/03/21 16:57 DC 02/02/21 08:25 Bisacodyl (Dulcolax Suppository) 10 mg DAILYPRN PRN [place] CONSTIPATION 01/27/21 17:20 02/02/21 23:32 Carbamazepine (TEGretol SUSPENSION) 200 mg BID PEG 02/03/21 21:00 02/07/21 08:58 Carbamazepine (TEGretol XR) 200 mg BID PO 01/27/21 21:00 02/03/21 19:28 DC 02/02/21 21:19 Clopidogrel Bisulfate (PLAVix) 75 mg DAILY PEG 02/04/21 09:00 02/07/21 08:57 Clopidogrel Bisulfate (PLAVix) 75 mg DAILY PO 01/28/21 09:00 02/03/21 19:36 DC 02/03/21 08:42 Dextrose (Dextrose 50%) 25 ml ASDIRECTED PRN IV SEE LABEL COMMENTS 01/27/21 17:20 Cancel Dextrose (Dextrose 50%) 25 ml ASDIRECTED PRN IV SEE LABEL COMMENTS 02/01/21 22:05 Dextrose/Sodium Chloride 1,000 ml @ 60 mls/hr [id number] IV 02/01/21 17:30 02/01/21 17:35 DC Dextrose/Sodium Chloride 1,000 ml @ 60 mls/hr [id number] IV 02/02/21 04:09 02/02/21 20:48 DC 02/02/21 03:59 Docusate Sodium (Colace) 100 mg BID PO 01/27/21 21:00 01/31/21 15:02 DC 01/31/21 09:55 Duloxetine HCl (Cymbalta) 30 mg BID PO 01/27/21 21:00 02/03/21 19:40 DC 02/02/21 21:19 Duloxetine HCl (Cymbalta) 30 mg BID XX 02/03/21 21:00 02/07/21 08:57 Enoxaparin Sodium (Lovenox) 40 mg DAILY SC 01/28/21 09:00 02/07/21 08:58 Furosemide (Lasix) 20 mg DAILY PEG 02/08/21 09:00 Glucagon (Glucagon) 1 mg ASDIRECTED PRN SC SEE LABEL COMMENTS 01/27/21 17:20 Cancel Glucagon (Glucagon) 1 mg ASDIRECTED PRN SC SEE LABEL COMMENTS 02/01/21 22:05 Glucose (Glucose) 16 GM ASDIRECTED PRN PO SEE LABEL COMMENTS 01/27/21 17:20 Cancel Glucose (Glucose) 16 GM ASDIRECTED PRN PO SEE LABEL COMMENTS 02/01/21 22:05 Guaifenesin (Robitussin Tab) 400 mg TID PEG 02/03/21 21:00 02/07/21 18:06 Guaifenesin (Robitussin Tab) 400 mg TID PO 01/28/21 16:00 02/03/21 19:41 DC 02/03/21 17:44 Hydralazine HCl (Apresoline) 25 mg Q6H PO 01/27/21 18:00 02/01/21 11:24 DC 02/01/21 06:00 Hydralazine HCl (Apresoline) 50 mg Q6H PEG 02/04/21 00:00 02/07/21 18:07 Hydralazine HCl (Apresoline) 50 mg Q6H PO 02/01/21 12:00 02/03/21 19:42 DC 02/03/21 17:45 Insulin Human Lispro (HumaLOG INSULIN) SEE PROTOCOL TABLE AC NE 01/27/21 17:30 02/01/21 22:03 DC 02/01/21 18:35 Insulin Human Lispro (HumaLOG INSULIN) SEE PROTOCOL TABLE QHS NE 01/27/21 21:00 02/01/21 22:03 DC Insulin Human Lispro (HumaLOG INSULIN) See Protocol Table Q6H SC 02/02/21 00:00 02/07/21 18:07 Levofloxacin 750 mg/IV Miscellaneous Supplies 150 ml @ 100 mls/hr Q24H IV 02/01/21 18:00 02/04/21 11:49 DC 02/03/21 17:46 Lidocaine/ Diphenhydr/Alum/ Mg/Simeth (Magic Mouthwash) 5ML ACHS SSP 01/28/21 17:30 02/07/21 18:07 Losartan Potassium (Cozaar) 50 mg BID PEG 02/03/21 21:00 02/07/21 08:58 Losartan Potassium (Cozaar) 50 mg BID PO 02/01/21 21:00 02/03/21 19:43 DC 02/03/21 08:42 Losartan Potassium (Cozaar) 50 mg DAILY PO 01/28/21 09:00 02/01/21 17:30 DC 02/01/21 08:00 Metoprolol Tartrate (Lopressor) 25 mg BID PO 01/27/21 21:00 01/28/21 15:08 DC 01/28/21 10:19 Metoprolol Tartrate (Lopressor) 50 mg BID PO 01/28/21 21:00 01/31/21 11:22 DC 01/31/21 09:57 Metoprolol Tartrate (Lopressor) 50 mg Q8H PEG 02/03/21 22:00 02/07/21 20:21 DC 02/07/21 14:50 Metoprolol Tartrate (Lopressor) 50 mg Q8H PO 01/31/21 14:00 02/03/21 19:44 DC 02/03/21 06:03 Metoprolol Tartrate (Lopressor) 75 mg Q8H PEG 02/07/21 22:00 Omeprazole (First-Omeprazole ORAL SUSPENSION) 40 mg BID GT 02/03/21 21:00 02/07/21 08:57 Pantoprazole Sodium (Protonix) 40 mg DAILY PO 01/28/21 09:00 01/31/21 15:02 DC 01/31/21 09:55 Saliva Substitute (Mouthkote) 2 sprays QID MT 02/02/21 13:00 02/07/21 18:06 Senna (Senokot) 1 tab QHS PO 01/27/21 21:00 01/31/21 15:02 DC 01/30/21 21:15 Simvastatin (Zocor) 80 mg QHS PEG 02/03/21 21:00 02/06/21 22:08 Simvastatin (Zocor) 80 mg QHS PO 01/27/21 21:00 02/03/21 19:44 DC 02/02/21 21:19 Sitagliptin Phosphate (Januvia) 25 mg DAILY PO 01/28/21 09:00 01/31/21 14:38 DC 01/31/21 09:55 Sucralfate (Carafate Suspension) 1 gm Q6H PEG 02/04/21 00:00 02/07/21 18:07 Tamsulosin HCl (Flomax) 0.4 mg QHS PO 01/27/21 21:00 02/03/21 20:16 DC 02/02/21 21:19 ORTEGA LEMA MD February 07, 2021 22:37
[2021-02-07] MEDS: SIMVASTATIN 40 MG TAB PEG SCH (22:51)
[2021-02-07] MEDS: METOPROLOL TART 25 MG TABLET PEG SCH (22:51)
[2021-02-08] MEDS: SUCRALFATE SUSP 1GM/10ML UD PEG SCH ×4 (00:42→18:17)
[2021-02-08] MEDS: **hydrALAZINE HCL** 25 MG TAB PEG SCH ×4 (00:43→18:16)
[2021-02-08] MEDS: HumaLOG INSULIN (NovoLOG) PER UNIT SC SCH ×4 (00:44→18:17)
[2021-02-08] MEDS: RIVAROXABAN 10 MG TAB (XARELTO) PEG SCH ×3 (01:16→21:10)
[2021-02-08] MEDS: METOPROLOL TART 25 MG TABLET PEG SCH ×3 (06:17→21:17)
[2021-02-08 06:30] VITALS: BP 162/86
[2021-02-08] MEDS: COMBIVENT RESPIMAT 100-20MCG INHALER 4GM INH SCH ×3 (08:00→19:45)
[2021-02-08] MEDS ORDERED: FUROSEMIDE 20 MG TAB PEG SCH (09:00)
[2021-02-08] MEDS: carBAMazepine 100MG 5ML SUSP ORAL SYRINGE *DRAW UP EXACT DOSE PEG SCH ×2 (09:04→21:12)
[2021-02-08] MEDS: OMEPRAZOLE SUSPENSION 20MG 10ML ORAL SYRINGE GT SCH ×2 (09:04→21:11)
[2021-02-08] MEDS: guaiFENesin 200 MG TAB PEG SCH ×3 (09:04→21:06)
[2021-02-08] MEDS: MAGIC MOUTHWASH SUSPENSION BTL SSP SCH ×4 (09:04→21:12)
[2021-02-08] MEDS: DULoxetine 30 MG CAP (CYMBALTA) XX SCH ×2 (09:05→21:06)
[2021-02-08] MEDS: LOSARTAN 50MG TABLET PEG SCH ×2 (09:05→21:11)
[2021-02-08] MEDS: REMEDY PHYTOPLEX Z-GUARD PASTE 113GM TUBE (FROM STOREROOM PRODUCT) TOP SCH ×3 (09:06→21:13)
[2021-02-08] MEDS: ASPIRIN 81 MG CHEW TABLET PEG SCH (09:06)
[2021-02-08] MEDS: SALIVA SUBSTITUTE(MOUTHKOTE) BTL MT SCH ×4 (09:06→21:13)
--- NOTE | 2021-02-08 10:18 | IPNPDOC ---
PM&R Progress Note DATE OF SERVICE: February 08, 2021 Risk Developer Progress Note Subjective: Pateint seen in his room able to follow commands and move all 4 limbs, denies having pain in his abdomen, head, or back. REVIEW OF SYSTEMS: The following is a completed review of systems and has been reviewed. Review of systems otherwise unremarkable. PAIN: Patient self reports no pain EYES: No recent vision changes, + left eye strabismus (chronic) EARS, NOSE, & THROAT: +dysphagia CARDIOVASCULAR: Denies chest pain or palpitations PULMONARY: Denies shortness of breath GASTROINTESTINAL: Denies constipation/diarrhea GENITOURINARY: denies dysuria MUSCULOSKELETAL: generalized weakness NEUROLOGICAL:+ aphasia HEMATOLOGICAL: denies easy bruising SKIN: intact PSYCHIATRIC: Unremarkable All other review of systems found to be negative. PHYSICAL EXAMINATION: VITAL SIGNS: Please see below. GENERAL: Pleasant and cooperative. No acute distress. HEENT: PERRL. Clear conjunctiva, + left eye strabismus, +tongue deviation to left CARDIOVASCULAR: Regular rate and rhythm. No murmurs, rubs, or gallops LUNGS: Clear to auscultation bilaterally. No wheezes. ABDOMEN: Soft, nontender, nondistended. Positive bowel sounds. Normal active b owel sounds, + PEG NEUROLOGICAL: Sensation grossly intact, able to follow commands, +expressive aphasia, able to cross midline follows commands consistently EXTREMITIES: 5\\5 strength bilateral upper extremities. 5\\5 strength right lower extremity. 5/5 strength in left lower extremity. ASSESSMENT:75-year-old M with past medical history of CVA/TIA who presents status post new strokes with right sided paresis PLAN: 1. 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 Neuro- hx of TIA with new right sided basal ganglia infarct with Near occlusion of the left ATTENDANT ARCADE P1 segment, stable..Severe right vertebral artery stenosis with distal occlusionFoci of severe right MCA M2 and M3 stenosisModerate left MCA M1 stenosis."- c/u ASA, plavix, and statin, CTH ordered 02-02-21 due to increased leaning to left in therapy- no acute bleed or new infarct seen, no new focal weakness on exam, patient appearing more fatigued with decline in therapy MRI 02-07-21, showing acute right rodriguez radiata ischemic infarct- spoke with Dr. Dean who recommended ASA and Xarelto 2.5mg BID (instead of plavix) for multivessel disease, formal consult placed - recs and assistance appreciated -on snri which will help with motor recovery -seizure d/o continue tegretol- levels WNL -f/u neuro as outpatient 3. CArdiac- hx of HTN- c/u BP med, c/u to adjust, permissive HTN post-stroke -HLD- c/u statin 4. Resp- monitor for infection, aspiration precautions in setting of dysphagia -CXR negative for infiltrate and f/u CT chest 02-01-21 and 02-03-21 negative for infiltrates- ordered due to concern for aspiration and leukocytosis- c/u combivent and HOB 30 degrees, patient breathing comfortably, no cough 5. Endo- hx of DM c/u ISS and januvia (holding now that NPO), switch jevity to glucerna for elevated FS 6. GI ppx- protonix 7. DVT ppx- Lovenox 8. Pain- tylenol prn 9. hx of BPH- c/u flomax, UA+ however Ucx negative, s/p course of IV Levaquin 10. Nutrition- s/p PEG 02-03-[address] Bazan, recs and care appreciated- patient tolerating feeds, 11. Leukocytosis- unclear etiology, repeat CT chest 02-03-21 negative for infiltrate and CT abdomen/pelvis negative as well- ID consulted for further assistance, patient off abx and leukocytosis trending down, he remains afebrile with no signs of infection 12. Dispo- goal to home 02-15-21, will need extensive family training and possible extension of stay due to functional decline from new stroke Allergies Coded Allergies: No Known Allergies (Verified , 09/22/19) Vital Signs Vital Signs Date Time Temp Pulse Resp B/P (MAP) Pulse Ox O2 Delivery O2 Flow Rate FiO2 02/08/21 09:05 167/81 02/08/21 06:30 97.4 72 18 93 02/07/21 06:30 Room Air Laboratory Data Labs 24H Laboratory Tests 2 02/07/21 12:17: Bedside Glucose (Misc Panel) 256H 02/07/21 17:59: Bedside Glucose (Misc Panel) 231H 02/08/21 00:13: Bedside Glucose (Misc Panel) 203H 02/08/21 05:59: Bedside Glucose (Misc Panel) 215H Microbiology Microbiology 02/01/21 Urine Culture - Final, Complete 02/01/21 Blood Culture - Final, Complete NO GROWTH AFTER 5 DAYS 02/01/21 Blood Culture - Final, Complete NO GROWTH AFTER 5 DAYS Current Medications Current Medications Current Medications Medications (Trade) Dose Ordered Sig/Praful Route PRN Reason Start Time Stop Time Status Last Admin Dose Admin Acetaminophen (Tylenol Suspension) 650 mg Q4HP PRN PEG fever/MILD PAIN (PS 1-4) 02/03/21 19:35 02/07/21 05:59 Acetaminophen (Tylenol Tab) 650 mg Q4HP PRN PO fever/MILD PAIN (PS 1-4) 01/27/21 17:20 02/03/21 19:35 DC 02/03/21 17:44 Acetaminophen 650 mg/IV Miscellaneous Supplies 65 ml @ 260 mls/hr TID IV 02/03/21 21:00 02/03/21 17:40 DC Albuterol/ Ipratropium (Combivent Respimat 100-20mcg) 1 puff RTID INH 01/28/21 20:00 02/07/21 19:26 Albuterol/ Ipratropium (Combivent Respimat 100-20mcg) 1 puff TID INH 01/28/21 16:00 02/01/21 08:21 DC 01/31/21 19:57 Aspirin (Aspirin Chewable) 81 mg DAILY PEG 02/04/21 09:00 02/08/21 09:06 Aspirin (Aspirin Chewable) 81 mg DAILY PO 02/04/21 09:00 02/03/21 19:36 DC Aspirin (Ecotrin) 81 mg DAILY PO 01/28/21 09:00 02/03/21 16:57 DC 02/02/21 08:25 Bisacodyl (Dulcolax Suppository) 10 mg DAILYPRN PRN [place] CONSTIPATION 01/27/21 17:20 02/02/21 23:32 Carbamazepine (TEGretol SUSPENSION) 200 mg BID PEG 02/03/21 21:00 02/08/21 09:04 Carbamazepine (TEGretol XR) 200 mg BID PO 01/27/21 21:00 02/03/21 19:28 DC 02/02/21 21:19 Clopidogrel Bisulfate (PLAVix) 75 mg DAILY PEG 02/04/21 09:00 02/07/21 22:49 DC 02/07/21 08:57 Clopidogrel Bisulfate (PLAVix) 75 mg DAILY PO 01/28/21 09:00 02/03/21 19:36 DC 02/03/21 08:42 Dextrose (Dextrose 50%) 25 ml ASDIRECTED PRN IV SEE LABEL COMMENTS 01/27/21 17:20 Cancel Dextrose (Dextrose 50%) 25 ml ASDIRECTED PRN IV SEE LABEL COMMENTS 02/01/21 22:05 Dextrose/Sodium Chloride 1,000 ml @ 60 mls/hr [id number] IV 02/01/21 17:30 02/01/21 17:35 DC Dextrose/Sodium Chloride 1,000 ml @ 60 mls/hr [id number] IV 02/02/21 04:09 02/02/21 20:48 DC 02/02/21 03:59 Docusate Sodium (Colace) 100 mg BID PO 01/27/21 21:00 01/31/21 15:02 DC 01/31/21 09:55 Duloxetine HCl (Cymbalta) 30 mg BID PO 01/27/21 21:00 02/03/21 19:40 DC 02/02/21 21:19 Duloxetine HCl (Cymbalta) 30 mg BID XX 02/03/21 21:00 02/08/21 09:05 Enoxaparin Sodium (Lovenox) 40 mg DAILY SC 01/28/21 09:00 02/07/21 23:06 DC 02/07/21 08:58 Furosemide (Lasix) 20 mg DAILY PEG 02/08/21 09:00 02/08/21 09:05 Glucagon (Glucagon) 1 mg ASDIRECTED PRN SC SEE LABEL COMMENTS 01/27/21 17:20 Cancel Glucagon (Glucagon) 1 mg ASDIRECTED PRN SC SEE LABEL COMMENTS 02/01/21 22:05 Glucose (Glucose) 16 GM ASDIRECTED PRN PO SEE LABEL COMMENTS 01/27/21 17:20 Cancel Glucose (Glucose) 16 GM ASDIRECTED PRN PO SEE LABEL COMMENTS 02/01/21 22:05 Guaifenesin (Robitussin Tab) 400 mg TID PEG 02/03/21 21:00 02/08/21 09:04 Guaifenesin (Robitussin Tab) 400 mg TID PO 01/28/21 16:00 02/03/21 19:41 DC 02/03/21 17:44 Hydralazine HCl (Apresoline) 25 mg Q6H PO 01/27/21 18:00 02/01/21 11:24 DC 02/01/21 06:00 Hydralazine HCl (Apresoline) 50 mg Q6H PEG 02/04/21 00:00 02/08/21 06:16 Hydralazine HCl (Apresoline) 50 mg Q6H PO 02/01/21 12:00 02/03/21 19:42 DC 02/03/21 17:45 Insulin Human Lispro (HumaLOG INSULIN) SEE PROTOCOL TABLE AC ND 01/27/21 17:30 02/01/21 22:03 DC 02/01/21 18:35 Insulin Human Lispro (HumaLOG INSULIN) SEE PROTOCOL TABLE QHS ND 01/27/21 21:00 02/01/21 22:03 DC Insulin Human Lispro (HumaLOG INSULIN) See Protocol Table Q6H SC 02/02/21 00:00 02/08/21 06:15 Levofloxacin 750 mg/IV Miscellaneous Supplies 150 ml @ 100 mls/hr Q24H IV 02/01/21 18:00 02/04/21 11:49 DC 02/03/21 17:46 Lidocaine/ Diphenhydr/Alum/ Mg/Simeth (Magic Mouthwash) 5ML ACHS SSP 01/28/21 17:30 02/08/21 09:04 Losartan Potassium (Cozaar) 50 mg BID PEG 02/03/21 21:00 02/08/21 09:05 Losartan Potassium (Cozaar) 50 mg BID PO 02/01/21 21:00 02/03/21 19:43 DC 02/03/21 08:42 Losartan Potassium (Cozaar) 50 mg DAILY PO 01/28/21 09:00 02/01/21 17:30 DC 02/01/21 08:00 Metoprolol Tartrate (Lopressor) 25 mg BID PO 01/27/21 21:00 01/28/21 15:08 DC 01/28/21 10:19 Metoprolol Tartrate (Lopressor) 50 mg BID PO 01/28/21 21:00 01/31/21 11:22 DC 01/31/21 09:57 Metoprolol Tartrate (Lopressor) 50 mg Q8H PEG 02/03/21 22:00 02/07/21 20:21 DC 02/07/21 14:50 Metoprolol Tartrate (Lopressor) 50 mg Q8H PO 01/31/21 14:00 02/03/21 19:44 DC 02/03/21 06:03 Metoprolol Tartrate (Lopressor) 75 mg Q8H PEG 02/07/21 22:00 02/08/21 06:17 Omeprazole (First-Omeprazole ORAL SUSPENSION) 40 mg BID GT 02/03/21 21:00 02/08/21 09:04 Pantoprazole Sodium (Protonix) 40 mg DAILY PO 01/28/21 09:00 01/31/21 15:02 DC 01/31/21 09:55 Rivaroxaban (Xarelto) 2.5 mg BID PEG 02/07/21 21:00 02/08/21 09:05 Saliva Substitute (Mouthkote) 2 sprays QID MT 02/02/21 13:00 02/08/21 09:06 Senna (Senokot) 1 tab QHS PO 01/27/21 21:00 01/31/21 15:02 DC 01/30/21 21:15 Simvastatin (Zocor) 80 mg QHS PEG 02/03/21 21:00 02/07/21 22:51 Simvastatin (Zocor) 80 mg QHS PO 01/27/21 21:00 02/03/21 19:44 DC 02/02/21 21:19 Sitagliptin Phosphate (Januvia) 25 mg DAILY PO 01/28/21 09:00 01/31/21 14:38 DC 01/31/21 09:55 Sucralfate (Carafate Suspension) 1 gm Q6H PEG 02/04/21 00:00 02/08/21 06:15 Tamsulosin HCl (Flomax) 0.4 mg QHS PO 01/27/21 21:00 02/03/21 20:16 DC 02/02/21 21:19 ORTEGA LEMA MD February 08, 2021 10:18
[2021-02-08 14:00] VITALS: BP 178/74
--- NOTE | 2021-02-08 15:07 | ECGEPIP ---
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 Electronically Signed on 02-08-2021 15:07:48 EDT by Mike Castillo
[2021-02-08] MEDS: SIMVASTATIN 40 MG TAB PEG SCH (21:06)
[2021-02-08 22:00] VITALS: BP 168/76
[2021-02-09] MEDS: **hydrALAZINE HCL** 25 MG TAB PEG SCH ×4 (00:24→19:43)
[2021-02-09] MEDS: SUCRALFATE SUSP 1GM/10ML UD PEG SCH ×4 (00:24→19:40)
[2021-02-09] MEDS: HumaLOG INSULIN (NovoLOG) PER UNIT SC SCH ×4 (00:25→19:40)
[2021-02-09] MEDS: METOPROLOL TART 25 MG TABLET PEG SCH ×3 (05:50→21:51)
[2021-02-09 06:27] VITALS: BP 148/60
[2021-02-09 07:03] LABS: BASO % 0.4 % (0.0-1.0); EOS # 0.3 10^3/uL (0.0-0.5); EOS % 2.8 % (0.0-3.0); HEMATOCRIT 35.4 % (42.0-52.0); HEMOGLOBIN 11.2 g/dl (13.5-17.5); LYMPH # 1.3 10^3/uL (1.5-5.0); LYMPH % 12.3 % (24.0-44.0); MEAN CORPUSCULAR HEMOGLOBIN 29.6 pg (27.0-33.0); MEAN CORPUSCULAR HGB CONC 31.6 g/dl (32.0-36.5); MEAN CORPUSCULAR VOLUME 93.7 fl (80.0-96.0); MONO # 1.4 10^3/uL (0.0-0.8); MONO % 12.9 % (2.0-8.0); NEUTROPHILS # 7.6 10^3/uL (1.5-8.5); NEUTROPHILS % 70.1 % (36.0-66.0); PLATELET COUNT, AUTOMATED 251 10^3/uL (150-450); RED BLOOD COUNT 3.78 10^6/uL (4.30-6.10); WHITE BLOOD COUNT 10.8 10^3/uL (4.0-10.0)
[2021-02-09] MEDS: COMBIVENT RESPIMAT 100-20MCG INHALER 4GM INH SCH ×3 (07:03→20:01)
[2021-02-09 07:22] LABS: BLOOD UREA NITROGEN 15 MG/DL (7-18); CALCIUM LEVEL 8.8 MG/DL (8.8-10.2); CARBON DIOXIDE LEVEL 32 MEQ/L (21-32); CHLORIDE LEVEL 99 MEQ/L (98-107); CREATININE FOR GFR 0.66 MG/DL (0.70-1.30); GLOMERULAR FILTRATION RATE > 60.0 (>42); GLUCOSE, FASTING 214 MG/DL (70-100); POTASSIUM SERUM 4.1 MEQ/L (3.5-5.1); SODIUM LEVEL 137 MEQ/L (136-145)
[2021-02-09] MEDS: MAGIC MOUTHWASH SUSPENSION BTL SSP SCH ×4 (07:30→21:52)
--- NOTE | 2021-02-09 09:04 | CR ---
CONSULTATION DATE: 02/08/2021 REASON FOR CONSULTATION: Stroke. HISTORY OF PRESENT ILLNESS: Mike Stanton is a 75-year-old man who had a stroke in 2008 and history of seizures who had presented to [facility] on 01/25/2021, with difficulty walking, confusion, and dysarthria. He was found to have acute small vessel infarct affecting the right basal ganglia and centrum semiovale, which was [address] angiography of the head showed severe stenosis of the left posterior cerebral artery, right vertebral artery, severe right and moderate left MCA stenosis. CTA of the neck showed 70% stenosis of the left internal carotid artery. The patient was started on aspirin and Plavix with statin. The patient was later transferred to acute rehab unit. He was noted to have leaning towards the left side during physical therapy. Repeat MRI scan of the brain showed a new right-sided rodriguez radiata ischemic stroke 2.3 cm in size. When I saw the patient, he appeared to have dysarthria and left-sided upper motor neuron type facial weakness with slowing of movements of the left side. The patient was unable to provide any reasonable history. He appeared slightly drowsy with dysarthria. He denied any headaches, neck, or back pain. DIAGNOSTIC STUDIES: New MRI scan of the brain and CTA of the head and neck were reviewed and are described above. His CBC showed WBCs were 18.2, which had increased to 13.2, hematocrit 35.3 with normal metabolic profile. CRP was 9.57 and ESR was 39. PAST MEDICAL HISTORY: 1. Stroke. 2. Diabetes with neuropathy. 3. Hypertension. 4. Dyslipidemia. 5. Acid reflux. HOME MEDICATIONS: 1. Aspirin 81 mg p.o. daily. 2. Plavix 75 mg p.o. daily. 3. Carbamazepine extended release 200 mg p.o. b.i.d. 4. Colace 100 mg p.o. b.i.d. 5. Cymbalta 30 mg p.o. b.i.d. 6. Losartan 50 mg p.o. daily. 7. Metformin 500 mg p.o. b.i.d. 8. Metoprolol 25 mg p.o. b.i.d. 9. Protonix 40 mg p.o. daily. 10. Simvastatin 40 mg p.o. daily. 11. Flomax 0.4 mg p.o. daily. 12. Januvia 100 mg p.o. daily. ALLERGIES: None. FAMILY HISTORY: Unremarkable and non-contributory. REVIEW OF SYSTEMS: Could not be obtained. PHYSICAL EXAMINATION: VITAL SIGNS: Temperature 98.2, pulse 73, respiratory rate 18, blood pressure 170/74, 96% saturation on room air. HEART: Regular rate and rhythm. LUNGS: Clear to auscultation. ABDOMEN: Soft, nontender, and nondistended. EXTREMITIES: No pedal edema. No musculoskeletal abnormalities. SKIN: No rash. NEUROLOGIC: The patient is drowsy, but arousable. He has dysarthria of speech. Memory could not be assessed. He was able to follow one or two-step commands. He has left-sided neglect. Strength in his left arm and leg is 4+/5. He has slowing of rapid single movements. Left plantars upgoing. Right-sided strength is 5/5. He has left-sided upper motor neuron type facial weakness. Face is symmetric with no facial weakness. Gait was not tested. ASSESSMENT: 1. Right rodriguez radiata acute ischemic stroke with recent right basal ganglia and centrum semiovale ischemic stroke. 2. Moderate-severe multivessel intracranial stenosis. 3. 70% left internal carotid artery stenosis. 4. Hypertension. 5. Dyslipidemia. 6. Diabetes. PLAN: 1. I recommended to discontinue the Plavix and add Xarelto 2.5 mg p.o. b.i.d. and continue aspirin 81 mg p.o. daily. 2. Continue simvastatin 40 mg p.o. daily. 3. Allow permissive hypertension and keep systolic blood pressure below 180 and diastolic blood pressure below 100. 4. Physical and occupational therapy. 5. MRA brain and neck. Check ANCA, Sjogren's, AMV antibody, LUCIO. He has mildly elevated WBC, CRP, ESR. He likely has chronic atherosclerotic multivessel stenosis in several intracranial vessels. My index of suspicion for MANAGER NET vasculitis is low. He has diabetes, hypertension, and dyslipidemia as risk factors for his strokes.
--- NOTE | 2021-02-09 09:36 | IPNPDOC ---
PM&R Progress Note DATE OF SERVICE: February 09, 2021 Mental Health Coordinator Progress Note Subjective: Pateint seen in his able to help maneuver himself around in bed, appearing comfortable. REVIEW OF SYSTEMS: The following is a completed review of systems and has been reviewed. Review of systems otherwise unremarkable. PAIN: Patient self reports no pain EYES: No recent vision changes, + left eye strabismus (chronic) EARS, NOSE, & THROAT: +dysphagia CARDIOVASCULAR: Denies chest pain or palpitations PULMONARY: Denies shortness of breath GASTROINTESTINAL: Denies constipation/diarrhea GENITOURINARY: denies dysuria MUSCULOSKELETAL: generalized weakness NEUROLOGICAL:+ aphasia HEMATOLOGICAL: denies easy bruising SKIN: intact PSYCHIATRIC: Unremarkable All other review of systems found to be negative. PHYSICAL EXAMINATION: VITAL SIGNS: Please see below. GENERAL: Pleasant and cooperative. No acute distress. HEENT: PERRL. Clear conjunctiva, + left eye strabismus, +tongue deviation to left CARDIOVASCULAR: Regular rate and rhythm. No murmurs, rubs, or gallops LUNGS: Clear to auscultation bilaterally. No wheezes. ABDOMEN: Soft, nontender, nondistended. Positive bowel sounds. Normal active bowel sounds, + PEG NEUROLOGICAL: Sensation grossly intact, able to follow commands, +expressive aphasia, able to cross midline follows commands consistently EXTREMITIES: 5\\5 strength bilateral upper extremities. 5\\5 strength right lower extremity. 5/5 strength in left lower extremity. ASSESSMENT:75-year-old M with past medical history of CVA/TIA who presents status post new strokes with right sided paresis PLAN: 1. Rehab- PT/OT advance mobility and ADL, evaluate need for AFO, strengthen/stretch/maintain ROM all 4 limbs -BLOCK CAPTAIN- cog and swallow eval for stroke related dysphagia- [facility] 01-31-21- patient made NPO due to severe oral phase dysphagia 2. Neuro- hx of TIA with new right sided basal ganglia infarct with Near occlusion of the left [employer] [place] P1 segment, stable..Severe right vertebral artery stenosis with distal occlusionFoci of severe right MCA M2 and M3 stenosisModerate left MCA M1 stenosis."- c/u ASA, plavix, and statin, CTH orde red 02-02-21 due to increased leaning to left in therapy- no acute bleed or new infarct seen, no new focal weakness on exam, patient appearing more fatigued with decline in therapy MRI 02-07-21, showing acute right rodriguez radiata ischemic infarct- spoke with Dr. Dean who recommended ASA and Xarelto 2.5mg BID (instead of plavix) for multivessel disease, formal consult placed - recs and assistance appreciated -tapering home dose of cymbalta as may be contributing to patient's fatigue, will start low dose provigil to improve daytime arousal and partipication in therapy, discussed decision with who understands risks, will monitor for seizure activity -seizure d/o continue tegretol- levels WNL -f/u neuro as outpatient 3. CArdiac- hx of HTN- c/u BP med, c/u to adjust, permissive HTN post-stroke -HLD- c/u statin 4. Resp- monitor for infection, aspiration precautions in setting of dysphagia -CXR negative for infiltrate and f/u CT chest 02-01-21 and 02-03-21 negative for in filtrates- ordered due to concern for aspiration and leukocytosis- c/u combivent and HOB 30 degrees, patient breathing comfortably, no cough 5. Endo- hx of DM c/u ISS and januvia (holding now that NPO), switch jevity to glucerna for elevated FS 6. GI ppx- protonix 7. DVT ppx- Lovenox 8. Pain- tylenol prn 9. hx of BPH- unable to administer floamx via peg, patient with incontinence and retention on today's bladder scan, will start Naqvi- decision discussed with who understands -UA+ however Ucx negative, s/p course of IV Levaquin 10. Nutrition- s/p PEG 02-03-[address] Bazan, recs and care appreciated- patient tolerating feeds, 11. Leukocytosis- unclear etiology, repeat CT chest 02-03-21 negative for infiltrate and CT abdomen/pelvis negative as well- ID consulted for further a ssistance, patient off abx and leukocytosis trending down, he remains afebrile with no signs of infection 12. Dispo- goal to home 02-15-21, will need extensive family training and possible extension of stay due to functional decline from new stroke Allergies Coded Allergies: No Known Allergies (Verified , 09/22/19) Vital Signs Vital Signs Date Time Temp Pulse Resp B/P (MAP) Pulse Ox O2 Delivery O2 Flow Rate FiO2 02/09/21 06:27 97.9 69 18 148/60 (89) 93 Room Air Laboratory Data CBC/BMP Laboratory Tests 02/09/21 06:26 Labs 24H Laboratory Tests 2 02/08/21 11:31: Bedside Glucose (Misc Panel) 205H 02/08/21 16:29: Bedside Glucose (Misc Panel) 179H 02/09/21 00:09: Bedside Glucose (Misc Panel) 202H 02/09/21 05:26: Bedside Glucose (Misc Panel) 205H 02/09/21 06:26: Immature Granulocyte % (Auto) 1.5, Neutrophils (%) (Auto) 70.1H, Lymphocytes (%) (Auto) 12.3L, Monocytes (%) (Auto) 12.9H, Eosinophils (%) (Auto) 2.8, Basophils (%) (Auto) 0.4, Neutrophils # (Auto) 7.6, Lymphocytes # (Auto) 1.3L, Monocytes # (Auto) 1.4H, Eosinophils # (Auto) 0.3, Basophils # (Auto) 0.0, Nucleated Red Blood Cells % (auto) 0.0, Anion Gap 6L, Glomerular Filtration Rate > 60.0, Calcium Level 8.8 Microbiology Microbiology 02/01/21 Urine Culture - Final, Complete 02/01/21 Blood Culture - Final, Complete NO GROWTH AFTER 5 DAYS 02/01/21 Blood Culture - Final, Complete NO GROWTH AFTER 5 DAYS Current Medications Current Medications Current Medications Medications (Trade) Dose Ordered Sig/Praful Route PRN Reason Start Time Stop Time Status Last Admin Dose Admin Acetaminophen (Tylenol Suspension) 650 mg Q4HP PRN PEG fever/MILD PAIN (PS 1-4) 02/03/21 19:35 02/07/21 05:59 Acetaminophen (Tylenol Tab) 650 mg Q4HP PRN PO fever/MILD PAIN (PS 1-4) 01/27/21 17:20 02/03/21 19:35 DC 02/03/21 17:44 Acetaminophen 650 mg/IV Miscellaneous Supplies 65 ml @ 260 mls/hr TID IV 02/03/21 21:00 02/03/21 17:40 DC Albuterol/ Ipratropium (Combivent Respimat 100-20mcg) 1 puff RTID INH 01/28/21 20:00 02/09/21 07:03 Albuterol/ Ipratropium (Combivent Respimat 100-20mcg) 1 puff TID INH 01/28/21 16:00 02/01/21 08:21 DC 01/31/21 19:57 Aspirin (Aspirin Chewable) 81 mg DAILY PEG 02/04/21 09:00 02/08/21 09:06 Aspirin (Aspirin Chewable) 81 mg DAILY PO 02/04/21 09:00 02/03/21 19:36 DC Aspirin (Ecotrin) 81 mg DAILY PO 01/28/21 09:00 02/03/21 16:57 DC 02/02/21 08:25 Bisacodyl (Dulcolax Suppository) 10 mg DAILYPRN PRN AR CONSTIPATION 01/27/21 17:20 02/02/21 23:32 Carbamazepine (TEGretol SUSPENSION) 200 mg BID PEG 02/03/21 21:00 02/08/21 21:12 Carbamazepine (TEGretol XR) 200 mg BID PO 01/27/21 21:00 02/03/21 19:28 DC 02/02/21 21:19 Clopidogrel Bisulfate (PLAVix) 75 mg DAILY PEG 02/04/21 09:00 02/07/21 22:49 DC 02/07/21 08:57 Clopidogrel Bisulfate (PLAVix) 75 mg DAILY PO 01/28/21 09:00 02/03/21 19:36 DC 02/03/21 08:42 Dextrose (Dextrose 50%) 25 ml ASDIRECTED PRN IV SEE LABEL COMMENTS 01/27/21 17:20 Cancel Dextrose (Dextrose 50%) 25 ml ASDIRECTED PRN IV SEE LABEL COMMENTS 02/01/21 22:05 Dextrose/Sodium Chloride 1,000 ml @ 60 mls/hr [id number] IV 02/01/21 17:30 02/01/21 17:35 DC Dextrose/Sodium Chloride 1,000 ml @ 60 mls/hr [id number] IV 02/02/21 04:09 02/02/21 20:48 DC 02/02/21 03:59 Docusate Sodium (Colace) 100 mg BID PO 01/27/21 21:00 01/31/21 15:02 DC 01/31/21 09:55 Duloxetine HCl (Cymbalta) 20 mg BID XX 02/09/21 09:00 Duloxetine HCl (Cymbalta) 30 mg BID PO 01/27/21 21:00 02/03/21 19:40 DC 02/02/21 21:19 Duloxetine HCl (Cymbalta) 30 mg BID XX 02/03/21 21:00 02/08/21 22:58 DC 02/08/21 21:06 Enoxaparin Sodium (Lovenox) 40 mg DAILY SC 01/28/21 09:00 02/07/21 23:06 DC 02/07/21 08:58 Furosemide (Lasix) 20 mg DAILY PEG 02/08/21 09:00 02/08/21 23:00 DC 02/08/21 09:05 Furosemide (Lasix) 40 mg DAILY PEG 02/09/21 09:00 Glucagon (Glucagon) 1 mg ASDIRECTED PRN SC SEE LABEL COMMENTS 01/27/21 17:20 Cancel Glucagon (Glucagon) 1 mg ASDIRECTED PRN SC SEE LABEL COMMENTS 02/01/21 22:05 Glucose (Glucose) 16 GM ASDIRECTED PRN PO SEE LABEL COMMENTS 01/27/21 17:20 Cancel Glucose (Glucose) 16 GM ASDIRECTED PRN PO SEE LABEL COMMENTS 02/01/21 22:05 Guaifenesin (Robitussin Tab) 400 mg TID PEG 02/03/21 21:00 02/08/21 21:06 Guaifenesin (Robitussin Tab) 400 mg TID PO 01/28/21 16:00 02/03/21 19:41 DC 02/03/21 17:44 Hydralazine HCl (Apresoline) 25 mg Q6H PO 01/27/21 18:00 02/01/21 11:24 DC 02/01/21 06:00 Hydralazine HCl (Apresoline) 50 mg Q6H PEG 02/04/21 00:00 02/09/21 05:48 Hydralazine HCl (Apresoline) 50 mg Q6H PO 02/01/21 12:00 02/03/21 19:42 DC 02/03/21 17:45 Insulin Human Lispro (HumaLOG INSULIN) SEE PROTOCOL TABLE AC SC 01/27/21 17:30 02/01/21 22:03 DC 02/01/21 18:35 Insulin Human Lispro (HumaLOG INSULIN) SEE PROTOCOL TABLE QHS SC 01/27/21 21:00 02/01/21 22:03 DC Insulin Human Lispro (HumaLOG INSULIN) See Protocol Table Q6H SC 02/02/21 00:00 02/09/21 05:50 Levofloxacin 750 mg/IV Miscellaneous Supplies 150 ml @ 100 mls/hr Q24H IV 02/01/21 18:00 02/04/21 11:49 DC 02/03/21 17:46 Lidocaine/ Diphenhydr/Alum/ Mg/Simeth (Magic Mouthwash) 5ML ACHS SSP 01/28/21 17:30 02/08/21 21:12 Losartan Potassium (Cozaar) 50 mg BID PEG 02/03/21 21:00 02/08/21 21:11 Losartan Potassium (Cozaar) 50 mg BID PO 02/01/21 21:00 02/03/21 19:43 DC 02/03/21 08:42 Losartan Potassium (Cozaar) 50 mg DAILY PO 01/28/21 09:00 02/01/21 17:30 DC 02/01/21 08:00 Metoprolol Tartrate (Lopressor) 25 mg BID PO 01/27/21 21:00 01/28/21 15:08 DC 01/28/21 10:19 Metoprolol Tartrate (Lopressor) 50 mg BID PO 01/28/21 21:00 01/31/21 11:22 DC 01/31/21 09:57 Metoprolol Tartrate (Lopressor) 50 mg Q8H PEG 02/03/21 22:00 02/07/21 20:21 DC 02/07/21 14:50 Metoprolol Tartrate (Lopressor) 50 mg Q8H PO 01/31/21 14:00 02/03/21 19:44 DC 02/03/21 06:03 Metoprolol Tartrate (Lopressor) 75 mg Q8H PEG 02/07/21 22:00 02/09/21 05:50 Omeprazole (First-Omeprazole ORAL SUSPENSION) 40 mg BID GT 02/03/21 21:00 02/08/21 21:11 Pantoprazole Sodium (Protonix) 40 mg DAILY PO 01/28/21 09:00 01/31/21 15:02 DC 01/31/21 09:55 Rivaroxaban (Xarelto) 2.5 mg BID PEG 02/07/21 21:00 02/08/21 21:10 Saliva Substitute (Mouthkote) 2 sprays QID MT 02/02/21 13:00 02/08/21 21:13 Senna (Senokot) 1 tab QHS PO 01/27/21 21:00 01/31/21 15:02 DC 01/30/21 21:15 Simvastatin (Zocor) 80 mg QHS PEG 02/03/21 21:00 02/08/21 21:06 Simvastatin (Zocor) 80 mg QHS PO 01/27/21 21:00 02/03/21 19:44 DC 02/02/21 21:19 Sitagliptin Phosphate (Januvia) 25 mg DAILY PO 01/28/21 09:00 01/31/21 14:38 DC 01/31/21 09:55 Sucralfate (Carafate Suspension) 1 gm Q6H PEG 02/04/21 00:00 02/09/21 05:48 Tamsulosin HCl (Flomax) 0.4 mg QHS PO 01/27/21 21:00 02/03/21 20:16 DC 02/02/21 21:19 ORTEGA LEMA MD February 09, 2021 09:36
[2021-02-09 10:00] VITALS: BP 167/82
[2021-02-09] MEDS: SALIVA SUBSTITUTE(MOUTHKOTE) BTL MT SCH ×4 (10:02→21:53)
[2021-02-09] MEDS: OMEPRAZOLE SUSPENSION 20MG 10ML ORAL SYRINGE GT SCH ×2 (10:03→21:50)
[2021-02-09] MEDS: DULoxetine 20 MG CAP (CYMBALTA) XX SCH ×2 (10:03→21:52)
[2021-02-09] MEDS: FUROSEMIDE 40 MG TAB PEG SCH (10:03)
[2021-02-09] MEDS: ASPIRIN 81 MG CHEW TABLET PEG SCH (10:03)
[2021-02-09] MEDS: guaiFENesin 200 MG TAB PEG SCH ×3 (10:03→21:51)
[2021-02-09] MEDS: RIVAROXABAN 10 MG TAB (XARELTO) PEG SCH ×2 (10:04→21:52)
[2021-02-09] MEDS: LIDOCAINE 5% (LIDODERM) PATCH TD SCH (10:06)
[2021-02-09] MEDS: LOSARTAN 50MG TABLET PEG SCH ×2 (10:07→21:52)
[2021-02-09] MEDS: ACETAMINOPHEN 325 MG TAB PEG SCH ×3 (10:13→21:52)
[2021-02-09] MEDS: REMEDY PHYTOPLEX Z-GUARD PASTE 113GM TUBE (FROM STOREROOM PRODUCT) TOP SCH ×3 (10:13→19:41)
[2021-02-09 12:00] VITALS: BP 164/72
[2021-02-09] MEDS: carBAMazepine 100MG 5ML SUSP ORAL SYRINGE *DRAW UP EXACT DOSE PEG SCH ×2 (12:19→21:57)
[2021-02-09] MEDS: hydroCHLOROthiazide 12.5 MG CAPSULE PEG SCH (13:25)
[2021-02-09] MEDS: MODAFINIL 100 MG TABLET PEG SCH (13:26)
[2021-02-09 14:00] VITALS: BP 159/77
[2021-02-09] MEDS: NYSTATIN 100,000 UNITS/GM TOPICAL PWD 15 GM TOP SCH ×2 (16:41→21:53)
[2021-02-09 19:40] VITALS: BP 154/72
[2021-02-09 20:00] VITALS: BP 154/72
[2021-02-09] MEDS: **NOTE PATIENT COMMENT** MISC XX SCH (21:00)
--- NOTE | 2021-02-09 21:22 | REPVR ---
PROCEDURE INFORMATION: Exam: MRA Neck Without Contrast Exam date and time: 02/09/2021 7:14 PM Age: 75 years old Clinical indication: Condition or disease; Patient HX: CVA, mri brain without on pacs 02/09/21; Additional info: Stroke TECHNIQUE: Imaging protocol: Magnetic resonance angiography of the neck without contrast. COMPARISON: CT ANGIO NECK 01/25/2021 11:59 PM FINDINGS: Right common carotid artery: No significant stenosis or occlusion. Right internal carotid artery: Extracranial segment is patent without evidence of hemodynamically significant stenosis. Right external carotid artery: Unremarkable. Right vertebral artery: Poor flow related enhancement within the V3 segment of a generalized small caliber right vertebral artery. Left common carotid artery: No significant stenosis or occlusion. Left internal carotid artery: Extracranial segment is patent without evidence of hemodynamically significant stenosis. Left external carotid artery: Unremarkable. Left vertebral artery: No significant stenosis or occlusion. IMPRESSION: Poor flow related enhancement within the V3 segment of a generalized small caliber right vertebral artery, to which severe stenosis and/or occlusion cannot be excluded. Recommend correlation with CTA neck. REFERENCES: NASCET CRITERIA. The degree of internal carotid artery stenosis is based on NASCET criteria. Normal is no stenosis. Mild is less than 50% stenosis. Moderate is 50-69% stenosis. Severe is 70% to 99% stenosis. Total occlusion is no detectable patent lumen. Electronically signed by: Lincoln Krishnan On 02/09/2021 21:21:47 PM
--- NOTE | 2021-02-09 21:40 | REPVR ---
PROCEDURE INFORMATION: Exam: MRA Head Without Contrast; Arteriography Exam date and time: 02/09/2021 7:14 PM Age: 75 years old Clinical indication: Condition or disease; Patient HX: CVA, mri brain without on pacs 02/09/21; Additional info: Stroke TECHNIQUE: Imaging protocol: Magnetic resonance angiography head without contrast. Exam focused on the arteries. COMPARISON: MRA BRAIN W/O CONTRAST 01/25/2021 9:45 PM FINDINGS: ANTERIOR CIRCULATION: Right internal carotid artery: Intracranial segment is patent with no significant stenosis. No aneurysm. Right middle cerebral artery: Possible short segment severe stenosis of a posterior right M2 branch, though evaluation is slightly limited by motion artifact. Right anterior cerebral artery: No occlusion or significant stenosis. No aneurysm. Left internal carotid artery: Intracranial left internal carotid artery is patent. 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 Left middle cerebral artery: Multifocal areas of short segment mild and moderate stenosis throughout the left MCA branches. Short segment mild stenosis of the distal left M1. Left anterior cerebral artery: Short segment moderate stenosis of the ascending left A2 branch. POSTERIOR CIRCULATION: Right vertebral artery: Severe stenosis/occlusion of the mid intracranial right vertebral artery. Left vertebral artery: No occlusion or significant stenosis. No aneurysm. Basilar artery: No occlusion or significant stenosis. No aneurysm. Right posterior cerebral artery: Short segment moderate stenosis of the mid right [employer]. Left posterior cerebral artery: Multifocal areas of moderate to severe stenosis in the left [employer], and possibly occlusion in the midportion. IMPRESSION: 1. Possible short segment severe stenosis of a posterior right M2 branch, though evaluation is slightly limited by motion artifact. Correlate with CTA. 2. Severe stenosis/occlusion of the mid intracranial right vertebral artery. 3. 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 4. Other areas of intracranial arterial stenosis, as detailed above. Electronically signed by: Lincoln Krishnan On 02/09/2021 21:39:38 PM
[2021-02-09] MEDS: SIMVASTATIN 40 MG TAB PEG SCH (21:51)
--- NOTE | 2021-02-09 22:20 | IPNPDOC ---
Text Note Date of Service The patient was seen on 02/09/21. NOTE I discussed the results of the MRA (4mm aneurysm) with and . We do not need to make any acute changes to the patient's care tonight. The patient can follow up with a Neurosurgeon, on an out patient basis, at a later date. VS,Fishbone, I+O VS, Fishbone, I+O Laboratory Tests 02/09/21 06:26 Vital Signs Date Time Temp Pulse Resp B/P (MAP) Pulse Ox O2 Delivery O2 Flow Rate FiO2 02/09/21 21:51 68 154/72 02/09/21 20:00 97.2 17 97 Room Air I&O- Last 24 Hours up to 6 AM 02/09/21 06:00 Intake Total 4378 ml Output Total 75 ml Balance 4303 ml TRES ANDERSON MD February 09, 2021 22:20
[2021-02-10] MEDS: SUCRALFATE SUSP 1GM/10ML UD PEG SCH ×4 (00:06→18:11)
[2021-02-10] MEDS: HumaLOG INSULIN (NovoLOG) PER UNIT SC SCH ×4 (00:07→18:13)
[2021-02-10] MEDS: REMEDY PHYTOPLEX Z-GUARD PASTE 113GM TUBE (FROM STOREROOM PRODUCT) TOP SCH ×4 (00:14→18:14)
[2021-02-10 05:05] VITALS: BP 163/71
[2021-02-10 05:38] VITALS: BP 152/74
[2021-02-10] MEDS: **hydrALAZINE HCL** 25 MG TAB PEG SCH ×4 (05:44→18:12)
[2021-02-10] MEDS: METOPROLOL TART 25 MG TABLET PEG SCH ×3 (05:44→21:28)
[2021-02-10] MEDS: COMBIVENT RESPIMAT 100-20MCG INHALER 4GM INH SCH ×3 (07:11→19:38)
[2021-02-10] MEDS: MAGIC MOUTHWASH SUSPENSION BTL SSP SCH ×4 (09:03→21:30)
[2021-02-10] MEDS: OMEPRAZOLE SUSPENSION 20MG 10ML ORAL SYRINGE GT SCH ×2 (09:03→21:25)
[2021-02-10] MEDS: LIDOCAINE 5% (LIDODERM) PATCH TD SCH (09:04)
[2021-02-10] MEDS: ACETAMINOPHEN 325 MG TAB PEG SCH ×3 (09:04→21:30)
[2021-02-10] MEDS: ASPIRIN 81 MG CHEW TABLET PEG SCH (09:04)
[2021-02-10] MEDS: FUROSEMIDE 40 MG TAB PEG SCH (09:04)
[2021-02-10] MEDS: guaiFENesin 200 MG TAB PEG SCH ×3 (09:04→21:29)
[2021-02-10] MEDS: RIVAROXABAN 10 MG TAB (XARELTO) PEG SCH ×2 (09:04→21:27)
[2021-02-10] MEDS: LOSARTAN 50MG TABLET PEG SCH ×2 (09:05→21:28)
[2021-02-10] MEDS: carBAMazepine 100MG 5ML SUSP ORAL SYRINGE *DRAW UP EXACT DOSE PEG SCH ×2 (09:05→21:25)
[2021-02-10] MEDS: MODAFINIL 100 MG TABLET PEG SCH (09:05)
[2021-02-10] MEDS: hydroCHLOROthiazide 12.5 MG CAPSULE PEG SCH (09:05)
[2021-02-10] MEDS: DULoxetine 20 MG CAP (CYMBALTA) XX SCH ×2 (09:05→21:27)
[2021-02-10] MEDS: NYSTATIN 100,000 UNITS/GM TOPICAL PWD 15 GM TOP SCH ×3 (09:06→21:30)
[2021-02-10] MEDS: SALIVA SUBSTITUTE(MOUTHKOTE) BTL MT SCH ×4 (09:06→21:30)
--- NOTE | 2021-02-10 10:17 | IPNPDOC ---
PM&R Progress Note DATE OF SERVICE: February 10, 2021 Sr Account Executive Progress Note Subjective: Patient seen in therapy able to get up and walk short distances, with continued lean to the left, able to correct with cueing. He denies having pain, fevers, or chills. REVIEW OF SYSTEMS: The following is a completed review of systems and has been reviewed. Review of systems otherwise unremarkable. PAIN: Patient self reports no pain EYES: No recent vision changes, + left eye strabismus (chronic) EARS, NOSE, & THROAT: +dysphagia CARDIOVASCULAR: Denies chest pain or palpitations PULMONARY: Denies shortness of breath GASTROINTESTINAL: Denies constipation/diarrhea GENITOURINARY: denies dysuria MUSCULOSKELETAL: generalized weakness NEUROLOGICAL:+ aphasia HEMATOLOGICAL: denies easy bruising SKIN: intact PSYCHIATRIC: Unremarkable All other review of systems found to be negative. PHYSICAL EXAMINATION: VITAL SIGNS: Please see below. GENERAL: Pleasant and cooperative. No acute distress. HEENT: PERRL. Clear conjunctiva, + left eye strabismus, +tongue deviation to left CARDIOVASCULAR: Regular rate and rhythm. No murmurs, rubs, or gallops LUNGS: Clear to auscultation bilaterally. No wheezes. ABDOMEN: Soft, nontender, nondistended. Positive bowel sounds. Normal active bowel sounds, + PEG NEUROLOGICAL: Sensation grossly intact, able to follow commands, +expressive aphasia, able to cross midline follows commands consistently EXTREMITIES: 5\\5 strength bilateral upper extremities. 5\\5 strength right lower extremity. 5/5 strength in left lower extremity. ASSESSMENT:75-year-old M with past medical history of CVA/TIA who presents status post new strokes with right sided paresis PLAN: 1. 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 Neuro- hx of TIA with admitted to ARU for new right sided basal ganglia infarct with Near occlusion of the left GEOTECHNICAL INTERN P1 segment, stable..Severe right vertebral artery stenosis with distal occlusionFoci of severe right MCA M2 and M3 stenosisModerate left MCA M1 stenosis." however CTH ordered 02-02-21 due to increased leaning to left in therapy- no acute bleed or new infarct seen, however MRI 02-07-21, showing "acute right rodriguez radiata ischemic infarct"- spoke with Dr. 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 CArdiac- hx of HTN- c/u BP med, c/u to adjust, permissive HTN post-stroke -HLD- c/u statin 4. Resp- monitor for infection, aspiration precautions in setting of dysphagia -CXR negative for infiltrate and f/u CT chest 02-01-21 and 02-03-21 negative for infiltrates- ordered due to concern for aspiration and leukocytosis- c/u combivent and HOB 30 degrees, patient breathing comfortably, no cough 5. Endo- hx of DM c/u ISS and januvia (holding now that NPO), switched jevity to glucerna for elevated FS 6. GI ppx- protonix 7. DVT ppx- Lovenox 8. Pain- tylenol prn 9. hx of BPH- unable to administer Flomax via peg, patient with incontinence and retention on today's bladder scan, will start Naqvi- decision discussed with who understands -UA+ however Ucx negative, s/p course of IV Levaquin 10. Nutrition- s/p PEG 02-03-[address] Bazan, recs and care appreciated- patient tolerating feeds, 11. Leukocytosis- unclear etiology, repeat CT chest 02-03-[address] negative for infiltrate and CT abdomen/pelvis negative as well- ID consulted for further assistance, patient off abx and leukocytosis trending down, he remains afebrile with no signs of infection 12. Dispo- goal to home 02-15-21, will need extensive family training and possible extension of stay due to functional decline from new stroke Allergies Coded Allergies: No Known Allergies (Verified , 09/22/19) Vital Signs Vital Signs Date Time Temp Pulse Resp B/P (MAP) Pulse Ox O2 Delivery O2 Flow Rate FiO2 02/10/21 09:05 147/69 02/10/21 05:44 71 02/10/21 05:05 96.7 19 95 Room Air Laboratory Data Labs 24H Laboratory Tests 2 02/09/21 11:55: Bedside Glucose (Misc Panel) 200H 02/09/21 18:07: Bedside Glucose (Misc Panel) 223H 02/09/21 23:41: Bedside Glucose (Misc Panel) 210H 02/10/21 05:31: Bedside Glucose (Misc Panel) 210H Microbiology Microbiology 02/01/21 Urine Culture - Final, Complete 02/01/21 Blood Culture - Final, Complete NO GROWTH AFTER 5 DAYS 02/01/21 Blood Culture - Final, Complete NO GROWTH AFTER 5 DAYS Current Medications Current Medications Current Medications Medications (Trade) Dose Ordered Sig/Praful Route PRN Reason Start Time Stop Time Status Last Admin Dose Admin Acetaminophen (Tylenol Suspension) 650 mg Q4HP PRN PEG fever/MILD PAIN (PS 1-4) 02/03/21 19:35 02/09/21 09:38 DC 02/07/21 05:59 Acetaminophen (Tylenol Tab) 650 mg Q4HP PRN PO fever/MILD PAIN (PS 1-4) 01/27/21 17:20 02/03/21 19:35 DC 02/03/21 17:44 Acetaminophen (Tylenol Tab) 975 mg TID PEG 02/09/21 09:00 02/10/21 09:04 Acetaminophen 650 mg/IV Miscellaneous Supplies 65 ml @ 260 mls/hr TID IV 02/03/21 21:00 02/03/21 17:40 DC Albuterol/ Ipratropium (Combivent Respimat 100-20mcg) 1 puff RTID INH 01/28/21 20:00 02/10/21 07:11 Albuterol/ Ipratropium (Combivent Respimat 100-20mcg) 1 puff TID INH 01/28/21 16:00 02/01/21 08:21 DC 01/31/21 19:57 Aspirin (Aspirin Chewable) 81 mg DAILY PEG 02/04/21 09:00 02/10/21 09:04 Aspirin (Aspirin Chewable) 81 mg DAILY PO 02/04/21 09:00 02/03/21 19:36 DC Aspirin (Ecotrin) 81 mg DAILY PO 01/28/21 09:00 02/03/21 16:57 DC 02/02/21 08:25 Bisacodyl (Dulcolax Suppository) 10 mg DAILYPRN PRN CA CONSTIPATION 01/27/21 17:20 02/02/21 23:32 Carbamazepine (TEGretol SUSPENSION) 200 mg BID PEG 02/03/21 21:00 02/10/21 09:05 Carbamazepine (TEGretol XR) 200 mg BID PO 01/27/21 21:00 02/03/21 19:28 DC 02/02/21 21:19 Clopidogrel Bisulfate (PLAVix) 75 mg DAILY PEG 02/04/21 09:00 02/07/21 22:49 DC 02/07/21 08:57 Clopidogrel Bisulfate (PLAVix) 75 mg DAILY PO 01/28/21 09:00 02/03/21 19:36 DC 02/03/21 08:42 Dextrose (Dextrose 50%) 25 ml ASDIRECTED PRN IV SEE LABEL COMMENTS 01/27/21 17:20 Cancel Dextrose (Dextrose 50%) 25 ml ASDIRECTED PRN IV SEE LABEL COMMENTS 02/01/21 22:05 Dextrose/Sodium Chloride 1,000 ml @ 60 mls/hr [id number] IV 02/01/21 17:30 02/01/21 17:35 DC Dextrose/Sodium Chloride 1,000 ml @ 60 mls/hr [id number] IV 02/02/21 04:09 02/02/21 20:48 DC 02/02/21 03:59 Docusate Sodium (Colace) 100 mg BID PO 01/27/21 21:00 01/31/21 15:02 DC 01/31/21 09:55 Duloxetine HCl (Cymbalta) 20 mg BID XX 02/09/21 09:00 02/10/21 09:05 Duloxetine HCl (Cymbalta) 30 mg BID PO 01/27/21 21:00 02/03/21 19:40 DC 02/02/21 21:19 Duloxetine HCl (Cymbalta) 30 mg BID XX 02/03/21 21:00 02/08/21 22:58 DC 02/08/21 21:06 Enoxaparin Sodium (Lovenox) 40 mg DAILY SC 01/28/21 09:00 02/07/21 23:06 DC 02/07/21 08:58 Furosemide (Lasix) 20 mg DAILY PEG 02/08/21 09:00 02/08/21 23:00 DC 02/08/21 09:05 Furosemide (Lasix) 40 mg DAILY PEG 02/09/21 09:00 02/10/21 09:04 Glucagon (Glucagon) 1 mg ASDIRECTED PRN SC SEE LABEL COMMENTS 01/27/21 17:20 Cancel Glucagon (Glucagon) 1 mg ASDIRECTED PRN SC SEE LABEL COMMENTS 02/01/21 22:05 Glucose (Glucose) 16 GM ASDIRECTED PRN PO SEE LABEL COMMENTS 01/27/21 17:20 Cancel Glucose (Glucose) 16 GM ASDIRECTED PRN PO SEE LABEL COMMENTS 02/01/21 22:05 Guaifenesin (Robitussin Tab) 400 mg TID PEG 02/03/21 21:00 02/10/21 09:04 Guaifenesin (Robitussin Tab) 400 mg TID PO 01/28/21 16:00 02/03/21 19:41 DC 02/03/21 17:44 Hydralazine HCl (Apresoline) 25 mg Q6H PO 01/27/21 18:00 02/01/21 11:24 DC 02/01/21 06:00 Hydralazine HCl (Apresoline) 50 mg Q6H PEG 02/04/21 00:00 02/10/21 05:44 Hydralazine HCl (Apresoline) 50 mg Q6H PO 02/01/21 12:00 02/03/21 19:42 DC 02/03/21 17:45 Hydrochlorothiazide (Hydrodiuril) 12.5 mg DAILY PEG 02/09/21 13:00 02/10/21 09:05 Insulin Human Lispro (HumaLOG INSULIN) SEE PROTOCOL TABLE AC SC 01/27/21 17:30 02/01/21 22:03 DC 02/01/21 18:35 Insulin Human Lispro (HumaLOG INSULIN) SEE PROTOCOL TABLE QHS SC 01/27/21 21:00 02/01/21 22:03 DC Insulin Human Lispro (HumaLOG INSULIN) See Protocol Table Q6H SC 02/02/21 00:00 02/10/21 05:43 Levofloxacin 750 mg/IV Miscellaneous Supplies 150 ml @ 100 mls/hr Q24H IV 02/01/21 18:00 02/04/21 11:49 DC 02/03/21 17:46 Lidocaine (Lidoderm Patch) 1 patch DAILY TD 02/09/21 09:00 02/10/21 09:04 Lidocaine/ Diphenhydr/Alum/ Mg/Simeth (Magic Mouthwash) 5ML ACHS SSP 01/28/21 17:30 02/10/21 09:03 Losartan Potassium (Cozaar) 50 mg BID PEG 02/03/21 21:00 02/10/21 09:05 Losartan Potassium (Cozaar) 50 mg BID PO 02/01/21 21:00 02/03/21 19:43 DC 02/03/21 08:42 Losartan Potassium (Cozaar) 50 mg DAILY PO 01/28/21 09:00 02/01/21 17:30 DC 02/01/21 08:00 Metoprolol Tartrate (Lopressor) 25 mg BID PO 01/27/21 21:00 01/28/21 15:08 DC 01/28/21 10:19 Metoprolol Tartrate (Lopressor) 50 mg BID PO 01/28/21 21:00 01/31/21 11:22 DC 01/31/21 09:57 Metoprolol Tartrate (Lopressor) 50 mg Q8H PEG 02/03/21 22:00 02/07/21 20:21 DC 02/07/21 14:50 Metoprolol Tartrate (Lopressor) 50 mg Q8H PO 01/31/21 14:00 02/03/21 19:44 DC 02/03/21 06:03 Metoprolol Tartrate (Lopressor) 75 mg Q8H PEG 02/07/21 22:00 02/10/21 05:44 Modafinil (Provigil) 50 mg QAM PEG 02/09/21 09:00 02/10/21 09:05 Non-Formulary Medication ( See Comment Field Below ) REMOVE LIDODERM PATCH DAILY@21 XX 02/09/21 21:00 02/09/21 21:00 Nystatin (Mycostatin Powder, Nystop) 1 dose TID TOP 02/09/21 16:00 02/10/21 09:06 Omeprazole (First-Omeprazole ORAL SUSPENSION) 40 mg BID GT 02/03/21 21:00 02/10/21 09:03 Pantoprazole Sodium (Protonix) 40 mg DAILY PO 01/28/21 09:00 01/31/21 15:02 DC 01/31/21 09:55 Rivaroxaban (Xarelto) 2.5 mg BID PEG 02/07/21 21:00 02/10/21 09:04 Saliva Substitute (Mouthkote) 2 sprays QID MT 02/02/21 13:00 02/10/21 09:06 Senna (Senokot) 1 tab QHS PO 01/27/21 21:00 01/31/21 15:02 DC 01/30/21 21:15 Simvastatin (Zocor) 80 mg QHS PEG 02/03/21 21:00 02/09/21 21:51 Simvastatin (Zocor) 80 mg QHS PO 01/27/21 21:00 02/03/21 19:44 DC 02/02/21 21:19 Sitagliptin Phosphate (Januvia) 25 mg DAILY PO 01/28/21 09:00 01/31/21 14:38 DC 01/31/21 09:55 Sucralfate (Carafate Suspension) 1 gm Q6H PEG 02/04/21 00:00 02/10/21 05:43 Tamsulosin HCl (Flomax) 0.4 mg QHS PO 01/27/21 21:00 02/03/21 20:16 DC 02/02/21 21:19 ORTEGA LEMA MD February 10, 2021 10:17
[2021-02-10 14:00] VITALS: BP 120/72
[2021-02-10 20:00] VITALS: BP 158/72
[2021-02-10] MEDS: SIMVASTATIN 40 MG TAB PEG SCH (21:27)
[2021-02-10] MEDS: **NOTE PATIENT COMMENT** MISC XX SCH (21:31)
[2021-02-11] VITALS: BP_SYST 135; BP_SYST 149; BP_DIAS 63; BP_DIAS 67
[2021-02-11] MEDS: SUCRALFATE SUSP 1GM/10ML UD PEG SCH ×4 (00:07→17:33)
[2021-02-11] MEDS: **hydrALAZINE HCL** 25 MG TAB PEG SCH ×4 (00:07→17:35)
[2021-02-11] MEDS: HumaLOG INSULIN (NovoLOG) PER UNIT SC SCH ×4 (00:07→17:32)
[2021-02-11] MEDS: REMEDY PHYTOPLEX Z-GUARD PASTE 113GM TUBE (FROM STOREROOM PRODUCT) TOP SCH ×4 (00:10→18:00)
[2021-02-11 05:08] VITALS: BP 160/76
[2021-02-11] MEDS: METOPROLOL TART 25 MG TABLET PEG SCH ×3 (06:01→21:42)
[2021-02-11 06:37] LABS: BASO # 0.1 10^3/uL (0.0-0.2); BASO % 0.4 % (0.0-1.0); EOS # 0.2 10^3/uL (0.0-0.5); EOS % 1.4 % (0.0-3.0); HEMATOCRIT 37.3 % (42.0-52.0); HEMOGLOBIN 12.1 g/dl (13.5-17.5); LYMPH % 12.6 % (24.0-44.0); MEAN CORPUSCULAR HGB CONC 32.4 g/dl (32.0-36.5); MEAN CORPUSCULAR VOLUME 92.3 fl (80.0-96.0); MONO # 1.7 10^3/uL (0.0-0.8); MONO % 10.7 % (2.0-8.0); NEUTROPHILS # 11.6 10^3/uL (1.5-8.5); NEUTROPHILS % 73.2 % (36.0-66.0); PLATELET COUNT, AUTOMATED 319 10^3/uL (150-450); RED BLOOD COUNT 4.04 10^6/uL (4.30-6.10)
[2021-02-11 06:43] LABS: WHITE BLOOD COUNT 15.8 10^3/uL (4.0-10.0)
[2021-02-11 06:59] LABS: BLOOD UREA NITROGEN 19 MG/DL (7-18); CALCIUM LEVEL 10.1 MG/DL (8.8-10.2); CARBON DIOXIDE LEVEL 33 MEQ/L (21-32); CHLORIDE LEVEL 94 MEQ/L (98-107); CREATININE FOR GFR 0.77 MG/DL (0.70-1.30); GLOMERULAR FILTRATION RATE > 60.0 (>42); GLUCOSE, FASTING 240 MG/DL (70-100); POTASSIUM SERUM 4.4 MEQ/L (3.5-5.1); SODIUM LEVEL 132 MEQ/L (136-145)
[2021-02-11] MEDS: COMBIVENT RESPIMAT 100-20MCG INHALER 4GM INH SCH ×3 (07:10→19:50)
[2021-02-11] MEDS: DULoxetine 20 MG CAP (CYMBALTA) XX SCH ×2 (08:10→21:42)
[2021-02-11] MEDS: hydroCHLOROthiazide 12.5 MG CAPSULE PEG SCH (08:10)
[2021-02-11] MEDS: guaiFENesin 200 MG TAB PEG SCH ×3 (08:11→21:40)
[2021-02-11] MEDS: FUROSEMIDE 40 MG TAB PEG SCH (08:11)
[2021-02-11] MEDS: ASPIRIN 81 MG CHEW TABLET PEG SCH (08:11)
[2021-02-11] MEDS: RIVAROXABAN 10 MG TAB (XARELTO) PEG SCH ×2 (08:11→21:41)
[2021-02-11] MEDS: ACETAMINOPHEN 325 MG TAB PEG SCH ×3 (08:11→21:42)
[2021-02-11] MEDS: LOSARTAN 50MG TABLET PEG SCH ×2 (08:11→21:41)
[2021-02-11] MEDS: LIDOCAINE 5% (LIDODERM) PATCH TD SCH (08:12)
[2021-02-11] MEDS: carBAMazepine 100MG 5ML SUSP ORAL SYRINGE *DRAW UP EXACT DOSE PEG SCH ×2 (08:12→21:39)
[2021-02-11] MEDS: OMEPRAZOLE SUSPENSION 20MG 10ML ORAL SYRINGE GT SCH ×2 (08:13→21:40)
[2021-02-11] MEDS: MODAFINIL 100 MG TABLET PEG SCH (08:15)
[2021-02-11] MEDS: MAGIC MOUTHWASH SUSPENSION BTL SSP SCH ×4 (08:21→21:43)
[2021-02-11] MEDS: SALIVA SUBSTITUTE(MOUTHKOTE) BTL MT SCH ×4 (08:21→21:40)
[2021-02-11] MEDS: NYSTATIN 100,000 UNITS/GM TOPICAL PWD 15 GM TOP SCH ×3 (08:31→21:43)
[2021-02-11 14:00] VITALS: BP 140/70
[2021-02-11 20:30] VITALS: BP 142/70
[2021-02-11] MEDS: SIMVASTATIN 40 MG TAB PEG SCH (21:41)
[2021-02-11] MEDS: **NOTE PATIENT COMMENT** MISC XX SCH (21:43)
[2021-02-12] MEDS: SUCRALFATE SUSP 1GM/10ML UD PEG SCH ×5 (00:10→23:56)
[2021-02-12] MEDS: **hydrALAZINE HCL** 25 MG TAB PEG SCH ×5 (00:11→23:56)
[2021-02-12] MEDS: HumaLOG INSULIN (NovoLOG) PER UNIT SC SCH ×5 (00:11→23:57)
[2021-02-12] MEDS: REMEDY PHYTOPLEX Z-GUARD PASTE 113GM TUBE (FROM STOREROOM PRODUCT) TOP SCH ×5 (00:12→23:57)
[2021-02-12 01:22] LABS: BASO # 0.1 10^3/uL (0.0-0.2); BASO % 0.5 % (0.0-1.0); EOS # 0.2 10^3/uL (0.0-0.5); EOS % 1.6 % (0.0-3.0); HEMATOCRIT 36.2 % (42.0-52.0); HEMOGLOBIN 11.8 g/dl (13.5-17.5); LYMPH # 1.7 10^3/uL (1.5-5.0); LYMPH % 11.9 % (24.0-44.0); MEAN CORPUSCULAR HGB CONC 32.6 g/dl (32.0-36.5); MEAN CORPUSCULAR VOLUME 92.1 fl (80.0-96.0); MONO # 1.6 10^3/uL (0.0-0.8); MONO % 10.6 % (2.0-8.0); NEUTROPHILS # 10.9 10^3/uL (1.5-8.5); NEUTROPHILS % 73.8 % (36.0-66.0); PLATELET COUNT, AUTOMATED 342 10^3/uL (150-450); RED BLOOD COUNT 3.93 10^6/uL (4.30-6.10)
[2021-02-12 01:30] LABS: WHITE BLOOD COUNT 14.7 10^3/uL (4.0-10.0)
[2021-02-12 01:52] LABS: BLOOD UREA NITROGEN 20 MG/DL (7-18); CALCIUM LEVEL 8.9 MG/DL (8.8-10.2); CARBON DIOXIDE LEVEL 32 MEQ/L (21-32); CHLORIDE LEVEL 96 MEQ/L (98-107); CREATININE FOR GFR 0.85 MG/DL (0.70-1.30); GLOMERULAR FILTRATION RATE > 60.0 (>42); GLUCOSE, FASTING 220 MG/DL (70-100); POTASSIUM SERUM 4.3 MEQ/L (3.5-5.1); SODIUM LEVEL 133 MEQ/L (136-145); TROPONIN I < 0.02 NG/ML (< 0.10)
--- NOTE | 2021-02-12 02:07 | REPVR ---
PROCEDURE INFORMATION: Exam: XR Chest Exam date and time: 02/12/2021 1:55 AM Age: 75 years old Clinical indication: Other: AMS, cough TECHNIQUE: Imaging protocol: XR of the chest. Views: 1 view. COMPARISON: CT Chest with contrast 02/03/2021 10:41 AM FINDINGS: Lungs: Decreased lung volumes. No consolidation. Pleural spaces: Unremarkable. No pleural effusion. No pneumothorax. Heart/Mediastinum: Cardiomegaly. Vasculature: Elongation of the thoracic aorta. Bones/joints: Osteopenia. There are degenerative changes involving the spine. IMPRESSION: No acute process. Electronically signed by: Jose C Solorzano On 02/12/2021 02:07:08 AM
--- NOTE | 2021-02-12 02:12 | REPVR ---
PROCEDURE INFORMATION: Exam: CT Head Without Contrast Exam date and time: 02/12/2021 1:21 AM Age: 75 years old Clinical indication: Altered mental status/memory loss; Confusion or disorientation; Additional info: AMS TECHNIQUE: Imaging protocol: Computed tomography of the head without contrast. Radiation optimization: All CT scans at this facility use at least one of these dose optimization techniques: automated exposure control; mA and/or kV adjustment per patient size (includes targeted exams where dose is matched to clinical indication); or iterative reconstruction. COMPARISON: CT Head without contrast 02/02/2021 12:46 PM FINDINGS: Brain: Decreased attenuation of the supratentorial white matter is likely secondary to chronic microvascular ischemia. There are chronic lacunar infarcts involving the thalami. Again demonstrated is infarct at the right basal ganglia/rodriguez radiata. There is not small region of mildly increased density at the inferior aspect of the infarct measuring up to 1.3 cm. Small chronic left cerebellar infarct. Cerebral ventricles: Ventricular and subarachnoid spaces are age appropriate. Bones/joints: Unremarkable. No acute fracture. Paranasal sinuses: Mild paranasal sinus disease. Mastoid air cells: Visualized mastoid air cells are well aerated. Vasculature: Intracranial vascular calcification. Soft tissues: Unremarkable. IMPRESSION: Subacute infarct at the right basal ganglia/rodriguez radiata with new mild increased density at the inferior aspect of the infarct concerning for new petechial hemorrhage. Electronically signed by: Jose C Solorzano On 02/12/2021 02:11:44 AM
--- NOTE | 2021-02-12 04:09 | IPNPDOC ---
Text Note Date of Service The patient was seen on 02/12/21. NOTE Overnight Event Note S: Patient evaluated for change in mental status. Per nursing staff, patient is more lethargic and not responding in his usual manner. Staff states patient it typically more active and can answer some questions. During my evaluation, the patient does appear lethargic and only tells me at one point that he "feels bad", but cannot elaborate on that. He does have some expressive aphasia at baseline. O: VSS. Patient is laying comfortably in bed. Initially responds only to painful stimuli but after a few minutes is responsive to verbal stimuli as well. He does not follow commands appropriately or answer questions. Lung sound with rhonchi in the upper lobes. Heart RRR, no murmurs. No peripheral edema noted. A/P: 75-year-old M with past medical history of CVA/TIA who presents early this morning with change in mental status. FSBS shows some hypercalcemia. WBC and H/H stable from yesterday. CRP remains elevated. Mild hyponatremia and hypochloremia. UA pending. CXR negative for acute process. Head CT reported as "Subacute infarct at the right basal ganglia/rodriguez radiata with new mild increased density at the inferior aspect of the infarct concerning for new petechial hemorrhage.". Pt is currently on Aspirin 81 mg and Xarelto 2.5mg BID. Discussed with electronics repair technician neurologist Dr. Dean regarding these findings. Per Dr. Dean we will hold the Xarelto for 2 days and continue the Aspirin [address] ordered for tomorrow AM. VS,Fishbone, I+O VS, Fishbone, I+O Laboratory Tests 02/11/21 06:04 02/12/21 01:10 Vital Signs Date Time Temp Pulse Resp B/P (MAP) Pulse Ox O2 Delivery O2 Flow Rate FiO2 02/12/21 00:11 150/70 02/11/21 21:42 77 02/11/21 20:30 96.9 18 95 Room Air I&O- Last 24 Hours up to 6 AM 02/12/21 06:00 Intake Total 1220 ml Output Total 1150 ml Balance 70 ml MELO VALLE D.O. February 12, 2021 04:09
[2021-02-12] MEDS: METOPROLOL TART 25 MG TABLET PEG SCH ×3 (05:49→21:25)
[2021-02-12 06:37] VITALS: BP 135/61
[2021-02-12] MEDS: COMBIVENT RESPIMAT 100-20MCG INHALER 4GM INH SCH ×3 (07:08→20:30)
[2021-02-12] MEDS: FUROSEMIDE 40 MG TAB PEG SCH (08:55)
[2021-02-12] MEDS: ASPIRIN 81 MG CHEW TABLET PEG SCH (08:55)
[2021-02-12] MEDS: carBAMazepine 100MG 5ML SUSP ORAL SYRINGE *DRAW UP EXACT DOSE PEG SCH ×2 (08:55→21:25)
[2021-02-12] MEDS: OMEPRAZOLE SUSPENSION 20MG 10ML ORAL SYRINGE GT SCH ×2 (08:55→21:26)
[2021-02-12] MEDS: ACETAMINOPHEN 325 MG TAB PEG SCH ×3 (08:55→21:23)
[2021-02-12] MEDS: hydroCHLOROthiazide 12.5 MG CAPSULE PEG SCH (08:56)
[2021-02-12] MEDS: LIDOCAINE 5% (LIDODERM) PATCH TD SCH (08:56)
[2021-02-12] MEDS: DULoxetine 20 MG CAP (CYMBALTA) XX SCH ×2 (08:56→21:24)
[2021-02-12] MEDS: LOSARTAN 50MG TABLET PEG SCH ×2 (08:56→21:24)
[2021-02-12] MEDS: guaiFENesin 200 MG TAB PEG SCH ×3 (08:56→21:21)
[2021-02-12] MEDS: NYSTATIN 100,000 UNITS/GM TOPICAL PWD 15 GM TOP SCH ×3 (08:57→21:25)
[2021-02-12] MEDS: SALIVA SUBSTITUTE(MOUTHKOTE) BTL MT SCH ×4 (08:57→21:26)
[2021-02-12] MEDS: MAGIC MOUTHWASH SUSPENSION BTL SSP SCH ×4 (08:57→21:25)
[2021-02-12] MEDS: MODAFINIL 100 MG TABLET PEG SCH (08:59)
[2021-02-12 14:00] VITALS: BP 150/70
--- NOTE | 2021-02-12 19:09 | IPNPDOC ---
Text Note Date of Service The patient was seen on 02/12/21. NOTE Subjective: Patient seen and examined at bedside. No acute overnight events reported. Patient voices no new medical complaints. He is difficult to understand as a historian due to dyarthria. Discussed on floor with nursing staff. Objective: General: NAD, lying comfortably in bed HEENT: NC/AT Lungs: CTA B/L Heart; +S1S2, RRR Abd: soft, NT, +BS, obese, PEG tube in place Neuro: strength 5/5, follows simple commands A/P: #CVA - Right rodriguez radiata acute ischemic stroke with recent right basal ganglia and centrum semiovale ischemic stroke. - Follow as per neurology - assistance appreciated - discontinue Plavix. Continue Xarelto 2.5 twice a day, continue aspirin 81 daily, continue simvastatin 40 daily - repeat CT head in am - discussed with neuro, can continue to monitor in ARU #DM - ISS q6h #HTN - HCTZ, lasix, lopressor, hydralazine, losartan #DLP - zocor VS,Fishbone, I+O VS, Fishbone, I+O Laboratory Tests 02/12/21 01:10 Vital Signs Date Time Temp Pulse Resp B/P (MAP) Pulse Ox O2 Delivery O2 Flow Rate FiO2 02/12/21 17:11 135/60 02/12/21 14:35 72 02/12/21 14:00 96.9 18 93 Room Air I&O- Last 24 Hours up to 6 AM 02/12/21 06:00 Intake Total 2112 ml Output Total 2150 ml Balance -38 ml OSIRIS CAMPOVERDE MD February 12, 2021 19:08
[2021-02-12 20:30] VITALS: BP 152/81
[2021-02-12] MEDS: SIMVASTATIN 40 MG TAB PEG SCH (21:24)
[2021-02-12] MEDS: **NOTE PATIENT COMMENT** MISC XX SCH (21:26)
[2021-02-13 05:49] VITALS: BP 135/67
[2021-02-13] MEDS: **hydrALAZINE HCL** 25 MG TAB PEG SCH ×3 (05:59→17:44)
[2021-02-13] MEDS: HumaLOG INSULIN (NovoLOG) PER UNIT SC SCH ×3 (06:23→18:22)
[2021-02-13] MEDS: SUCRALFATE SUSP 1GM/10ML UD PEG SCH ×3 (06:23→18:00)
[2021-02-13] MEDS: REMEDY PHYTOPLEX Z-GUARD PASTE 113GM TUBE (FROM STOREROOM PRODUCT) TOP SCH ×3 (06:24→18:23)
[2021-02-13] MEDS: METOPROLOL TART 25 MG TABLET PEG SCH ×3 (06:24→22:16)
[2021-02-13] MEDS: COMBIVENT RESPIMAT 100-20MCG INHALER 4GM INH SCH ×3 (07:14→19:27)
--- NOTE | 2021-02-13 07:22 | REPVR ---
PROCEDURE INFORMATION: Exam: CT Head Without Contrast Exam date and time: 02/13/2021 6:45 AM Age: 75 years old Clinical indication: Condition or disease; Other: F/u petechial hemorrhage TECHNIQUE: Imaging protocol: Computed tomography of the head without contrast. Radiation optimization: All CT scans at this facility use at least one of these dose optimization techniques: automated exposure control; mA and/or kV adjustment per patient size (includes targeted exams where dose is matched to clinical indication); or iterative reconstruction. COMPARISON: 1. CT Head without contrast 02/12/2021 1:38 AM 2. MRI-Brain without Contrast 02/07/2021 9:47:41 PM FINDINGS: Brain: There is stable infarct in right basal ganglia and rodriguez radiata which showed restricted diffusion on prior MRI. This shows stable minimal increased attenuation consistent with slight petechial hemorrhage. There is old linear left cerebellar hemisphere infarct. There is no acute intracranial hemorrhage. There is lucency in the cerebral white matter, likely microvascular disease although non-specific. There are chronic bilateral thalamic lacunar infarcts. There are no extra-axial fluid collections. No evidence of mass. There is no mass effect or midline shift. Cerebral ventricles: The ventricles and sulci are enlarged, consistent with volume loss / atrophy. No hydrocephalus. Bones/joints: No acute fracture. Paranasal sinuses: Visualized sinuses are unremarkable. No fluid levels. Mastoid air cells: No significant mastoid effusion. Vasculature: There is vascular calcification. Prominent linear calcification is noted at region of left proximal posterior cerebral artery, which is abnormal on MRA. Soft tissues: Unremarkable as visualized. IMPRESSION: No change in right basal ganglia and rodriguez radiata infarct with small amount of hemorrhagic transformation. Electronically signed by: Nissa Snell On 02/13/2021 07:22:08 AM
[2021-02-13] MEDS: ASPIRIN 81 MG CHEW TABLET PEG SCH (08:30)
[2021-02-13] MEDS: DULoxetine 20 MG CAP (CYMBALTA) XX SCH ×2 (08:30→22:17)
[2021-02-13] MEDS: guaiFENesin 200 MG TAB PEG SCH ×3 (08:30→22:16)
[2021-02-13] MEDS: LOSARTAN 50MG TABLET PEG SCH ×2 (08:30→22:18)
[2021-02-13] MEDS: ACETAMINOPHEN 325 MG TAB PEG SCH ×3 (08:30→22:18)
[2021-02-13] MEDS: LIDOCAINE 5% (LIDODERM) PATCH TD SCH (08:31)
[2021-02-13] MEDS: carBAMazepine 100MG 5ML SUSP ORAL SYRINGE *DRAW UP EXACT DOSE PEG SCH ×2 (08:31→22:17)
[2021-02-13] MEDS: hydroCHLOROthiazide 12.5 MG CAPSULE PEG SCH (08:31)
[2021-02-13] MEDS: OMEPRAZOLE SUSPENSION 20MG 10ML ORAL SYRINGE GT SCH ×2 (08:31→22:17)
[2021-02-13] MEDS: NYSTATIN 100,000 UNITS/GM TOPICAL PWD 15 GM TOP SCH ×3 (08:31→22:18)
[2021-02-13] MEDS: FUROSEMIDE 40 MG TAB PEG SCH (08:31)
[2021-02-13] MEDS: SALIVA SUBSTITUTE(MOUTHKOTE) BTL MT SCH ×4 (08:32→22:18)
[2021-02-13] MEDS: MAGIC MOUTHWASH SUSPENSION BTL SSP SCH ×4 (08:32→22:19)
[2021-02-13] MEDS: MODAFINIL 100 MG TABLET PEG SCH (08:58)
[2021-02-13 14:00] VITALS: BP 144/85
[2021-02-13 20:00] VITALS: BP 160/82
[2021-02-13] MEDS: SIMVASTATIN 40 MG TAB PEG SCH (22:17)
[2021-02-13] MEDS: **NOTE PATIENT COMMENT** MISC XX SCH (22:19)
[2021-02-14] VITALS: BP 147/65
[2021-02-14] MEDS: **hydrALAZINE HCL** 25 MG TAB PEG SCH ×4 (00:05→12:29)
[2021-02-14] MEDS: HumaLOG INSULIN (NovoLOG) PER UNIT SC SCH ×4 (00:05→12:30)
[2021-02-14] MEDS: SUCRALFATE SUSP 1GM/10ML UD PEG SCH ×4 (00:05→12:30)
[2021-02-14] MEDS: REMEDY PHYTOPLEX Z-GUARD PASTE 113GM TUBE (FROM STOREROOM PRODUCT) TOP SCH ×3 (00:06→11:16)
--- NOTE | 2021-02-14 01:58 | IPNPDOC ---
Text Note Date of Service The patient was seen on 02/14/21. NOTE Alerted at 0200 patient pulled his peg tube secondary to confusion. No obvious trauma to site. Patient has no complaints upon my exam. F/u with ct abd/pelvis to r/o internal trauma. Day team can consider surgical consult to replace. VS,Fishbone, I+O VS, Fishbone, I+O Vital Signs Date Time Temp Pulse Resp B/P (MAP) Pulse Ox O2 Delivery O2 Flow Rate FiO2 02/14/21 00:05 147/65 02/14/21 00:00 61 02/13/21 20:00 95.8 19 93 Room Air l I&O- Last 24 Hours up to 6 AM 02/14/21 06:00 Intake Total 900 ml Output Total 550 ml Balance 350 ml VERA PATEL February 14, 2021 01:58
--- NOTE | 2021-02-14 03:29 | REPVR ---
PROCEDURE INFORMATION: Exam: CT Abdomen And Pelvis Without Contrast Exam date and time: 02/14/2021 2:31 AM Age: 75 years old Clinical indication: Abdominal pain; Generalized; Additional info: Pulled peg tube TECHNIQUE: Imaging protocol: Computed tomography of the abdomen and pelvis without contrast. Radiation optimization: All CT scans at this facility use at least one of these dose optimization techniques: automated exposure control; mA and/or kV adjustment per patient size (includes targeted exams where dose is matched to clinical indication); or iterative reconstruction. COMPARISON: CT ABD/PEL W/IV CONTRAST ONLY 02/03/2021 10:41 AM FINDINGS: Tubes, catheters and devices: Percutaneous gastrostomy tube track in the left upper quadrant abdominal wall. Extensive stranding of the subcutaneous and peritoneal fat adjacent to tube track. Heart: Cardiomegaly. Coarsely calcified mitral annulus. Calcifications of the aortic valve leaflets. Liver: Calcified granulomata liver and spleen. Mild hepatomegaly and steatosis. Gallbladder and bile ducts: Normal. No calcified stones. No ductal dilation. Pancreas: Normal. No ductal dilation. Spleen: Normal. No splenomegaly. Adrenal glands: Normal. No mass. Kidneys and ureters: Nonspecific bilateral perinephric fat stranding. Punctate parenchymal calcification in the inferior pole of the left kidney. Stomach and bowel: Scattered colonic diverticula. No evidence of acute diverticulitis. Appendix: No evidence of appendicitis. Intraperitoneal space: Trace pneumoperitoneum. Vasculature: Atherosclerotic disease of the coronary arteries. Atherosclerotic disease of the abdominal aorta. Lymph nodes: Calcified subcarinal and right hilar lymph nodes. Urinary bladder: Naqvi balloon catheter in the urinary bladder. Small urinary bladder diverticulum along the right lateral bladder wall. Reproductive: Unremarkable as visualized. 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 Degenerative changes in the bilateral sacroiliac joints. Multilevel degenerative disease and facet arthropathy of the lumbar spine. Soft tissues: Unremarkable. IMPRESSION: Percutaneous gastrostomy tube track in the left upper quadrant abdominal wall. Extensive stranding of the subcutaneous and peritoneal fat adjacent to tube track. Trace pneumoperitoneum. Electronically signed by: Johnny Comer On 02/14/2021 03:29:17 AM
[2021-02-14 05:06] VITALS: BP 159/74
[2021-02-14] MEDS: METOPROLOL TART 25 MG TABLET PEG SCH ×2 (05:40→12:28)
[2021-02-14] MEDS: COMBIVENT RESPIMAT 100-20MCG INHALER 4GM INH SCH ×2 (07:22→13:14)
[2021-02-14] MEDS: MAGIC MOUTHWASH SUSPENSION BTL SSP SCH ×2 (07:30→11:13)
[2021-02-14] MEDS: hydroCHLOROthiazide 12.5 MG CAPSULE PEG SCH (09:00)
[2021-02-14] MEDS: guaiFENesin 200 MG TAB PEG SCH ×2 (09:00→12:29)
[2021-02-14] MEDS: DULoxetine 20 MG CAP (CYMBALTA) XX SCH (09:00)
[2021-02-14] MEDS: ACETAMINOPHEN 325 MG TAB PEG SCH ×2 (09:00→12:29)
[2021-02-14] MEDS: FUROSEMIDE 40 MG TAB PEG SCH (09:00)
[2021-02-14] MEDS: MODAFINIL 100 MG TABLET PEG SCH (09:00)
[2021-02-14] MEDS: OMEPRAZOLE SUSPENSION 20MG 10ML ORAL SYRINGE GT SCH (09:00)
[2021-02-14] MEDS: LOSARTAN 50MG TABLET PEG SCH (09:00)
--- NOTE | 2021-02-14 10:55 | REP ---
INDICATION: cva w hemorrhagic transformation check resolution vs. worsen. COMPARISON: Comparison is made with prior head CT study for, most recently 13 Feb 2021. [address] study is also reviewed.. TECHNIQUE: Helical scanning is acquired. 5 mm axial images were reformatted. Coronal MPR images were generated. FINDINGS: Preliminary digital watcher automat long goods radiograph is unremarkable. Bone window settings demonstrate intact bony calvarium. Visualized paranasal sinuses are clear. Vascular calcification is again noted at the skull base. There is generalized volume loss. There is a small area of old encephalomalacia of the left inferior temporal lobe unchanged from prior studies. There are old lacunar infarcts in the left thalamus. Small-vessel atherosclerotic changes are seen. The recent right basal ganglia infarct is again seen with subtle linear area of increased density representing petechial hemorrhage. This unchanged from the most recent prior study of 02/13/2021. No new area of hemorrhagic changes seen. No new infarction is appreciated. IMPRESSION: Stable CT findings.. <Electronically signed by Jonny Madsen > 02/14/21 1963
[2021-02-14] MEDS: SALIVA SUBSTITUTE(MOUTHKOTE) BTL MT SCH ×2 (11:12→13:31)
[2021-02-14] MEDS: LIDOCAINE 5% (LIDODERM) PATCH TD SCH (11:12)
[2021-02-14] MEDS: NYSTATIN 100,000 UNITS/GM TOPICAL PWD 15 GM TOP SCH (11:12)
[2021-02-14 11:37] VITALS: BP 175/89
[2021-02-14] MEDS ORDERED: NITROGLYCERIN 2% OINT 1 GM *U/D* PKT TOP SCH (12:00)
[2021-02-14] MEDS ORDERED: levETIRAcetam INJection 500 MG in D5W MINI-BAG PLUS 100 ML IV SCH (13:00)
[2021-02-14 14:00] VITALS: BP 174/93
[2021-02-15] MEDS ORDERED: ASPIRIN 300 MG SUPP PR SCH (09:00)
--- NOTE | 2021-03-02 16:44 | PMRDS ---
NAME: NATALY HALL [facility] WT ID#: [id number] JOB: [id number] PANFILO: 02/14/2021 ACCT: [id number] DOCTOR: ORTEGA LEMA MD PMR DISCHARGE SUMMARY DATE OF ADMISSION: 01/27/2021 DATE OF DISCHARGE: 02/14/2021 CHIEF COMPLAINT/DISCHARGE DIAGNOSIS: Multiple strokes with hemorrhagic conversion. HISTORY OF PRESENT ILLNESS: A 75-year-old man with a past medical history of CVA/TIA 2008, seizure disorder, diabetes, hypothyroidism, and GERD who presented to [facility] ED on 01/25/2021 with difficulty walking, right-sided paresis, confusion, and dysarthria. 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 He was noted to have significant dysphagia requiring puree consistency solids, elevated BPs, and mobility and ADL impairments below his prior level of functioning and deemed medically appropriate for discharge to ARU on 01/27/2021. PAST MEDICAL HISTORY: As per HPI. HOSPITAL COURSE: Patient was admitted and enrolled in a comprehensive PT/OT and speech and language pathology program. He received 24 hour nursing supervision, and weekly team meetings were held to discuss his progress. Patient failed multiple swallow evaluations with difficulty primarily in the oral phase. PEG tube was placed on 02/03/2021 with no immediate postop complications. Patient was able to tolerate PEG feeds. He began to make gains in therapy, able to ambulate. However, he developed worsening lean to the right with increased lethargy. Patient was found to have an acute right rodriguez radiata ischemic infarct on 02/07/2021, case was discussed with Dr. Dean who recommended changing Plavix to Xarelto 2.5 mg b.i.d. for multivessel disease. 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 Case was discussed with Dr. Dean who recommended neurosurgical intervention and evaluation upon discharge. Patient was started on low dose of Provigil for his fatigue and was noted to have some gains in his stamina and ability to ambulate following initiation of this medication. Patient had persistent leukocytosis on admission with multiple chest imaging performed showing no infiltrates, patient did not appear to have any respiratory issues, and UA was negative. He was started on a short course of Levaquin with his leukocytosis starting to trend down. ID was consulted for further management, and no infectious source was determined to be contributing to his leukocytosis. Eventually patient was catheterized due to persistent incontinence. On aspirin and Xarelto 2.5 mg b.i.d., patient unfortunately did develop petechial hemorrhage on 02/12/2021, and the Xarelto was discontinued. However, aspirin was continued. On 02/14/2021, patient removed his own PEG, and given complexity of his care and difficult to control blood pressures, patient was transferred off of ARU for closer monitoring as patient was likely to need IV blood pressure medications. DISCHARGE MEDICATIONS: As per instructions. FUNCTIONAL HISTORY: On discharge patient was min to mod assist for functional transfers, able to ambulate 15 feet total assist. Thank you for this referral.
== END 2021-02-14 14:05 | disposition short-term general hospital (02) | DRG 56 ==
LOC: M PM&R 14:45
PROVIDERS: ADMIT Physical Medicine & Rehabilitation; ATTEND Physical Medicine & Rehabilitation
PROC: 0DH64UZ Insertion of Feeding Device into Stomach, Percutaneous Endoscopic Approach (ICD-10-PCS; principal; 2021-01-31)
DX: I69.391 Dysphagia following cerebral infarction (principal); I63.9 Cerebral infarction, unspecified; I63.231 Cerebral infarction due to unspecified occlusion or stenosis of right carotid arteries; R13.10 Dysphagia, unspecified; G40.909 Epilepsy, unspecified, not intractable, without status epilepticus; E11.40 Type 2 diabetes mellitus with diabetic neuropathy, unspecified; K21.9 Gastro-esophageal reflux disease without esophagitis; E03.9 Hypothyroidism, unspecified; Z74.09 Other reduced mobility; Z74.1 Need for assistance with personal care; I65.01 Occlusion and stenosis of right vertebral artery; Z79.82 Long term (current) use of aspirin; Z79.02 Long term (current) use of antithrombotics/antiplatelets; Z79.84 Long term (current) use of oral hypoglycemic drugs; Z79.899 Other long term (current) drug therapy; H50.9 Unspecified strabismus; R53.1 Weakness; I69.320 Aphasia following cerebral infarction; I72.8 Aneurysm of other specified arteries; N40.0 Benign prostatic hyperplasia without lower urinary tract symptoms; E78.5 Hyperlipidemia, unspecified; I10 Essential (primary) hypertension

== ENCOUNTER 2021-02-14 13:02 | Inpatient (IN) | payer MEDICARE, BC, OTHER ==
[2021-02-14] VITALS (7 sets, daily range): BP systolic 124–152; BP diastolic 68–78
[~2021-02-14] VITALS: Ht 167.6 cm; Wt 96.4 kg
[~2021-02-14 13:02] MED LIST changes: +ASPI-551 PO; +DOK1CAP7 PO
--- NOTE | 2021-02-14 15:02 | HPEPDOC ---
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 2. Increase simvastatin to 80 mg daily. Echocardiogram on 01/26/2021 showed ejection fraction 65% with mild concentric left ventricular hypertrophy, grade 1 esophageal cord diastolic dysfunction with mild left atrial dilatation by left atrial volume index, mild aortic regurg, moderate mitral annular calcification. No mitral regurg. Patient was treated also for leukocytosis which could be reactive or stress-induced but possible UA as a source was treated with Levaquin was placed on Tegretol for seizure prophylaxis and was discharged to the acute rehabilitation unit after feeding tube was placed due to aspiration risk. On 02/14/2021. While at ARU patient pulled out his feeding tube blood pressure was uncontrolled with systolic pressure 150-160. Hospitalist was asked to take the patient to PCU for IV blood pressure medications antiepileptic medications, while awaiting feeding tube placement by general surgery on Sunday. Repeat CT of the head shows hemorrhagic transformation. Patient had previously been on aspirin, and plavix was discontinued. He was kept on Xarelto. According to Dr. Grayson and neurologist on-call Xarelto can be discontinued. The patient needs to be kept on aspirin. Patient refused nasogastric tube placement at the bedside. His aspirin has been changed to suppository his Tegretol has been change to intravenous Keppra 500 mg twice a day. Once feeding tube has been placed. He may be placed back on his simvastatin. Patient has not had any fever, chills, shortness of breath, chest pain, pressure, tightness, nausea, vomiting, diarrhea, abdominal pain, dysuria, urgency, frequency, changes in vision, diplopia, ear discharge, tinnitus or vertigo. All other systems are negative. 10 point system reviewed. PAST MEDICAL HISTORY: CVA in 2009 with chronic right hemiparesis, type 2 diabetes, TIA, gastroesophageal reflux, hypothyroidism PAST SURGICAL HISTORY: Left inguinal hernia repair, colonoscopy, left ureter vesicle junction stent placement, percutaneous endoscope Brady gastrostomy tube placement by Dr. Sanchez 02/03/2021. Laparoscopic appendectomy 12/07/2020. Seizure disorder on chronic Tegretol SOCIAL HISTORY: Previously lived at home prior to his stroke, currently in acute rehabilitation unit now transferred to PCU. Denies recreational drug use, alcohol abuse. Retired. Denies any tobacco use FAMILY HISTORY: Unremarkable, noncontributory ALLERGIES: Please see below. REVIEW OF SYSTEMS: 10 point review of systems negative aside from positive findings in HPI HOME MEDICATIONS: Please see below. PHYSICAL EXAMINATION: VITAL SIGNS: See below Generally: Expressive aphasia, face is symmetric, no pallor, no respiratory distress HEENT: Slurred speech, left eye strabismus, no JVD, thyromegaly. Tongue deviates to the left, Moist mucous membranes Lungs: Clear to auscultation. Air entry is equal Heart: Regular rate rhythm, S1, S2, nondisplaced PMI Abdomen: Obese, soft, nontender, nondistended, positive bowel sounds 4 quadrants Extremities no cyanosis or clubbing NEUROLOGIC: Face is symmetric, slurred speech, Tongue deviates to the left,expressive aphasia Absent DTRs in bilateral ankles. Motor function 5 out of 54 extremities. Gait was not tested. LABORATORY DATA: See below. IMAGING: Head CT: Brain: There is moderate diffuse cerebellar atrophy. There is moderate parenchymal volume loss. White matter changes are demonstrated in the subcortical, centrum semiovale and periventricular white matter consistent with chronic age related small vessel ischemic changes. Lacunar infarct left thalamus. Cerebral ventricles: The degree of ventricular dilatation is normal for age and/or degree of atrophy present. Bones/joints: Unremarkable. No acute fracture. Paranasal sinuses: Visualized sinuses are unremarkable. No fluid levels. Mastoid air cells: Visualized mastoid air cells are well aerated. Vasculature: Atherosclerotic calcifications are demonstrated in the intracranial carotid arteries bilaterally as well as in the vertebral basilar system. Soft tissues: Unremarkable. Other findings: Findings stable in comparison to the prior study of 02/27/2020. IMPRESSION: 1. There is moderate diffuse cerebellar atrophy. 2. There is moderate parenchymal volume loss. White matter changes are demonstrated in the subcortical, centrum semiovale and periventricular white matter consistent with chronic age related small vessel ischemic changes. 3. The degree of ventricular dilatation is normal for age and/or degree of atrophy present. 4. Findings stable in comparison to the prior study of 02/27/2020. 5. No acute findings. Brain MRA: Limitations: Patient motion. ANTERIOR CIRCULATION: Right internal carotid artery: Intracranial segment is patent with no significant stenosis. No aneurysm. Right middle cerebral artery: No gross large vessel occlusion involving the right MCA, poorly evaluated. Right anterior cerebral artery: No occlusion or significant stenosis. No aneurysm. Left internal carotid artery: Intracranial segment is patent with no significant stenosis. No aneurysm. Left middle cerebral artery: No gross large vessel occlusion involving the left MCA, poorly evaluated. Left anterior cerebral artery: No occlusion or significant stenosis. No aneurysm. POSTERIOR CIRCULATION: Right vertebral artery: Right vertebral artery appears predominately occluded. Left vertebral artery: Dominant left vertebral artery. Basilar artery: No occlusion or significant stenosis. No aneurysm. Right posterior cerebral artery: No occlusion or significant stenosis. No aneurysm. Left posterior cerebral artery: Near occlusion involving the left [employer] P1 segment, similar from prior examination. IMPRESSION: 1. Examination is motion limited. 2. Near occlusion involving the left [employer] P1 segment, similar from prior examination. 3. Near occlusion involving the right vertebral artery, new from prior examination dated 06/02/2014. Brain MRI: Abnormal foci of increased diffusion and decreased ADC map signal, right frontoparietal centrum semiovale and posterosuperior right basal ganglia, over an area measuring 15 x 10 mm, consistent with acute nonhemorrhagic small vessel infarct. Remote small vessel infarcts, left thalamus Midline structures and cerebellar tonsillar position appear normal. Ventricles, cisterns and sulci are symmetrically prominent. No intracranial mass, midline shift or abnormal extra-axial fluid. No acute intracranial hemorrhage. Mild pattern of increased T2 and flair signal in supratentorial white matter. Optic chiasm and pituitary infundibulum appear normal. Normal vascular flow voids in major intracranial arteries and dural venous sinuses. Paranasal sinuses are normally aerated. Mastoid air cells are normally aerated. Optic globes and orbits are unremarkable. IMPRESSION: Acute nonhemorrhagic small vessel infarct involving the posterosuperior right basal ganglia and adjacent centrum semiovale white matter measuring 15 x 10 mm. Atrophy and mild chronic microvascular small vessel ischemic changes CT Angiography Head With Contrast, Arteriography ANTERIOR CIRCULATION: Right internal carotid artery: Calcification involving the right carotid siphon without significant stenosis. Right middle cerebral artery: Foci of severe right MCA M2 and M3 stenosis. Right anterior cerebral artery: Unremarkable. No occlusion or significant stenosis. No aneurysm. Left internal carotid artery: Calcification involving the left carotid siphon without definite significant stenosis. Left middle cerebral artery: Moderate left MCA M1 stenosis. Left anterior cerebral artery: Unremarkable. No occlusion or significant stenosis. No aneurysm. POSTERIOR CIRCULATION: Right vertebral artery: Severe right vertebral artery stenosis with distal occlusion. Left vertebral artery: Calcification involving the left vertebral artery with mild stenosis. Left vertebral artery is dominant. Basilar artery: Unremarkable. No occlusion or significant stenosis. No aneurysm. Right posterior cerebral artery: Unremarkable. No occlusion or significant stenosis. No aneurysm. Left posterior cerebral artery: Near occlusion of the left [employer] P1 segment, stable. Brain: No definite mass, mass effect, or midline shift. Cerebral ventricles: No ventriculomegaly. Bones/joints: Unremarkable. No acute fracture. Soft tissues: Unremarkable. IMPRESSION: 1. Near occlusion of the left [employer] P1 segment, stable. 2. Severe right vertebral artery stenosis with distal occlusion. 3. Foci of severe right MCA M2 and M3 stenosis. 4. Moderate left MCA M1 stenosis. CTA neck: FINDINGS: Right common carotid artery: Calcification at the right common carotid bifurcation without significant stenosis. Right internal carotid artery: No stenosis of the extracranial segment. No dissection or occlusion. Right external carotid artery: No occlusion or stenosis of the origin. Right vertebral artery: No stenosis. No dissection or occlusion. Left common carotid artery: No stenosis. No dissection or occlusion. Left internal carotid artery: There is calcification and plaquing involving the proximal aspect of the left ICA. Stenosis measures up to 70%. Left external carotid artery: No occlusion or stenosis of the origin. Left vertebral artery: No stenosis. No dissection or occlusion. Bones/joints: There are degenerative changes involving the spine. Soft tissues: Normal. No significant soft tissue swelling. IMPRESSION: 70% stenosis at the proximal aspect of the left cervical ICA. REFERENCES: NASCET CRITERIA. The degree of internal carotid artery stenosis is based on NASCET criteria. Normal is no stenosis. Mild is less than 50% stenosis. Moderate is 50-69% stenosis. Severe is 70% to 99% stenosis. Total occlusion is no detectable patent lumen. MICROBIOLOGY: Please see below. 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 2. Increase simvastatin to 80 mg daily. Echocardiogram on 01/26/2021 showed ejection fraction 65% with mild concentric left ventricular hypertrophy, grade 1 esophageal cord diastolic dysfunction with mild left atrial dilatation by left atrial volume index, mild aortic regurg, moderate mitral annular calcification. No mitral regurg. Patient was treated also for leukocytosis which could be reactive or stress-induced but possible UA as a source was treated with Levaquin was placed on Tegretol for seizure prophylaxis and was discharged to the acute rehabilitation unit after feeding tube was placed due to aspiration risk. On 02/14/2021. While at ARU patient pulled out his feeding tube blood pressure was uncontrolled with systolic pressure 150-160. Hospitalist was asked to take the patient to PCU for IV blood pressure medications antiepileptic medications, while awaiting feeding tube placement by general surgery on Sunday. Repeat CT of the head shows hemorrhagic transformation. Patient had previously been on aspirin, and plavix was discontinued. He was kept on Xarelto. According to Dr. Grayson and neurologist on-call Xarelto can be discontinued. The patient needs to be kept on aspirin. Patient refused nasogastric tube placement at the bedside. His aspirin has been changed to suppository his Tegretol has been change to intravenous Keppra 500 mg twice a day. Once feeding tube has been placed. He may be placed back on his simvastatin. Patient has not had any fever, chills, shortness of breath, chest pain, pressure, tightness, nausea, vomiting, diarrhea, abdominal pain, dysuria, urgency, frequency, changes in vision, diplopia, ear discharge, tinnitus or vertigo. All other systems are negative. 10 point system reviewed. CVA with hemorrhagic transformation Near occlusion of the left [employer] P1 segment, stable. Severe right vertebral artery stenosis with distal occlusion. Foci of severe right MCA M2 and M3 stenosis. Moderate left MCA M1 stenosis. Dysphagia and aspiration requiring feeding tube Feeding tube dislodged by the patient H/o seizure disorder Uncontrolled HTN Dyslipidemia DM2 Hypothyroidism GERD PLAN: Patient has been transferred to PCU for IV medications with plans for feeding tube placement on Sunday. For his CVA. According to neurologist, Dr. Grayson, then repeat CT of the head have not shown any significant change in the hemorrhagic transformation. He recommends continuing the aspirin, but stopping the Xarelto. This patient is an aspiration risk and has dysphagia, we are unable to use enteral means to administer medications. Therefore, the aspirin will be given as a suppository and most of his essential medications will be changed to intravenous route. Iv keppra 500 mg bid, asa 300 mg suppository, iv synthroid, nitro patch, iv metoprolol . fingersticks q6hrs, ivfluids, hypoglycemic protocol. pt refusing ng tube placement. resume simvastatin and feeding tube once peg is placed. Vital Signs Vital Signs Date Time Temp Pulse Resp B/P (MAP) Pulse Ox O2 Delivery O2 Flow Rate FiO2 02/14/21 14:22 97.7 106 19 145/75 (98) 93 Room Air Home Medications Scheduled Aspirin (Aspirin EC) 81 Mg Tablet.dr 81 MG PO DAILY Carbamazepine (Carbamazepine ER) 200 Mg Alex, 200 MG PO BID Clopidogrel Bisulfate (Plavix) 75 Mg Tab, 75 MG PO DAILY Docusate Sodium (Colace) 100 Mg Cap, 100 MG PO DAILY Docusate Sodium (Dok) 100 Mg Capsule, 100 MG PO BID Duloxetine Hcl (Duloxetine HCl) 30 Mg Cap, 30 MG PO BID Losartan Potassium (Losartan Potassium) 50 Mg Tab, 50 MG PO DAILY Metformin HCl (Metformin HCl) 500 Mg Tablet, 500 MG PO BID Metoprolol Tartrate (Metoprolol Tartrate) 25 Mg Tab, 25 MG PO BID Pantoprazole Sodium (Pantoprazole Sodium) 40 Mg Tab, 40 MG PO DAILY Simvastatin (Simvastatin) 40 Mg Tab, 80 MG PO QHS Sitagliptin Phosphate (Januvia) 100 Mg Tablet, 100 MG PO QPM Tamsulosin HCl (Flomax) 0.4 Mg Cap, 0.4 MG PO QHS Allergies Coded Allergies: No Known Allergies (Verified , 09/22/19) A-FIB/CHADSVASC A-FIB History Current/History of A-Fib/PAF?: No Current PO Anticoag Therapy: No Age/Risk Factor Scoring CHADSVASC: CHADSVASC Response (Comments) Value Age Risk Factor Age 65-74 years old 1 Gender Risk Factor Male 0 Hx of CHF No 0 Hx of HTN Yes 1 Hx of Stroke/TIA/or VTE Yes 2 Hx of Diabetes Yes 1 Hx of Vascular Disease Yes 1 Total 6 Treatment Treatment ordered: NONE Reason Anticoagulant not given: Current bleeding KIERRA MARTINS MD February 14, 2021 14:46
[2021-02-14] MEDS: METOPROLOL 5 MG/5 ML VIAL IV SCH ×2 (16:09→21:38)
--- NOTE | 2021-02-14 16:28 | IPN ---
PROGRESS NOTE DATE: 02/14/2021 SUBJECTIVE: The patient pulled out his feeding tube. Repeat CT of the head is stable with small hemorrhagic transformation per Neurologist induction heat treater, Dr. Grayson. The patient may be kept on Aspirin 81 mg but Xarelto should be discontinued. Per Surgery, the patient will receive a feeding tube on Sunday, continue to be off the Xarelto to decrease risk of bleeding. Due to no feeding tube access, the patient's p.o. Tegretol has been changed to IV Keppra 500 IV twice daily. The patient states he has no pain. He is following commands, unchanged from before. OBJECTIVE: PHYSICAL EXAMINATION: VITAL SIGNS: Temperature 95.9, pulse 84, respiratory rate 17, blood pressure 159/74, oxygen saturation 92% on room air. GENERAL APPEARANCE: The patient is awake, alert, oriented, has slurred speech, but able to state his name "Mike Stanton". HEENT: His face is asymmetric. Tongue is asymmetric. LUNGS: Clear to auscultation, no rales, rhonchi or wheezes. HEART: S1, S2, sinus rhythm. No murmurs, rubs or gallops. ABDOMEN: Soft, nontender, nondistended. Positive bowel sounds x4 quadrants. EXTREMITIES: No pitting edema. NEUROLOGICAL: The patient follows commands, able to squeeze with two hands but significant weakness. It is noted he continues to have expressive aphasia and dysarthria. Left sided neglect, left arm and leg are weak, 4/5 motor function. Right side is 5/5 upper and lower extremities. LABORATORY DATA: Has been reviewed. IMAGING: Reviewed. ASSESSMENT: This is a 75-year-old male with moderate to severe multi-vessel intracranial stenosis, 70% left internal carotid artery stenosis, hypertension, dyslipidemia, and diabetes, with a noted right rodriguez radiata acute ischemic CVA with right basal ganglia and centrum semi value ischemic stroke with hemorrhagic transformation. PLAN: 1. The patient's Xarelto has been discontinued. 2. He may be continued on Aspirin but has no access since he pulled out his feeding tube. Therefore he is on Aspirin suppository 300 mg daily. 3. His Tegretol has been changed to 500 mg of Levetiracetam, Keppra q. 12 hourly for blood pressure control. 4. He is maintained on Nitroglycerin topical patch q. 6 hourly with holding parameters due to acute CVA. 5. The patient is to have a feeding tube placed on Sunday. 6. He is to be off Xarelto for now. CURRENT ISSUES: 1. Acute ischemic CVA in the right rodriguez radiata. 2. Right basal ganglia and central semi valley with hemorrhagic transformation. 3. Uncontrolled hypertension due to loss of feeding tube - unable to administer oral medications. 4. Aspiration risk due to CVA feeding tube has been removed by the patient. 5. Loss of oral access - PEG tube was pulled out by the patient. 6. 70% left internal carotid artery stenosis. 7. Moderate to severe multi vessel intracranial stenosis. 8. Type 2 diabetes. 9. Dyslipidemia. PLAN: 1. The patient's medications will be changed to intravenous, particularly the IV Keppra. Aspirin has been changed to suppository Nitroglycerin topically q. 6 hourly for blood pressure control. All other medications will need to wait until the patient's feeding tube is placed on Sunday. If he becomes overloaded, he may have IV Lasix given temporarily for now. I have offered to put a nasogastric in order to administer oral medications but the patient is refusing at the bedside, shaking his head from side to side. 2. The patient is to have feeding tube placed on Sunday. Critical medications have been changed to topical or intravenous. If the patient requires oral intake sooner for medications, a nasogastric tube can be placed. 3. The case has been discussed with Neurology, who states that the hemorrhagic transformation on the repeat CT head is stable. Continue to hold the Xarelto. Okay to resume the Aspirin for now. [facility]
[2021-02-14] MEDS: D5W/0.45% SODIUM CHLORIDE 1,000 ML IV SCH (19:16)
[2021-02-14] MEDS: NITROGLYCERIN 2% OINT 1 GM *U/D* PKT TOP SCH (19:17)
[2021-02-15] VITALS: BP 125/64
[2021-02-15] MEDS: levETIRAcetam INJection 500 MG in D5W MINI-BAG PLUS 100 ML IV SCH ×2 (00:56→12:08)
[2021-02-15] MEDS: METOPROLOL 5 MG/5 ML VIAL IV SCH ×4 (03:52→21:00)
[2021-02-15 04:00] VITALS: BP 141/76
[2021-02-15 05:47] LABS: BASO # 0.1 10^3/uL (0.0-0.2); BASO % 0.5 % (0.0-1.0); EOS # 0.2 10^3/uL (0.0-0.5); EOS % 1.1 % (0.0-3.0); HEMATOCRIT 35.9 % (42.0-52.0); HEMOGLOBIN 11.9 g/dl (13.5-17.5); LYMPH # 2.5 10^3/uL (1.5-5.0); LYMPH % 18.2 % (24.0-44.0); MEAN CORPUSCULAR HEMOGLOBIN 30.1 pg (27.0-33.0); MEAN CORPUSCULAR HGB CONC 33.1 g/dl (32.0-36.5); MEAN CORPUSCULAR VOLUME 90.9 fl (80.0-96.0); MONO # 1.7 10^3/uL (0.0-0.8); MONO % 12.6 % (2.0-8.0); NEUTROPHILS # 9.1 10^3/uL (1.5-8.5); NEUTROPHILS % 66.1 % (36.0-66.0); PLATELET COUNT, AUTOMATED 442 10^3/uL (150-450); RED BLOOD COUNT 3.95 10^6/uL (4.30-6.10)
[2021-02-15] MEDS: NITROGLYCERIN 2% OINT 1 GM *U/D* PKT TOP SCH ×5 (06:00→23:46)
[2021-02-15 06:05] LABS: WHITE BLOOD COUNT 13.7 10^3/uL (4.0-10.0)
[2021-02-15 06:08] VITALS: BP 124/61
[2021-02-15 06:19] LABS: BLOOD UREA NITROGEN 20 MG/DL (7-18); CARBON DIOXIDE LEVEL 30 MEQ/L (21-32); CHLORIDE LEVEL 99 MEQ/L (98-107); CREATININE FOR GFR 0.91 MG/DL (0.70-1.30); GLOMERULAR FILTRATION RATE > 60.0 (>42); GLUCOSE, FASTING 192 MG/DL (70-100); POTASSIUM SERUM 4.3 MEQ/L (3.5-5.1); SODIUM LEVEL 136 MEQ/L (136-145)
[2021-02-15 08:00] VITALS: BP 157/86
--- NOTE | 2021-02-15 09:00 | REP ---
INDICATION: ffup peg dislodgement (few bubbles of air on CT). COMPARISON: CT 02/14/2021. TECHNIQUE: Two AP views abdomen and pelvis performed. FINDINGS: Bowel gas pattern is normal. There is no obstruction. These radiographs cannot assess the air in the prior gastrostomy tube tract in the anterior abdominal wall. Mild scattered vascular calcifications are seen in the pelvis. There are degenerative changes of the spine and hips. IMPRESSION: No obstruction. These radiographs cannot assess the air in the prior gastrostomy tube tract in the anterior abdominal wall. <Electronically signed by Billy Veloz > 02/15/21 [id number]
[2021-02-15] MEDS: ASPIRIN 300 MG SUPP PR SCH (09:01)
[2021-02-15 12:00] VITALS: BP 157/86
[2021-02-15] MEDS: D5W/0.45% SODIUM CHLORIDE 1,000 ML IV SCH ×2 (12:07→21:56)
--- NOTE | 2021-02-15 17:29 | IPNPDOC ---
Date Seen The patient was seen on 02/15/21. Progress Note SUBJECTIVE: Following commands on exam, unchanged per nursing and prior notes. BP slightly elevated at 170 mmHg, starting PRN hydralazine with parameters when to give. FT to be placed tomorrow and can hopefully resume home meds, nutrition. OBJECTIVE: PHYSICAL EXAMINATION: VITAL SIGNS: Please see below GENERAL APPEARANCE: The patient is awake, following commands, slurred speech HEENT: His face is asymmetric. Tongue is asymmetric, dry oral mucosa LUNGS: Clear to auscultation, no rales, rhonchi or wheezes HEART: S1, S2, sinus rhythm. No murmurs, rubs or gallops ABDOMEN: Soft, nontender, nondistended. Positive bowel sounds x4 quadrants. EXTREMITIES: No pitting edema. NEUROLOGICAL: The patient follows commands, still able to squeeze with two hands but generally weakness, expressive aphasia and dysarthria. Left sided neglect, left arm and leg are weak, 4/5 motor function. Right side is 5/5 upper and lower extremities. LABORATORY DATA: Please see below MICRO: none IMAGING: CT ASSESSMENT: 75-year-old male with moderate to severe multi-vessel intracranial stenosis, 70% left internal carotid artery stenosis, hypertension, dyslipidemia, and diabetes, with a noted right rodriguez radiata acute ischemic CVA with right basal ganglia and ischemic stroke with hemorrhagic transformation. DIAGNOSES: 1. Acute ischemic CVA in the right rodriguez radiata 2. 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 Uncontrolled hypertension due to loss of feeding tube - unable to administer oral medications 4. Aspiration risk due to CVA feeding tube has been removed by the patient 5. Loss of oral access - PEG tube was pulled out by the patient 6. 70% left internal carotid artery stenosis. 7. Moderate to severe multi vessel intracranial stenosis 8. Type 2 diabetes 9. Dyslipidemia PLAN: BP high at 170's today, added hydralazine PRn for systolic BP >160 mmHg, Nitroglycerin topical patch q. 6 hourly with holding parameters due to acute C VA. Goal BP 140 per neurology. Continue to hold xarelto, c/w ASA. Patient has refused NG tube and waiting for feeding tube to be placed on 02/16/21 by surgery (Dr. Cheema). Repeat head CT on 02/14/21 showed no new infarction and no new area of hemorrhage. No need for repeat imaging unless neurological status changes. Resume prior Po meds when able. DISPOSITION: Remains inpatient. Plan is possibly discharge back to ARU when medically improved. Discussed with d/c team today, ARU. VS, I&O, 24H, Petros Vital Signs/I&O Vital Signs Date Time Temp Pulse Resp B/P (MAP) Pulse Ox O2 Delivery O2 Flow Rate FiO2 02/15/21 15:24 94 153/83 02/15/21 12:00 98.1 16 98 Room Air I&O- Last 24 Hours up to 6 AM 02/15/21 06:00 Intake Total 0 ml Output Total 650 ml Balance -650 ml Laboratory Data 24H LABS Laboratory Tests 2 02/14/21 18:13: Bedside Glucose (Misc Panel) 182H 02/15/21 00:25: Bedside Glucose (Misc Panel) 227H 02/15/21 05:31: Immature Granulocyte % (Auto) 1.5, Neutrophils (%) (Auto) 66.1H, Lymphocytes (%) (Auto) 18.2L, Monocytes (%) (Auto) 12.6H, Eosinophils (%) (Auto) 1.1, Basophils (%) (Auto) 0.5, Neutrophils # (Auto) 9.1H, Lymphocytes # (Auto) 2.5, Monocytes # (Auto) 1.7H, Eosinophils # (Auto) 0.2, Basophils # (Auto) 0.1, Nucleated Red Blood Cells % (auto) 0.0, Anion Gap 7L, Glomerular Filtration Rate > 60.0, Calcium Level 9.0 02/15/21 06:14: Bedside Glucose (Misc Panel) 199H CBC/BMP Laboratory Tests 02/15/21 05:31 Xin Rader MD February 15, 2021 17:28
[2021-02-15] MEDS: hydrALAZINE 20MG/ML 1ML VIAL (J0360 PER 20MG) IV PRN (18:23)
[2021-02-15 20:00] VITALS: BP 158/84
[2021-02-16] VITALS (12 sets, daily range): BP systolic 121–170; BP diastolic 56–100
[2021-02-16] MEDS: levETIRAcetam INJection 500 MG in D5W MINI-BAG PLUS 100 ML IV SCH ×2 (01:26→12:35)
[2021-02-16] MEDS: METOPROLOL 5 MG/5 ML VIAL IV SCH ×4 (03:00→20:37)
[2021-02-16] MEDS: NITROGLYCERIN 2% OINT 1 GM *U/D* PKT TOP SCH ×3 (05:32→17:43)
[2021-02-16 05:43] LABS: BASO # 0.1 10^3/uL (0.0-0.2); BASO % 0.4 % (0.0-1.0); EOS # 0.1 10^3/uL (0.0-0.5); EOS % 0.8 % (0.0-3.0); HEMATOCRIT 35.4 % (42.0-52.0); HEMOGLOBIN 11.3 g/dl (13.5-17.5); LYMPH # 1.7 10^3/uL (1.5-5.0); LYMPH % 11.4 % (24.0-44.0); MEAN CORPUSCULAR HEMOGLOBIN 29.6 pg (27.0-33.0); MEAN CORPUSCULAR HGB CONC 31.9 g/dl (32.0-36.5); MEAN CORPUSCULAR VOLUME 92.7 fl (80.0-96.0); MONO # 1.6 10^3/uL (0.0-0.8); MONO % 11.1 % (2.0-8.0); NEUTROPHILS # 10.9 10^3/uL (1.5-8.5); NEUTROPHILS % 74.9 % (36.0-66.0); PLATELET COUNT, AUTOMATED 417 10^3/uL (150-450); RED BLOOD COUNT 3.82 10^6/uL (4.30-6.10)
[2021-02-16 05:48] LABS: WHITE BLOOD COUNT 14.5 10^3/uL (4.0-10.0)
[2021-02-16 06:07] LABS: BLOOD UREA NITROGEN 17 MG/DL (7-18); CALCIUM LEVEL 8.8 MG/DL (8.8-10.2); CARBON DIOXIDE LEVEL 32 MEQ/L (21-32); CHLORIDE LEVEL 101 MEQ/L (98-107); CREATININE FOR GFR 0.71 MG/DL (0.70-1.30); GLOMERULAR FILTRATION RATE > 60.0 (>42); GLUCOSE, FASTING 193 MG/DL (70-100); SODIUM LEVEL 138 MEQ/L (136-145)
[2021-02-16] MEDS: D5W/0.45% SODIUM CHLORIDE 1,000 ML IV SCH (09:28)
--- NOTE | 2021-02-16 10:24 | IPNPDOC ---
Text Note Date of Service The patient was seen on 02/16/21. NOTE General Surgery. Dr. Edward The patient is a 75-year-old male with history of CVA and aspiration risk due to CVA, the patient had pulled his PEG tube out. Surgery is consulted for placement of PEG tube. The patient is unable to consent for himself. Afebrile. VSS. CTA [id number] No edema. Assessment/plan. CVA and aspiration risk due to CVA. Gen. surgery is consulted for PEG tube placement. The patient is unable to consent for himself. I subsequently spoke with the amaya ent's healthcare proxy, his Margi over the phone this morning. I reviewed the procedure, risks, benefits and alternatives. All questions were answered. She verbalizes understanding and agreement and would like to proceed with PEG tube placement. Verbal consent was obtained over the phone. This was witnessed by Nelli ESCOBAR. Consent is placed on the chart. VS,Fishbone, I+O VS, Fishbone, I+O Laboratory Tests 02/16/21 05:11 Vital Signs Date Time Temp Pulse Resp B/P (MAP) Pulse Ox O2 Delivery O2 Flow Rate FiO2 02/16/21 08:00 98.7 73 18 146/78 (100) 95 Room Air I&O- Last 24 Hours up to 6 AM 02/16/21 06:00 Intake Total 0 ml Output Total 825 ml Balance -825 ml Eunice Sinha February 16, 2021 10:24
[2021-02-16] MEDS: ASPIRIN 300 MG SUPP PR SCH (10:54)
[2021-02-16] MEDS ORDERED: fentaNYL 100 MCG/2 ML INJECTION (J3010) As Ordered ONE (13:52)
[2021-02-16] MEDS ORDERED: propofoL 200 MG/20 ML VIAL As Ordered ONE (13:53)
[2021-02-16] MEDS ORDERED: LIDOCAINE 2% 100MG/5ML SDV (FOR ANES.) As Ordered ONE (13:53)
--- NOTE | 2021-02-16 14:39 | ROOR ---
Patient Name: Mike Stanton Procedure Date: 02/16/2021 2:08 PM Date of : 1945 Age: 75 Room: [facility] Gender: Male Note Status: Finalized Procedure: Upper GI endoscopy Indications: Dysphagia, Place PEG due to dysphagia Providers: Sp Edward MD, Baldo Urrutia MD Referring MD: 2. Inpatient 2. Inpatient Requesting Provider: Medicines: Monitored Anesthesia Care Complications: No immediate complications. Procedure: Pre-Anesthesia Assessment: - Prior to the procedure, a History and Physical was performed, and patient medications and allergies were reviewed. The patient is competent. The risks and benefits of the procedure and the sedation options and risks were discussed with the patient. All questions were answered and informed consent was obtained. Patient identification and proposed procedure were verified by the physician, the nurse and the anesthesiologist in the procedure room. Mental Status Examination: alert and oriented. Airway Examination: normal oropharyngeal airway and neck mobility. Respiratory Examination: clear to auscultation. CV Examination: normal. Prophylactic Antibiotics: The patient does not require prophylactic antibiotics. Prior Anticoagulants: The patient has taken no previous anticoagulant or antiplatelet agents. ASA Grade Assessment: II - A patient with mild systemic disease. After reviewing the risks and benefits, the patient was deemed in satisfactory condition to undergo the procedure. The anesthesia plan was to use monitored anesthesia care (MAC). Immediately prior to administration of medications, the patient was re-assessed for adequacy to receive sedatives. The heart rate, respiratory rate, oxygen saturations, blood pressure, adequacy of pulmonary ventilation, and response to care were monitored throughout the procedure. The physical status of the patient was re-assessed after the procedure. The Endoscope was introduced through the mouth, and advanced to the second part of duodenum. The upper GI endoscopy was accomplished without difficulty. The patient tolerated the procedure well. Findings: The examined esophagus was normal. One non-bleeding cratered gastric ulcer with a clean ulcer base (Jonathan Class III) was found in the gastric body. The lesion was 10 mm in largest dimension. The duodenal bulb, second portion of the duodenum and third portion of the duodenum were normal. The patient was placed in the supine position for PEG placement. The stomach was insufflated to appose gastric and abdominal kiser. A site was located in the body of the stomach with excellent transillumination and manual external pressure for placement. The abdominal wall was marked and prepped in a sterile manner. The area was anesthetized with 1 mL of 1% lidocaine. The trocar needle was introduced through the abdominal wall and into the stomach under direct endoscopic view. A snare was introduced through the endoscope and opened in the gastric lumen. The guide wire was passed through the trocar and into the open snare. The snare was closed around the guide wire. The endoscope and snare were removed, pulling the wire out through the mouth. A skin incision was made at the site of needle insertion. The externally removable 24 Fr EndoVive Safety gastrostomy tube was lubricated. The G-tube was tied to the guide wire and pulled through the mouth and into the stomach. The trocar needle was removed, and the gastrostomy tube was pulled out from the stomach through the skin. The external bumper was attached to the gastrostomy tube, and the tube was cut to remove the guide wire. The final position of the gastrostomy tube was confirmed by relook endoscopy, and skin marking noted to be 5 cm at the external bumper. The final tension and compression of the abdominal wall by the PEG tube and external bumper were checked and revealed that the bumper was moderately tight and mildly deforming the skin. The feeding tube was capped, and the tube site cleaned and dressed. Impression: - Normal esophagus. - Non-bleeding gastric ulcer with a clean ulcer base (Jonathan Class III). - Normal duodenal bulb, second portion of the duodenum and third portion of the duodenum. - An externally removable PEG placement was successfully completed. - No specimens collected. Recommendation: - Patient has a contact number available for emergencies. The signs and symptoms of potential delayed complications were discussed with the patient. Return to normal activities tomorrow. Written discharge instructions were provided to the patient. - Use a proton pump inhibitor PO BID for 8 weeks. - - Avoid NSAIDs for atleast 5 days. ( no contraindication for aspirin 81 mg). - Give pain medication - prefer opioid pain medication - standing dose for atleast 3 days. - Monitor PEG dressing for bleeding every 4 hours. - Check CBC and BUN/ Cr every 12 hours for 1 days or until stable. - Tube feeding tomorrow after evaluation by physician of the PEG tube site. - Control Systems Developer consult for PEG tube feeding. - Clean dry dressing of the PEG site daily, and routine infection prevention precautions. - Keep a covered dressing / abdominal binder to prevent accidental removal of PEG tube while not using it. - Follow up with PCP for routine medical care. - Ancef (cefazolin) 1 gm IV q 8 hr X 1 dose. Procedure Code(s): --- Professional --- 67542, Esophagogastroduodenoscopy, flexible, transoral; with directed placement of percutaneous gastrostomy tube Diagnosis Code(s): --- Professional --- K25.9, Gastric ulcer, unspecified as acute or chronic, without hemorrhage or perforation Z43.1, Encounter for attention to gastrostomy R13.10, Dysphagia, unspecified CPT copyright 2019 [employer]. All rights reserved. The codes documented in this report are preliminary and upon bus monitor review may be revised to meet current compliance requirements. Attending Participation: Dr. Urrutia performed the endoscopy portion Dr. Edward performed the abdominal portion Sp Edward MD Sp Edward MD 02/16/2021 2:39:18 PM Electronically signed by Sp Edward MD Baldo Urrutia MD Number of Addenda: 0 Note Initiated On: 02/16/2021 2:08 PM Estimated Blood Loss: Estimated blood loss was minimal.
[2021-02-16] MEDS ORDERED: AMPICILLIN SOD/SULBACTAM SOD 3 GM in D5W MINI-BAG PLUS 100 ML IV ONE (15:00)
--- NOTE | 2021-02-16 16:05 | IPNPDOC ---
Date Seen The patient was seen on 02/16/21. Progress Note SUBJECTIVE: Again follows commands on exam. PEG tube placed today, non-bleeding gastric ulcer found on upper GI endoscopy. Nutrition consulted for TF recommendations. OBJECTIVE: PHYSICAL EXAMINATION: VITAL SIGNS: Please see below GENERAL APPEARANCE: The patient is awake, following commands, garbled speech persists HEENT: His face is asymmetric. Tongue is asymmetric, dry oral mucosa LUNGS: Clear to auscultation, no rales, rhonchi or wheezes HEART: S1, S2, sinus rhythm. No murmurs, rubs or gallops ABDOMEN: Soft, nontender, nondistended. Positive bowel sounds x4 quadrants. EXTREMITIES: No pitting edema. NEUROLOGICAL: The patient follows commands, expressive aphasia and dysarthria. Left sided neglect, left arm and leg are weak, 4/5 motor function. Right side is 5/5 upper and lower extremities. LABORATORY DATA: Please see below MICRO: none IMAGING: Please see under "Imaging" ASSESSMENT: 75-year-old male with dysphagia, moderate to severe multi-vessel intracranial stenosis, 70% left internal carotid artery stenosis, hypertension, dyslipidemia, and diabetes, with a noted right rodriguez radiata acute ischemic CVA with right basal ganglia and ischemic stroke with hemorrhagic transformation. DIAGNOSES: 1. Acute ischemic CVA in the right rodriguez radiata 2. 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 Uncontrolled hypertension due to loss of feeding tube - unable to administer oral medications 4. Aspiration risk due to CVA - feeding tube has been removed by the patient 5. Loss of oral access - PEG tube was pulled out by the patient, placed again 02/16/[address] Edward 6. 70% left internal carotid artery stenosis. 7. Moderate to severe multi vessel intracranial stenosis 8. Type 2 diabetes 9. Dyslipidemia 10. Non-bleeding gastric ulcer seen on Upper GI endoscopy 02/16/21 PLAN: PEG placed 02/16/[address] Edward. Non-bleeding ulcer found on endoscopy, recommend BID PPI. BP high on return back, given BB IV with improvement. Nutritional consulted to recommend TF goals, rates, flushes, etc. Goal BP 140 per neurology. Continue to hold xarelto, c/w ASA. No need for repeat imaging unless neurological status changes. Resume prior PO meds when known to tolerate TF without residuals. Other chronic issues stable. DISPOSITION: Remains inpatient. Plan is possibly discharge back to ARU when medically improved. VS, I&O, 24H, Fishbone Vital Signs/I&O Vital Signs Date Time Temp Pulse Resp B/P (MAP) Pulse Ox O2 Delivery O2 Flow Rate FiO2 02/16/21 15:33 92 170/90 02/16/21 15:15 97.5 20 94 Room Air I&O- Last 24 Hours up to 6 AM 02/16/21 06:00 Intake Total 0 ml Output Total 825 ml Balance -825 ml Laboratory Data 24H LABS Laboratory Tests 2 02/15/21 20:02: Bedside Glucose (Misc Panel) 202H 02/16/21 05:11: Immature Granulocyte % (Auto) 1.4, Neutrophils (%) (Auto) 74.9H, Lymphocytes (%) (Auto) 11.4L, Monocytes (%) (Auto) 11.1H, Eosinophils (%) (Auto) 0.8, Basophils (%) (Auto) 0.4, Neutrophils # (Auto) 10.9H, Lymphocytes # (Auto) 1.7, Monocytes # (Auto) 1.6H, Eosinophils # (Auto) 0.1, Basophils # (Auto) 0.1, Nucleated Red Blood Cells % (auto) 0.0, Anion Gap 5L, Glomerular Filtration Rate > 60.0, Calcium Level 8.8 02/16/21 12:17: Bedside Glucose (Misc Panel) 175H CBC/BMP Laboratory Tests 02/16/21 05:11 Microbiology Microbiology 02/16/21 Respiratory Virus Panel (PCR) (RAFI) - Final, Complete Xin Rader MD February 16, 2021 16:05
[2021-02-16] MEDS: PANTOPRAZOLE 40MG VIAL (C9113 PER 1) IV SCH (16:36)
[2021-02-16] MEDS: MORPHINE 2 MG/ML 1ML VIAL (J2270) IV PRN (17:38)
[2021-02-17] VITALS: BP 135/81
[2021-02-17] MEDS: levETIRAcetam INJection 500 MG in D5W MINI-BAG PLUS 100 ML IV SCH ×2 (00:08→12:38)
[2021-02-17] MEDS: D5W/0.45% SODIUM CHLORIDE 1,000 ML IV SCH ×2 (00:08→12:38)
[2021-02-17] MEDS: MORPHINE 2 MG/ML 1ML VIAL (J2270) IV PRN (00:09)
[2021-02-17] MEDS ORDERED: MORPHINE 2 MG/ML 1ML VIAL (J2270) IV PRN (02:20)
[2021-02-17] MEDS ORDERED: diphenhydrAMINE 50MG/ML VIAL (J1200) IV PRN (02:20)
[2021-02-17] MEDS: METOPROLOL 5 MG/5 ML VIAL IV SCH ×4 (03:29→21:00)
[2021-02-17 04:00] VITALS: BP 152/74
[2021-02-17 05:21] LABS: BASO # 0.1 10^3/uL (0.0-0.2); BASO % 0.3 % (0.0-1.0); EOS % 0.2 % (0.0-3.0); HEMATOCRIT 34.8 % (42.0-52.0); HEMOGLOBIN 11.3 g/dl (13.5-17.5); LYMPH # 2.2 10^3/uL (1.5-5.0); LYMPH % 12.8 % (24.0-44.0); MEAN CORPUSCULAR HGB CONC 32.5 g/dl (32.0-36.5); MEAN CORPUSCULAR VOLUME 92.3 fl (80.0-96.0); MONO # 1.6 10^3/uL (0.0-0.8); NEUTROPHILS # 13.2 10^3/uL (1.5-8.5); NEUTROPHILS % 76.5 % (36.0-66.0); PLATELET COUNT, AUTOMATED 457 10^3/uL (150-450); RED BLOOD COUNT 3.77 10^6/uL (4.30-6.10)
[2021-02-17 05:40] LABS: BLOOD UREA NITROGEN 14 MG/DL (7-18); CALCIUM LEVEL 8.8 MG/DL (8.8-10.2); CARBON DIOXIDE LEVEL 27 MEQ/L (21-32); CHLORIDE LEVEL 104 MEQ/L (98-107); CREATININE FOR GFR 0.67 MG/DL (0.70-1.30); GLOMERULAR FILTRATION RATE > 60.0 (>42); GLUCOSE, FASTING 166 MG/DL (70-100); POTASSIUM SERUM 4.1 MEQ/L (3.5-5.1); SODIUM LEVEL 138 MEQ/L (136-145)
[2021-02-17 05:41] LABS: WHITE BLOOD COUNT 17.2 10^3/uL (4.0-10.0)
[2021-02-17] MEDS: NITROGLYCERIN 2% OINT 1 GM *U/D* PKT TOP SCH ×4 (05:45→18:00)
[2021-02-17 07:11] VITALS: BP 146/71
[2021-02-17] MEDS: ASPIRIN 300 MG SUPP PR SCH (09:17)
[2021-02-17] MEDS: PANTOPRAZOLE 40MG VIAL (C9113 PER 1) IV SCH (09:17)
[2021-02-17 11:13] VITALS: BP 172/74
--- NOTE | 2021-02-17 12:33 | IPNPDOC ---
Date Seen The patient was seen on 02/17/21. Progress Note SUBJECTIVE: TF in place, no increased abdominal pain, tenderness on exam, n/v/d. Will need to be seen by surgery prior to starting TF recommendations made by nutrition. Patient has no new complaints currently. OBJECTIVE: PHYSICAL EXAMINATION: VITAL SIGNS: Please see below GENERAL APPEARANCE: The patient is awake, following commands, garbled speech persists HEENT: His face is asymmetric. Tongue is asymmetric LUNGS: Clear to auscultation, no rales, rhonchi or wheezes HEART: S1, S2, sinus rhythm. No murmurs, rubs or gallops ABDOMEN: Soft, nontender, nondistended. Positive bowel sounds x4 quadrants. TF in place, no erythema, tenderness around incision sit : sylvester catheter in place EXTREMITIES: No pitting edema. NEUROLOGICAL: The patient follows commands, expressive aphasia and dysarthria. Left sided neglect, left arm and leg are weak, 4/5 motor function. Right side is 5/5 upper and lower extremities. LABORATORY DATA: Please see below MICRO: none IMAGING: Please see under "Imaging" ASSESSMENT: 75-year-old male with dysphagia, moderate to severe multi-vessel intracranial stenosis, 70% left internal carotid artery stenosis, hypertension, dyslipidemia, and diabetes, with a noted right rodriguez radiata acute ischemic CVA with right basal ganglia and ischemic stroke with hemorrhagic transformation. DIAGNOSES: 1. Acute ischemic CVA in the right rodriguez radiata 2. 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 Uncontrolled hypertension due to loss of feeding tube - unable to administer oral medications 4. Aspiration risk due to CVA 5. Loss of oral access - PEG tube was pulled out by the patient, placed again 02/16/[address] Edward 6. 70% left internal carotid artery stenosis. 7. Moderate to severe multi vessel intracranial stenosis 8. Type 2 diabetes 9. Dyslipidemia 10. Non-bleeding gastric ulcer seen on Upper GI endoscopy 02/16/21 PLAN: PEG placed 02/16/21, surgery to see prior to starting TF. TF recommendations given by nutrition, to be started once surgery ok's. C/w BID PPI for non- bleeding ulcer found on endoscopy. BP remains intermittently high in 170's ;however, improves with IV BB. Goal BP 140 per neurology- resume home meds if tolerates TF without residuals. Continue to hold xarelto, c/w ASA. No need for repeat imaging unless neurological status changes. Other chronic issues stable. DISPOSITION: Remains inpatient. Plan is possibly discharge back to ARU when medically improved. VS, I&O, 24H, Khrise Vital Signs/I&O Vital Signs Date Time Temp Pulse Resp B/P (MAP) Pulse Ox O2 Delivery O2 Flow Rate FiO2 02/17/21 11:13 96.7 85 20 172/74 (106) 100 Room Air I&O- Last 24 Hours up to 6 AM 02/17/21 06:00 Intake Total 1000 ml Output Total 205 ml Balance 795 ml Laboratory Data 24H LABS Laboratory Tests 2 02/16/21 17:23: Bedside Glucose (Misc Panel) 175H 02/17/21 00:31: Bedside Glucose (Misc Panel) 206H 02/17/21 04:56: Immature Granulocyte % (Auto) 1.2, Neutrophils (%) (Auto) 76.5H, Lymphocytes (%) (Auto) 12.8L, Monocytes (%) (Auto) 9.0H, Eosinophils (%) (Auto) 0.2, Basophils (%) (Auto) 0.3, Neutrophils # (Auto) 13.2H, Lymphocytes # (Auto) 2.2, Monocytes # (Auto) 1.6H, Eosinophils # (Auto) 0.0, Basophils # (Auto) 0.1, Nucleated Red Blood Cells % (auto) 0.0, Anion Gap 7L, Glomerular Filtration Rate > 60.0, Calcium Level 8.8 02/17/21 09:23: Urine Color YELLOW, Urine Appearance CLOUDYH, Urine pH 5.0, Urine Specific Hammond 1.020, Urine Protein 1+H, Urine Glucose (UA) 1+H, Urine Ketones NEGATIVE, Urine Blood 1+H, Urine Nitrite NEGATIVE, Urine Bilirubin NEGATIVE, Urine Urobilinogen 0.2, Urine Leukocyte Esterase NEGATIVE, Urine WBC (Auto) 4H, Urine RBC (Auto) 18H, Urine Hyaline Casts (Auto) 0, Urine Bacteria (Auto) 1+H, Urine Squamous Epithelial Cells 0, Urine Uric Acid Crystals (Auto) SMALL, Urine Mucus (Auto) SMALL, Urine Sperm (Auto) 02/17/21 11:09: Bedside Glucose (Misc Panel) 193H CBC/BMP Laboratory Tests 02/17/21 04:56 Microbiology Microbiology 02/16/21 Respiratory Virus Panel (PCR) (RAFI) - Final, Complete Xin Rader MD February 17, 2021 12:33
[2021-02-17] MEDS: cefTRIAXone SOD 1 GM in D5W MINI-BAG PLUS 50 ML IV SCH (13:27)
[2021-02-17 15:45] VITALS: BP 132/65
[2021-02-17 16:36] LABS: ABG BASE EXCESS 2.4 (-2.0-2.0); ABG HCO3 26.2 MEQ/L (22.0-26.0); ABG O2 SATURATION 93.8 % (95.0-99.0); ABG PARTIAL PRESSURE CO2 37.3 mmHg (35.0-45.0); ABG PARTIAL PRESSURE O2 69.8 mmHg (75.0-100.0); ABG STANDARD HCO3 26.6 MEQ/L (22.0-26.0); ABG TOTAL CO2 27.3 MEQ/L (23.0-31.0); ABG pH (ARTERIAL) 7.464 UNITS (7.350-7.450)
--- NOTE | 2021-02-17 17:23 | REPVR ---
PROCEDURE INFORMATION: Exam: CT Head Without Contrast Exam date and time: 02/17/2021 5:07 PM Age: 75 years old Clinical indication: Other: Increased somnolence, recent stroke TECHNIQUE: Imaging protocol: Computed tomography of the head without contrast. Radiation optimization: All CT scans at this facility use at least one of these dose optimization techniques: automated exposure control; mA and/or kV adjustment per patient size (includes targeted exams where dose is matched to clinical indication); or iterative reconstruction. Other technique: STROKE PROTOCOL was implemented. COMPARISON: CT Head without contrast 02/14/2021 10:41 AM FINDINGS: Brain: There is volume loss. There is white matter lucency consistent with chronic microvascular disease. There are old bilateral basal ganglia and thalamic lacunar infarcts. There is an old left occipital small cortical infarct. There is no evidence of acute infarct. There is no hemorrhage or extra-axial collection. There is no mass. Cerebral ventricles: No ventriculomegaly. Bones/joints: Unremarkable. No acute fracture. Paranasal sinuses: Visualized sinuses are unremarkable. No fluid levels. Mastoid air cells: Visualized mastoid air cells are well aerated. Soft tissues: Unremarkable. IMPRESSION: 1. Extensive chronic microvascular disease with small old infarcts 2. No acute intracranial lesion or injury and no change from prior scan ASSESSMENT: ASPECTS ([place] Stroke Program Early CT Score) is 10. Electronically signed by: Julio C Louis On 02/17/2021 17:22:33 PM
[2021-02-17 20:00] VITALS: BP 126/70
[2021-02-18] VITALS (7 sets, daily range): BP systolic 134–172; BP diastolic 59–76
[2021-02-18] MEDS: D5W/0.45% SODIUM CHLORIDE 1,000 ML IV SCH ×3 (00:03→18:23)
[2021-02-18] MEDS: NITROGLYCERIN 2% OINT 1 GM *U/D* PKT TOP SCH ×2 (00:04→06:00)
[2021-02-18] MEDS: levETIRAcetam INJection 500 MG in D5W MINI-BAG PLUS 100 ML IV SCH (00:04)
[2021-02-18] MEDS ORDERED: ONDANSETRON 4MG/2ML VIAL IV PRN (03:00)
[2021-02-18] MEDS: METOPROLOL 5 MG/5 ML VIAL IV SCH ×2 (03:56→09:47)
[2021-02-18 06:58] LABS: BASO # 0.1 10^3/uL (0.0-0.2); BASO % 0.4 % (0.0-1.0); EOS # 0.4 10^3/uL (0.0-0.5); HEMATOCRIT 32.2 % (42.0-52.0); HEMOGLOBIN 10.2 g/dl (13.5-17.5); LYMPH # 1.9 10^3/uL (1.5-5.0); LYMPH % 15.1 % (24.0-44.0); MEAN CORPUSCULAR HEMOGLOBIN 29.7 pg (27.0-33.0); MEAN CORPUSCULAR HGB CONC 31.7 g/dl (32.0-36.5); MEAN CORPUSCULAR VOLUME 93.6 fl (80.0-96.0); MONO # 1.3 10^3/uL (0.0-0.8); MONO % 10.2 % (2.0-8.0); NEUTROPHILS # 8.6 10^3/uL (1.5-8.5); PLATELET COUNT, AUTOMATED 385 10^3/uL (150-450); RED BLOOD COUNT 3.44 10^6/uL (4.30-6.10); WHITE BLOOD COUNT 12.3 10^3/uL (4.0-10.0)
[2021-02-18 07:24] LABS: BLOOD UREA NITROGEN 9 MG/DL (7-18); CALCIUM LEVEL 7.5 MG/DL (8.8-10.2); CARBON DIOXIDE LEVEL 30 MEQ/L (21-32); CHLORIDE LEVEL 104 MEQ/L (98-107); CREATININE FOR GFR 0.65 MG/DL (0.70-1.30); GLOMERULAR FILTRATION RATE > 60.0 (>42); GLUCOSE, FASTING 157 MG/DL (70-100); POTASSIUM SERUM 3.7 MEQ/L (3.5-5.1); SODIUM LEVEL 138 MEQ/L (136-145)
[2021-02-18] MEDS ORDERED: METOPROLOL TART 25 MG TABLET PO SCH (09:00)
[2021-02-18] MEDS ORDERED: DOCUSATE SOD LIQ 100MG/10ML UDC PEG SCH (09:00)
[2021-02-18] MEDS ORDERED: DULoxetine 30 MG CAP (CYMBALTA) PO SCH (09:00)
[2021-02-18] MEDS ORDERED: LOSARTAN 50MG TABLET PO SCH (09:00)
[2021-02-18] MEDS ORDERED: LOSARTAN 50MG TABLET PEG SCH (09:00)
[2021-02-18] MEDS ORDERED: DOCUSATE SODIUM 100MG CAPSULE PO SCH (09:00)
[2021-02-18] MEDS ORDERED: carBAMazepine XR 200 MG TAB PO SCH (09:00)
[2021-02-18] MEDS ORDERED: PANTOPRAZOLE 40MG TAB (PROTONIX) PO SCH (09:00)
--- NOTE | 2021-02-18 09:08 | REP ---
INDICATION: r/o aspiration. COMPARISON: 02/12/2021. TECHNIQUE: Single portable AP view of the chest was performed. FINDINGS: There is mild elevation the right hemidiaphragm. No infiltrate is seen. There is cardiomegaly. The mediastinal silhouette is unchanged. IMPRESSION: No acute pulmonary disease. <Electronically signed by Billy Veloz > 02/18/21 0905
[2021-02-18] MEDS: PANTOPRAZOLE 40MG VIAL (C9113 PER 1) IV SCH (09:46)
[2021-02-18] MEDS: ASPIRIN 300 MG SUPP PR SCH (09:47)
[2021-02-18] MEDS: METOPROLOL TART 25 MG TABLET PEG SCH ×2 (12:28→23:13)
[2021-02-18] MEDS: VENLAFAXINE 37.5 MG TAB PEG SCH ×2 (12:29→23:09)
[2021-02-18] MEDS: cefTRIAXone SOD 1 GM in D5W MINI-BAG PLUS 50 ML IV SCH (12:29)
[2021-02-18] MEDS: carBAMazepine 100MG 5ML SUSP ORAL SYRINGE *DRAW UP EXACT DOSE PEG SCH ×3 (12:45→23:08)
--- NOTE | 2021-02-18 13:47 | IPNPDOC ---
Date Seen The patient was seen on 02/18/21. Progress Note SUBJECTIVE: Afebrile overnight, tolerating TF well. Restarted home meds or alternatives for them. More awake and alert this AM, baseline neurologically. Patient has no new complaints currently. OBJECTIVE: PHYSICAL EXAMINATION: VITAL SIGNS: Please see below GENERAL APPEARANCE: The patient is awake, following commands, garbled speech persists HEENT: His face is asymmetric. Tongue is asymmetric LUNGS: Clear to auscultation, no rales, rhonchi or wheezes HEART: S1, S2, sinus rhythm. No murmurs, rubs or gallops ABDOMEN: Soft, nontender, nondistended. Positive bowel sounds x4 quadrants. feeding tube in place, no erythema, no tenderness around incision site : sylvester catheter in place EXTREMITIES: No pitting edema. NEUROLOGICAL: The patient follows commands, expressive aphasia and dysarthria. Lifts arms b/l against gravity. Left sided neglect, left arm and leg are weak, 4/5 motor function. Right side is 5/5 upper and lower extremities. LABORATORY DATA: Please see below MICRO: UA +, no culture reflexed IMAGING: Please see under "Imaging" ASSESSMENT: 75-year-old male with dysphagia, moderate to severe multi-vessel intracranial stenosis, 70% left internal carotid artery stenosis, hypertension, dyslipidemia, and diabetes, with a noted right rodriguez radiata acute ischemic CVA with right basal ganglia and ischemic stroke with hemorrhagic transformation. DIAGNOSES: 1. Acute ischemic CVA in the right rodriguez radiata 2. 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 Uncontrolled hypertension due to loss of feeding tube - unable to administer oral medications 4. Aspiration risk due to CVA 5. Loss of oral access - PEG tube was pulled out by the patient, placed again 02/16/[address] Edward 6. 70% left internal carotid artery stenosis. 7. Moderate to severe multi vessel intracranial stenosis 8. Type 2 diabetes 9. Dyslipidemia 10. Non-bleeding gastric ulcer seen on Upper GI endoscopy 02/16/21 11. UTI PLAN: PEG functioning well, no residuals on TF. Restarted home meds, modified some to liquid forms. Continue to hold xarelto, c/w ASA. No need for repeat imaging unless neurological status changes. Other chronic issues stable. Per PT: Pt demonstrating increased fatigue this session with decreased participation in bed mobility and increased L lateral lean in sitting and standing. Completed SPT with modAx2 with RW, demonstrating increased L lateral lean however taking a few steps during transfer." C/w PT/OT. On Day 2/3 of ceftriaxone for UTI. DISPOSITION: Remains inpatient. Will confirm whether plan is home with 23/04 care vs. ARU. Patient was previously in ARU. Regardless, per PT notes, family will need jillian training prior to discharge if he goes home with services from here. VS, I&O, 24H, Fishbone Vital Signs/I&O Vital Signs Date Time Temp Pulse Resp B/P (MAP) Pulse Ox O2 Delivery O2 Flow Rate FiO2 02/18/21 12:28 65 134/59 02/18/21 11:06 97.4 18 93 Room Air I&O- Last 24 Hours up to 6 AM 02/18/21 06:00 Intake Total 3020 ml Output Total 1500 ml Balance 1520 ml Laboratory Data 24H LABS Laboratory Tests 2 02/17/21 16:21: Blood Gas Bicarbonate Standard 26.6H, Arterial Blood pH 7.464H, Arterial Blood Partial Pressure CO2 37.3, Arterial Blood Partial Pressure O2 69.8L, Arterial Blood Total CO2 27.3, Arterial Blood HCO3 26.2H, Arterial Blood Base Excess 2.4H, Arterial Blood Oxygen Saturation 93.8L 02/17/21 18:01: Bedside Glucose (Misc Panel) 155H 02/18/21 00:11: Bedside Glucose (Misc Panel) 161H 02/18/21 06:27: Immature Granulocyte % (Auto) 1.3, Neutrophils (%) (Auto) 70.0H, Lymphocytes (%) (Auto) 15.1L, Monocytes (%) (Auto) 10.2H, Eosinophils (%) (Auto) 3.0, Basophils (%) (Auto) 0.4, Neutrophils # (Auto) 8.6H, Lymphocytes # (Auto) 1.9, Monocytes # (Auto) 1.3H, Eosinophils # (Auto) 0.4, Basophils # (Auto) 0.1, Nucleated Red Blood Cells % (auto) 0.0, Anion Gap 4L, Glomerular Filtration Rate > 60.0, Calcium Level 7.5L CBC/BMP Laboratory Tests 02/18/21 06:27 Microbiology Microbiology 02/16/21 Respiratory Virus Panel (PCR) (RAFI) - Final, Complete Xin Rader MD February 18, 2021 13:47
[2021-02-18] MEDS ORDERED: ACETAMINOPHEN TAB 650MG DOSE (2X325MG) FT PRN (18:00)
[2021-02-18] MEDS ORDERED: guaiFENesin SYRUP 200 MG/10 ML UDC PO PRN (19:30)
[2021-02-18] MEDS ORDERED: TAMSULOSIN 0.4 MG CAP PO SCH (21:00)
[2021-02-18] MEDS ORDERED: SIMVASTATIN 40 MG TAB PO SCH (21:00)
[2021-02-18] MEDS ORDERED: SIMVASTATIN 40 MG TAB PEG SCH (21:00)
[2021-02-19] VITALS: BP 164/78
[2021-02-19] MEDS: D5W/0.45% SODIUM CHLORIDE 1,000 ML IV SCH ×3 (01:38→23:55)
[2021-02-19 04:00] VITALS: BP 160/72
[2021-02-19 05:54] LABS: BASO % 0.2 % (0.0-1.0); EOS # 0.4 10^3/uL (0.0-0.5); EOS % 3.5 % (0.0-3.0); HEMATOCRIT 31.5 % (42.0-52.0); HEMOGLOBIN 10.1 g/dl (13.5-17.5); LYMPH # 1.7 10^3/uL (1.5-5.0); LYMPH % 13.2 % (24.0-44.0); MEAN CORPUSCULAR HEMOGLOBIN 29.5 pg (27.0-33.0); MEAN CORPUSCULAR HGB CONC 32.1 g/dl (32.0-36.5); MEAN CORPUSCULAR VOLUME 92.1 fl (80.0-96.0); MONO # 1.2 10^3/uL (0.0-0.8); MONO % 9.3 % (2.0-8.0); NEUTROPHILS # 9.2 10^3/uL (1.5-8.5); NEUTROPHILS % 72.8 % (36.0-66.0); PLATELET COUNT, AUTOMATED 368 10^3/uL (150-450); RED BLOOD COUNT 3.42 10^6/uL (4.30-6.10); WHITE BLOOD COUNT 12.7 10^3/uL (4.0-10.0)
[2021-02-19 06:24] LABS: BLOOD UREA NITROGEN 9 MG/DL (7-18); CALCIUM LEVEL 8.5 MG/DL (8.8-10.2); CARBON DIOXIDE LEVEL 27 MEQ/L (21-32); CHLORIDE LEVEL 105 MEQ/L (98-107); CREATININE FOR GFR 0.62 MG/DL (0.70-1.30); GLOMERULAR FILTRATION RATE > 60.0 (>42); GLUCOSE, FASTING 197 MG/DL (70-100); SODIUM LEVEL 139 MEQ/L (136-145)
[2021-02-19 08:00] VITALS: BP 186/72
--- NOTE | 2021-02-19 08:14 | REP ---
INDICATION: dislodged peg tube COMPARISON: Comparison CT study abdomen and pelvis February 14, 2021.. TECHNIQUE: Helical scanning is acquired and 3 mm axial images were reformatted. Coronal and sagittal MPR images were generated and reviewed. FINDINGS: Digital preliminary home care administrator radiograph demonstrates an unremarkable bowel gas pattern. The lung bases are clear. Vascular calcification and mitral annular calcification is noted in the heart. There are granulomatous calcifications scattered in the spleen. The liver and spleen are otherwise homogeneous and are normal in size. No abnormality is noted the gallbladder. Normal adrenal glands are seen bilaterally. No abnormality is noted in the pancreas. The patient's gastrostomy tube tract is again noted in the left upper quadrant with history of a recent dislodgement. There is minimal fibrosis adjacent to the tract. No evidence of pneumoperitoneum or hemoperitoneum is seen. Small and large bowel loops are unremarkable in the abdomen and pelvis. No renal mass lesion is observed. There is a tiny parenchymal calcification at the lower pole of the left kidney. There is a Naqvi catheter in the urinary bladder. Bladder kiser are somewhat thickened. Dystrophic calcifications are seen in the prostate. No abdominal wall defect is seen. No bony destructive lesion is appreciated. IMPRESSION: There is a small amount of fibrosis around the left upper quadrant gastrostomy tube tract. There is no evidence of pneumothorax, hydrothorax, or hematoma. Otherwise no acute abdominal abnormality. <Electronically signed by Jonny Madsen > 02/19/21 [id number]
[2021-02-19] MEDS: ASPIRIN 300 MG SUPP PR SCH (08:19)
[2021-02-19] MEDS: PANTOPRAZOLE 40MG VIAL (C9113 PER 1) IV SCH (08:19)
[2021-02-19] MEDS: METOPROLOL 5 MG/5 ML VIAL IV SCH ×4 (10:16→23:55)
[2021-02-19 12:00] VITALS: BP 150/63
[2021-02-19] MEDS: levETIRAcetam INJection 500 MG in D5W MINI-BAG PLUS 100 ML IV SCH ×2 (13:20→23:56)
[2021-02-19] MEDS: cefTRIAXone SOD 1 GM in D5W MINI-BAG PLUS 50 ML IV SCH (13:20)
--- NOTE | 2021-02-19 15:44 | IPNPDOC ---
Date Seen The patient was seen on 02/19/21. Progress Note SUBJECTIVE: Pulled PEG tube out overnight, patient does not remember, notified surgery. CT abd/pelvis neg for free air. Converted meds to IV again, IVFs. Discussed with surgery and will f/u to see when next available time to place another PEG will be. OBJECTIVE: PHYSICAL EXAMINATION: VITAL SIGNS: Please see below GENERAL APPEARANCE: The patient is awake, following commands, garbled speech persists HEENT: His face is asymmetric. Tongue is asymmetric LUNGS: Clear to auscultation, no rales, rhonchi or wheezes HEART: S1, S2, sinus rhythm. No murmurs, rubs or gallops, No pitting edema b/l lower ext ABDOMEN: Soft, nontender, nondistended. Positive bowel sounds x4 quadrants. feeding tube incision, clean, light red drainage is minimal. Mild erythema around incision site : sylvester catheter in place EXTREMITIES: no cyanosis, clubbing NEUROLOGICAL: The patient follows commands, expressive aphasia and dysarthria. Lifts arms b/l against gravity. Left sided neglect, left arm and leg are weak, 4/5 motor function. Right side is 5/5 upper and lower extremities. LABORATORY DATA: Please see below MICRO: UA +, no culture reflexed Resp panel 02/16/21: Neg IMAGING: CT abd/pelvis 02/19/21: There is a small amount of fibrosis around the left upper quadrant gastrostomy tube tract. There is no evidence of pneumothorax, hydrothorax, or hematoma. acute abdominal abnormality. ASSESSMENT: 75-year-old male with dysphagia, moderate to severe multi-vessel intracranial stenosis, 70% left internal carotid artery stenosis, hypertension, dyslipidemia, and diabetes, with a noted right rodriguez radiata acute ischemic CVA with right basal ganglia and ischemic stroke with hemorrhagic transformation. DIAGNOSES: 1. Acute ischemic CVA in the right rodriguez radiata 2. 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 Uncontrolled hypertension 4. Aspiration risk due to CVA 5. Dysphagia 6. PEG tube removed by patient (unintentional) 02/19/21 after being replaced 02/16/[address] Edward (had previously pulled out first as well). 7. 70% left internal carotid artery stenosis. 8. Moderate to severe multi vessel intracranial stenosis 9. Type 2 diabetes 10. Dyslipidemia 11. Non-bleeding gastric ulcer seen on Upper GI endoscopy 02/16/21 12. UTI PLAN: PEG pulled and converted all meds to IV again. Will d/w general surgery when he will be able to have another PEG placed. Updated his on current situation. Continue to hold xarelto/ AC due to recent hemorrhagic conversion of ischemic stroke. C/w [place] ASA. No need for repeat imaging unless neurological status changes. Other chronic issues stable. C/w PT/OT. On Day 3/3 of ceftriaxone for UTI- stopping today after last dose. BP still uncontrolled at times, metoprolol IV and can give IV hydralazine. DISPOSITION: Remains inpatient. Plan is hopefully back to ARU when his PEG situation is stabilized and he is tolerating TFs. Home after ARU, confirmed with PFS prior to weekend. VS, I&O, 24H, Fishbone Vital Signs/I&O Vital Signs Date Time Temp Pulse Resp B/P (MAP) Pulse Ox O2 Delivery O2 Flow Rate FiO2 02/19/21 13:19 78 150/63 02/19/21 12:00 96.8 18 95 Room Air I&O- Last 24 Hours up to 6 AM 02/19/21 06:00 Intake Total 2090 ml Output Total 850 ml Balance 1240 ml Laboratory Data 24H LABS Laboratory Tests 2 02/18/21 18:10: Bedside Glucose (Misc Panel) 170H 02/19/21 01:57: Bedside Glucose (Misc Panel) 182H 02/19/21 05:38: Immature Granulocyte % (Auto) 1.0, Neutrophils (%) (Auto) 72.8H, Lymphocytes (%) (Auto) 13.2L, Monocytes (%) (Auto) 9.3H, Eosinophils (%) (Auto) 3.5H, Basophils (%) (Auto) 0.2, Neutrophils # (Auto) 9.2H, Lymphocytes # (Auto) 1.7, Monocytes # (Auto) 1.2H, Eosinophils # (Auto) 0.4, Basophils # (Auto) 0.0, Nucleated Red Blood Cells % (auto) 0.0, Anion Gap 7L, Glomerular Filtration Rate > 60.0, Calcium Level 8.5L 02/19/21 07:11: Bedside Glucose (Misc Panel) 177H CBC/BMP Laboratory Tests 02/19/21 05:38 Microbiology Microbiology 02/16/21 Respiratory Virus Panel (PCR) ([facility]) - Final, Complete Xin Rader MD February 19, 2021 15:44
[2021-02-19 15:59] VITALS: BP 168/78
[2021-02-19 20:00] VITALS: BP 136/64
[2021-02-20] VITALS: BP 158/74
[2021-02-20 04:00] VITALS: BP 157/69
[2021-02-20 04:12] LABS: BASO % 0.2 % (0.0-1.0); EOS # 0.4 10^3/uL (0.0-0.5); EOS % 2.9 % (0.0-3.0); HEMATOCRIT 32.7 % (42.0-52.0); HEMOGLOBIN 10.3 g/dl (13.5-17.5); LYMPH # 1.9 10^3/uL (1.5-5.0); LYMPH % 14.8 % (24.0-44.0); MEAN CORPUSCULAR HEMOGLOBIN 29.2 pg (27.0-33.0); MEAN CORPUSCULAR HGB CONC 31.5 g/dl (32.0-36.5); MEAN CORPUSCULAR VOLUME 92.6 fl (80.0-96.0); MONO # 1.4 10^3/uL (0.0-0.8); MONO % 10.8 % (2.0-8.0); NEUTROPHILS # 8.9 10^3/uL (1.5-8.5); NEUTROPHILS % 70.4 % (36.0-66.0); PLATELET COUNT, AUTOMATED 373 10^3/uL (150-450); RED BLOOD COUNT 3.53 10^6/uL (4.30-6.10); WHITE BLOOD COUNT 12.6 10^3/uL (4.0-10.0)
[2021-02-20 04:51] LABS: BLOOD UREA NITROGEN 5 MG/DL (7-18); CALCIUM LEVEL 8.4 MG/DL (8.8-10.2); CARBON DIOXIDE LEVEL 31 MEQ/L (21-32); CHLORIDE LEVEL 105 MEQ/L (98-107); CREATININE FOR GFR 0.54 MG/DL (0.70-1.30); GLOMERULAR FILTRATION RATE > 60.0 (>42); GLUCOSE, FASTING 169 MG/DL (70-100); POTASSIUM SERUM 3.9 MEQ/L (3.5-5.1); SODIUM LEVEL 140 MEQ/L (136-145)
[2021-02-20] MEDS: METOPROLOL 5 MG/5 ML VIAL IV SCH ×3 (05:19→17:35)
[2021-02-20 08:00] VITALS: BP 144/72
[2021-02-20] MEDS: D5W/0.45% SODIUM CHLORIDE 1,000 ML IV SCH ×2 (08:06→21:01)
[2021-02-20] MEDS: ASPIRIN 300 MG SUPP PR SCH (08:06)
[2021-02-20] MEDS: PANTOPRAZOLE 40MG VIAL (C9113 PER 1) IV SCH (08:06)
[2021-02-20 12:00] VITALS: BP 124/85
[2021-02-20] MEDS: levETIRAcetam INJection 500 MG in D5W MINI-BAG PLUS 100 ML IV SCH (12:19)
--- NOTE | 2021-02-20 12:49 | IPNPDOC ---
Date Seen The patient was seen on 02/20/21. Progress Note SUBJECTIVE: No acute events overnight. Per surgery, will make decision on replacement of PEG tube after weekend. There are some PEGs apparently on backorder. OBJECTIVE: PHYSICAL EXAMINATION: VITAL SIGNS: Please see below GENERAL APPEARANCE: The patient is awake, following commands, garbled speech persists HEENT: His face is asymmetric. Tongue is asymmetric LUNGS: Clear to auscultation, no rales, rhonchi or wheezes HEART: S1, S2, sinus rhythm. No murmurs, rubs or gallops, No pitting edema b/l lower ext ABDOMEN: Soft, nontender, nondistended. Positive bowel sounds x4 quadrants. feed ing tube incision leaking some serosanguinous and also "pustulant" appearing material into bandage covering, some mild erythema around incision site, nontender on palpation. : sylvester catheter in place EXTREMITIES: no cyanosis, clubbing NEUROLOGICAL: The patient follows commands, expressive aphasia and dysarthria. Lifts arms b/l against gravity. Left sided neglect, left arm and leg are weak, 4/5 motor function. Right side is 5/5 upper and lower extremities. LABORATORY DATA: Please see below MICRO: UA +, no culture reflexed Resp panel 02/16/21: Neg IMAGING: CT abd/pelvis 02/19/21: There is a small amount of fibrosis around the left upper quadrant gastrostomy tube tract. There is no evidence of pneumothorax, hydrothorax, or hematoma. acute abdominal abnormality. ASSESSMENT: 75-year-old male with dysphagia, moderate to severe multi-vessel intracranial stenosis, 70% left internal carotid artery stenosis, hypertension, dyslipidemia, and diabetes, with a noted right rodriguez radiata acute ischemic CVA with right basal ganglia and ischemic stroke with hemorrhagic transformation. DIAGNOSES: 1. Acute ischemic CVA in the right rodriguez radiata 2. 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 PEG tube removed by patient (unintentional) 02/19/21 after being replaced 02/16/[address] Edward (had previously pulled out first as well). 4. Aspiration risk due to CVA 5. Dysphagia 6. Uncontrolled hypertension 7. 70% left internal carotid artery stenosis. 8. Moderate to severe multi vessel intracranial stenosis 9. Type 2 diabetes 10. Dyslipidemia 11. Non-bleeding gastric ulcer seen on Upper GI endoscopy 02/16/21 12. UTI PLAN: Decision on when PEG to be replaced to be discussed between surgeons after this weekend. Materials on backorder in OR. Continue to hold xarelto/ AC due to recent hemorrhagic conversion of ischemic stroke. C/w [place] ASA. No need for repeat imaging unless neurological status changes. Other chronic issues stable. C/w PT/OT. Completed ceftriaxone for UTI. BP better controlled with systolics in 150-160's. Can give IV hydralazine. DISPOSITION: Remains inpatient. Plan is hopefully back to ARU when his PEG situation is stabilized and he is tolerating TFs. Home after ARU, confirmed with PFS prior to weekend. VS, I&O, 24H, Fishbone Vital Signs/I&O Vital Signs Date Time Temp Pulse Resp B/P (MAP) Pulse Ox O2 Delivery O2 Flow Rate FiO2 02/20/21 12:00 60 122/86 02/20/21 08:00 96.6 18 97 Room Air I&O- Last 24 Hours up to 6 AM 02/20/21 06:00 Intake Total 905 ml Output Total 2875 ml Balance -1970 ml Laboratory Data 24H LABS Laboratory Tests 2 02/19/21 23:49: Bedside Glucose (Misc Panel) 151H 02/20/21 04:02: Immature Granulocyte % (Auto) 0.9, Neutrophils (%) (Auto) 70.4H, Lymphocytes (%) (Auto) 14.8L, Monocytes (%) (Auto) 10.8H, Eosinophils (%) (Auto) 2.9, Basophils (%) (Auto) 0.2, Neutrophils # (Auto) 8.9H, Lymphocytes # (Auto) 1.9, Monocytes # (Auto) 1.4H, Eosinophils # (Auto) 0.4, Basophils # (Auto) 0.0, Nucleated Red Blood Cells % (auto) 0.0, Anion Gap 4L, Glomerular Filtration Rate > 60.0, Calcium Level 8.4L CBC/BMP Laboratory Tests 02/20/21 04:02 Microbiology Microbiology 02/16/21 Respiratory Virus Panel (PCR) ([facility]) - Final, Complete Xin Rader MD February 20, 2021 12:49
[2021-02-20 16:00] VITALS: BP 142/60
[2021-02-20 20:00] VITALS: BP 160/76
[2021-02-21] VITALS (20 sets, daily range): BP systolic 121–184; BP diastolic 59–96
[2021-02-21] MEDS: levETIRAcetam INJection 500 MG in D5W MINI-BAG PLUS 100 ML IV SCH ×2 (00:38→12:27)
[2021-02-21] MEDS: METOPROLOL 5 MG/5 ML VIAL IV SCH ×4 (00:38→19:03)
[2021-02-21] MEDS: hydrALAZINE 20MG/ML 1ML VIAL (J0360 PER 20MG) IV PRN (01:44)
[2021-02-21] MEDS: MORPHINE 2 MG/ML 1ML VIAL (J2270) IV PRN ×2 (04:05→04:21)
[2021-02-21] MEDS: D5W/0.45% SODIUM CHLORIDE 1,000 ML IV SCH ×2 (05:03→16:11)
[2021-02-21 09:26] LABS: BASO # 0.1 10^3/uL (0.0-0.2); BASO % 0.5 % (0.0-1.0); EOS # 0.3 10^3/uL (0.0-0.5); EOS % 2.2 % (0.0-3.0); HEMATOCRIT 33.9 % (42.0-52.0); HEMOGLOBIN 11.1 g/dl (13.5-17.5); LYMPH # 1.6 10^3/uL (1.5-5.0); LYMPH % 12.6 % (24.0-44.0); MEAN CORPUSCULAR HEMOGLOBIN 29.8 pg (27.0-33.0); MEAN CORPUSCULAR HGB CONC 32.7 g/dl (32.0-36.5); MEAN CORPUSCULAR VOLUME 91.1 fl (80.0-96.0); MONO # 1.3 10^3/uL (0.0-0.8); MONO % 9.8 % (2.0-8.0); NEUTROPHILS # 9.7 10^3/uL (1.5-8.5); NEUTROPHILS % 74.1 % (36.0-66.0); PLATELET COUNT, AUTOMATED 398 10^3/uL (150-450); RED BLOOD COUNT 3.72 10^6/uL (4.30-6.10)
[2021-02-21 09:55] LABS: BLOOD UREA NITROGEN 5 MG/DL (7-18); CALCIUM LEVEL 8.5 MG/DL (8.8-10.2); CARBON DIOXIDE LEVEL 26 MEQ/L (21-32); CHLORIDE LEVEL 106 MEQ/L (98-107); CREATININE FOR GFR 0.56 MG/DL (0.70-1.30); GLOMERULAR FILTRATION RATE > 60.0 (>42); GLUCOSE, FASTING 143 MG/DL (70-100); SODIUM LEVEL 139 MEQ/L (136-145)
[2021-02-21] MEDS: PANTOPRAZOLE 40MG VIAL (C9113 PER 1) IV SCH (10:09)
[2021-02-21] MEDS: ASPIRIN 300 MG SUPP PR SCH (10:09)
[2021-02-21] MEDS: NYSTATIN 100,000 UNITS/GM TOPICAL PWD 15 GM TOP SCH ×2 (12:28→20:16)
--- NOTE | 2021-02-21 13:10 | IPNPDOC ---
Date Seen The patient was seen on 02/21/21. Progress Note SUBJECTIVE: Per surgery, can likely place new PEG tube this coming Sunday. Per PFS, ARU may not be able to take back and may need subacute rehab. Patient following commands, answering appropriately. No acute events overnight. OBJECTIVE: PHYSICAL EXAMINATION: VITAL SIGNS: Please see below GENERAL APPEARANCE: The patient is awake, following commands, garbled speech persists HEENT: left facial droop-chronic. Tongue is asymmetric LUNGS: Clear to auscultation, no rales, rhonchi or wheezes HEART: S1, S2, sinus rhythm. No murmurs, rubs or gallops, No pitting edema b/l lower ext ABDOMEN: Soft, nontender, nondistended. Positive bowel sounds x4 quadrants. feeding tube incision no longer leaking, appears to be healed more, some mild erythema around incision site, nontender on palpation. : sylvester catheter in place EXTREMITIES: no cyanosis, clubbing NEUROLOGICAL: The patient follows commands, expressive aphasia and dysarthria. Lifts arms b/l against gravity. Left sided neglect, left arm and leg are weak, 4/5 motor function. Right side is 5/5 upper and lower extremities. LABORATORY DATA: Please see below MICRO: UA +, no culture reflexed Resp panel 02/16/21: Neg IMAGING: CT abd/pelvis 02/19/21: There is a small amount of fibrosis around the left upper quadrant gastrostomy tube tract. There is no evidence of pneumothorax, hydrothorax, or hematoma. acute abdominal abnormality. ASSESSMENT: 75-year-old male with dysphagia, moderate to severe multi-vessel intracranial stenosis, 70% left internal carotid artery stenosis, hypertension, dyslipidemia, and diabetes, with a noted right rodriguez radiata acute ischemic CVA with right basal ganglia and ischemic stroke with hemorrhagic transformation. DIAGNOSES: 1. Acute ischemic CVA in the right rodriguez radiata 2. 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 PEG tube removed by patient (unintentional) 02/19/21 after being replaced 02/16/[address] Edward (had previously pulled out first as well). 4. Aspiration risk due to CVA 5. Dysphagia 6. Uncontrolled hypertension 7. Physical deconditioning/weakness 8. Moderate to severe multi vessel intracranial stenosis 9. Type 2 diabetes 10. Dyslipidemia 11. Non-bleeding gastric ulcer seen on Upper GI endoscopy 02/16/21 12. UTI 13.70% left internal carotid artery stenosis. PLAN: Per surgery, likely can replace PEG tube mid-week. Materials on backorder in OR. Continue to hold xarelto/ AC due to recent hemorrhagic conversion of ischemic stroke. C/w [place] ASA. No need for repeat imaging unless neurological status changes. Other chronic issues stable. C/w PT/OT. Completed ceftriaxone for UTI. BP better controlled. Can give IV hydralazine. DISPOSITION: Remains inpatient. Plan was hopefully back to ARU when his PEG situation was stabilized and was tolerating TFs; however, told today by PFS he may not be able to go back and that he will likely need subacute rehab. Per when we spoke previously, ultimate goal is home. VS, I&O, 24H, Richardbone Vital Signs/I&O Vital Signs Date Time Temp Pulse Resp B/P (MAP) Pulse Ox O2 Delivery O2 Flow Rate FiO2 02/21/21 12:37 66 140/64 (89) 94 Room Air 02/21/21 12:00 97.9 20 I&O- Last 24 Hours up to 6 AM 02/21/21 06:00 Intake Total 1705 ml Output Total 1900 ml Balance -195 ml Laboratory Data 24H LABS Laboratory Tests 2 02/21/21 00:21: Bedside Glucose (Misc Panel) 144H 02/21/21 05:49: Bedside Glucose (Misc Panel) 148H 02/21/21 09:09: Immature Granulocyte % (Auto) 0.8, Neutrophils (%) (Auto) 74.1H, Lymphocytes (%) (Auto) 12.6L, Monocytes (%) (Auto) 9.8H, Eosinophils (%) (Auto) 2.2, Basophils (%) (Auto) 0.5, Neutrophils # (Auto) 9.7H, Lymphocytes # (Auto) 1.6, Monocytes # (Auto) 1.3H, Eosinophils # (Auto) 0.3, Basophils # (Auto) 0.1, Nucleated Red Blood Cells % (auto) 0.0, Anion Gap 7L, Glomerular Filtration Rate > 60.0, Calci um Level 8.5L CBC/BMP Laboratory Tests 02/21/21 09:09 Microbiology Microbiology 02/16/21 Respiratory Virus Panel (PCR) ([facility]) - Final, Complete Xin Rader MD February 21, 2021 13:10
[2021-02-22] VITALS (9 sets, daily range): BP systolic 122–174; BP diastolic 58–90
[2021-02-22] MEDS: METOPROLOL 5 MG/5 ML VIAL IV SCH ×4 (01:22→18:20)
[2021-02-22] MEDS: D5W/0.45% SODIUM CHLORIDE 1,000 ML IV SCH ×3 (01:38→20:51)
[2021-02-22] MEDS: levETIRAcetam INJection 500 MG in D5W MINI-BAG PLUS 100 ML IV SCH ×2 (01:38→12:12)
[2021-02-22 05:56] LABS: HEMATOCRIT 34.8 % (42.0-52.0); HEMOGLOBIN 11.4 g/dl (13.5-17.5); MEAN CORPUSCULAR HEMOGLOBIN 29.9 pg (27.0-33.0); MEAN CORPUSCULAR HGB CONC 32.8 g/dl (32.0-36.5); MEAN CORPUSCULAR VOLUME 91.3 fl (80.0-96.0); PLATELET COUNT, AUTOMATED 399 10^3/uL (150-450); RED BLOOD COUNT 3.81 10^6/uL (4.30-6.10); WHITE BLOOD COUNT 11.2 10^3/uL (4.0-10.0)
[2021-02-22 06:24] LABS: BLOOD UREA NITROGEN 4 MG/DL (7-18); CALCIUM LEVEL 8.7 MG/DL (8.8-10.2); CARBON DIOXIDE LEVEL 27 MEQ/L (21-32); CHLORIDE LEVEL 107 MEQ/L (98-107); CREATININE FOR GFR 0.57 MG/DL (0.70-1.30); GLOMERULAR FILTRATION RATE > 60.0 (>42); GLUCOSE, FASTING 146 MG/DL (70-100); SODIUM LEVEL 141 MEQ/L (136-145)
--- NOTE | 2021-02-22 09:57 | IPN ---
PROGRESS NOTE DATE: 02/22/2021 SUBJECTIVE: Mike Stanton is seen in the PCU. He has a history of stroke right basal ganglia with hemorrhagic transformation. He had a PEG tube placed. The initial PEG tube was pulled out by the patient with another placed on 02/16. He pulled that second PEG tube out on 02/19. The plan is to replace the PEG tube later this week. Apparently none available in the OR to do that today and apparently that is happening tomorrow. OBJECTIVE: VITAL SIGNS: Afebrile. Vital signs stable. GENERAL: Speech is dysarthric. He follows commands. HEENT: Unremarkable. LUNGS: Clear. HEART: Regular rate and rhythm. ABDOMEN: Soft and nontender with no masses. NEUROLOGIC: Shows he follows commands. Expressive aphasia and dysarthria. He has left hemineglect, left hemiparesis, 4/5 strength compared to 5/5 on the right. IMPRESSION AND PLAN: 1. Acute ischemic stroke. Apparently he is not a candidate to go back to acute rehabilitation unit (ARU). Disposition will therefore need to be focused later in the hospitalization. 2. Dysphagia with aspiration risk. Percutaneous endoscopic gastrostomy (PEG) tube planned for tomorrow. 3. Hypertension. Blood pressure is well-controlled. 4. Diabetes. Continue sliding scale insulin. 5. History of nonbleeding ulcer on upper endoscopy on 02/16. Continue proton pump inhibitor (PPI) therapy. Called Margi, all questions answered MTDD
[2021-02-22] MEDS: PANTOPRAZOLE 40MG VIAL (C9113 PER 1) IV SCH (10:42)
[2021-02-22] MEDS: NYSTATIN 100,000 UNITS/GM TOPICAL PWD 15 GM TOP SCH ×2 (10:43→20:46)
[2021-02-22] MEDS: ASPIRIN 300 MG SUPP PR SCH (10:43)
[2021-02-23] VITALS (8 sets, daily range): BP systolic 131–196; BP diastolic 62–90
[2021-02-23] MEDS: levETIRAcetam INJection 500 MG in D5W MINI-BAG PLUS 100 ML IV SCH ×3 (00:15→23:26)
[2021-02-23] MEDS: METOPROLOL 5 MG/5 ML VIAL IV SCH ×4 (01:02→17:42)
[2021-02-23 05:38] LABS: HEMATOCRIT 32.4 % (42.0-52.0); HEMOGLOBIN 10.7 g/dl (13.5-17.5); MEAN CORPUSCULAR HEMOGLOBIN 29.8 pg (27.0-33.0); MEAN CORPUSCULAR VOLUME 90.3 fl (80.0-96.0); PLATELET COUNT, AUTOMATED 362 10^3/uL (150-450); RED BLOOD COUNT 3.59 10^6/uL (4.30-6.10); WHITE BLOOD COUNT 10.5 10^3/uL (4.0-10.0)
[2021-02-23 06:08] LABS: BLOOD UREA NITROGEN 5 MG/DL (7-18); CALCIUM LEVEL 9.1 MG/DL (8.8-10.2); CARBON DIOXIDE LEVEL 27 MEQ/L (21-32); CHLORIDE LEVEL 106 MEQ/L (98-107); CREATININE FOR GFR 0.57 MG/DL (0.70-1.30); GLOMERULAR FILTRATION RATE > 60.0 (>42); GLUCOSE, FASTING 152 MG/DL (70-100); POTASSIUM SERUM 3.8 MEQ/L (3.5-5.1); SODIUM LEVEL 139 MEQ/L (136-145)
[2021-02-23] MEDS: D5W/0.45% SODIUM CHLORIDE 1,000 ML IV SCH ×2 (06:58→16:28)
[2021-02-23] MEDS: NYSTATIN 100,000 UNITS/GM TOPICAL PWD 15 GM TOP SCH ×2 (09:11→20:50)
[2021-02-23] MEDS: ASPIRIN 300 MG SUPP PR SCH (09:11)
[2021-02-23] MEDS: PANTOPRAZOLE 40MG VIAL (C9113 PER 1) IV SCH (09:11)
--- NOTE | 2021-02-23 09:25 | IPNPDOC ---
Text Note Date of Service The patient was seen on 02/23/21. NOTE No acute events overnight. I spoke with his this am, and the plan is for PEG placement again this morning. She is in agreement, and will sign consent. No changes to H+P. PEG placement this morning. Rober Bazan DO VS,Petros, I+O VS, Khrise, I+O Laboratory Tests 02/23/21 05:18 Vital Signs Date Time Temp Pulse Resp B/P (MAP) Pulse Ox O2 Delivery O2 Flow Rate FiO2 02/23/21 04:15 97.5 70 18 142/74 (96) 95 Room Air I&O- Last 24 Hours up to 6 AM 02/23/21 06:00 Intake Total 1255 ml Output Total 1650 ml Balance -395 ml ANTONIO BAZAN DO February 23, 2021 09:25
[2021-02-23] MEDS ORDERED: propofoL 200 MG/20 ML VIAL As Ordered ONE (12:04)
[2021-02-23] MEDS ORDERED: LIDOCAINE 2% 100MG/5ML SDV (FOR ANES.) As Ordered ONE (12:04)
--- NOTE | 2021-02-23 12:37 | ROOR ---
Patient Name: Mike Stanton Procedure Date: 02/23/2021 12:20 PM Date of : 1945 Age: 75 Room: [facility] Gender: Male Note Status: Finalized Procedure: Upper GI endoscopy Indications: Dysphagia Providers: DO Monica Oliva MD: Xin Rader Md Requesting Provider: Medicines: Propofol per Anesthesia Complications: No immediate complications. Procedure: Pre-Anesthesia Assessment: - Prior to the procedure, a History and Physical was performed, and patient medications and allergies were reviewed. The patient is competent. The risks and benefits of the procedure and the sedation options and risks were discussed with the patient. All questions were answered and informed consent was obtained. Patient identification and proposed procedure were verified by the physician, the nurse, the hospital supervisor and the arcade game technician in the endoscopy suite. Mental Status Examination: alert and oriented. Airway Examination: normal oropharyngeal airway and neck mobility. Respiratory Examination: clear to auscultation. CV Examination: normal. Prophylactic Antibiotics: The patient does not require prophylactic antibiotics. Prior Anticoagulants: The patient has taken no previous anticoagulant or antiplatelet agents. ASA Grade Assessment: IV - A patient with severe systemic disease that is a constant threat to life. After reviewing the risks and benefits, the patient was deemed in satisfactory condition to undergo the procedure. The anesthesia plan was to use monitored anesthesia care (MAC). Immediately prior to administration of medications, the patient was re-assessed for adequacy to receive sedatives. The heart rate, respiratory rate, oxygen saturations, blood pressure, adequacy of pulmonary ventilation, and response to care were monitored throughout the procedure. The physical status of the patient was re-assessed after the procedure. The Endoscope was introduced through the mouth, and advanced to the body of the stomach. The upper GI endoscopy was accomplished without difficulty. The patient tolerated the procedure well. Findings: Placement of an externally removable PEG with no T-fasteners was successfully completed. The external bumper was at the 4.5 cm marking on the tube. Estimated blood loss was minimal. Impression: - An externally removable PEG placement was successfully completed. - No specimens collected. Recommendation: - Return patient to [facility] for ongoing care. Procedure Code(s): --- Professional --- 21939, 52, Esophagogastroduodenoscopy, flexible, transoral; with directed placement of percutaneous gastrostomy tube Diagnosis Code(s): --- Professional --- R13.10, Dysphagia, unspecified CPT copyright 2019 [employer]. All rights reserved. The codes documented in this report are preliminary and upon charge accounts audit clerk review may be revised to meet current compliance requirements. Billy Bazan DO 02/23/2021 12:36:43 PM Electronically signed by Billy Bazan DO Number of Addenda: 0 Note Initiated On: 02/23/2021 12:20 PM Estimated Blood Loss: Estimated blood loss was minimal.
--- NOTE | 2021-02-23 18:38 | IPNPDOC ---
Text Note Date of Service The patient was seen on 02/23/21. NOTE Hospitalist Progress Note Subjective: Patient was awake when I entered the room, he was rolling over in bed. He is not able to speak much, but when asked if he were in pain he says no. He does not seem to express any concerns at this time. Review systems is essentially unobtainable Objective: General: Not in any acute distress. HEENT: Head normocephalic, atraumatic, sclera are nonicteric. Hearing is grossly intact to conversation. Respiratory: Clear to auscultation bilaterally with no wheezes, rales, or rhonchi. Cardiovascular: Regular rate and rhythm, with no rubs, gallops, or murmur. Abdomen: Soft, nontender, nondistended, no hepatosplenomegaly appreciated. Bowel sounds present. Naqvi catheter present. Extremities: 2+ pulses in the radial and dorsalis pedis bilaterally. No evidence of clubbing or cyanosis. Assessment/Plan: Acute ischemic stroke -Apparently is not a candidate to go back to the acute rehabilitation unit -Continue discharge planning with PFS Dysphagia with aspiration risk. -PEG tube placed on 02/16, pulled out by patient -Second PEG tube placed on 02/19, this one was also pulled out by patient -Third PEG tube placement scheduled for today Hypertension -Continue antihypertensives Diabetes mellitus type 2 -Continue sliding scale insulin History of nonbleeding ulcer on upper endoscopy on 02/16 -Continue PPI VS,Fishbone, I+O VS, Fishbone, I+O Laboratory Tests 02/23/21 05:18 Vital Signs Date Time Temp Pulse Resp B/P (MAP) Pulse Ox O2 Delivery O2 Flow Rate FiO2 02/23/21 17:42 76 150/70 02/23/21 13:22 97.5 18 98 Room Air I&O- Last 24 Hours up to 6 AM 02/23/21 06:00 Intake Total 1255 ml Output Total 1650 ml Balance -395 ml ANTONIO SHETH DO February 23, 2021 18:38
[2021-02-24 00:47] VITALS: BP 180/79
[2021-02-24] MEDS: METOPROLOL 5 MG/5 ML VIAL IV SCH ×4 (00:52→18:30)
[2021-02-24 02:15] VITALS: BP 159/70
[2021-02-24] MEDS: D5W/0.45% SODIUM CHLORIDE 1,000 ML IV SCH ×3 (02:23→23:03)
[2021-02-24 05:45] LABS: HEMATOCRIT 33.8 % (42.0-52.0); MEAN CORPUSCULAR HEMOGLOBIN 29.9 pg (27.0-33.0); MEAN CORPUSCULAR HGB CONC 32.5 g/dl (32.0-36.5); MEAN CORPUSCULAR VOLUME 91.8 fl (80.0-96.0); PLATELET COUNT, AUTOMATED 384 10^3/uL (150-450); RED BLOOD COUNT 3.68 10^6/uL (4.30-6.10); WHITE BLOOD COUNT 11.9 10^3/uL (4.0-10.0)
[2021-02-24 06:22] LABS: BLOOD UREA NITROGEN 4 MG/DL (7-18); CALCIUM LEVEL 8.8 MG/DL (8.8-10.2); CARBON DIOXIDE LEVEL 29 MEQ/L (21-32); CHLORIDE LEVEL 107 MEQ/L (98-107); CREATININE FOR GFR 0.62 MG/DL (0.70-1.30); GLOMERULAR FILTRATION RATE > 60.0 (>42); GLUCOSE, FASTING 151 MG/DL (70-100); POTASSIUM SERUM 4.2 MEQ/L (3.5-5.1); SODIUM LEVEL 140 MEQ/L (136-145)
[2021-02-24 06:34] VITALS: BP 154/68
[2021-02-24] MEDS: ASPIRIN 300 MG SUPP PR SCH (10:41)
[2021-02-24] MEDS: PANTOPRAZOLE 40MG VIAL (C9113 PER 1) IV SCH (10:41)
[2021-02-24] MEDS: NYSTATIN 100,000 UNITS/GM TOPICAL PWD 15 GM TOP SCH ×2 (10:42→21:00)
[2021-02-24] MEDS: levETIRAcetam INJection 500 MG in D5W MINI-BAG PLUS 100 ML IV SCH ×2 (12:41→23:45)
[2021-02-24 20:00] VITALS: BP 154/69
[2021-02-24] MEDS: METOPROLOL TART 12.5 MG PER 1/2 TAB PEG SCH (20:59)
--- NOTE | 2021-02-24 21:35 | IPNPDOC ---
Text Note Date of Service The patient was seen on 02/24/21. NOTE Hospitalist Progress Note Subjective: Patient is awake and does look at me, but he really does not respond in any appreciable manner to questions today. Objective: General: Not in any acute distress. HEENT: Head normocephalic, atraumatic, sclera are nonicteric. Hearing is grossly intact to conversation. Respiratory: Clear to auscultation bilaterally with no wheezes, rales, or rhonchi. Cardiovascular: Regular rate and rhythm, with no rubs, gallops, or murmur. Abdomen: Soft, nontender, nondistended, no hepatosplenomegaly appreciated. Bowel sounds present. Naqvi catheter present. Extremities: 2+ pulses in the radial and dorsalis pedis bilaterally. No evidence of clubbing or cyanosis. Assessment/Plan: Acute ischemic stroke -Apparently is not a candidate to go back to the acute rehabilitation unit -Continue discharge planning with PFS Dysphagia with aspiration risk. -PEG tube placed on 02/16, pulled out by patient -Second PEG tube placed on 02/19, this one was also pulled out perhaps by rolling over in bed or getting caught on something -Third PEG tube placed on 02/23. -Resume tube feedings today at previous settings as recommended by dietary. Hypertension -Will switch from IV to PEG tube antihypertensives and continue to monitor. These may need adjustment. Diabetes mellitus type 2 -Continue sliding scale insulin History of nonbleeding ulcer on upper endoscopy on 02/16 -Continue PPI VS,Fishbone, I+O VS, Fishbone, I+O Laboratory Tests 02/24/21 05:23 Vital Signs Date Time Temp Pulse Resp B/P (MAP) Pulse Ox O2 Delivery O2 Flow Rate FiO2 02/24/21 20:59 65 154/69 02/24/21 20:00 97.3 20 99 Room Air I&O- Last 24 Hours up to 6 AM 02/24/21 06:00 Intake Total 2310 ml Output Total 2200 ml Balance 110 ml ANTONIO SHETH DO February 24, 2021 21:35
[2021-02-25] VITALS: BP 145/65
[2021-02-25 03:53] VITALS: BP 140/50
[2021-02-25 05:55] LABS: HEMATOCRIT 33.5 % (42.0-52.0); HEMOGLOBIN 10.8 g/dl (13.5-17.5); MEAN CORPUSCULAR HEMOGLOBIN 29.7 pg (27.0-33.0); MEAN CORPUSCULAR HGB CONC 32.2 g/dl (32.0-36.5); PLATELET COUNT, AUTOMATED 351 10^3/uL (150-450); RED BLOOD COUNT 3.64 10^6/uL (4.30-6.10); WHITE BLOOD COUNT 10.9 10^3/uL (4.0-10.0)
[2021-02-25 06:23] LABS: BLOOD UREA NITROGEN 6 MG/DL (7-18); CALCIUM LEVEL 8.9 MG/DL (8.8-10.2); CARBON DIOXIDE LEVEL 29 MEQ/L (21-32); CHLORIDE LEVEL 106 MEQ/L (98-107); CREATININE FOR GFR 0.62 MG/DL (0.70-1.30); GLOMERULAR FILTRATION RATE > 60.0 (>42); GLUCOSE, FASTING 134 MG/DL (70-100); POTASSIUM SERUM 3.8 MEQ/L (3.5-5.1); SODIUM LEVEL 140 MEQ/L (136-145)
[2021-02-25 08:00] VITALS: BP 146/60
[2021-02-25] MEDS: NYSTATIN 100,000 UNITS/GM TOPICAL PWD 15 GM TOP SCH ×2 (09:18→21:55)
[2021-02-25] MEDS: PANTOPRAZOLE 40MG VIAL (C9113 PER 1) IV SCH (09:19)
[2021-02-25] MEDS: METOPROLOL TART 12.5 MG PER 1/2 TAB PEG SCH ×2 (09:19→21:55)
[2021-02-25] MEDS: ASPIRIN 300 MG SUPP PR SCH (09:19)
[2021-02-25 12:00] VITALS: BP 135/68
[2021-02-25] MEDS: levETIRAcetam INJection 500 MG in D5W MINI-BAG PLUS 100 ML IV SCH (12:31)
[2021-02-25 15:02] VITALS: BP 147/81
--- NOTE | 2021-02-25 17:38 | IPNPDOC ---
Text Note Date of Service The patient was seen on 02/25/21. NOTE Subjective: No any acute events overnight. Patient pleasantly confused Objective: GENERAL APPEARANCE: NAD HEENT: no scleral icterus, no JVD, EOMI CARDIOVASCULAR: S1S2 LUNGS: CTA ABDOMEN: soft & not tender w palpitation MUSCULOSKELETAL: no cyanosis, no swelling INTEGUMENT: no generalized pallor NEUROLOGICAL: cranial nerve function from 2-12 intact intact, follows commands, speech not dysarthric Assessment and plan Patient 75 years old male with past history of CVA was admitted with confusion and slurred speech, patient was found to have another acute ischemic stroke. He was transferred back from acute rehabilitation unit after he pulled out PEG tube. Acute ischemic stroke PT/OT Continue aspirin and Plavix Oropharyngeal dysfunction Secondary to acute stroke -PEG tube placed on 02/16, pulled out by patient -Second PEG tube placed on 02/19, this one was also pulled out perhaps by rolling over in bed or getting caught on something -Third PEG tube placed on 02/23. -Resumed tube feedings at previous settings as recommended by dietary Hypertension Blood pressures under control Continue losartan 50 mg daily diabetes type 2 Insulin sliding scale History of nonbleeding ulcer on upper endoscopy on 02/16 -Continue PPI Pt transferred to [facility] VS,Petros, I+O VS, Khrise, I+O Laboratory Tests 02/25/21 05:34 Vital Signs Date Time Temp Pulse Resp B/P (MAP) Pulse Ox O2 Delivery O2 Flow Rate FiO2 02/25/21 15:02 98.4 84 20 147/81 (103) 98 Room Air I&O- Last 24 Hours up to 6 AM 02/25/21 06:00 Intake Total 1225 ml Output Total 1830 ml Balance -605 ml ROMEO JARQUIN DO February 25, 2021 17:38
[2021-02-25] MEDS ORDERED: GLUCAGON INJ 1MG VIAL SC PRN (17:40)
[2021-02-25] MEDS ORDERED: DEXTROSE 50% 50 ML SYRINGE IV PRN (17:40)
[2021-02-25] MEDS ORDERED: GLUCOSE 4GM CHEW TABLET PO PRN (17:40)
[2021-02-25] MEDS: HumaLOG INSULIN (NovoLOG) PER UNIT SC SCH (19:05)
[2021-02-25] MEDS: TAMSULOSIN 0.4 MG CAP PO SCH (21:55)
[2021-02-25 22:00] VITALS: BP 135/63
[2021-02-26] MEDS: HumaLOG INSULIN (NovoLOG) PER UNIT SC SCH ×4 (00:27→17:58)
[2021-02-26] MEDS: levETIRAcetam INJection 500 MG in D5W MINI-BAG PLUS 100 ML IV SCH ×2 (00:27→12:05)
[2021-02-26 06:00] VITALS: BP 167/75
[2021-02-26 06:41] LABS: HEMATOCRIT 34.2 % (42.0-52.0); HEMOGLOBIN 10.8 g/dl (13.5-17.5); MEAN CORPUSCULAR HEMOGLOBIN 29.1 pg (27.0-33.0); MEAN CORPUSCULAR HGB CONC 31.6 g/dl (32.0-36.5); MEAN CORPUSCULAR VOLUME 92.2 fl (80.0-96.0); PLATELET COUNT, AUTOMATED 391 10^3/uL (150-450); RED BLOOD COUNT 3.71 10^6/uL (4.30-6.10); WHITE BLOOD COUNT 10.5 10^3/uL (4.0-10.0)
[2021-02-26 07:29] LABS: BLOOD UREA NITROGEN 11 MG/DL (7-18); CALCIUM LEVEL 9.1 MG/DL (8.8-10.2); CARBON DIOXIDE LEVEL 28 MEQ/L (21-32); CHLORIDE LEVEL 102 MEQ/L (98-107); CREATININE FOR GFR 0.56 MG/DL (0.70-1.30); GLOMERULAR FILTRATION RATE > 60.0 (>42); GLUCOSE, FASTING 160 MG/DL (70-100); POTASSIUM SERUM 4.1 MEQ/L (3.5-5.1); SODIUM LEVEL 139 MEQ/L (136-145)
[2021-02-26] MEDS: PANTOPRAZOLE 40MG VIAL (C9113 PER 1) IV SCH (09:58)
[2021-02-26] MEDS: NYSTATIN 100,000 UNITS/GM TOPICAL PWD 15 GM TOP SCH ×2 (09:58→21:47)
[2021-02-26] MEDS: CLOPIDOGREL 75 MG TAB PO SCH (09:58)
[2021-02-26] MEDS: ASPIRIN 81MG ENTERIC TABLET PO SCH (09:58)
[2021-02-26] MEDS: LOSARTAN 50MG TABLET PO SCH (09:59)
[2021-02-26] MEDS: METOPROLOL TART 12.5 MG PER 1/2 TAB PEG SCH ×2 (09:59→21:46)
[2021-02-26 14:00] VITALS: BP 156/81
[2021-02-26] MEDS: TAMSULOSIN 0.4 MG CAP PO SCH (21:47)
[2021-02-26 22:00] VITALS: BP 153/81
[2021-02-26 23:06] LABS: APPEARANCE, URINE CLOUDY (CLEAR); BACTERIA, URINE AUTO 1+ (NEGATIVE); BILIRUBIN, URINE AUTO NEGATIVE (NEGATIVE); BLOOD, URINE BLOOD NEGATIVE (NEGATIVE); COLOR, URINE YELLOW (YELLOW); GLUCOSE, URINE (UA) AUTO NEGATIVE (NEGATIVE); KETONE, URINE AUTO NEGATIVE (NEGATIVE); LEUKOCYTE ESTERASE, URINE AUTO 1+ (NEGATIVE); NITRITE, URINE AUTO NEGATIVE (NEGATIVE); PROTEIN, URINE AUTO NEGATIVE (NEGATIVE); RBC, URINE AUTO 7 /HPF (0-3); SPECIFIC GRAVITY URINE AUTO 1.015 (1.002-1.035); SQUAMOUS EPITHELIAL CELL UR AU 0 /HPF (0-6); UROBILINOGEN, URINE AUTO 0.2 mg/dL (0.0-2.0); WBC, URINE AUTO 5 /HPF (0-3)
[2021-02-27] MEDS: levETIRAcetam INJection 500 MG in D5W MINI-BAG PLUS 100 ML IV SCH ×2 (00:31→12:03)
[2021-02-27] MEDS: HumaLOG INSULIN (NovoLOG) PER UNIT SC SCH ×4 (00:31→17:28)
[2021-02-27 06:00] VITALS: BP 141/63
[2021-02-27 06:18] LABS: HEMATOCRIT 35.8 % (42.0-52.0); HEMOGLOBIN 11.4 g/dl (13.5-17.5); MEAN CORPUSCULAR HEMOGLOBIN 29.2 pg (27.0-33.0); MEAN CORPUSCULAR HGB CONC 31.8 g/dl (32.0-36.5); MEAN CORPUSCULAR VOLUME 91.6 fl (80.0-96.0); PLATELET COUNT, AUTOMATED 370 10^3/uL (150-450); RED BLOOD COUNT 3.91 10^6/uL (4.30-6.10)
[2021-02-27 06:36] LABS: BLOOD UREA NITROGEN 11 MG/DL (7-18); CALCIUM LEVEL 8.7 MG/DL (8.8-10.2); CARBON DIOXIDE LEVEL 28 MEQ/L (21-32); CHLORIDE LEVEL 104 MEQ/L (98-107); CREATININE FOR GFR 0.58 MG/DL (0.70-1.30); GLOMERULAR FILTRATION RATE > 60.0 (>42); GLUCOSE, FASTING 156 MG/DL (70-100); POTASSIUM SERUM 4.4 MEQ/L (3.5-5.1); SODIUM LEVEL 140 MEQ/L (136-145)
[2021-02-27] MEDS: METOPROLOL TART 12.5 MG PER 1/2 TAB PEG SCH ×2 (09:50→20:27)
[2021-02-27] MEDS: ASPIRIN 81MG ENTERIC TABLET PO SCH (09:50)
[2021-02-27] MEDS: LOSARTAN 50MG TABLET PO SCH (09:51)
[2021-02-27] MEDS: CLOPIDOGREL 75 MG TAB PO SCH (09:51)
[2021-02-27] MEDS: PANTOPRAZOLE 40MG VIAL (C9113 PER 1) IV SCH (09:51)
[2021-02-27] MEDS: NYSTATIN 100,000 UNITS/GM TOPICAL PWD 15 GM TOP SCH ×2 (09:51→20:28)
[2021-02-27 14:00] VITALS: BP 154/82
[2021-02-27 22:00] VITALS: BP 157/69
[2021-02-28] MEDS: HumaLOG INSULIN (NovoLOG) PER UNIT SC SCH ×4 (00:37→17:18)
[2021-02-28] MEDS: DOXAZOSIN MESYLATE 1 MG TAB PO SCH ×3 (00:37→20:59)
[2021-02-28] MEDS: levETIRAcetam INJection 500 MG in D5W MINI-BAG PLUS 100 ML IV SCH ×3 (00:39→12:35)
[2021-02-28] MEDS: SALIVA SUBSTITUTE(MOUTHKOTE) BTL MT PRN ×2 (00:40→21:07)
[2021-02-28 06:00] VITALS: BP 138/72
[2021-02-28 06:21] LABS: HEMATOCRIT 36.4 % (42.0-52.0); HEMOGLOBIN 11.7 g/dl (13.5-17.5); MEAN CORPUSCULAR HEMOGLOBIN 29.3 pg (27.0-33.0); MEAN CORPUSCULAR HGB CONC 32.1 g/dl (32.0-36.5); MEAN CORPUSCULAR VOLUME 91.2 fl (80.0-96.0); PLATELET COUNT, AUTOMATED 368 10^3/uL (150-450); RED BLOOD COUNT 3.99 10^6/uL (4.30-6.10)
[2021-02-28 06:51] LABS: BLOOD UREA NITROGEN 14 MG/DL (7-18); CARBON DIOXIDE LEVEL 29 MEQ/L (21-32); CHLORIDE LEVEL 101 MEQ/L (98-107); CREATININE FOR GFR 0.65 MG/DL (0.70-1.30); GLOMERULAR FILTRATION RATE > 60.0 (>42); GLUCOSE, FASTING 184 MG/DL (70-100); POTASSIUM SERUM 4.6 MEQ/L (3.5-5.1); SODIUM LEVEL 138 MEQ/L (136-145)
[2021-02-28] MEDS: ASPIRIN 81MG ENTERIC TABLET PO SCH (09:14)
[2021-02-28] MEDS: PANTOPRAZOLE 40MG VIAL (C9113 PER 1) IV SCH (09:14)
[2021-02-28] MEDS: METOPROLOL TART 12.5 MG PER 1/2 TAB PEG SCH ×2 (09:15→20:59)
[2021-02-28] MEDS: NYSTATIN 100,000 UNITS/GM TOPICAL PWD 15 GM TOP SCH ×2 (09:15→20:58)
[2021-02-28] MEDS: LOSARTAN 50MG TABLET PO SCH (09:15)
[2021-02-28] MEDS: CLOPIDOGREL 75 MG TAB PO SCH (09:15)
[2021-03-01] MEDS: levETIRAcetam INJection 500 MG in D5W MINI-BAG PLUS 100 ML IV SCH ×2 (00:57→12:48)
[2021-03-01] MEDS: HumaLOG INSULIN (NovoLOG) PER UNIT SC SCH ×4 (00:58→17:51)
[2021-03-01 06:00] VITALS: BP 139/70
[2021-03-01 06:41] LABS: HEMATOCRIT 36.5 % (42.0-52.0); HEMOGLOBIN 11.8 g/dl (13.5-17.5); MEAN CORPUSCULAR HEMOGLOBIN 29.6 pg (27.0-33.0); MEAN CORPUSCULAR HGB CONC 32.3 g/dl (32.0-36.5); MEAN CORPUSCULAR VOLUME 91.7 fl (80.0-96.0); PLATELET COUNT, AUTOMATED 352 10^3/uL (150-450); RED BLOOD COUNT 3.98 10^6/uL (4.30-6.10); WHITE BLOOD COUNT 10.6 10^3/uL (4.0-10.0)
[2021-03-01 07:11] LABS: BLOOD UREA NITROGEN 16 MG/DL (7-18); CALCIUM LEVEL 9.6 MG/DL (8.8-10.2); CARBON DIOXIDE LEVEL 31 MEQ/L (21-32); CHLORIDE LEVEL 100 MEQ/L (98-107); CREATININE FOR GFR 0.69 MG/DL (0.70-1.30); GLOMERULAR FILTRATION RATE > 60.0 (>42); GLUCOSE, FASTING 171 MG/DL (70-100); POTASSIUM SERUM 4.7 MEQ/L (3.5-5.1); SODIUM LEVEL 136 MEQ/L (136-145)
[2021-03-01] MEDS: CLOPIDOGREL 75 MG TAB PO SCH (10:05)
[2021-03-01] MEDS: ASPIRIN 81MG ENTERIC TABLET PO SCH (10:06)
[2021-03-01] MEDS: METOPROLOL TART 12.5 MG PER 1/2 TAB PEG SCH ×2 (10:06→20:35)
[2021-03-01] MEDS: DOXAZOSIN MESYLATE 1 MG TAB PO SCH ×2 (10:06→20:35)
[2021-03-01] MEDS: LOSARTAN 50MG TABLET PO SCH (10:06)
[2021-03-01] MEDS: PANTOPRAZOLE 40MG VIAL (C9113 PER 1) IV SCH (10:07)
[2021-03-01] MEDS: NYSTATIN 100,000 UNITS/GM TOPICAL PWD 15 GM TOP SCH ×2 (10:07→20:35)
[2021-03-01] MEDS: levETIRAcetam ORAL SOLUTION 500 MG/5 ML UDC PEG SCH (20:35)
[2021-03-01] MEDS ORDERED: levETIRAcetam 250MG TABLET (KEPPRA) PO SCH (21:00)
[2021-03-02] MEDS: HumaLOG INSULIN (NovoLOG) PER UNIT SC SCH ×4 (00:06→18:29)
[2021-03-02 06:00] VITALS: BP 122/57
[2021-03-02] MEDS ORDERED: OMEPRAZOLE 20 MG CAP PO SCH (09:00)
[2021-03-02] MEDS: DOXAZOSIN MESYLATE 1 MG TAB PO SCH ×2 (10:27→22:31)
[2021-03-02] MEDS: OMEPRAZOLE SUSPENSION 20MG 10ML ORAL SYRINGE PEG SCH (10:27)
[2021-03-02] MEDS: METOPROLOL TART 12.5 MG PER 1/2 TAB PEG SCH ×2 (10:27→22:30)
[2021-03-02] MEDS: LOSARTAN 50MG TABLET PO SCH (10:27)
[2021-03-02] MEDS: ASPIRIN 81 MG CHEW TABLET PO SCH (10:28)
[2021-03-02] MEDS: NYSTATIN 100,000 UNITS/GM TOPICAL PWD 15 GM TOP SCH ×2 (10:28→22:31)
[2021-03-02] MEDS: levETIRAcetam ORAL SOLUTION 500 MG/5 ML UDC PEG SCH ×2 (10:28→22:31)
[2021-03-02] MEDS: CLOPIDOGREL 75 MG TAB PO SCH (10:28)
[2021-03-03] MEDS: HumaLOG INSULIN (NovoLOG) PER UNIT SC SCH ×4 (00:26→18:00)
[2021-03-03 06:00] VITALS: BP 125/78
[2021-03-03] MEDS: CLOPIDOGREL 75 MG TAB PO SCH (10:24)
[2021-03-03] MEDS: ASPIRIN 81 MG CHEW TABLET PO SCH (10:24)
[2021-03-03] MEDS: OMEPRAZOLE SUSPENSION 20MG 10ML ORAL SYRINGE PEG SCH (10:24)
[2021-03-03] MEDS: levETIRAcetam ORAL SOLUTION 500 MG/5 ML UDC PEG SCH ×2 (10:24→22:26)
[2021-03-03] MEDS: LOSARTAN 50MG TABLET PO SCH (10:25)
[2021-03-03] MEDS: NYSTATIN 100,000 UNITS/GM TOPICAL PWD 15 GM TOP SCH ×2 (10:25→22:32)
[2021-03-03] MEDS: DOXAZOSIN MESYLATE 1 MG TAB PO SCH ×2 (10:25→22:31)
[2021-03-03] MEDS: METOPROLOL TART 12.5 MG PER 1/2 TAB PEG SCH ×2 (10:26→22:31)
[2021-03-03] MEDS: PERCOCET 5MG/325MG TAB PO PRN (22:32)
[2021-03-04] MEDS: HumaLOG INSULIN (NovoLOG) PER UNIT SC SCH ×5 (00:43→23:59)
[2021-03-04 06:00] VITALS: BP 137/75
[2021-03-04] MEDS: levETIRAcetam ORAL SOLUTION 500 MG/5 ML UDC PEG SCH ×2 (10:36→20:41)
[2021-03-04] MEDS: ASPIRIN 81 MG CHEW TABLET PO SCH (10:36)
[2021-03-04] MEDS: OMEPRAZOLE SUSPENSION 20MG 10ML ORAL SYRINGE PEG SCH (10:36)
[2021-03-04] MEDS: METOPROLOL TART 12.5 MG PER 1/2 TAB PEG SCH ×2 (10:37→20:44)
[2021-03-04] MEDS: CLOPIDOGREL 75 MG TAB PO SCH (10:37)
[2021-03-04] MEDS: LOSARTAN 50MG TABLET PO SCH (10:37)
[2021-03-04] MEDS: DOXAZOSIN MESYLATE 1 MG TAB PO SCH ×2 (10:37→20:45)
[2021-03-04] MEDS: NYSTATIN 100,000 UNITS/GM TOPICAL PWD 15 GM TOP SCH ×2 (10:38→20:44)
[2021-03-05 06:00] VITALS: BP 140/74
[2021-03-05] MEDS: HumaLOG INSULIN (NovoLOG) PER UNIT SC SCH ×3 (06:03→18:15)
[2021-03-05] MEDS: levETIRAcetam ORAL SOLUTION 500 MG/5 ML UDC PEG SCH ×2 (09:51→20:11)
[2021-03-05] MEDS: OMEPRAZOLE SUSPENSION 20MG 10ML ORAL SYRINGE PEG SCH (09:51)
[2021-03-05] MEDS: ASPIRIN 81 MG CHEW TABLET PO SCH (09:54)
[2021-03-05] MEDS: LOSARTAN 50MG TABLET PO SCH (09:54)
[2021-03-05] MEDS: DOXAZOSIN MESYLATE 1 MG TAB PO SCH ×2 (09:54→20:11)
[2021-03-05] MEDS: METOPROLOL TART 12.5 MG PER 1/2 TAB PEG SCH ×2 (09:55→20:11)
[2021-03-05] MEDS: NYSTATIN 100,000 UNITS/GM TOPICAL PWD 15 GM TOP SCH ×2 (09:55→20:12)
[2021-03-05] MEDS: CLOPIDOGREL 75 MG TAB PO SCH (09:55)
[2021-03-06] MEDS: HumaLOG INSULIN (NovoLOG) PER UNIT SC SCH ×4 (00:22→18:38)
[2021-03-06 06:00] VITALS: BP 125/73
[2021-03-06] MEDS: levETIRAcetam ORAL SOLUTION 500 MG/5 ML UDC PEG SCH ×2 (12:19→20:36)
[2021-03-06] MEDS: DOXAZOSIN MESYLATE 1 MG TAB PO SCH ×2 (12:19→20:37)
[2021-03-06] MEDS: OMEPRAZOLE SUSPENSION 20MG 10ML ORAL SYRINGE PEG SCH (12:19)
[2021-03-06] MEDS: CLOPIDOGREL 75 MG TAB PO SCH (12:19)
[2021-03-06] MEDS: ASPIRIN 81 MG CHEW TABLET PO SCH (12:20)
[2021-03-06] MEDS: METOPROLOL TART 12.5 MG PER 1/2 TAB PEG SCH ×2 (12:20→20:38)
[2021-03-06] MEDS: LOSARTAN 50MG TABLET PO SCH (12:20)
[2021-03-06] MEDS: NYSTATIN 100,000 UNITS/GM TOPICAL PWD 15 GM TOP SCH ×2 (12:21→20:38)
[2021-03-07] MEDS: HumaLOG INSULIN (NovoLOG) PER UNIT SC SCH ×4 (00:09→17:11)
[2021-03-07 06:00] VITALS: BP 128/77
[2021-03-07] MEDS: ASPIRIN 81 MG CHEW TABLET PO SCH (09:44)
[2021-03-07] MEDS: OMEPRAZOLE SUSPENSION 20MG 10ML ORAL SYRINGE PEG SCH (09:44)
[2021-03-07] MEDS: levETIRAcetam ORAL SOLUTION 500 MG/5 ML UDC PEG SCH ×2 (09:44→20:30)
[2021-03-07] MEDS: METOPROLOL TART 12.5 MG PER 1/2 TAB PEG SCH ×2 (09:44→20:31)
[2021-03-07] MEDS: CLOPIDOGREL 75 MG TAB PO SCH (09:44)
[2021-03-07] MEDS: NYSTATIN 100,000 UNITS/GM TOPICAL PWD 15 GM TOP SCH ×2 (09:45→20:31)
[2021-03-07] MEDS: DOXAZOSIN MESYLATE 1 MG TAB PO SCH ×2 (09:45→20:31)
[2021-03-07] MEDS: LOSARTAN 50MG TABLET PO SCH (09:45)
--- NOTE | 2021-03-07 16:47 | IPNPDOC ---
Text Note Date of Service The patient was seen on 03/07/21. NOTE Subjective: No any acute events overnight. Patient pleasantly confused, no fever or chills. Patient normotensive Objective: GENERAL APPEARANCE: NAD HEENT: no scleral icterus, no JVD, EOMI CARDIOVASCULAR: S1S2 LUNGS: CTA ABDOMEN: soft & not tender w palpitation MUSCULOSKELETAL: no cyanosis, no swelling INTEGUMENT: no generalized pallor NEUROLOGICAL: cranial nerve function from 2-12 intact intact, follows commands, speech not dysarthric Assessment and plan Patient 75 years old male with past history of CVA was admitted with confusion and slurred speech, patient was found to have another acute ischemic stroke. He was transferred back from acute rehabilitation unit after he pulled out PEG tube. Acute ischemic stroke PT/OT Continue aspirin and Plavix Oropharyngeal dysfunction Secondary to acute stroke -PEG tube placed on 02/16, pulled out by patient -Second PEG tube placed on 02/19, this one was also pulled out perhaps by rolling over in bed or getting caught on something -Third PEG tube placed on 02/23. -Resumed tube feedings at previous settings as recommended by dietary Hypertension Blood pressures under control Continue losartan 50 mg daily diabetes type 2 Insulin sliding scale History of nonbleeding ulcer on upper endoscopy on 02/16 -Continue PPI Pt is ALC VS,Fishbone, I+O VS, Fishbone, I+O Vital Signs Date Time Temp Pulse Resp B/P (MAP) Pulse Ox O2 Delivery O2 Flow Rate FiO2 03/07/21 09:45 144/80 03/07/21 09:44 89 03/07/21 06:00 97.1 19 93 Room Air I&O- Last 24 Hours up to 6 AM 03/07/21 06:00 Intake Total 1530 ml Output Total 0 ml Balance 1530 ml ROMEO JARQUIN DO Mar 07, 2021 16:47
[2021-03-08] MEDS: HumaLOG INSULIN (NovoLOG) PER UNIT SC SCH ×5 (00:06→22:39)
[2021-03-08 06:00] VITALS: BP 130/68
[2021-03-08 06:22] LABS: HEMATOCRIT 36.4 % (42.0-52.0); HEMOGLOBIN 11.6 g/dl (13.5-17.5); MEAN CORPUSCULAR HEMOGLOBIN 29.5 pg (27.0-33.0); MEAN CORPUSCULAR HGB CONC 31.9 g/dl (32.0-36.5); MEAN CORPUSCULAR VOLUME 92.6 fl (80.0-96.0); PLATELET COUNT, AUTOMATED 358 10^3/uL (150-450); RED BLOOD COUNT 3.93 10^6/uL (4.30-6.10)
[2021-03-08 06:45] LABS: BLOOD UREA NITROGEN 16 MG/DL (7-18); CALCIUM LEVEL 9.2 MG/DL (8.8-10.2); CARBON DIOXIDE LEVEL 31 MEQ/L (21-32); CHLORIDE LEVEL 102 MEQ/L (98-107); CREATININE FOR GFR 0.69 MG/DL (0.70-1.30); GLOMERULAR FILTRATION RATE > 60.0 (>42); GLUCOSE, FASTING 169 MG/DL (70-100); POTASSIUM SERUM 4.6 MEQ/L (3.5-5.1); SODIUM LEVEL 138 MEQ/L (136-145)
[2021-03-08] MEDS: DOXAZOSIN MESYLATE 1 MG TAB PO SCH ×2 (08:16→20:56)
[2021-03-08] MEDS: levETIRAcetam ORAL SOLUTION 500 MG/5 ML UDC PEG SCH ×2 (08:16→20:55)
[2021-03-08] MEDS: CLOPIDOGREL 75 MG TAB PO SCH (08:16)
[2021-03-08] MEDS: ASPIRIN 81 MG CHEW TABLET PO SCH (08:16)
[2021-03-08] MEDS: OMEPRAZOLE SUSPENSION 20MG 10ML ORAL SYRINGE PEG SCH (08:16)
[2021-03-08] MEDS: LOSARTAN 50MG TABLET PO SCH (08:17)
[2021-03-08] MEDS: NYSTATIN 100,000 UNITS/GM TOPICAL PWD 15 GM TOP SCH (08:17)
[2021-03-08] MEDS: METOPROLOL TART 12.5 MG PER 1/2 TAB PEG SCH ×2 (08:17→20:55)
[2021-03-08] MEDS ORDERED: HYOSCYAMINE SULFATE 0.125 MG SUBL TABLET PO PRN (19:20)
[2021-03-08] MEDS ORDERED: BISACODYL 10 MG SUPP PR PRN (19:20)
[2021-03-08] MEDS ORDERED: FLEET ENEMA PR PRN (19:20)
[2021-03-08] MEDS ORDERED: ACETAMINOPHEN TAB 650MG DOSE (2X325MG) PO PRN (19:20)
[2021-03-08] MEDS ORDERED: LORazepam 2 MG/ML VIAL IV PRN (19:20)
[2021-03-08] MEDS ORDERED: MORPHINE 2 MG/ML 1ML VIAL (J2270) IV PRN (19:20)
[2021-03-08] MEDS ORDERED: SCOPOLAMINE 1MG TRANSDERMAL PATCH TOP PRN (19:20)
[2021-03-08] MEDS ORDERED: ATROPINE SULFATE 1% OP SOLN 2 ML BTL SL PRN (19:20)
[2021-03-08] MEDS ORDERED: ONDANSETRON 4MG/2ML VIAL IV PRN (19:20)
--- NOTE | 2021-03-08 20:26 | IPNPDOC ---
Date Seen The patient was seen on 03/08/21. Progress Note SUBJECTIVE:No any acute events overnight. Patient pleasantly confused, no fever or chills OBJECTIVE PHYSICAL EXAMINATION: VITAL SIGNS: please see below General: NAD, comfortable HEENT: PERRLA, EOMI, sclerae clear Neck: supple, normal ROM, no JVD Respiratory: lungs CTAB, no wheeze, no rales, no crackles CVS: RRR, normal S1, S2, no murmurs Abdo: soft, no masses, no hepatosplenomegaly, BS+, no rebound tenderness Extremities: no edema, pulses 2+ MSK: no joint deformities, normal ROM Neuro: expressive aphasia and dysarthria. Lifts arms against gravity. 4/5 strength in LUE, RUE. Right side is 5/5 upper and lower extremities. Psych: calm, cooperative, AAO x 1-2 LABORATORY DATA, IMAGING STUDIES, MICROBIOLOGY: Please see below. ASSESSMENT AND PLAN: Patient 75 years old male with past history of CVA was admitted with confusion and slurred speech, patient was found to have another acute ischemic stroke. He was transferred back from acute rehabilitation unit after he pulled out PEG tube . Acute ischemic stroke PT/OT Continue aspirin and Plavix Oropharyngeal dysfunction Secondary to acute stroke -PEG tube placed on 02/16, pulled out by patient -Second PEG tube placed on 02/19, this one was also pulled out perhaps by rolling over in bed or getting caught on something -Third PEG tube placed on 02/23. -Resumed tube feedings at previous settings as recommended by dietary Hypertension Blood pressures under control Continue losartan 50 mg daily diabetes type 2 Insulin sliding scale History of nonbleeding ulcer on upper endoscopy on 02/16 -Continue PPI GOC: I had a detailed and extensive conversation with patient's , Margi Stanton regarding goals of care.. Due to patient's frequent admissions with a history of extensive CVAs with debility, family made decision to proceed with [employer] status and have requested a hospice referral. Plan is for inpatient hospice. MOLST form signed and witnessed. VS, I&O, 24H, Fishbone Vital Signs/I&O Vital Signs Date Time Temp Pulse Resp B/P (MAP) Pulse Ox O2 Delivery O2 Flow Rate FiO2 03/08/21 08:17 143/79 03/08/21 08:17 90 03/08/21 06:00 98.0 20 93 03/07/21 06:00 Room Air I&O- Last 24 Hours up to 6 AM 03/08/21 06:00 Intake Total 1440 ml Output Total 0 ml Balance 1440 ml Laboratory Data 24H LABS Laboratory Tests 2 03/07/21 23:59: Bedside Glucose (Misc Panel) 167H 03/08/21 05:31: Bedside Glucose (Misc Panel) 160H 03/08/21 06:02: Nucleated Red Blood Cells % (auto) 0.0, Anion Gap 5L, Glomerular Filtration Rate > 60.0, Calcium Level 9.2 03/08/21 11:53: Bedside Glucose (Misc Panel) 179H 03/08/21 17:24: Bedside Glucose (Misc Panel) 156H CBC/BMP Laboratory Tests 03/08/21 06:02 ROBERT GALLEGOS MD Mar 08, 2021 20:26
[2021-03-09] MEDS: NYSTATIN 100,000 UNITS/GM TOPICAL PWD 15 GM TOP SCH ×3 (00:39→21:29)
[2021-03-09] MEDS: HumaLOG INSULIN (NovoLOG) PER UNIT SC SCH ×4 (06:00→23:59)
[2021-03-09] MEDS: levETIRAcetam ORAL SOLUTION 500 MG/5 ML UDC PEG SCH ×2 (10:11→21:26)
[2021-03-09] MEDS: DOXAZOSIN MESYLATE 1 MG TAB PO SCH ×2 (10:11→21:26)
[2021-03-09] MEDS: LOSARTAN 50MG TABLET PO SCH (10:12)
[2021-03-09] MEDS: CLOPIDOGREL 75 MG TAB PO SCH (10:12)
[2021-03-09] MEDS: METOPROLOL TART 12.5 MG PER 1/2 TAB PEG SCH ×2 (10:12→21:27)
[2021-03-09] MEDS: ASPIRIN 81 MG CHEW TABLET PO SCH (10:12)
[2021-03-09] MEDS: OMEPRAZOLE SUSPENSION 20MG 10ML ORAL SYRINGE PEG SCH (10:13)
[2021-03-09 14:00] VITALS: BP 151/68
[2021-03-09 22:00] VITALS: BP 154/65
[2021-03-10 06:00] VITALS: BP 118/66
[2021-03-10] MEDS: HumaLOG INSULIN (NovoLOG) PER UNIT SC SCH ×3 (06:42→18:24)
[2021-03-10] MEDS: levETIRAcetam ORAL SOLUTION 500 MG/5 ML UDC PEG SCH ×2 (09:28→21:32)
[2021-03-10] MEDS: NYSTATIN 100,000 UNITS/GM TOPICAL PWD 15 GM TOP SCH ×2 (09:29→21:34)
[2021-03-10] MEDS: ASPIRIN 81 MG CHEW TABLET PO SCH (09:29)
[2021-03-10] MEDS: CLOPIDOGREL 75 MG TAB PO SCH (09:29)
[2021-03-10] MEDS: OMEPRAZOLE SUSPENSION 20MG 10ML ORAL SYRINGE PEG SCH (09:29)
[2021-03-10] MEDS: DOXAZOSIN MESYLATE 1 MG TAB PO SCH ×2 (09:37→21:33)
[2021-03-10] MEDS: METOPROLOL TART 12.5 MG PER 1/2 TAB PEG SCH ×2 (09:38→21:33)
[2021-03-10] MEDS: LOSARTAN 50MG TABLET PO SCH (09:38)
[2021-03-10 14:00] VITALS: BP 145/70
[2021-03-10 22:00] VITALS: BP 139/76
[2021-03-11] MEDS: HumaLOG INSULIN (NovoLOG) PER UNIT SC SCH ×5 (00:37→23:42)
[2021-03-11 06:00] VITALS: BP 131/76
[2021-03-11] MEDS: OMEPRAZOLE SUSPENSION 20MG 10ML ORAL SYRINGE PEG SCH (08:21)
[2021-03-11] MEDS: NYSTATIN 100,000 UNITS/GM TOPICAL PWD 15 GM TOP SCH ×2 (08:21→20:39)
[2021-03-11] MEDS: levETIRAcetam ORAL SOLUTION 500 MG/5 ML UDC PEG SCH ×2 (08:21→20:38)
[2021-03-11] MEDS: CLOPIDOGREL 75 MG TAB PO SCH (08:22)
[2021-03-11] MEDS: METOPROLOL TART 12.5 MG PER 1/2 TAB PEG SCH ×2 (08:22→20:38)
[2021-03-11] MEDS: LOSARTAN 50MG TABLET PO SCH (08:22)
[2021-03-11] MEDS: ASPIRIN 81 MG CHEW TABLET PO SCH (08:22)
[2021-03-11] MEDS: DOXAZOSIN MESYLATE 1 MG TAB PO SCH ×2 (08:22→20:39)
[2021-03-11 14:00] VITALS: BP 143/74
[2021-03-11] MEDS: PERCOCET 5MG/325MG TAB PO PRN (20:39)
[2021-03-12] MEDS: HumaLOG INSULIN (NovoLOG) PER UNIT SC SCH ×3 (05:56→17:55)
[2021-03-12 06:00] VITALS: BP 161/75
[2021-03-12] MEDS: ASPIRIN 81 MG CHEW TABLET PO SCH (09:42)
[2021-03-12] MEDS: OMEPRAZOLE SUSPENSION 20MG 10ML ORAL SYRINGE PEG SCH (09:42)
[2021-03-12] MEDS: levETIRAcetam ORAL SOLUTION 500 MG/5 ML UDC PEG SCH ×2 (09:42→20:42)
[2021-03-12] MEDS: DOXAZOSIN MESYLATE 1 MG TAB PO SCH ×2 (09:42→20:42)
[2021-03-12] MEDS: CLOPIDOGREL 75 MG TAB PO SCH (09:42)
[2021-03-12] MEDS: LOSARTAN 50MG TABLET PO SCH (09:42)
[2021-03-12] MEDS: METOPROLOL TART 12.5 MG PER 1/2 TAB PEG SCH ×2 (09:42→20:42)
[2021-03-12] MEDS: NYSTATIN 100,000 UNITS/GM TOPICAL PWD 15 GM TOP SCH ×2 (09:43→20:42)
[2021-03-12 14:00] VITALS: BP 117/74
[2021-03-12] MEDS: PERCOCET 5MG/325MG TAB PO PRN (20:40)
[2021-03-12] MEDS: LORazepam 1 MG TAB PEG PRN ×2 (20:42→22:59)
[2021-03-13] MEDS: LORazepam 1 MG TAB PEG PRN ×4 (04:26→23:15)
[2021-03-13] MEDS: PERCOCET 5MG/325MG TAB PO PRN ×2 (04:26→20:26)
[2021-03-13] MEDS: HumaLOG INSULIN (NovoLOG) PER UNIT SC SCH ×5 (05:51→23:55)
[2021-03-13] MEDS: ASPIRIN 81 MG CHEW TABLET PO SCH (08:43)
[2021-03-13] MEDS: METOPROLOL TART 12.5 MG PER 1/2 TAB PEG SCH ×2 (08:43→20:25)
[2021-03-13] MEDS: levETIRAcetam ORAL SOLUTION 500 MG/5 ML UDC PEG SCH ×2 (08:43→20:25)
[2021-03-13] MEDS: DOXAZOSIN MESYLATE 1 MG TAB PO SCH ×2 (08:43→20:25)
[2021-03-13] MEDS: CLOPIDOGREL 75 MG TAB PO SCH (08:44)
[2021-03-13] MEDS: OMEPRAZOLE SUSPENSION 20MG 10ML ORAL SYRINGE PEG SCH (08:44)
[2021-03-13] MEDS: NYSTATIN 100,000 UNITS/GM TOPICAL PWD 15 GM TOP SCH ×2 (08:44→20:26)
[2021-03-13] MEDS: LOSARTAN 50MG TABLET PO SCH (08:44)
[2021-03-14] MEDS: HumaLOG INSULIN (NovoLOG) PER UNIT SC SCH (06:00)
[2021-03-14] MEDS: levETIRAcetam ORAL SOLUTION 500 MG/5 ML UDC PEG SCH ×2 (08:29→20:24)
[2021-03-14] MEDS: METOPROLOL TART 12.5 MG PER 1/2 TAB PEG SCH ×2 (08:30→20:25)
[2021-03-14] MEDS: ASPIRIN 81 MG CHEW TABLET PO SCH (08:30)
[2021-03-14] MEDS: LOSARTAN 50MG TABLET PO SCH (08:30)
[2021-03-14] MEDS: DOXAZOSIN MESYLATE 1 MG TAB PO SCH ×2 (08:31→20:24)
[2021-03-14] MEDS: LORazepam 1 MG TAB PEG PRN ×2 (08:31→15:45)
[2021-03-14] MEDS: CLOPIDOGREL 75 MG TAB PO SCH (08:31)
[2021-03-14] MEDS: SALIVA SUBSTITUTE(MOUTHKOTE) BTL MT PRN (08:31)
[2021-03-14] MEDS: NYSTATIN 100,000 UNITS/GM TOPICAL PWD 15 GM TOP SCH ×2 (08:32→20:25)
[2021-03-14] MEDS: OMEPRAZOLE SUSPENSION 20MG 10ML ORAL SYRINGE PEG SCH (11:11)
[2021-03-14] MEDS: PERCOCET 5MG/325MG TAB PO PRN (11:12)
[2021-03-15] MEDS: LORazepam 1 MG TAB PEG PRN ×3 (00:57→20:04)
[2021-03-15 07:52] VITALS: BP 131/75
[2021-03-15] MEDS: DOXAZOSIN MESYLATE 1 MG TAB PO SCH ×2 (08:44→20:05)
[2021-03-15] MEDS: levETIRAcetam ORAL SOLUTION 500 MG/5 ML UDC PEG SCH ×2 (08:44→20:04)
[2021-03-15] MEDS: ASPIRIN 81 MG CHEW TABLET PO SCH (08:45)
[2021-03-15] MEDS: LOSARTAN 50MG TABLET PO SCH (08:45)
[2021-03-15] MEDS: METOPROLOL TART 12.5 MG PER 1/2 TAB PEG SCH ×2 (08:45→20:05)
[2021-03-15] MEDS: NYSTATIN 100,000 UNITS/GM TOPICAL PWD 15 GM TOP SCH ×2 (08:46→20:05)
[2021-03-15] MEDS: CLOPIDOGREL 75 MG TAB PO SCH (08:46)
[2021-03-15] MEDS: OMEPRAZOLE SUSPENSION 20MG 10ML ORAL SYRINGE PEG SCH (08:46)
[2021-03-15] MEDS ORDERED: HYOS125TA PEG (11:33)
[2021-03-15] MEDS ORDERED: ATIV1TAB10 PEG (11:33)
[2021-03-15] MEDS ORDERED: METO25TA4 PEG (11:33)
[2021-03-15] MEDS ORDERED: CARD1TAB4 PO (11:33)
[2021-03-15] MEDS ORDERED: MORP20SO3 PEG (11:33)
[2021-03-15] MEDS ORDERED: NYST10006 TOP (11:33)
[2021-03-15] MEDS ORDERED: Omeprazole Suspension PEG ×2 (11:33→11:36)
[2021-03-15] MEDS ORDERED: LEVE15SO2 PEG (11:33)
[2021-03-15] MEDS ORDERED: BISA10SU PR (11:33)
[2021-03-15 14:00] VITALS: BP 133/76
[2021-03-16] MEDS: levETIRAcetam ORAL SOLUTION 500 MG/5 ML UDC PEG SCH (09:57)
[2021-03-16] MEDS: NYSTATIN 100,000 UNITS/GM TOPICAL PWD 15 GM TOP SCH (09:57)
[2021-03-16] MEDS: ASPIRIN 81 MG CHEW TABLET PO SCH (09:58)
[2021-03-16] MEDS: OMEPRAZOLE SUSPENSION 20MG 10ML ORAL SYRINGE PEG SCH (09:58)
[2021-03-16] MEDS: CLOPIDOGREL 75 MG TAB PO SCH (09:58)
[2021-03-16] MEDS: LOSARTAN 50MG TABLET PO SCH (10:00)
[2021-03-16 10:01] VITALS: BP 136/79
[2021-03-16] MEDS: DOXAZOSIN MESYLATE 1 MG TAB PO SCH (10:01)
[2021-03-16] MEDS: METOPROLOL TART 12.5 MG PER 1/2 TAB PEG SCH (10:01)
--- NOTE | 2021-03-19 16:37 | DS.PDOC ---
Discharge Summary General Date of Admission February 14, 2021 at 14:10 Date of Discharge 03/16/21 Discharge Summary PROCEDURES PERFORMED DURING STAY: PEG tube placement 4 times DISCHARGE DIAGNOSES: Acute ischemic stroke with hemorrhagic transformation dysphagia has PEG tube in place Dysarthria Debility Multiple intra cranial artery occlusions. 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 HOSPITAL COURSE: 75 year old male who presented to [facility] ED on 01-25-21 with difficulty walking, right sided paresis, confusion, and dysarthria. CTH did not show acute bleed, but MRI showed, Acute nonhemorrhagic small vessel infarct involving the posterosuperior right basal ganglia and adjacent centrum semiovale white matter measuring 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 Severe right vertebral artery stenosis with distal occlusionFoci of severe right MCA M2 and M3 stenosisModerate left MCA M1 s tenosis. Neck CTA showed, 70% stenosis at the proximal aspect of the left cervical ICA. Neurology was consulted stroke and findings of vascular occlusions who recommended adding Plavix to his ASA regimen and increasing his statin dosing. He was noted to have significant dysphagia requiring puree consistency solids, elevated BPs, and mobility and ADl impairments below his prior level of function and deemed medically appropriate for discharge to ARU on 01-27-21. Patient's dysphagia was very bad so had percutaneous gastrostomy tube placement on 02/03/21. Patient also noted to have functional decline while at ARU so repeat MRI was done on 02/07/21 this showed New Acute right rodriguez radiata infarct 1 cm x 2 cm. While at ARU patient pulled out his feeding tube on 02/14/21 , no medications could be administered. Blood pressure became uncontrolled so patient was transferred back to inpatient medicine for IV blood pressure medications, IV antiepileptic medications, while awaiting another feeding tube placement by general surgery. Repeat CT of the head during transfer showed hemorrhagic transformation. Patient had previously been on aspirin, plavix and xarelto. Xarelto was discontinued and patient kept only on aspirin and plavix. He pulled out his PEG tube several times during the hospitalization needing it to the placed back 4 times. 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 ultimately zuleika was discharged home with home hospice set up. SUPERANNUATION CLERK morphine, ativan, hyoscyamine. Acute ischemic stroke x 2 during this hospitalization with hemorrhagic conversion/ dysphagia/dysarthria continue ASA, plavix Keppra for seizure prophylaxis. tube feeding Oropharyngeal dysfunction Secondary to acute stroke First PEG tube placed on 02/03/21, patient pulled it out. Second one PEG tube placed on 02/16 again pulled out by patient.Third PEG tube placed on 02/19, this one was also got displaced perhaps by rolling over in bed or getting caught on something A fourth PEG tube was placed on 02/23. continue tube feedings as directed Hypertension Blood pressures under control Continue losartan 50 mg daily, metoprolol dose reduced diabetes type 2 not on any meds History of nonbleeding ulcer on upper endoscopy on 02/16 liquid omeprazole BPH Doxazocin. DISCHARGE MEDICATIONS: Please see below. ALLERGIES: Please see below. PHYSICAL EXAMINATION ON DISCHARGE: VITAL SIGNS: Please see below. GENERAL: awake, dydarthric, follows commands. HEENT: Normocephalic atraumatic NECK: supple. CARDIOVASCULAR EXAMINATION: si, s2 regular RESPIRATORY EXAMINATION: anteriorly clear to auscultation ABDOMINAL EXAMINATION: Obese, soft, nontender LABORATORY DATA: Please see below. DISPOSITION: [facility]osp[facility] Home. DISCHARGE INSTRUCTIONS: Follow up with Hospice DISCHARGE CONDITION: [Stable]. TIME SPENT ON DISCHARGE: 35 minutes. Vital Signs/I&Os Vital Signs Date Time Temp Pulse Resp B/P (MAP) Pulse Ox O2 Delivery O2 Flow Rate FiO2 03/16/21 10:01 136/79 03/16/21 10:01 81 03/15/21 14:00 98.4 16 94 Room Air Discharge Medications Scheduled Aspirin (Aspirin EC) 81 Mg Tablet.dr, 81 MG PO DAILY Clopidogrel Bisulfate (Plavix) 75 Mg Tab, 75 MG PO DAILY, (Reported) Doxazosin Mesylate (Cardura) 1 Mg Tablet, 1 MG PO BID Levetiracetam (Levetiracetam) 500 Mg/5 Ml Solution, 500 MG PEG BID Losartan Potassium (Losartan Potassium) 50 Mg Tab, 50 MG PO DAILY, (Reported) Metoprolol Tartrate (Metoprolol Tartrate) 25 Mg Tab, 12.5 MG PEG BID Nystatin (Nystop) 60 Gm Powder, 0 DOSE TOP BID [Omeprazole Suspension] 20 MG/10 ML AYLEEN, 40 MG PEG DAILY Scheduled PRN Bisacodyl (Bisacodyl) 10 Mg Supp.rect, 10 MG NE Q24HP PRN for CONSTIPATION Hyoscyamine Sulfate (Hyoscyamine Sulfate) 0.125 Mg Tab.subl, 0.125 MG PEG Q4HP PRN for TERMINAL SECRETIONS Use sublingually if unable to swallow Lorazepam (Ativan) 0.5 Mg Tablet, 0.5 MG PEG Q4HP PRN for ANXIETY/AGITATION Use sublingually if unable to swallow Morphine Sulfate (Morphine Sulfate) 100 Mg/5 Ml Solution, 0.25-1 ML PEG Q2H PRN for PAIN OR DYSPNEA Use sublingually if unable to swallow Allergies Coded Allergies: No Known Allergies (Verified , 09/22/19) SHANICE VARGAS MD Mar 19, 2021 15:24
== END 2021-03-16 12:28 | disposition hospice, home (50) | DRG 394 ==
LOC: M PCU 14:10 → M MSPAV 02-25 14:59
PROVIDERS: ADMIT General Practice; ATTEND Internal Medicine Nephrology
PROC: 0DH68UZ Insertion of Feeding Device into Stomach, Via Natural or Artificial Opening Endoscopic (ICD-10-PCS; principal; 2021-02-16 14:00)
PROC: 0DH64UZ Insertion of Feeding Device into Stomach, Percutaneous Endoscopic Approach (ICD-10-PCS; 2021-02-23)
DX: Z43.1 Encounter for attention to gastrostomy (principal); G81.91 Hemiplegia, unspecified affecting right dominant side; R41.4 Neurologic neglect syndrome; R47.01 Aphasia; N39.0 Urinary tract infection, site not specified; Z86.73 Personal history of transient ischemic attack (TIA), and cerebral infarction without residual deficits; E11.9 Type 2 diabetes mellitus without complications; E03.9 Hypothyroidism, unspecified; K21.9 Gastro-esophageal reflux disease without esophagitis; R26.89 Other abnormalities of gait and mobility; R41.0 Disorientation, unspecified; R47.81 Slurred speech; E78.5 Hyperlipidemia, unspecified; I65.01 Occlusion and stenosis of right vertebral artery; I65.22 Occlusion and stenosis of left carotid artery; I10 Essential (primary) hypertension; N40.0 Benign prostatic hyperplasia without lower urinary tract symptoms; Z79.899 Other long term (current) drug therapy; Z79.82 Long term (current) use of aspirin; Z79.01 Long term (current) use of anticoagulants; Z96.0 Presence of urogenital implants; Z90.49 Acquired absence of other specified parts of digestive tract; G40.909 Epilepsy, unspecified, not intractable, without status epilepticus; R13.10 Dysphagia, unspecified; Z66 Do not resuscitate; Z20.822 Contact with and (suspected) exposure to COVID-19; K25.9 Gastric ulcer, unspecified as acute or chronic, without hemorrhage or perforation; D72.829 Elevated white blood cell count, unspecified; Z51.5 Encounter for palliative care